=== PATIENT | female | born 1940 | race Caucasian/White ===

== ENCOUNTER 2019-10-27 08:26 | Outpatient (CLI) | payer MEDICARE, SELFPAY ==
--- NOTE | ~2019-10-27 | US_ITS ---
EXAMINATION: US pelvic complete DATE: 10/27/2019 15:30 INDICATION: Pelvic pain Comparison:No prior studies for comparison. TECHNIQUE: Multiple transabdominal and endovaginal sonographic images of the pelvis performed. FINDINGS: The uterus measures 5.4 x 2 x 3.1 cm. The endometrial complex measures 3.8 mm. The ovaries are not visualized. No adnexal masses or fluid collections. There is no free fluid in the pelvis. There are no abnormal masses seen on either side. IMPRESSION: 1. Mildly thickened endometrium for postmenopausal female measuring 3.8 mm. Reviewed, dictated and finalized at location A.
--- NOTE | ~2019-10-27 | US_ITS ---
EXAMINATION: US renal BI EXAM DATE: 10/27/2019 14:52 INDICATION: Right lower quadrant pain. TECHNIQUE: Multiple grayscale and Doppler images of the kidneys were obtained (by a technologist who performed the scan) and subsequently reviewed. Comparison is made to prior examination from 01/22/2017. FINDINGS: Right kidney: There is normal contour and echogenicity. It measures 9.9 x 3.5 x 4.2 centimeters. Th ere are no focal renal lesions identified. There is no hydronephrosis. Left kidney: There is normal contour and echogenicity. It measures 11.4 x 4.6 x 4.7 centimeters. Th ere are no focal renal lesions identified. There is no hydronephrosis. Bladder unremarkable. IMPRESSION: Sonographically unremarkable kidneys. Reviewed, dictated and finalized at location B.
== END 2019-10-27 08:27 | disposition home or self-care (01) ==
PROVIDERS: PCP Nurse Practitioner Family; Visit Provider Nurse Practitioner Family
DX: R10.9 Unspecified abdominal pain (principal); R10.31 Right lower quadrant pain
CPT/HCPCS: 76775; 76856

== ENCOUNTER 2019-10-31 14:37 | Outpatient (CLI) | payer MEDICARE, SELFPAY ==
[2019-10-31 15:41] LABS: Anion Gap 9.6 mmol/L (7-16); Blood Urea Nitrogen 19 mg/dL (7-18); Calcium 9.2 mg/dL (8.5-10.1); Carbon Dioxide 32 mmol/L (21-32); Chloride 102 mmol/L (98-108); Estimated Glomerular Filt Rate > 60; Glucose 96 mg/dL (70-99); Osmolality Calculated 290 mOsm/kg (285-295); Potassium 4.6 mmol/L (3.5-5.1); Sodium 139 mmol/L (136-145)
== END 2019-10-31 14:38 | disposition home or self-care (01) ==
LOC: CHSLAB 14:40
PROVIDERS: PCP Nurse Practitioner Family; Visit Provider Nurse Practitioner Family
DX: R10.31 Right lower quadrant pain (principal)
CPT/HCPCS: 36415; 80048

== ENCOUNTER 2019-11-02 07:47 | Outpatient (CLI) | payer MEDICARE, SELFPAY ==
--- NOTE | ~2019-11-02 | CT_ITS ---
EXAMINATION: CT abdomen pelvis w con DATE: 11/02/2019 08:45 INDICATION: Right lower quadrant abdominal pain TECHNIQUE: Computed tomography (CT) of the abdomen and pelvis was performed with 100 cc Omnipaque 350 intravenous contrast. Automated exposure control and iterative reconstruction technique were employe d. Exam dose: 286.15 mGy-cm total exam DLP. COMPARISON: None. FINDINGS: There is a very small probable hepatic cyst, too small to definitively characterize. Othe rwise the liver, spleen, pancreas, adrenal glands and kidneys are unremarkable. The gallbladder appe ars unremarkable. No bile or pancreatic duct dilatation. Normal caliber of the abdominal aorta, with atherosclerotic calcification. No intraperitoneal or retroperitoneal or pelvic mass lesion or lymphadenopathy is detected. There is no evidence of appendicitis. There is a prominent amount of feces in the colon. No bowel o bstruction or intraperitoneal free air. There is diffuse prominence of the urinary bladder wall; cystitis cannot be excluded. Clinical corre lation is recommended. The uterus and adnexal areas are unremarkable. There is multi-level degenerative disc disease of the lumbar spine, most prominent at L3-4. Degenera tive changes at the apophyseal joints. Osteoarthritic changes at the hip joints. IMPRESSION: Very small probable hepatic cyst No evidence of appendicitis Reviewed, dictated and finalized at Location A. Reviewed, dictated and finalized at location B.
== END 2019-11-02 07:48 | disposition home or self-care (01) ==
LOC: CHSIMG 07:50
PROVIDERS: PCP Nurse Practitioner Family; Visit Provider Nurse Practitioner Family
DX: R10.31 Right lower quadrant pain (principal)
CPT/HCPCS: 74177; Q9965

== ENCOUNTER 2020-02-12 19:49 | Emergency (ER) | payer MEDICARE, SELFPAY ==
[2020-02-12 20:15] VITALS: BP 163/100; PULSE 117; RESP 20; TEMP 36.9; O2SAT 95
[2020-02-12] MEDS: ONDANSETRON HCL ODT 4 MG TABLET PO (20:32)
[2020-02-12 20:47] LABS: Hematocrit 39.7 % (35.0-42.0); Hemoglobin 13.2 g/dL (11.7-13.8); Mean Corpuscular HGB Conc 33.2 g/dL (32.0-36.0); Mean Corpuscular Hemoglobin 29.7 pg (27.0-31.0); Mean Corpuscular Volume 89.2 fL (78.0-102.0); Mean Platelet Volume 9.9 fl (9.2-11.8); Platelet Count Result 189 K/mm3 (150-420); Red Blood Count 4.45 M/mm3 (4.20-5.40); Red Cell Distribution Width 12.4 % (11.6-14.4); White Blood Count 10.2 K/mm3 (4.8-10.8)
[2020-02-12 20:49] LABS: Add Urine Microscopic? NO; Appearance Urine Clear (Clear); Bilirubin Urine Negative (Negative); Blood Urine Negative (Negative); Color Urine Yellow (Yellow); Glucose Urine UA Negative (Negative); Ketones Urine Negative (Negative); Leukocyte Esterase Ur Negative (Negative); Nitrate Urine Negative (Negative); Protein Urine Negative (Negative); Specific Grav Ur 1.015 (1.010-1.020); Urobilinogen Urine 0.2 mg/dL (0.2-1.0); pH Urine 6.5 (5.0-8.0)
[2020-02-12 21:10] LABS: Alanine Aminotransferase 25 U/L (14-59); Albumin Level 3.6 g/dL (3.4-5.0); Alkaline Phosphatase 61 U/L (46-116); Anion Gap 10.9 mmol/L (7-16); Aspartate Amino Transferase 26 U/L (15-37); Bilirubin,Total 0.5 mg/dL (0.00-1.00); Blood Urea Nitrogen 16 mg/dL (7-18); Carbon Dioxide 30 mmol/L (21-32); Chloride 96 mmol/L (98-108); Estimated Glomerular Filt Rate > 60; Glucose 123 mg/dL (70-99); Osmolality Calculated 278 mOsm/kg (285-295); Potassium 3.9 mmol/L (3.5-5.1); Sodium 133 mmol/L (136-145)
--- NOTE | 2020-02-12 21:43 | ED.ABDPAIN ---
HPI - Abdominal Pain General Chief Complaint: Abdominal Pain Stated Complaint: stomach pain and nausea Source: patient Mode of arrival: ambulatory Limitations: no limitations History of Present Illness HPI narrative: this is an 79-year-old female presents with some abdominal pain mainly located in the [place] epigastric area with some nausea has been going off and on and had some Pepcid at home and took her medication. Patient has some chronic lower abdominal pain but this is different in nature as it is more epigastric and burning sensation, there is no dysuria no fever chills does have nausea with no vomiting no diarrhea constipation no chest pain or shortness of breath. MD elicited complaint: abdominal pain Onset (ago): hour(s) Pain Consistency: intermittent Location: epigastric Severity: moderate Pain scale (0-10): 4 Quality: burning Radiation: none Migration to: epigastric Exacerbating factors: eating Relieving factors: nothing Associated symptoms: nausea Related Data Home Medications Medication Instructions Recorded Confirmed anastrozole 1 mg tablet 1 mg PO DAILY 08/08/19 02/12/20 calcium carbonate-vitamin D3 600 1 cap PO DAILY cap 08/08/19 02/12/20 mg calcium-200 unit capsule lorazepam 0.5 mg tablet 0.5 mg PO .every 8 hours PRN 08/08/19 02/12/20 tablet magnesium oxide 400 mg PO DAILY 08/08/19 02/12/20 metoprolol tartrate 25 mg tablet 25 mg PO BID tablet 08/08/19 02/12/20 mhuhatoq-morurpq-bvok-lutein 1 mcg PO DAILY tablet 08/08/19 02/12/20 omega-3 fatty acids 1,000 mg 1,000 mg PO DAILY 08/08/19 02/12/20 capsule Allergies Allergy/AdvReac Type Severity Reaction Status Date / Time Sulfamethoxazole Allergy Unknown unkown Uncoded 02/07/20 11:00 Review of Systems Review of Systems: All systems reviewed & are unremarkable except as noted in HPI and below PMFSH Past Medical History Medical History Benign essential HTN Breast cancer Cardiac arrhythmia GARRETT (generalized anxiety disorder) Hyperlipidemia Nicotine dependence in remission Osteopenia Paroxysmal supraventricular tachycardia Skin cancer s/p surgical resection Surgical History Surgical History History of appendectomy History of lung biopsy (~08/2018) Left Family History Family History Mother Familial Alzheimer's disease of late onset Social History Social History Smoking status: Never smoker Alcohol intake: never Substance use: never Additional living arrangements comments: Gender identity (if verbalized by the patient): Female Spiritual care concerns: No Exam Const: General: no acute distress and alert Orientation/consciousness: patient oriented x3 HENMT: Head: normal to inspection Eyes: Conjunctivae: conjunctivae normal Pupils: Equal, round and reactive pupils present EOM: EOMs intact bilaterally Neck: Neck: normal visual inspection, no lymphadenopathy and no meningeal signs Chest: Chest palpation & inspection: normal inspection of the chest Resp: Effort & Inspection: normal respiratory effort Auscultation: clear to auscultation bilaterally Cardio: Rate: regular rate Rhythm: regular rhythm GI: GI Palp: Yes Soft to palpation and Yes Tenderness to palpation present (GI) ( Epigastric) Percussion: Yes normal to percussion : General: Yes no CVA tenderness Urinary Catheter: Urinary Catheter: patent and draining Back/Spine/Pelvis: Back: no CVA tenderness Neuro: General: patient oriented x3 Extrem: General: normal to inspection Psych: Mental Status: mental status grossly normal Course Course Emergency Course: patient received a GI cocktail and Zofran and the patient's symptoms have nearly resolved, patient has Pepcid at home and advised her at discharge when s
[2020-02-12 21:51] VITALS: BP 148/97; PULSE 89; RESP 18; TEMP 36.9; O2SAT 95
== END 2020-02-12 21:55 | disposition home or self-care (01) ==
PROVIDERS: Emergency Provider Emergency Medicine; PCP Nurse Practitioner Family
DX: K21.9 Gastro-esophageal reflux disease without esophagitis (principal); I10 Essential (primary) hypertension; Z85.3 Personal history of malignant neoplasm of breast; E78.5 Hyperlipidemia, unspecified
CPT/HCPCS: 36415; 80053; 81003; 85027; 99282; 99283; A9270

== ENCOUNTER 2020-07-05 09:22 | Outpatient (CLI) | payer MEDICARE, SELFPAY ==
[2020-07-06 06:44] LABS: SARS-CoV-2 RNA PCR Negative
== END 2020-07-05 09:23 | disposition home or self-care (01) ==
LOC: CHSLAB 09:24
PROVIDERS: PCP Nurse Practitioner Family; Visit Provider Nurse Practitioner Family
DX: Z20.828 Contact with and (suspected) exposure to other viral communicable diseases (principal)
CPT/HCPCS: 87635; C9803; U0003

== ENCOUNTER 2020-09-06 17:26 | Emergency (ER) | payer MEDICARE, SELFPAY ==
--- NOTE | ~2020-09-06 | XR_ITS ---
EXAMINATION: XR chest 2V DATE: 09/06/2020 18:25 INDICATION: Left sided chest pain TECHNIQUE: PA and lateral views of the chest are obtained. COMPARISON: 10/02/2018 FINDINGS: The lungs are hyperinflated but free of acute opacities. There is no pleural effusion or pn eumothorax. Cardiomegaly is noted. There is mild thoracic spondylosis. IMPRESSION: 1. No acute cardiopulmonary abnormality. Reviewed, dictated and finalized at location A. [employer]
--- NOTE | 2020-09-06 17:45 | ECG_ITS ---
Measurements Intervals [place] Rate: 104 P: 246 DE: 236 QRS: -29 QRSD: 91 T: 67 QT: 354 QTc: 466 Interpretive Statements ECTOPIC ATRIAL TACHYCARDIA LEFT VENTRICULAR HYPERTROPHY AND ST-T CHANGE CANNOT RULE OUT SEPTAL INFARCT, AGE INDETERMINATE ABNORMAL ECG Electronically Signed On 09-07-2020 8:35:01 [employer]IM INSTALLER by John Ray D.O.
[2020-09-06 18:05] VITALS: BP 168/104; PULSE 108; RESP 20; TEMP 36.7; O2SAT 100
[2020-09-06 18:19] LABS: Basophils Absolute Auto 0.04 K/mm3 (0.00-0.10); Basophils Percent Auto 0.6 % (0.0-1.0); Eosinophils Absolute Auto 0.18 K/mm3 (0.02-0.50); Eosinophils Percent Auto 2.8 % (1.0-6.0); Hematocrit 40.6 % (35.0-42.0); Hemoglobin 12.9 g/dL (11.7-13.8); Immature Granulocyte Absolute 0.01 K/mm3 (0.00-0.00); Immature Granulocyte Percent A 0.2 % (0.0-0.0); Lymphocytes Absolute Auto 2.07 K/mm3 (1.10-4.50); Lymphocytes Percent Auto 32.6 % (18.0-42.0); Mean Corpuscular HGB Conc 31.8 g/dL (32.0-36.0); Mean Corpuscular Hemoglobin 28.5 pg (27.0-31.0); Mean Corpuscular Volume 89.6 fL (78.0-102.0); Mean Platelet Volume 9.8 fl (9.2-11.8); Monocytes Absolute Auto 0.73 K/mm3 (0.10-0.90); Monocytes Percent Auto 11.5 % (2.0-11.0); Neutrophils Absolute Auto 3.3 K/mm3 (1.7-7.2); Neutrophils Percent Auto 52.3 % (50.0-70.0); Platelet Count Result 207 K/mm3 (150-420); Red Blood Count 4.53 M/mm3 (4.20-5.40); Red Cell Distribution Width 12.5 % (11.6-14.4); White Blood Count 6.3 K/mm3 (4.8-10.8)
[2020-09-06] MEDS: MAG HYDROX/ALUMINUM HYD/SIMETH 30 ML, PHENobarb/HYOSCY/ATROPINE/SCOP 32.4 MG, LIDOCAINE... PO (18:32)
[2020-09-06 18:35] LABS: Alanine Aminotransferase 31 U/L (14-59); Albumin Level 4.1 g/dL (3.4-5.0); Alkaline Phosphatase 75 U/L (46-116); Anion Gap 9 mmol/L (8-16); Aspartate Amino Transferase 25 U/L (15-37); Bilirubin,Total 0.3 mg/dL (0.00-1.00); Blood Urea Nitrogen 22 mg/dL (7-18); Calcium 8.9 mg/dL (8.5-10.1); Carbon Dioxide 29 mmol/L (21-32); Chloride 98 mmol/L (98-108); Estimated Glomerular Filt Rate 59; Glucose 119 mg/dL (70-99); Lipase 132 U/L (73-393); Osmolality Calculated 286 mOsm/kg (285-295); Potassium 3.7 mmol/L (3.5-5.1); Sodium 136 mmol/L (136-145); Total Protein 7.3 g/dL (6.4-8.2)
[2020-09-06 18:38] LABS: Add Urine Microscopic? NO; Appearance Urine Clear (Clear); Bilirubin Urine Negative (Negative); Blood Urine Negative (Negative); Color Urine Yellow (Yellow); Glucose Urine UA Negative (Negative); Ketones Urine Negative (Negative); Leukocyte Esterase Ur Negative LEU/UL (Negative); Nitrate Urine Negative (Negative); Protein Urine Negative (Negative); Specific Grav Ur 1.015 (1.010-1.020); Urobilinogen Urine 0.2 mg/dL (0.2-1.0)
[2020-09-06 18:48] LABS: BNP 115 pg/mL (0-100)
[2020-09-06 18:55] LABS: Partial Thromboplastin Time 28.2 SEC (23.90-30.70); Prothrombin Time 11.5 Seconds (9.50-12.10)
[2020-09-06] MEDS: SODIUM CHLORIDE 0.9% IV 1,000 ML 999 ML IV CONT (19:10)
--- NOTE | 2020-09-06 19:11 | ED.CHESTPAIN ---
HPI - Chest Pain General Chief Complaint: Chest Pain Stated Complaint: chest pain Source: patient Mode of arrival: ambulatory Limitations: no limitations History of Present Illness HPI narrative: this is an 79-year-old female that presents with chest tightness left chest area reproducible, has been off and on for the last 5 days and today has been more persistent, there is no associated shortness of breath no radiation of her pain no diaphoresis no nausea vomiting rates her pain about a 4/10 does have some epigastric discomfort. Currently there is no fever chills no abdominal pain no diarrhea constipation. Patient has a history of breast cancer, she sees oncologist and is on anastrozole, history of generalized anxiety disorder. Also patient has a history of GERD and is currently on omeprazole. MD complaint: chest pain Onset (ago): day(s) Timing of current episode: episodic Prior episodes: Yes Onset: during rest Pain location: left chest Pain radiation: none Severity: mild Pain scale (0-10): 4 Quality: tightness and aching Relieving factors: nothing Exacerbating factors: nothing Treatment prior to arrival: none Related Data Home Medications Medication Instructions Recorded Confirmed anastrozole 1 mg tablet 1 mg PO DAILY 08/08/19 09/06/20 calcium carbonate-vitamin D3 600 1 cap PO BID cap 08/08/19 09/06/20 mg calcium-200 unit capsule lorazepam 0.5 mg tablet 0.5 mg PO .every 8 hours PRN 08/08/19 09/06/20 tablet magnesium oxide 400 mg PO DAILY 08/08/19 09/06/20 surxhpfy-vcyfdoj-hhrp-lutein tablet 1 mcg PO DAILY tablet 08/08/19 09/06/20 omega-3 fatty acids 1,000 mg 1,000 mg PO DAILY 08/08/19 09/06/20 capsule metoprolol tartrate 25 mg PO BID 09/06/20 09/06/20 verapamil 120 mg PO BID 09/06/20 09/06/20 Allergies Allergy/AdvReac Type Severity Reaction Status Date / Time Sulfamethoxazole Allergy Unknown unkown Uncoded 09/06/20 18:51 Review of Systems Review of Systems: All systems reviewed & are unremarkable except as noted in HPI and below PMFSH Past Medical History Medical History Benign essential HTN Breast cancer Cardiac arrhythmia Colon polyp Constipation Epigastric pain GARRETT (generalized anxiety disorder) Hyperlipidemia Nausea and vomiting in adult Nicotine dependence in remission Osteopenia Paroxysmal supraventricular tachycardia Skin cancer s/p surgical resection Surgical History Surgical History History of appendectomy History of lung biopsy (~08/2018) Left Family History Family History Mother Familial Alzheimer's disease of late onset Social History Social History Smoking status: Former smoker Alcohol intake: never Substance use: never Additional living arrangements comments: Gender identity (if verbalized by the patient): Female Spiritual care concerns: No Exam Const: General: no acute distress Orientation/consciousness: patient oriented x3 HENMT: Head: normal to inspection Eyes: Conjunctivae: conjunctivae normal Pupils: Equal, round and reactive pupils present EOM: EOMs intact bilaterally Neck: Neck: normal visual inspection, no lymphadenopathy and no meningeal signs Chest: Chest palpation & inspection: normal inspection of the chest Resp: Effort & Inspection: normal respiratory effort Auscultation: clear to auscultation bilaterally Cardio: Rate: regular rate and tachycardic GI: Auscultation: normal bowel sounds : General: Yes no CVA tenderness Back/Spine/Pelvis: Back: no CVA tenderness Skin: General skin exam: normal color Rashes: no rashes Neuro: General: patient oriented x3, moves all extremities, no meningeal signs and no focal motor deficits Psych: Mental Status: mental status grossly normal Affect: An
[2020-09-06 19:40] VITALS: BP 132/76; PULSE 80; RESP 20; O2SAT 98
--- NOTE | 2020-09-06 19:42 | PC.NURSE ---
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
--- NOTE | 2020-10-03 13:37 | PC.NURSE ---
09/06/20 RIGHT AC IV D/C'D AT 1930
== END 2020-09-06 19:45 | disposition home or self-care (01) ==
PROVIDERS: Emergency Provider Emergency Medicine; PCP Nurse Practitioner Family
DX: F41.1 Generalized anxiety disorder (principal); R07.89 Other chest pain; K21.9 Gastro-esophageal reflux disease without esophagitis; I10 Essential (primary) hypertension; E78.5 Hyperlipidemia, unspecified; Z87.891 Personal history of nicotine dependence
CPT/HCPCS: 36415; 71046; 80053; 81003; 83690; 83880; 84484; 85025; 85380; 85610; 85730; 93005; 99283; 99284; A9270; J7030

== ENCOUNTER 2020-09-17 07:58 | Outpatient (CLI) | payer MEDICARE, SELFPAY ==
[2020-09-17 09:27] LABS: Cholesterol 212 mg/dL (0-200); HDL Direct 99 mg/dL (40-60); LDL Cholesterol Calculated 104 mg/dL (<130); Triglycerides 47 mg/dL (0-150)
== END 2020-09-17 07:59 | disposition home or self-care (01) ==
LOC: CHSLAB 08:00
PROVIDERS: PCP Nurse Practitioner Family; Visit Provider Internal Medicine Cardiovascular Disease
DX: E78.5 Hyperlipidemia, unspecified (principal)
CPT/HCPCS: 36415; 80061

== ENCOUNTER 2021-02-06 11:28 | Outpatient (CLI) | payer MEDICARE, SELFPAY ==
[2021-02-06 11:38] LABS: Basophils Absolute Auto 0.04 K/mm3 (0.00-0.10); Basophils Percent Auto 0.7 % (0.0-1.0); Eosinophils Absolute Auto 0.09 K/mm3 (0.02-0.50); Eosinophils Percent Auto 1.6 % (1.0-6.0); Hematocrit 38.3 % (35.0-42.0); Hemoglobin 12.6 g/dL (11.7-13.8); Immature Granulocyte Absolute 0.01 K/mm3 (0.00-0.00); Immature Granulocyte Percent A 0.2 % (0.0-0.0); Lymphocytes Absolute Auto 1.28 K/mm3 (1.10-4.50); Lymphocytes Percent Auto 22.4 % (18.0-42.0); Mean Corpuscular HGB Conc 32.9 g/dL (32.0-36.0); Mean Corpuscular Hemoglobin 29.9 pg (27.0-31.0); Mean Corpuscular Volume 90.8 fL (78.0-102.0); Mean Platelet Volume 9.2 fl (9.2-11.8); Monocytes Absolute Auto 0.68 K/mm3 (0.10-0.90); Monocytes Percent Auto 11.9 % (2.0-11.0); Neutrophils Absolute Auto 3.6 K/mm3 (1.7-7.2); Neutrophils Percent Auto 63.2 % (50.0-70.0); Platelet Count Result 202 K/mm3 (150-420); Red Blood Count 4.22 M/mm3 (4.20-5.40); Red Cell Distribution Width 12.9 % (11.6-14.4); White Blood Count 5.7 K/mm3 (4.8-10.8)
[2021-02-09 12:55] LABS: Vitamin D 25 Hydroxy 38 ng/mL (30-100)
== END 2021-02-06 11:29 | disposition home or self-care (01) ==
LOC: CHSLAB 11:30
PROVIDERS: PCP Nurse Practitioner Family; Visit Provider Nurse Practitioner Family
DX: R53.83 Other fatigue (principal); I10 Essential (primary) hypertension; E55.9 Vitamin D deficiency, unspecified
CPT/HCPCS: 36415; 82306; 84443; 85025

== ENCOUNTER 2021-06-03 10:35 | Outpatient (CLI) | payer MEDICARE, SELFPAY ==
[2021-06-03 11:30] LABS: SARS-CoV-2 RNA PCR Positive (Negative)
== END 2021-06-03 10:36 | disposition home or self-care (01) ==
LOC: CHSLAB 10:39
PROVIDERS: PCP Nurse Practitioner Family; Visit Provider Nurse Practitioner Family
DX: U07.1 COVID-19 (principal)
CPT/HCPCS: C9803; U0003; U0005

== ENCOUNTER 2021-06-14 20:08 | Emergency (ER) | payer MEDICARE, SELFPAY ==
--- NOTE | ~2021-06-14 | CT_ITS ---
EXAMINATION: CT BRAIN W/O DATE: 06/14/2021 21:13 INDICATION: Lightheadedness. TECHNIQUE: Computed tomography (CT) of the head was performed without intravenous contrast. The dose- length product was 605.33 mGy-cm. COMPARISON: No prior studies for comparison. FINDINGS: Normal brain parenchymal volume for age. Normal jalloh-white differentiation. No acute intrac ranial hemorrhage, infarction, mass or mass effect. There are scattered mild periventricular and subc ortical white matter changes, most likely related to small vessel ischemic disease (microangiopathy). There is mucosal thickening of the left ethmoid sinuses. No ventriculomegaly or midline shift. Midline sagittal images demonstrate a normal corpus callosum, c raniovertebral junction and sella turcica. Basilar cisterns are patent. No depressed skull fractures. IMPRESSION: 1. No acute intracranial abnormality. 2: Mild ethmoid sinus disease. Reviewed, dictated and finalized at location A.
--- NOTE | ~2021-06-14 | XR_ITS ---
EXAMINATION: XR chest 1V portable 06/14/2021 21:13 INDICATION: Weakness. Covid infection. PROCEDURE: AP portable chest COMPARISON: 09/06/2020 FINDINGS: The lungs are clear. Cardiomegaly. There are no pleural effusions. There is no pneumothora x suspected. IMPRESSION: 1: NO ACUTE CARDIOPULMONARY DISEASE. Reviewed, dictated and finalized at location A.
--- NOTE | 2021-06-14 20:37 | ECG_ITS ---
Measurements Intervals [place] Rate: 78 P: 83 CA: 285 QRS: -36 QRSD: 96 T: 64 QT: 392 QTc: 449 Interpretive Statements SINUS RHYTHM WITH FIRST DEGREE AV BLOCK CHANGE IN SINGLE QRS COMPLEX TO A WIDE COMPLEX LEFT AXIS DEVIATION LEFT VENTRICULAR HYPERTROPHY AND ST-T CHANGE DELAYED PRECORDIAL R/S TRANSITION ABNORMAL ECG Electronically Signed On 06-15-2021 7:50:15 CDT by John Ray D.O.
[2021-06-14] MEDS: SODIUM CHLORIDE 0.9% IV 500 ML 999 ML IV CONT (21:19)
[2021-06-14 21:20] VITALS: BP 147/97; PULSE 89; RESP 20; TEMP 37.2; O2SAT 95
[2021-06-14 21:50] VITALS: BP 146/90; PULSE 89; RESP 20; O2SAT 94
[2021-06-14 22:35] LABS: Base Excess ABG 3.4 mmol/L (0-2); HCO3 ABG 27.6 mmol/L (23-29); Oxygen Content ABG 17.3 %vol (16.0-22.0); Oxyhemoglobin 94.5 % (94-100); PCO2 ABG 40.2 mmHg (35-45); PO2 ABG 80.6 mmHg (75-85); pH ABG 7.45 (7.35-7.45)
[2021-06-14 22:38] LABS: Basophils Absolute Auto 0.02 K/mm3 (0.00-0.10); Basophils Percent Auto 0.3 % (0.0-1.0); Device ROOM AIR; Eosinophils Absolute Auto 0.12 K/mm3 (0.02-0.50); Eosinophils Percent Auto 1.9 % (1.0-6.0); Hematocrit 36.7 % (35.0-42.0); Hemoglobin 11.9 g/dL (11.7-13.8); Immature Granulocyte Absolute 0.03 K/mm3 (0.00-0.00); Immature Granulocyte Percent A 0.5 % (0.0-0.0); Lymphocytes Absolute Auto 1.33 K/mm3 (1.10-4.50); Lymphocytes Percent Auto 20.7 % (18.0-42.0); Mean Corpuscular HGB Conc 32.4 g/dL (32.0-36.0); Mean Corpuscular Hemoglobin 28.7 pg (27.0-31.0); Mean Corpuscular Volume 88.4 fL (78.0-102.0); Modified Allen's Test Pass; Monocytes Absolute Auto 0.93 K/mm3 (0.10-0.90); Monocytes Percent Auto 14.5 % (2.0-11.0); Neutrophils Percent Auto 62.1 % (50.0-70.0); Platelet Count Result 258 K/mm3 (150-420); Red Blood Count 4.15 M/mm3 (4.20-5.40); Red Cell Distribution Width 12.4 % (11.6-14.4); Site Drawn LEFT RADIAL; White Blood Count 6.4 K/mm3 (4.8-10.8)
[2021-06-14 22:56] LABS: Alanine Aminotransferase 68 U/L (14-59); Albumin Level 3.1 g/dL (3.4-5.0); Alkaline Phosphatase 43 U/L (46-116); Anion Gap 7 mmol/L (8-16); Aspartate Amino Transferase 37 U/L (15-37); Bilirubin,Total 0.5 mg/dL (0.00-1.00); Blood Urea Nitrogen 13 mg/dL (7-18); Calcium 8.7 mg/dL (8.5-10.1); Carbon Dioxide 31 mmol/L (21-32); Chloride 99 mmol/L (98-108); Estimated CRCL calculation 45 ml/min; Estimated Glomerular Filt Rate > 60; Glucose 110 mg/dL (70-99); Osmolality Calculated 285 mOsm/kg (285-295); Potassium 4.1 mmol/L (3.5-5.1); Sodium 137 mmol/L (136-145); Total Protein 6.6 g/dL (6.4-8.2)
[2021-06-14 22:58] LABS: Lactic Acid Reflex 0.6 mmol/L (0.4-2.0)
[2021-06-14 23:08] LABS: Add Urine Microscopic? NO; Appearance Urine Clear (Clear); Bilirubin Urine Negative (Negative); Blood Urine Negative (Negative); Color Urine Light Yellow (Yellow); Glucose Urine UA Negative (Negative); Ketones Urine Negative (Negative); Leukocyte Esterase Ur Negative (Negative); Nitrate Urine Negative (Negative); Protein Urine Negative (Negative); Urobilinogen Urine 0.2 mg/dL (0.2-1.0)
--- NOTE | 2021-06-14 23:30 | ED.WEAKNESS ---
HPI - Weakness General Chief complaint: Weakness Stated complaint: weakness Time Seen by Provider: 06/14/21 20:10 Source: patient and RN notes reviewed Mode of arrival: ambulatory Limitations: no limitations History of Present Illness Complaint: tingling (mild recurrent light-headedness. no syncope, SOB or chest pain ) Onset (ago): day(s) (3) Duration: constant and improved Location: generalized Migration: none Severity: mild Severity scale (1-10): 1 Relieving factors: rest Exacerbating factors: none Associated symptoms: other (nasal congestion, mild facial tenderness ) Related Data Home Medications Medication Instructions Recorded Confirmed calcium carbonate-vitamin D3 600 1 cap PO BID cap 08/08/19 06/14/21 mg calcium-200 unit capsule magnesium oxide 400 mg PO DAILY 08/08/19 06/14/21 inoidauw-nuoypro-zyvz-lutein tablet 1 mcg PO DAILY tablet 08/08/19 06/14/21 omega-3 fatty acids 1,000 mg 1,000 mg PO DAILY 08/08/19 06/14/21 capsule zoledronic acid 5 mg/100 mL in 1 ea IV .annually ml 01/28/21 06/14/21 mannitol 5 %-water intravenous piggybck metoprolol tartrate 25 mg PO BID 06/14/21 06/14/21 Allergies Allergy/AdvReac Type Severity Reaction Status Date / Time Sulfamethoxazole Allergy Unknown Unknown Uncoded 06/14/21 21:30 Review of Systems Review of Systems: All systems reviewed & are unremarkable except as noted in HPI and below PMFSH Past Medical History Medical History Benign essential HTN Breast cancer Cardiac arrhythmia Colon polyp Constipation Epigastric pain GARRETT (generalized anxiety disorder) Hyperlipidemia Nausea and vomiting in adult Nicotine dependence in remission Osteopenia Paroxysmal supraventricular tachycardia Skin cancer s/p surgical resection Surgical History Surgical History H/O cataract extraction History of appendectomy History of lung biopsy (~08/2018) Left Family History Family History Mother Familial Alzheimer's disease of late onset Social History Social History Smoking status: Never smoker Additional smoking assessment comments: socially only Alcohol intake: never Substance use: never Additional living arrangements comments: Gender identity (if verbalized by the patient): Female Spiritual care concerns: No Exam Const: General: healthy appearing, no acute distress and alert Orientation/consciousness: patient oriented x3 HENMT: Head: normal to inspection Ears: external ears normal and TM's normal bilaterally General nose exam: Normal external nose present and Normal nares present Face and sinus: normal facial exam Mouth: Yes lip normal and Yes moist mucous membranes Teeth and gingiva: dentition normal Eyes: Conjunctivae: conjunctivae normal Pupils: Equal, round and reactive pupils present EOM: EOMs intact bilaterally Neck: Neck: normal visual inspection and no lymphadenopathy Chest: Chest palpation & inspection: normal inspection of the chest Resp: Effort & Inspection: normal respiratory effort Auscultation: clear to auscultation bilaterally Cardio: Rate: regular rate Rhythm: regular rhythm GI: GI Palp: Yes Soft to palpation and No Tenderness to palpation present (GI) Percussion: Yes normal to percussion Auscultation: normal bowel sounds : Genera
[2021-06-14 23:35] VITALS: BP 140/79; PULSE 88; RESP 18; O2SAT 92
[2021-06-14] MEDS: guaiFENesin 12 HR 600 MG TABCR PO (23:44)
== END 2021-06-14 23:55 | disposition home or self-care (01) ==
PROVIDERS: Emergency Provider Emergency Medicine; PCP Nurse Practitioner Family
DX: R42 Dizziness and giddiness (principal); J01.40 Acute pansinusitis, unspecified; H69.83 Other specified disorders of Eustachian tube, bilateral; E78.5 Hyperlipidemia, unspecified; I10 Essential (primary) hypertension; Z85.3 Personal history of malignant neoplasm of breast
CPT/HCPCS: 36415; 36600; 70450; 71045; 80053; 81003; 82805; 83605; 84484; 85025; 93005; 96360; 99283; 99284; A9270; J7040

== ENCOUNTER 2021-07-26 13:43 | Outpatient (NON) | payer MEDICARE, SELFPAY | END 2021-07-26 13:44 | disposition home or self-care (01) | LOC: CHSLAB 13:46 | PROVIDERS: Visit Provider Nurse Practitioner Family | DX: R34 Anuria and oliguria (principal) | CPT/HCPCS: 87077; 87086; 87088; 87186 ==

== ENCOUNTER 2021-08-24 12:51 | Emergency (ER) | payer MEDICARE, SELFPAY ==
--- NOTE | ~2021-08-24 | XR_ITS ---
EXAMINATION: XR forearm RT 2V INDICATION: Right forearm pain TECHNIQUE: Two views of the right forearm are obtained. COMPARISON: None available FINDINGS: There is no fracture, dislocation, or subluxation. The bones, soft tissues, and joint space s are normal. IMPRESSION: 1. No acute osseous abnormality. Reviewed, dictated and finalized at location F. VER
--- NOTE | ~2021-08-24 | XR_ITS ---
EXAMINATION: XR wrist RT 2V INDICATION: Right wrist pain TECHNIQUE: Two views of the right wrist are obtained. COMPARISON: None available FINDINGS: There is no fracture, dislocation, or subluxation. There is mild osteoarthritis of the wris t. The soft tissues are unremarkable. IMPRESSION: 1. No acute osseous abnormality. Reviewed, dictated and finalized at location F. 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
--- NOTE | ~2021-08-24 | XR_ITS ---
EXAMINATION: XR hip RT 2V w AP pelvis INDICATION: Right hip pain after fall TECHNIQUE: AP view the pelvis and two views of the right hip are obtained. COMPARISON: None available FINDINGS: Bone alignment is normal. There is no fracture. There is moderate osteoarthritis of the hip s. Phleboliths are noted in the pelvis. Calcified atherosclerosis is seen. Advanced spondylosis is no roldan in the lower lumbar spine. IMPRESSION: 1. No acute osseous abnormality. Reviewed, dictated and finalized at location F. 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
[2021-08-24 15:02] VITALS: BP 163/99; PULSE 95; RESP 20; TEMP 36.1; O2SAT 94
--- NOTE | 2021-08-24 15:48 | ED.FALL ---
HPI - Fall General Chief Complaint: Fall Stated Complaint: R arm pain, R hip pain after fall Source: patient Mode of arrival: ambulatory History of Present Illness HPI Narrative: This is an 80-year-old female that fell while outdoors on a patch of ice causing pain and tenderness in her right wrist and forearm as well as right hip area, patient has a good range of motion in the wrist and forearm as well as her right hip with no bruising no swelling has good range of motion with brisk pulses in the right radial area. complaint: fall Onset (ago): hour(s) Fall from: standing Fall witnessed: yes, by family Place fall occurred: street Loss of consciousness: none Related Data Home Medications Medication Instructions Recorded Confirmed calcium carbonate 600 mg-vitamin 1 cap PO BID cap 08/08/19 08/24/21 D3 5 mcg (200 unit) capsule magnesium oxide 400 mg PO DAILY 08/08/19 08/24/21 svyeatia-ubotkot-xxnd-lutein tablet 1 mcg PO DAILY tablet 08/08/19 08/24/21 omega-3 fatty acids 1,000 mg 1,000 mg PO DAILY 08/08/19 08/24/21 capsule zoledronic acid 5 mg/100 mL in 1 ea IV .annually ml 01/28/21 08/24/21 mannitol 5 %-water intravenous piggybck metoprolol tartrate 25 mg PO BID 06/14/21 08/24/21 verapamil 120 mg PO BID 08/24/21 08/24/21 Allergies Allergy/AdvReac Type Severity Reaction Status Date / Time Sulfamethoxazole Allergy Intermediate Rash Uncoded 08/24/21 15:10 Review of Systems Review of Systems: All systems reviewed & are unremarkable except as noted in HPI and below PMFSH Past Medical History Medical History Benign essential HTN Breast cancer Cardiac arrhythmia Colon polyp Constipation Epigastric pain GARRETT (generalized anxiety disorder) Hyperlipidemia Nausea and vomiting in adult Nicotine dependence in remission Osteopenia Paroxysmal supraventricular tachycardia Skin cancer s/p surgical resection Surgical History Surgical History H/O cataract extraction History of appendectomy History of lung biopsy (~08/2018) Left Family History Family History Mother Familial Alzheimer's disease of late onset Social History Social History Smoking status: Never smoker Additional smoking assessment comments: socially only Alcohol intake: never Substance use: never Additional living arrangements comments: Gender identity (if verbalized by the patient): Female Spiritual care concerns: No Exam Const: General: no acute distress Orientation/consciousness: patient oriented x3 HENMT: Head: normal to inspection Eyes: Conjunctivae: conjunctivae normal Pupils: Equal, round and reactive pupils present Neck: Neck: normal visual inspection, no lymphadenopathy and no meningeal signs Chest: Chest palpation & inspection: normal inspection of the chest Resp: Effort & Inspection: normal respiratory effort Cardio: Rate: regular rate Rhythm: regular rhythm GI: Auscultation: normal bowel sounds : General: Yes no CVA tenderness Skin: General skin exam: normal color Rashes: no rashes Neuro: General: patient oriented x3, moves all extremities, no meningeal signs and no focal motor deficits Extrem: General: normal to inspection and no pedal edema Psych: Mental Status: mental status grossly normal Affect: normal affect Course Course Emergency Course: X-rays reviewed with patient patient's daughter patient received 30mg of IM Toradol advised to rest and take Tylenol extra-strength as needed and follow-up primary care physician. Vital Signs Vital signs: Vital Signs Temperature 36.1 C L 08/24/21 15:02 Pulse Rate 95 08/24/21 15:02 Respiratory Rate 20 08/24/21 15:02 Blood Pressure 163/99 H 08/24/21 15:02 Pulse Oximetry 94 08/24/21 15:02
[2021-08-24] MEDS: KETOROLAC 30 MG/ML VIAL (*BKC) IM (15:50)
[2021-08-24 16:12] VITALS: BP 138/77; PULSE 88; RESP 20; TEMP 36.8; O2SAT 96
== END 2021-08-24 16:25 | disposition home or self-care (01) ==
PROVIDERS: Emergency Provider Emergency Medicine; PCP Nurse Practitioner Family
DX: T14.8XXA Other injury of unspecified body region, initial encounter (principal); W00.0XXA Fall on same level due to ice and snow, initial encounter; I10 Essential (primary) hypertension; E78.5 Hyperlipidemia, unspecified
CPT/HCPCS: 73090; 73100; 73502; 96372; 99283; 99284; J1885

== ENCOUNTER 2021-08-30 10:06 | Emergency (ER) | payer MEDICARE, SELFPAY ==
[2021-08-30 10:10] VITALS: BP 117/67; PULSE 74; RESP 16; TEMP 36.5; O2SAT 95
[2021-08-30] MEDS: KETOROLAC (*BKC) 60 MG/2 ML VIAL IM (10:55)
[2021-08-30 11:15] VITALS: BP 119/67; PULSE 71; RESP 16; O2SAT 94
--- NOTE | 2021-08-30 11:42 | ED.GENADULT ---
HPI - General Adult General Chief complaint: Unspecified Stated complaint: pain in groin Time Seen by Provider: 08/30/21 10:12 Source: patient and RN notes reviewed Mode of arrival: ambulatory Limitations: no limitations History of Present Illness complaint: mild right groin pain Onset (ago): day(s) (2) Location: lower extremity Radiation: non-radiation Severity: mild Severity scale (1-10): 6 Quality: aching, dull and constant Pain Consistency: constant Relieving factors: none Exacerbating factors: movement Associated symptoms: denies other symptoms Treatments prior to arrival: none Related Data Home Medications Medication Instructions Recorded Confirmed calcium carbonate 600 mg-vitamin 1 cap PO BID cap 08/08/19 08/30/21 D3 5 mcg (200 unit) capsule magnesium oxide 400 mg PO DAILY 08/08/19 08/30/21 syxbwlrm-czaizjv-kxap-lutein tablet 1 mcg PO DAILY tablet 08/08/19 08/30/21 omega-3 fatty acids 1,000 mg 1,000 mg PO DAILY 08/08/19 08/30/21 capsule zoledronic acid 5 mg/100 mL in 1 ea IV .annually ml 01/28/21 08/30/21 mannitol 5 %-water intravenous piggybck metoprolol tartrate 25 mg PO BID 06/14/21 08/30/21 verapamil 120 mg PO BID 08/24/21 08/30/21 Allergies Allergy/AdvReac Type Severity Reaction Status Date / Time Sulfamethoxazole Allergy Intermediate Rash Uncoded 08/26/21 15:38 Review of Systems Review of Systems: All systems reviewed & are unremarkable except as noted in HPI and below Musculoskeletal: Musculoskeletal: Reports other (right groin pain) [facility] Past Medical History Medical History Benign essential HTN Breast cancer Cardiac arrhythmia Colon polyp Constipation Epigastric pain GARRETT (generalized anxiety disorder) Hyperlipidemia Nausea and vomiting in adult Nicotine dependence in remission Osteopenia Paroxysmal supraventricular tachycardia Sciatica of right side Skin cancer s/p surgical resection Surgical History Surgical History H/O cataract extraction History of appendectomy History of lung biopsy (~08/2018) Left Family History Family History Mother Familial Alzheimer's disease of late onset Social History Social History Smoking status: Never smoker Additional smoking assessment comments: socially only Alcohol intake: never Substance use: never Additional living arrangements comments: Gender identity (if verbalized by the patient): Female Spiritual care concerns: No Exam Const: General: cooperative, no acute distress and well developed Nutritional Appearance: average body habitus and well nourished Orientation/consciousness: oriented to person and patient oriented x3 Limitations: no limitations HENMT: Head: normal to inspection, normocephalic and atraumatic Ears: hearing grossly normal bilaterally, external ears normal and TM's normal bilaterally General nose exam: Normal external nose present and Normal nares present Face and sinus: normal facial exam Mouth: Yes moist mucous membranes Throat: posterior oropharynx normal Eyes: General: appearance abnormal, both eyes Visual Beck: normal visual beck by confrontation Eyelids: eyelids normal Conjunctivae: conjunctivae normal Sclera: sclerae normal Cornea: corneas normal Pupils: Equal, round and reactive pupils present and Pupils normal by confrontation EOM: EOMs intact bilaterally Neck: Neck: normal visual inspection, full ROM and no lymphadenopathy Lymphatic: no lymphadenopathy noted and no lymphedema noted Chest: Chest palpation & inspection: normal inspection of the chest Resp: Effort & Inspection: normal respiratory effort and not able to speak in complete sentences Auscultation: clear to auscultation bilaterally Cardio: Jugular venous distension:
[2021-08-30 11:50] VITALS: BP 120/67; PULSE 70; RESP 16; O2SAT 94
== END 2021-08-30 11:59 | disposition home or self-care (01) ==
PROVIDERS: Emergency Provider Emergency Medicine; PCP Nurse Practitioner Family
DX: M54.31 Sciatica, right side (principal); M25.551 Pain in right hip
CPT/HCPCS: 96372; 99283; J1885

== ENCOUNTER 2021-09-07 08:43 | Outpatient (CLI) | payer MEDICARE, SELFPAY ==
--- NOTE | ~2021-09-07 | MR_ITS ---
EXAMINATION: MR hip RT wo con DATE: 09/07/2021 10:03 INDICATION: Right hip pain. TECHNIQUE: Magnetic resonance imaging (MRI) of the right hip was performed without intravenous contra st. Sequences included axial and coronal PD-weighted FS FSE and axial T1-weighted FSE of the pelvis. Sequences of the hip included 2D FIESTA, T1-weighted fast GRE, and axial, coronal, and sagittal PD-we ighted FS FSE. COMPARISON: Right hip radiographs 08/24/2021 FINDINGS: Bones/cartilage: There is levoscoliosis and severe spondylosis of lumbar spine. There is an insufficiency fracture of right sacral ala. There are insufficiency fractures of right superior and inferior pubic rami. There is an insufficiency fracture of left parasymphyseal pubis. There is deep partial thickness cartilage loss in right hip joint posterosuperiorly. There is at least deep partial thickness cartilage loss in left hip joint anterosuperiorly. Labrum: There is a tear of the right acetabular labrum. Fluid: There is no hip joint effusion. There is severe right trochanteric bursitis with a fluid collection m easuring 4.9 x 1.6 x 3.3 cm. There is moderate left trochanteric bursitis. Soft tissues: There is edema in the right hip adductor muscles adjacent to the fractures of the pubic rami. There i s moderate bilateral gluteus minimus tendinopathy. The gluteus medius tendons are intact. There is mi ld tendinopathy of the hamstring origins bilaterally. The iliopsoas tendons are intact. IMPRESSION: 1. Acute/subacute insufficiency fractures of the right sacral ala, right superior and inferior pubic rami, and left parasymphyseal pubis. 2. Moderate chondrosis of the hips. 3. Severe right trochanteric bursitis. Reviewed, dictated and finalized at location A. ICATIONS MANAGER IMPRESSION: 1. Acute/subacute insufficiency fractures of the right sacral ala, right superi or and inferior pubic rami, and left parasymphyseal pubis. 2. Moderate chondrosis of the hips. 3. Severe right trochanteric bursitis.
== END 2021-09-07 08:44 | disposition home or self-care (01) ==
LOC: CHSIMG 08:45
PROVIDERS: PCP Nurse Practitioner Family; Visit Provider Nurse Practitioner Family
DX: M25.551 Pain in right hip (principal); S79.911A Unspecified injury of right hip, initial encounter
CPT/HCPCS: 73721

== ENCOUNTER 2021-09-11 10:44 | Outpatient (CLI) | payer MEDICARE, SELFPAY ==
--- NOTE | ~2021-09-11 | XR_ITS ---
EXAMINATION: XR wrist RT w scaphoid DATE: 09/11/2021 11:09 INDICATION: Right wrist pain. Fall. TECHNIQUE: 4 views of right wrist were obtained. COMPARISON: Right wrist radiographs 08/24/2021 FINDINGS: Bone alignment is normal. No fracture. 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 IMPRESSION: 1. Mild osteoarthritis of triscaphe joint. Reviewed, dictated and finalized at location A. COMPLIANCE MANAGER
--- NOTE | ~2021-09-11 | XR_ITS ---
XR forearm RT 2V DATE: 09/11/2021 11:09 INDICATION: Fall 2 weeks ago. Wrist pain up to mid forearm TECHNIQUE: AP and lateral views COMPARISON: None FINDINGS: There is a recent transverse minimally medially displaced fracture of the radial neck. Diffuse osteopenia. 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 Normal alignment at the elbow and wrist joints. 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 ETIC COUNSELOR
== END 2021-09-11 10:45 | disposition home or self-care (01) ==
PROVIDERS: PCP Nurse Practitioner Family; Visit Provider Nurse Practitioner Family
DX: M25.531 Pain in right wrist (principal)
CPT/HCPCS: 73090; 73110

== ENCOUNTER 2021-10-08 16:25 | Outpatient (RCR) | payer MEDICARE, SELFPAY ==
--- NOTE | 2021-10-08 17:33 | PTOPEVAL ---
Thank you for referring Елена Lynn to [facility].? The patient is scheduled to be seen for therapy? ____x/week for ___ weeks. Please review, sign, date and return this plan of care WILBER. I agree with and certify that the following plan of care is medically necessary. Referring Physician Date Admitting Provider: Attending Provider: Nico Jensen MD Referring Provider: *PT Outpatient Evaluation Start: 10/08/21 16:23 Freq: Status: Active Protocol: Document 10/08/21 16:30 [facility] (Rec: 10/08/21 17:32 [facility] [id number]) Therapy Assessment Status Assessment Status Assessment Status Evaluation Outpatient Past Medical History Cardiovascular History Hx Cardiac Arrhythmia Yes: TACHYCARDIA, PVT Gastrointestinal History Hx Appendectomy Yes Hx Hernia Yes Hx Ulcer Yes Reproductive History Hx Post Menopausal Yes Evaluation Information Problem Diagnosis R elbow fracture, R pelvis fracture Onset 08/24/21 Additional Evaluation Detail quick dash = 45% functionally declined Subjective Information patient reports she fell and Query Text:As Reported By Patient/ fractured the R elbow and R Family groin. she reports she has not been walking other than a few steps to and from a chair or bed. she reports she is rolling around in her house with a rollator walker sitting and rolling backwards. she reports she was told to stand but not walk. she reports she does have osteoporosis. she reports she is coming to therapy for her R elbow and R LE/pelvis for fracture rehab. she reports being unable to lift heavy objects with the R UE. she reports she fell on . Pain Assessment Timing of Pain Assessment Timing of Pain Assessment Assessment Pain Scale Pain Scale Used Numeric (1 - 10) Self Report Pain Assessment Right Elbow(s) Reported Pain Level 0 Right Groin Reported Pain Level 2 Pain Score Pain Score 2,0: Self Report Interventions Used Interventions Used By Clinicians Education,Exercise,Heat,Ice, Rest Upper Extremity Range of Motion General Upper Extremity Range of Motion Gross Upper Extremity Range of Motion
--- NOTE | 2021-10-30 11:51 | PTOPEVAL ---
Thank you for referring Елена Lynn to [facility].? The patient is scheduled to be seen for therapy? ____x/week for ___ weeks. Please review, sign, date and return this plan of care WILBER. I agree with and certify that the following plan of care is medically necessary. Referring Physician Date Admitting Provider: Attending Provider: Nico Jensen MD Referring Provider: *PT Outpatient Evaluation Start: 10/08/21 16:23 Freq: Status: Active Protocol: Document 10/30/21 10:55 [facility] (Rec: 10/30/21 11:51 [facility] [id number]) Therapy Assessment Status Assessment Status Assessment Status Discharge Outpatient Past Medical History Cardiovascular History Hx Cardiac Arrhythmia Yes: TACHYCARDIA, PVT Gastrointestinal History Hx Appendectomy Yes Hx Hernia Yes Hx Ulcer Yes Reproductive History Hx Post Menopausal Yes Evaluation Information Problem Diagnosis R elbow fracture, R pelvis fracture Onset 08/24/21 Additional Evaluation Detail oswestry = 35% functionally declined Subjective Information patient reports she feels Query Text:As Reported By Patient/ Good this date. she reports Family she has no pain in the groin or elbow. she reports she had a follow up with her ortho yesterday who has discharged her care. she reports she is back to driving. Pain Assessment Timing of Pain Assessment Timing of Pain Assessment Assessment Self Report Self Report Pain Level 0 Pain Score Pain Score 0: Self Report Upper Extremity Range of Motion General Upper Extremity Range of Motion Gross Upper Extremity Range of Motion 0 degrees R elbow extension Comments Lower Extremity Muscle Strength Testing General Lower Extremity Strength Gross Lower Extremity Strength 4/5 bilat hip flex 4/5 bilateral hip abd 5/5 bilateral knee flex and ext 5/5 bilateral ankle DF Upper Extremity Muscle Strength Testing General Upper Extremity Strength Gross Upper Extremity Strength Comments 4+/5 bilateral shoulder flex, abd 4+/5 bilateral shoulder ER 4+/5 bilateral shoulder IR 5/5 bilateral elbow strength Muscle Length Testing Muscle Length Testing Left Hamstring Length 10 Query Text:(90 - 90 Position) Right Hamstring Length 10 Query Text:(90 - 90 Position)
== END 2021-10-30 14:17 | disposition home or self-care (01) ==
LOC: CHSPT 16:25
PROVIDERS: Visit Provider Orthopaedic Surgery
DX: S52.131D Displaced fracture of neck of right radius, subsequent encounter for closed fracture with routine healing (principal); S32.9XXD Fracture of unspecified parts of lumbosacral spine and pelvis, subsequent encounter for fracture with routine healing
CPT/HCPCS: 97110; 97161; 97530

== ENCOUNTER 2021-10-29 08:20 | Outpatient (CLI) | payer MEDICARE, SELFPAY ==
--- NOTE | ~2021-10-29 | XR_ITS ---
EXAMINATION: XR elbow RT min 3V DATE: 10/29/2021 08:40 INDICATION: Right elbow fracture. Follow-up. TECHNIQUE: 3 views of right elbow were obtained. COMPARISON: Right forearm radiographs 09/11/2021, 08/24/2021 FINDINGS: There is a transverse fracture of radial neck. The distal fracture fragment demonstrates 3 mm ulnar sided displacement without change. There is callus formation. Joint spaces are normal. There is chondrocalcinosis of the articular cartilage. No elbow joint effusion. IMPRESSION: 1. Healing transverse fracture of radial neck. Reviewed, dictated and finalized at location A.
--- NOTE | ~2021-10-29 | XR_ITS ---
EXAMINATION: XR pelvis 1-2V DATE: 10/29/2021 08:40 INDICATION: Right pelvis fracture. Follow-up. TECHNIQUE: An anteroposterior view of the pelvis was obtained. COMPARISON: Pelvis and right hip radiographs 08/24/2021, right hip MRI 09/07/2021 FINDINGS: There is levoscoliosis and severe spondylosis of lumbar spine. There are healing insufficie ncy fractures of right superior and inferior pubic rami, left parasymphyseal pubis, and right sacral ala. There is moderate osteoarthritis of the hips. IMPRESSION: 1. Healing insufficiency fractures of right superior and inferior pubic rami, left parasymphyseal pub is, and right sacral ala. 2. Moderate osteoarthritis of the hips. Reviewed, dictated and finalized at location A. IMPRESSION: 1. Healing insufficiency fractures of right superior and inferior pubic rami, l eft parasymphyseal pubis, and right sacral ala. 2. Moderate osteoarthritis of the hips.
== END 2021-10-29 08:21 | disposition home or self-care (01) ==
LOC: CHSIMG 08:23
PROVIDERS: PCP Nurse Practitioner Family; Visit Provider Orthopaedic Surgery
DX: M25.521 Pain in right elbow (principal); M25.551 Pain in right hip
CPT/HCPCS: 72170; 73080

== ENCOUNTER 2021-11-12 12:53 | Outpatient (CLI) | payer MEDICARE, SELFPAY | END 2021-11-12 12:54 | disposition home or self-care (01) | LOC: CHSOUTPT 13:07 | PROVIDERS: PCP Nurse Practitioner Family; Visit Provider Specialist | DX: C44.729 Squamous cell carcinoma of skin of left lower limb, including hip (principal) | CPT/HCPCS: 88305 ==

== ENCOUNTER 2021-11-18 08:49 | Outpatient (CLI) | payer MEDICARE, SELFPAY ==
[2021-11-18 09:33] LABS: Cholesterol 218 mg/dL (0-200); HDL Direct 105 mg/dL (40-60); LDL Cholesterol Calculated 102 mg/dL (<130); Triglycerides 55 mg/dL (0-150)
== END 2021-11-18 08:50 | disposition home or self-care (01) ==
LOC: CHSLAB 08:51
PROVIDERS: PCP Nurse Practitioner Family; Visit Provider Internal Medicine Cardiovascular Disease
DX: E78.5 Hyperlipidemia, unspecified (principal)
CPT/HCPCS: 36415; 80061

== ENCOUNTER 2021-12-31 12:04 | Outpatient (CLI) | payer MEDICARE, SELFPAY | END 2021-12-31 12:05 | disposition home or self-care (01) | LOC: CHSOUTPT 12:13 | PROVIDERS: PCP Nurse Practitioner Family; Visit Provider Specialist | DX: L85.9 Epidermal thickening, unspecified (principal) | CPT/HCPCS: 88305 ==

== ENCOUNTER 2022-03-04 20:42 | Emergency (ER) | payer MEDICARE, SELFPAY ==
--- NOTE | 2022-03-04 20:57 | ECG_ITS ---
Measurements Intervals [place] Rate: 120 P: 246 NM: 209 QRS: -33 QRSD: 89 T: 37 QT: 301 QTc: 426 Interpretive Statements SINUS TACHYCARDIA WITH FIRST DEGREE AV BLOCK VENTRICULAR PREMATURE COMPLEX LEFT AXIS DEVIATION LEFT VENTRICULAR HYPERTROPHY AND ST-T CHANGE CANNOT RULE OUT SEPTAL INFARCT, AGE INDETERMINATE ST ELEVATION IN ANTEROLATERAL LEADS- CONSIDER ACUTE INJURY ABNORMAL ECG Electronically Signed On 03-05-2022 6:36:52 CDT by John Ray D.O.
--- NOTE | 2022-03-04 20:58 | ED.GENADULT ---
HPI - General Adult General Chief complaint: Unspecified Stated complaint: racing heart History of Present Illness HPI narrative: Pt states her heart started beating fast a couple of hours ago. Pt says this has happened in the past. She has a history of a fib. Pt took her PM meds including extra dose of metoprolol but her heart was stil racing. Pt denies CP. Pt did forget her morning dose of verapamil. Related Data Home Medications Medication Instructions Recorded Confirmed calcium carbonate 600 mg-vitamin 1 cap PO BID 08/08/19 03/04/22 D3 5 mcg (200 unit) capsule magnesium oxide 400 mg PO DAILY 08/08/19 03/04/22 iasiewcr-nfuumwv-voot-lutein tablet 1 mcg PO DAILY 08/08/19 03/04/22 omega-3 fatty acids 1,000 mg 1,000 mg PO DAILY 08/08/19 03/04/22 capsule (Fish Oil Concentrate) zoledronic acid 5 mg/100 mL in 1 ea IV .annually 01/20/22 03/04/22 mannitol 5 %-water intravenous piggybck (Reclast) Allergies Allergy/AdvReac Type Severity Reaction Status Date / Time Sulfamethoxazole Allergy Intermediate Rash Uncoded 03/04/22 20:58 Review of Systems Review of Systems: All systems reviewed & are unremarkable except as noted in HPI and below PMFSH Past Medical History Medical History Abnormality of heart beat Benign essential HTN Breast cancer Cardiac arrhythmia Colon polyp Constipation Epigastric pain GARRETT (generalized anxiety disorder) Hyperlipidemia Hypertension Nausea and vomiting in adult Nicotine dependence in remission Osteopenia Osteoporosis Paroxysmal supraventricular tachycardia Sciatica of right side Skin cancer s/p surgical resection Surgical History Surgical History H/O cataract extraction History of appendectomy 2007 Dr. Johnston History of hernia repair x2 2002 Dr. Johnston History of lumpectomy 2011 History of lung biopsy (~08/2018) Left History of parotidectomy Dr. Nicole 2009 History of thyroid surgery 2007 Dr. Johnston Family History Family History Mother Familial Alzheimer's disease of late onset Other Heart disease Hypertension Social History Social History Smoking status: Never smoker Additional smoking assessment comments: socially only Alcohol intake: never Substance use: never Additional living arrangements comments: Gender identity (if verbalized by the patient): Female Spiritual care concerns: No Exam Const: General: cooperative Nutritional Appearance: average body habitus Orientation/consciousness: patient oriented x3 Limitations: no limitations HENMT: Ears: hearing grossly normal bilaterally, external ears normal and TM's normal bilaterally Neck: Neck: normal visual inspection, full ROM, no lymphadenopathy, no meningeal signs and trachea midline Resp: Effort & Inspection: normal respiratory effort Auscultation: clear to auscultation bilaterally Cardio: Rate: tachycardic Rhythm: abnormal rhythm Peripheral pulses: Peripheral pulses 2+ throughout GI: Inspection: normal to inspection Percussion: Yes normal to percussion Auscultation: normal bowel sounds Skin: General skin exam: normal color, no rashes or lesions noted and turgor normal Neuro: General: patient oriented x3 and no focal motor deficits Cognition (Neuro): normal cognition Speech: normal speech Extrem: General: normal to inspection and no clubbing, cyanosis or edema Psych: Appearance: grossly normal Mental Status: mental status grossly normal Speech and movement: Normal speech and movement present Affect: normal affect Attitude: cooperative Thought process: Normal thought process present Thought content: Yes Normal thought content present Insight: Good insight present (Psych) Judgement: Good judgement present (Psych) Cours
[2022-03-04 21:00] VITALS: BP 155/115; PULSE 131; RESP 18; TEMP 36.6; O2SAT 99
[2022-03-04 21:11] LABS: Basophils Absolute Auto 0.03 K/mm3 (0.00-0.10); Basophils Percent Auto 0.5 % (0.0-1.0); Eosinophils Absolute Auto 0.16 K/mm3 (0.02-0.50); Eosinophils Percent Auto 2.7 % (1.0-6.0); Hematocrit 38.4 % (35.0-42.0); Hemoglobin 12.6 g/dL (11.7-13.8); Immature Granulocyte Absolute 0.02 K/mm3 (0.00-0.00); Immature Granulocyte Percent A 0.3 % (0.0-0.0); Lymphocytes Absolute Auto 1.92 K/mm3 (1.10-4.50); Lymphocytes Percent Auto 32.5 % (18.0-42.0); Mean Corpuscular HGB Conc 32.8 g/dL (32.0-36.0); Mean Corpuscular Hemoglobin 30.1 pg (27.0-31.0); Mean Corpuscular Volume 91.6 fL (78.0-102.0); Mean Platelet Volume 9.6 fl (9.2-11.8); Monocytes Absolute Auto 0.85 K/mm3 (0.10-0.90); Monocytes Percent Auto 14.4 % (2.0-11.0); Neutrophils Absolute Auto 2.9 K/mm3 (1.7-7.2); Neutrophils Percent Auto 49.6 % (50.0-70.0); Platelet Count Result 208 K/mm3 (150-420); Red Blood Count 4.19 M/mm3 (4.20-5.40); Red Cell Distribution Width 12.6 % (11.6-14.4); White Blood Count 5.9 K/mm3 (4.8-10.8)
[2022-03-04] MEDS: SODIUM CHLORIDE 0.9% IV 1,000 ML 999 ML IV CONT (21:16)
[2022-03-04] MEDS: dilTIAZem HCl INJ 25 MG/5 ML VIAL 10 MG IV PUSH (21:17)
[2022-03-04 21:27] LABS: INR 1.1; Partial Thromboplastin Time 29.3 SEC (23.90-30.70); Prothrombin Time 11.7 Seconds (9.50-12.10)
[2022-03-04 21:29] VITALS: BP 133/85; PULSE 81; O2SAT 98
[2022-03-04 21:30] LABS: Alanine Aminotransferase 32 U/L (14-59); Albumin Level 3.4 g/dL (3.4-5.0); Alkaline Phosphatase 68 U/L (46-116); Anion Gap 8 mmol/L (8-16); Aspartate Amino Transferase 26 U/L (15-37); Bilirubin,Total 0.2 mg/dL (0.00-1.00); Blood Urea Nitrogen 18 mg/dL (7-18); Calcium 9.4 mg/dL (8.5-10.1); Carbon Dioxide 29 mmol/L (21-32); Chloride 101 mmol/L (98-108); Estimated Glomerular Filt Rate > 60; Glucose 140 mg/dL (70-99); Osmolality Calculated 289 mOsm/kg (285-295); Sodium 138 mmol/L (136-145); Total Protein 6.6 g/dL (6.4-8.2)
[2022-03-04 21:32] LABS: Troponin I 15.4 ng/L (0.00-60.4)
== END 2022-03-04 21:41 | disposition home or self-care (01) ==
PROVIDERS: Emergency Provider Emergency Medicine; PCP Nurse Practitioner Family
DX: I47.1 Supraventricular tachycardia (principal); I10 Essential (primary) hypertension; Z85.3 Personal history of malignant neoplasm of breast; E78.5 Hyperlipidemia, unspecified; M81.0 Age-related osteoporosis without current pathological fracture
CPT/HCPCS: 36415; 80053; 84443; 84484; 85025; 85610; 85730; 93005; 96361; 96374; 99284; J7030

== ENCOUNTER 2022-03-06 13:28 | Outpatient (CLI) | payer MEDICARE, SELFPAY ==
[2022-03-06] MEDS: ZOLEDRONIC ACID 5 MG/100 ML 100 ML 400 MG IVPB (13:35)
[2022-03-06 13:48] VITALS: BMI 22.4
[2022-03-06 13:49] VITALS: BP 123/69; PULSE 78; RESP 14; TEMP 36.2; O2SAT 98
--- NOTE | 2022-03-06 13:52 | PC.NURSE ---
Patient here for yearly IV Reclast infusion. Education given. No concerns voiced. States Had no problems after last years dose. IV Reclast administered. See MAR. Tolerated well. Safe exit of hospital.
== END 2022-03-06 13:29 | disposition home or self-care (01) ==
LOC: CHSTREATRM 13:30
PROVIDERS: PCP Nurse Practitioner Family; Visit Provider Nurse Practitioner Family
DX: M85.80 Other specified disorders of bone density and structure, unspecified site (principal)
CPT/HCPCS: 96365; 96374; J3489

== ENCOUNTER 2022-04-18 09:18 | Outpatient (CLI) | payer MEDICARE, SELFPAY ==
[2022-04-18 10:42] LABS: SARS-CoV-2 RNA PCR Positive (Negative)
== END 2022-04-18 09:19 | disposition home or self-care (01) ==
LOC: CHSLAB 09:20
PROVIDERS: PCP Nurse Practitioner Family; Visit Provider Nurse Practitioner Family
DX: U07.1 COVID-19 (principal)
CPT/HCPCS: C9803; U0003; U0005

== ENCOUNTER 2022-07-01 11:32 | Outpatient (CLI) | payer MEDICARE, SELFPAY | END 2022-07-01 11:33 | disposition home or self-care (01) | LOC: CHSLAB 11:37 | PROVIDERS: PCP Nurse Practitioner Family; Visit Provider Specialist | DX: C44.319 Basal cell carcinoma of skin of other parts of face (principal) | CPT/HCPCS: 88305 ==

== ENCOUNTER 2022-08-25 10:05 | Outpatient (CLI) | payer MEDICARE, SELFPAY ==
--- NOTE | 2022-08-25 10:07 | ECG_ITS ---
Measurements Intervals [place] Rate: 68 P: 84 [place]: 285 QRS: -29 QRSD: 99 T: 64 QT: 413 QTc: 442 Interpretive Statements SINUS RHYTHM WITH FIRST DEGREE AV BLOCK LEFT ATRIAL ENLARGEMENT DELAYED PRECORDIAL R/S TRANSITION ABNORMAL ECG COMPARED TO ECG 03/04/2022 20:58:50 SINUS RHYTHM NOW PRESENT Electronically Signed On 08-25-2022 10:32:18 SIDING APPLICATOR by John Ray D.O.
[2022-08-25 10:47] LABS: Troponin I 10.2 ng/L (0.00-60.4)
== END 2022-08-25 10:06 | disposition home or self-care (01) ==
LOC: CHSLAB 10:07
PROVIDERS: PCP Family Medicine; Visit Provider Family Medicine
DX: I47.1 Supraventricular tachycardia (principal); R94.31 Abnormal electrocardiogram [ECG] [EKG]
CPT/HCPCS: 36415; 84484; 93005

== ENCOUNTER 2022-08-28 08:33 | Outpatient (CLI) | payer MEDICARE, SELFPAY ==
[2022-08-28 08:45] LABS: Basophils Absolute Auto 0.04 K/mm3 (0.00-0.10); Basophils Percent Auto 0.8 % (0.0-1.0); Eosinophils Absolute Auto 0.15 K/mm3 (0.02-0.50); Eosinophils Percent Auto 2.9 % (1.0-6.0); Hematocrit 39.9 % (35.0-42.0); Hemoglobin 12.9 g/dL (11.7-13.8); Immature Granulocyte Absolute 0.01 K/mm3 (0.00-0.00); Immature Granulocyte Percent A 0.2 % (0.0-0.0); Lymphocytes Absolute Auto 1.64 K/mm3 (1.10-4.50); Lymphocytes Percent Auto 31.8 % (18.0-42.0); Mean Corpuscular HGB Conc 32.3 g/dL (32.0-36.0); Mean Corpuscular Hemoglobin 29.6 pg (27.0-31.0); Mean Corpuscular Volume 91.5 fL (78.0-102.0); Mean Platelet Volume 9.7 fl (9.2-11.8); Monocytes Absolute Auto 0.65 K/mm3 (0.10-0.90); Monocytes Percent Auto 12.6 % (2.0-11.0); Neutrophils Absolute Auto 2.7 K/mm3 (1.7-7.2); Neutrophils Percent Auto 51.7 % (50.0-70.0); Platelet Count Result 224 K/mm3 (150-420); Red Blood Count 4.36 M/mm3 (4.20-5.40); Red Cell Distribution Width 12.5 % (11.6-14.4); White Blood Count 5.2 K/mm3 (4.8-10.8)
[2022-08-28 09:54] LABS: Alanine Aminotransferase 26 U/L (14-59); Albumin Level 3.5 g/dL (3.4-5.0); Alkaline Phosphatase 44 U/L (46-116); Anion Gap 5 mmol/L (8-16); Aspartate Amino Transferase 24 U/L (15-37); Bilirubin,Total 0.5 mg/dL (0.00-1.00); Blood Urea Nitrogen 14 mg/dL (7-18); Calcium 8.5 mg/dL (8.5-10.1); Carbon Dioxide 32 mmol/L (21-32); Chloride 100 mmol/L (98-108); Cholesterol 240 mg/dL (0-200); Estimated Glomerular Filt Rate 59; Glucose 106 mg/dL (70-99); HDL Direct 114 mg/dL (40-60); LDL Cholesterol Calculated 120 mg/dL (<130); Osmolality Calculated 284 mOsm/kg (285-295); Potassium 4.1 mmol/L (3.5-5.1); Sodium 137 mmol/L (136-145); Total Protein 6.5 g/dL (6.4-8.2); Triglycerides 32 mg/dL (0-150)
== END 2022-08-28 08:34 | disposition home or self-care (01) ==
LOC: CHSLAB 08:35
PROVIDERS: PCP Family Medicine; Visit Provider Nurse Practitioner Family
DX: R10.13 Epigastric pain (principal); E78.5 Hyperlipidemia, unspecified; I10 Essential (primary) hypertension
CPT/HCPCS: 36415; 80053; 80061; 85025

== ENCOUNTER 2022-09-02 12:30 | Emergency (ER) | payer MEDICARE, SELFPAY ==
--- NOTE | ~2022-09-02 | XR_ITS ---
Clinical Indication: Chest pain PA and lateral views of the chest: Comparison: 06/14/2021 Findings: The lungs are clear, without evidence of focal consolidation or pleural effusion. COPD. Car diomediastinal silhouette is within normal limits. Bones and soft tissues are unremarkable. Impression: Clear lungs. COPD. Reviewed, dictated and finalized at location . SERVICE TECHNICIAN Impression: Clear lungs. COPD.
--- NOTE | 2022-09-02 12:34 | ECG_ITS ---
Measurements Intervals [place] Rate: 67 P: 74 [place]: 304 QRS: -38 QRSD: 97 T: 40 QT: 416 QTc: 442 Interpretive Statements SINUS RHYTHM WITH FIRST DEGREE AV BLOCK LEFT AXIS DEVIATION POSSIBLE LEFT ATRIAL ENLARGEMENT DELAYED PRECORDIAL R/S TRANSITION LEFT VENTRICULAR HYPERTROPHY WITH ST-T CHANGE BORDERLINE T WAVE ABNORMALITY- INFERIOR LEADS BASELINE ARTIFACT- V5 ABNORMAL ECG COMPARED TO ECG 08/25/2022 10:27:52 NO SIGNIFICANT CHANGES Electronically Signed On 09-02-2022 13:06:22 GOPHERMAN by John Ray D.O.
--- NOTE | 2022-09-02 12:36 | ED.CHESTPAIN ---
HPI - Chest Pain General Chief Complaint: Chest Pain Stated Complaint: chest pain Time Seen by Provider: 09/02/22 12:35 Source: patient and RN notes reviewed Mode of arrival: ambulatory Limitations: no limitations History of Present Illness HPI narrative: patient states that she had an episode of chest tightness yesterday and then it went away on its own. Today she was taking her blood pressure medicines and noted that her blood pressure was 105/53. She had chest pain constantly starting 1-1/2 hours prior to her arrival. She says she feels just a little shortness of breath. That is a dull tightness on the left side of her chest. No other associated symptoms. She has a history of SVT and is going to have a monitor placed in September to evaluate that further. MD complaint: chest pain Onset (ago): day(s) (1) Timing of current episode: constant ( For the last 1-1/2 hours) Prior episodes: Yes Onset: during rest Pain location: left chest Pain radiation: none Pain scale (0-10): 5 Quality: tightness and dull Relieving factors: nothing Exacerbating factors: nothing Associated symptoms: dyspnea ( very little) Treatment prior to arrival: none Risk Factors Coronary artery disease risk factors: smoking history, hyperlipidemia and hypertension Related Data Home Medications Medication Instructions Recorded Confirmed calcium carbonate 600 mg-vitamin 1 cap PO BID 08/08/19 08/27/22 D3 5 mcg (200 unit) capsule magnesium oxide 400 mg PO DAILY 08/08/19 08/27/22 srkwmizr-dldqblk-dhit-lutein tablet 1 mcg PO DAILY 08/08/19 08/27/22 zoledronic acid 5 mg/100 mL in 1 ea IV .annually 01/20/22 08/27/22 mannitol 5 %-water intravenous piggybck (Reclast) metoprolol succinate 25 mg 25 mg PO BID 06/17/22 08/27/22 tablet,extended release 24 hr Allergies Allergy/AdvReac Type Severity Reaction Status Date / Time Sulfamethoxazole Allergy Intermediate Rash Uncoded 08/27/22 15:23 Review of Systems Review of Systems: All systems reviewed & are unremarkable except as noted in HPI and below PMFSH Past Medical History Medical History Abnormality of heart beat Benign essential HTN Breast cancer Cardiac arrhythmia Colon polyp Constipation Displaced fracture of neck of left radius Endometrial thickening on ultrasound Epigastric pain Exposure to COVID-19 virus Fatigue Fracture of radial neck, right, closed GARRETT (generalized anxiety disorder) Hyperlipidemia Hypertension Injury of right hip Left ankle pain Nausea and vomiting in adult Nicotine dependence in remission Osteopenia Osteoporosis Paroxysmal supraventricular tachycardia Personal history of other drug therapy Post-COVID chronic fatigue Pre-op exam Right hip pain Right wrist pain RLQ abdominal pain Sciatica of right side Skin cancer s/p surgical resection Skin rash Stress fracture of sacrum Surgical History Surgical History H/O cataract extraction History of appendectomy 2007 Dr. Johnston History of hernia repair x2 2002 Dr. Johnston History of lumpectomy 2011 History of lung biopsy (~08/2018) Left History of parotidectomy Dr. Nicole 2009 History of thyroid surgery 2007 Dr. Johnston Family History Family History Mother Familial Alzheimer's disease of late onset Other Heart disease Hypertension Social History Social History Smoking status: Never smoker Additional smoking assessment comments: socially only Alcohol intake: never Substance use: never Lack of Transportation: No Lack of Food: Never True Current Housing: I Have Housing Concerned About Future Housing: No Difficulty Paying Gas/Electric Bills: No Difficulty Paying for Meds: No Currently Unemployed: No Education: High School Diploma/GED Difficulty w/ Childcare
[2022-09-02 12:39] VITALS: BP 157/91; PULSE 81; RESP 16; TEMP 36.7; O2SAT 98
[2022-09-02 12:53] LABS: Basophils Absolute Auto 0.02 K/mm3 (0.00-0.10); Basophils Percent Auto 0.3 % (0.0-1.0); Eosinophils Absolute Auto 0.08 K/mm3 (0.02-0.50); Eosinophils Percent Auto 1.2 % (1.0-6.0); Hematocrit 37.4 % (35.0-42.0); Hemoglobin 12.2 g/dL (11.7-13.8); Immature Granulocyte Absolute 0.02 K/mm3 (0.00-0.00); Immature Granulocyte Percent A 0.3 % (0.0-0.0); Lymphocytes Absolute Auto 1.35 K/mm3 (1.10-4.50); Lymphocytes Percent Auto 20.4 % (18.0-42.0); Mean Corpuscular HGB Conc 32.6 g/dL (32.0-36.0); Mean Corpuscular Hemoglobin 29.6 pg (27.0-31.0); Mean Corpuscular Volume 90.8 fL (78.0-102.0); Mean Platelet Volume 9.8 fl (9.2-11.8); Monocytes Absolute Auto 0.66 K/mm3 (0.10-0.90); Neutrophils Absolute Auto 4.5 K/mm3 (1.7-7.2); Neutrophils Percent Auto 67.8 % (50.0-70.0); Platelet Count Result 206 K/mm3 (150-420); Red Blood Count 4.12 M/mm3 (4.20-5.40); Red Cell Distribution Width 12.3 % (11.6-14.4); White Blood Count 6.6 K/mm3 (4.8-10.8)
[2022-09-02] MEDS: ASPIRIN 81 MG CHEWABLE TABLET 324 MG PO (13:05)
[2022-09-02 13:09] LABS: INR 1.1; Partial Thromboplastin Time 27.1 SEC (23.90-30.70)
[2022-09-02 13:10] VITALS: BP 126/68; PULSE 61; RESP 17; O2SAT 98
[2022-09-02 13:10] LABS: Alanine Aminotransferase 22 U/L (14-59); Albumin Level 3.4 g/dL (3.4-5.0); Alkaline Phosphatase 48 U/L (46-116); Anion Gap 5 mmol/L (8-16); Aspartate Amino Transferase 22 U/L (15-37); Bilirubin,Total 0.3 mg/dL (0.00-1.00); Blood Urea Nitrogen 16 mg/dL (7-18); Calcium 8.4 mg/dL (8.5-10.1); Carbon Dioxide 31 mmol/L (21-32); Chloride 97 mmol/L (98-108); Estimated Glomerular Filt Rate > 60; Glucose 148 mg/dL (70-99); Magnesium 1.8 mg/dL (1.8-2.4); Osmolality Calculated 280 mOsm/kg (285-295); Sodium 133 mmol/L (136-145); Total Protein 6.7 g/dL (6.4-8.2); Troponin I 11.3 ng/L (0.00-60.4)
[2022-09-02 13:19] VITALS: BP 125/67; PULSE 58; RESP 13; O2SAT 96
[2022-09-02 13:34] VITALS: BP 133/71; PULSE 57; RESP 12; O2SAT 96
[2022-09-02 13:49] VITALS: BP 128/71; RESP 21
[2022-09-02 13:52] VITALS: BP 128/71; PULSE 75; RESP 15; TEMP 36.7; O2SAT 100; O2SAT 99
== END 2022-09-02 13:55 | disposition home or self-care (01) ==
PROVIDERS: Emergency Provider Emergency Medicine; PCP Family Medicine
DX: R07.89 Other chest pain (principal); I10 Essential (primary) hypertension; E78.5 Hyperlipidemia, unspecified; Z85.3 Personal history of malignant neoplasm of breast
CPT/HCPCS: 36415; 71046; 80053; 83735; 84484; 85025; 85610; 85730; 93005; 99284; A9270

== ENCOUNTER 2022-10-03 12:08 | Outpatient (CLI) | payer MEDICARE, SELFPAY ==
--- NOTE | ~2022-10-03 | US_ITS ---
EXAMINATION: US venous doppler LE RT DATE: 10/03/2022 12:31 INDICATION: Other chest pain. Right lower limb pain. TECHNIQUE: Grayscale ultrasound images without and with compression and Doppler ultrasound images of the right lower extremity veins were obtained. COMPARISON: None. FINDINGS: The visualized portions of right common femoral vein, profunda (deep) femoral vein, femoral vein, pop liteal vein, peroneal veins, posterior tibial veins, and greater saphenous vein outflow are patent. IMPRESSION: 1. No deep venous thrombosis. Reviewed, dictated and finalized at location A. BUILDER
== END 2022-10-03 12:09 | disposition home or self-care (01) ==
LOC: CHSIMG 12:11
PROVIDERS: PCP Nurse Practitioner Family; Visit Provider Nurse Practitioner Family
DX: R07.89 Other chest pain (principal)
CPT/HCPCS: 93971

== ENCOUNTER 2022-12-02 10:00 | Outpatient (CLI) | payer MEDICARE, SELFPAY ==
[2022-12-02 11:03] LABS: Anion Gap 6 mmol/L (8-16); Blood Urea Nitrogen 21 mg/dL (7-18); Calcium 8.9 mg/dL (8.5-10.1); Carbon Dioxide 34 mmol/L (21-32); Chloride 97 mmol/L (98-108); Estimated Glomerular Filt Rate 55; Glucose 98 mg/dL (70-99); Magnesium 1.9 mg/dL (1.8-2.4); Osmolality Calculated 287 mOsm/kg (285-295); Sodium 137 mmol/L (136-145)
== END 2022-12-02 10:01 | disposition home or self-care (01) ==
LOC: CHSLAB 10:02
PROVIDERS: PCP Family Medicine; Visit Provider Specialist
DX: R03.0 Elevated blood-pressure reading, without diagnosis of hypertension (principal); R00.1 Bradycardia, unspecified; I47.1 Supraventricular tachycardia
CPT/HCPCS: 36415; 80048; 83735; 90853; 99213; G0463

== ENCOUNTER 2022-12-24 10:00 | Outpatient (RCR) | payer MEDICARE, SELFPAY | END 2022-12-24 23:59 | disposition home or self-care (01) | LOC: CHSSENLIFE 10:00 | PROVIDERS: PCP Family Medicine; Visit Provider Psychiatry & Neurology Psychiatry | DX: F41.1 Generalized anxiety disorder (principal) | CPT/HCPCS: 90792; 90853; 93971; 99213; G0463 ==

== ENCOUNTER 2023-02-23 11:00 | Outpatient (RCR) | payer MEDICARE, SELFPAY | END 2023-02-23 15:20 | disposition home or self-care (01) | LOC: CHSSENLIFE 11:00 | PROVIDERS: PCP Family Medicine; Visit Provider Psychiatry & Neurology Psychiatry | DX: F41.1 Generalized anxiety disorder (principal) | CPT/HCPCS: 90853; 99213; G0463 ==

== ENCOUNTER 2023-03-03 08:39 | Outpatient (CLI) | payer MEDICARE, SELFPAY | END 2023-03-03 08:40 | disposition home or self-care (01) | LOC: CHSIMG 08:41 | PROVIDERS: PCP Family Medicine; Visit Provider Nurse Practitioner Family | DX: M81.0 Age-related osteoporosis without current pathological fracture (principal) | CPT/HCPCS: 99199 ==

== ENCOUNTER 2023-03-13 12:22 | Outpatient (CLI) | payer MEDICARE, SELFPAY ==
--- NOTE | ~2023-03-13 | DEXA_ITS ---
Bone Density Report Name: MARILEE ELLER Age: 82 Sex: Female Ethnicity: White Date of : 1940 Indication: hyperparathyroidism; height loss; inflammatory bowel disease; prior fracture; cancer; Referring Provider: QUYEN RHODES Study: Bone densitometry was performed. Exam Date: March 13, 2023 Accession number: [id number] Bone Density: Region BMD T-score Z-score Classification AP Spine(L2, L3, L4) 1.127 0.4 3.4 Normal Femoral Neck (Left) 0.626 -2.0 0.5 Osteopenia Total Hip (Left) 0.667 -2.3 0.1 Osteopenia Femoral Neck (Right) 0.629 -2.0 0.5 Osteopenia Total Hip (Right) 0.726 -1.8 0.5 Osteopenia Femoral Neck Mean 0.627 -2.0 0.5 Osteopenia Total Hip Mean 0.696 -2.0 0.3 Osteopenia World Health Organization criteria for BMD impression classify patients as: Normal (T-score at or above -1.0), Osteopenia (T-score between -1.0 and -2.5), or Osteoporosis (T-score at or below -2.5). 10-year Fracture Risk: FRAX not reported because: Prior hip or vertebral fracture Treated for osteoporosis Clinical Information Provided by Patient: Have had a previous hip or vertebral fracture Has had a low trauma fracture Is being treated for osteoporosis Has used the following medications: Reclast (i.e. zoledronate), Vitamin D, Calcium, multi Has the following medical conditions: Cancer, Inflammatory bowel diseases, Hyperparathyroidism Patient maximum height was 68 Menopause Age: 48 No regular weight bearing exercise Onset of menses at age 11 Number of children 3 Impression: The patient has low bone mass, based on the Left Total Hip T-score. The patient has risk factors, including: previous fracture. Discussion: It is important to ask patients whether they are taking their medications and to encourage continued and appropriate compliance with their osteoporosis therapies to reduce fracture risk. It is also important to review their risk factors and encourage appropriate calcium and vitamin D intakes, exercise, fall prevention and other lifestyle measures. Follow-Up: Consider a repeat BMD and Vertebral Fracture Assessment (VFA) exam in 2 years or sooner if medically necessary, to reassess this patient's status. Reported by: Dr. Devante Mariscal on 03/13/2023 12:48:00 PM. Reviewed, dictated and finalized at location A.
== END 2023-03-13 12:23 | disposition home or self-care (01) ==
LOC: CHSIMG 12:23
PROVIDERS: PCP Nurse Practitioner Family; Visit Provider Nurse Practitioner Family
DX: Z78.0 Asymptomatic menopausal state (principal); M85.89 Other specified disorders of bone density and structure, multiple sites
CPT/HCPCS: 77080

== ENCOUNTER 2023-04-13 09:41 | Outpatient (CLI) | payer MEDICARE, SELFPAY ==
[2023-04-13 10:36] LABS: Influenza A QL RT-PCR Negative (Negative); Influenza B QL RT-PCR Negative (Negative); SARS-CoV-2 RNA PCR Positive (Negative)
== END 2023-04-13 09:42 | disposition home or self-care (01) ==
LOC: CHSLAB 09:43
PROVIDERS: PCP Nurse Practitioner Family; Visit Provider Nurse Practitioner Family
DX: Z20.822 Contact with and (suspected) exposure to COVID-19 (principal)
CPT/HCPCS: 87636

== ENCOUNTER 2023-04-16 09:43 | Outpatient (CLI) | payer MEDICARE, SELFPAY ==
[2023-04-16 10:40] LABS: SARS-CoV-2 RNA PCR Positive (Negative)
== END 2023-04-16 09:44 | disposition home or self-care (01) ==
PROVIDERS: PCP Nurse Practitioner Family; Visit Provider Nurse Practitioner Family
DX: U07.1 COVID-19 (principal)
CPT/HCPCS: 87635

== ENCOUNTER 2023-04-30 12:53 | Outpatient (CLI) | payer MEDICARE, SELFPAY ==
[2023-04-30] MEDS: ZOLEDRONIC ACID 5 MG/100 ML 100 ML 400 MG IVPB (13:20)
--- NOTE | 2023-04-30 13:40 | PC.NURSE ---
Patient here for Reclast infusion. Tolerated infusion well. Instructed to drink plenty of fluids over the next few days. Discussed other possible side effects of medication. Patient states understanding. IV site removed, tip intact. Dressing applied to site. Patient denies any further questions or concerns. Left floor ambulatory.
== END 2023-04-30 12:54 | disposition home or self-care (01) ==
LOC: CHSTREATRM 12:56
PROVIDERS: PCP Nurse Practitioner Family; Visit Provider Nurse Practitioner Family
DX: M85.80 Other specified disorders of bone density and structure, unspecified site (principal)
CPT/HCPCS: 96374; J3489

== ENCOUNTER 2023-05-20 10:14 | Outpatient (CLI) | payer MEDICARE, SELFPAY ==
--- NOTE | ~2023-05-20 | XR_ITS ---
XR lumbar spine 2-3V DATE: 05/20/2023 10:41 INDICATION: Low back pain radiating to right hip and right sacroiliac joint TECHNIQUE: AP, lateral, coned lateral lumbosacral view COMPARISON: None FINDINGS: There is 24 degrees rotatory levoscoliosis measured from T11 to L4. There is multilevel degenerative disc disease of the lumbar spine, most prominent at the stress-beari ng areas on the right at L2-3, L3-4 and on the left at L4-5. There is degenerative change at the apophyseal joints, with associated grade 1 anterolisthesis at L5- S1. No fracture or bone destruction is evident. Included lower thoracic and lumbar pedicles are intact. T he sacral iliac joints appear normal. Osteopenia. 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 Reviewed, dictated and finalized at location B.
--- NOTE | ~2023-05-20 | XR_ITS ---
XR hip RT min 2V DATE: 05/20/2023 10:41 INDICATION: Low back pain radiating to right hip and right sacroiliac joint TECHNIQUE: AP and lateral views of right hip COMPARISON: None FINDINGS: There is mild right hip joint space narrowing and right femoral head spurring consistent wi th osteoarthritis. Probable old healed right inferior pubic ramus fracture. Normal alignment at the pubic symphysis and right sacroiliac joint. IMPRESSION: Right hip osteoarthritis Reviewed, dictated and finalized at location B. IMPRESSION: Right hip osteoarthritis
== END 2023-05-20 10:15 | disposition home or self-care (01) ==
LOC: CHSIMG 10:16
PROVIDERS: PCP Family Medicine; Visit Provider Nurse Practitioner Family
DX: R53.83 Other fatigue (principal); R29.898 Other symptoms and signs involving the musculoskeletal system; M54.50 Low back pain, unspecified; M41.86 Other forms of scoliosis, lumbar region; M51.36 Other intervertebral disc degeneration, lumbar region; M85.89 Other specified disorders of bone density and structure, multiple sites
CPT/HCPCS: 72100; 73502

== ENCOUNTER 2023-05-26 09:00 | Outpatient (RCR) | payer MEDICARE, SELFPAY ==
--- NOTE | 2023-05-26 10:13 | PTOPEVAL1 ---
Assessment and note entered by Zehra Vega, PT Evaluation Information Assessment Status Evaluation Diagnosis LBP Onset 05/20/23 Subjective Information Елена Lynn reports chronic low back pain. She notes the pain started getting worse about a month ago for unknown reasons. She went to her doctor and had x-rays taken that showed levoscoliosis, lumbar degenerative disc disease, right hip osteoarthritis, and osteopenia. She notes the right hip pain has mostly resolved but she continues to have right low back pain. She uses OTC tylenol for pain and feels she takes it about 3-4 times a week. She reports the tylenol dulls the pain. She has also used heat and ice with heat helping the pain. She notes she can only walk about 20 mins before her legs feel heavy. When she sits after walking, she notes increased low back pain. She also notes increased pain with lifing heavy items and repetitive up and down. She also is not able to lay on her right side due to pain. Reported Pain Level Pain Score 2: Self Report Assessment PT Clinical Summary Елена Lynn presents with chronic low back pain with a recent worsening for unknown reasons. She has difficulty with walking more than 20 minutes, sitting after walking, right sidelying, repetitive up and down, and lifting heavy items. She objectively demonstrates decreased lumbar AROM, decreased core and hip strength, decreased piriformis flexibility, and decreased functional abilities. She will benefit from skilled PT to address these limitations. Plan of Care Interventions Electrical Stimulation,Hot Pack/Cold Pack,Manual Therapy,Neuro Re-education,Patient/Caregiver Educati,Therapeutic Activities,Therapeutic Exercise PT Services Indicated Yes Treatment Frequency and 2 times a week for 8 visits Duration These treatments will address the objective and functional deficits as defined above. The patient will be advanced safely and appropriately in order for the patient to progress towards his/her prior level of function. Additional exercises will be introduced and as well as a comprehensive home exercise program upon discharge, if needed, ?to ensure carryover of functional gains achieved in the clinic. This treatment plan has been reviewed and agreement upon by the patient.
--- NOTE | 2023-05-26 10:13 | OPREHPOC ---
Outpatient Therapy Plan of Care This is a Multidisciplinary Plan of Care that may contain components documented by all disciplines (PT, OT, and ST.) PT Problem 1 PT Problem #1 Knowledge Deficit PT Goal 1 Goal The patient will demonstrate independence in a home exercise program to continue after discharge from formal PT. Target Visit 8 PT Problem 2 PT Problem #2 Pain PT Goal 1 Goal The patient will report less than 2/10 pain with daily activities and recreational walking. Target Visit 8 PT Problem 3 PT Problem #3 Impaired Gait PT Goal 1 Goal The patient will have less than 10% self perceived disability per the Oswestry Back Index. Target Visit 8 PT Problem 4 PT Problem #4 Impaired Range of Motion PT Goal 1 Goal Patient will improve bilateral lumbar lateral flexion AROM to 10 degrees to improve functional mobility. Target Visit 8 PT Problem 5 PT Problem #5 Impaired Strength PT Goal 1 Goal Patient will demonstrate improved hip abduction, lower abdominal, and lumbar extension strength to 4-/5 or greater to provide support to the lumbar spine and hip complex for daily activities. Target Visit 8
--- NOTE | 2023-06-19 11:00 | OPREHPOC ---
Outpatient Therapy Plan of Care This is a Multidisciplinary Plan of Care that may contain components documented by all disciplines (PT, OT, and ST.) PT Problem 1 PT Problem #1 Knowledge Deficit PT Goal 1 Goal The patient will demonstrate independence in a home exercise program to continue after discharge from formal PT. Target Visit 8 Progress Met PT Problem 2 PT Problem #2 Pain PT Goal 1 Goal The patient will report less than 2/10 pain with daily activities and recreational walking. Target Visit 8 Progress Met PT Problem 3 PT Problem #3 Impaired Gait PT Goal 1 Goal The patient will have less than 10% self perceived disability per the Oswestry Back Index. Target Visit 8 Progress Not Met PT Problem 4 PT Problem #4 Impaired Range of Motion PT Goal 1 Goal Patient will improve bilateral lumbar lateral flexion AROM to 10 degrees to improve functional mobility. Target Visit 8 Progress Not Met PT Problem 5 PT Problem #5 Impaired Strength PT Goal 1 Goal Patient will demonstrate improved hip abduction, lower abdominal, and lumbar extension strength to 4-/5 or greater to provide support to the lumbar spine and hip complex for daily activities. Target Visit 8 Progress Not Met
--- NOTE | 2023-06-19 11:00 | PTOPDC ---
Assessment and note entered by Faith Be DPT Evaluation Information Assessment Status Re-evaluation Diagnosis LBP Onset 05/20/23 Subjective Information Patient reports her back at rest is 0/10. She reports the more she does the more pain she has. She reports that her legs feels more mobile since starting PT. She reports independence with HEP. Reported Pain Level Pain Score 0: Self Report Assessment PT Clinical Summary Mrs. Lynn has been seen for 8 visits of skilled PT with good progression towards goals. She did not meet all goals but has progressed towards all. She reports increased LE mobility with house hold tasks but states her pain increases with prolonged activity. She is independent with HEP and is appropriate for DC at this time. Plan of Care PT Services Indicated No
== END 2023-06-19 11:25 | disposition home or self-care (01) ==
LOC: CHSPT 09:00
PROVIDERS: PCP Family Medicine; Visit Provider Nurse Practitioner Family
DX: M54.50 Low back pain, unspecified (principal); R53.83 Other fatigue; R29.898 Other symptoms and signs involving the musculoskeletal system
CPT/HCPCS: 97014; 97110; 97140; 97150; 97161; G0283

== ENCOUNTER 2023-06-17 08:54 | Outpatient (CLI) | payer MEDICARE, SELFPAY ==
[2023-06-17 09:53] LABS: Cholesterol 231 mg/dL (0-200); HDL Direct 92 mg/dL (40-60); LDL Cholesterol Calculated 130 mg/dL (<130); Triglycerides 43 mg/dL (0-150)
[2023-06-17 09:54] LABS: Thyroid Stimulating Hormone Reflex 3.34 u/IU/mL (0.36-3.74)
[2023-06-21 16:32] LABS: Vitamin D 25 Hydroxy 38 ng/mL (30-100)
== END 2023-06-17 08:55 | disposition home or self-care (01) ==
LOC: CHSLAB 08:56
PROVIDERS: PCP Nurse Practitioner Family; Visit Provider Nurse Practitioner Family
DX: I10 Essential (primary) hypertension (principal); R53.83 Other fatigue; R29.898 Other symptoms and signs involving the musculoskeletal system; E78.5 Hyperlipidemia, unspecified; E55.9 Vitamin D deficiency, unspecified
CPT/HCPCS: 36415; 80061; 82306; 84443

== ENCOUNTER 2023-11-19 12:12 | Outpatient (CLI) | payer MEDICARE, SELFPAY ==
[2023-11-19 12:39] LABS: Basophils Absolute Auto 0.03 K/mm3 (0.00-0.10); Basophils Percent Auto 0.4 % (0.0-1.0); Eosinophils Absolute Auto 0.09 K/mm3 (0.02-0.50); Eosinophils Percent Auto 1.3 % (1.0-6.0); Hematocrit 37.1 % (35.0-42.0); Immature Granulocyte Absolute 0.02 K/mm3 (0.00-0.00); Immature Granulocyte Percent A 0.3 % (0.0-0.0); Lymphocytes Absolute Auto 1.47 K/mm3 (1.10-4.50); Mean Corpuscular HGB Conc 32.3 g/dL (32-36); Mean Corpuscular Hemoglobin 28.5 pg (27.0-31.0); Mean Corpuscular Volume 88.1 fL (78.0-102.0); Mean Platelet Volume 9.5 fl (9.2-11.8); Monocytes Absolute Auto 0.76 K/mm3 (0.10-0.90); Monocytes Percent Auto 11.4 % (2.0-11.0); Neutrophils Percent Auto 64.6 % (50.0-70.0); Platelet Count Result 229 K/mm3 (150-420); Red Blood Count 4.21 M/mm3 (4.20-5.40); Red Cell Distribution Width 12.7 % (11.6-14.4); White Blood Count 6.7 K/mm3 (4.8-10.8)
[2023-11-19 13:32] LABS: Alanine Aminotransferase 23 U/L (14-59); Albumin Level 3.4 g/dL (3.4-5.0); Alkaline Phosphatase 46 U/L (46-116); Anion Gap 9 mmol/L (4-12); Aspartate Amino Transferase 28 U/L (15-37); Bilirubin,Total 0.3 mg/dL (0.00-1.00); Blood Urea Nitrogen 25 mg/dL (7-18); Calcium 9.1 mg/dL (8.5-10.1); Carbon Dioxide 31 mmol/L (21-32); Chloride 96 mmol/L (98-108); Estimated Glomerular Filt Rate > 60; Glucose 96 mg/dL (70-99); Magnesium 1.7 mg/dL (1.8-2.4); Osmolality Calculated 286 mOsm/kg (285-295); Potassium 4.6 mmol/L (3.5-5.1); Sodium 136 mmol/L (136-145); Total Protein 6.5 g/dL (6.4-8.2)
[2023-11-19 13:34] LABS: Thyroid Stimulating Hormone Reflex 1.88 u/IU/mL (0.36-3.74)
== END 2023-11-19 12:13 | disposition home or self-care (01) ==
LOC: CHSLAB 12:14
PROVIDERS: PCP Family Medicine; Visit Provider Family Medicine
DX: E03.9 Hypothyroidism, unspecified (principal); I10 Essential (primary) hypertension; I47.10 Supraventricular tachycardia, unspecified
CPT/HCPCS: 36415; 80053; 83735; 84443; 85025

== ENCOUNTER 2023-12-29 12:28 | Outpatient (NON) | payer MEDICARE, SELFPAY ==
[2023-12-29 12:44] LABS: Appearance Urine Clear (Clear); Bilirubin Urine Negative (Negative); Blood Urine Negative (Negative); Color Urine Light Yellow (Yellow); Glucose Urine UA Negative (Negative); Ketones Urine Trace (Negative); Leukocyte Esterase Ur 2+ (Negative); Nitrate Urine Negative (Negative); Protein Urine Trace (Negative); Specific Grav Ur 1.015 (1.010-1.020)
[2023-12-29 12:49] LABS: Add Urine Microscopic? YES; Bacteria Urine Trace /hpf; RBC Urine None seen /hpf (0-2); Squamous Epithelial Cell Urine Few /hpf (Few)
== END 2023-12-29 12:29 | disposition home or self-care (01) ==
PROVIDERS: Visit Provider Nurse Practitioner Family
DX: R10.13 Epigastric pain (principal); M54.50 Low back pain, unspecified
CPT/HCPCS: 81001; 87086

== ENCOUNTER 2024-01-07 08:12 | Outpatient (CLI) | payer MEDICARE, SELFPAY ==
--- NOTE | ~2024-01-07 | XR_ITS ---
Left Knee Technique: AP, lateral, and sunrise views were obtained. Clinical History: Pain Findings: No fracture or dislocation is seen. Osseous alignment is anatomic. Joint spaces are preserv ed without degenerative or erosive change. Chondrocalcinosis of the menisci noted. No joint effusion is seen. Impression: No acute abnormality. Chondrocalcinosis of the menisci. Reviewed, dictated and finalized at location . Impression: No acute abnormality. Chondrocalcinosis of the menisci.
--- NOTE | ~2024-01-07 | MR_ITS ---
MRI of the left hip Clinical history: Pain Technique: Coronal T1-weighted, T2-weighted, and proton-density fat-sat images, and axial T1-weighted and proton-density fat-sat images were acquired through the pelvis. Coronal T2-weighted images and c oronal, axial, and sagittal proton-density fat-sat images were acquired through the left hip. Findings: No acute fracture or avascular necrosis identified. There are old, healed fracture deformit ies of the right superior and inferior pubic rami. No bone marrow edema evident on the current exam. There is diffuse moderate chondromalacia of the left hip joint, and diffuse mild chondromalacia the r ight hip joint. Small to moderate left hip joint effusion is present, nonspecific. No right hip joint effusion. Probable mild degenerative attenuation of the anterior left acetabular labrum without discrete, detac hed labral tear. Visualized musculature about the pelvis and left hip is unremarkable. No muscle atrophy or edema seen . Visualized tendons are intact. No soft tissue mass or fluid collection evident. IMPRESSION: Moderate left hip joint osteoarthritis. Small to moderate left hip joint is nonspecific, possibly reactive. Consider joint aspiration as jessie cated. Mild degenerative change of the right hip joint. Old, healed fracture deformities of the right superior and inferior pubic rami. Reviewed, dictated and finalized at location . IMPRESSION: Moderate left hip joint osteoarthritis. Small to moderate left hip joint is nonspecific, possibly reactive. Consider golden int aspiration as indicated. Mild degenerative change of the right hip joint. Old, healed fracture deformities of the right superior and inferior pubic rami.
--- NOTE | ~2024-01-07 | MR_ITS ---
MRI of the lumbar spine Clinical History: Back pain Technique: Axial T2-weighted images, and sagittal T1-weighted, T2-weighted, and and T2 fat-sat images were acquired. Findings: There is no fracture or subluxation of the lumbar spine. Vertebral bodies maintain normal h eight and alignment. There are reactive marrow signal changes about the L2-L3 disc space due to under lying degenerative disc disease. At L1-L2, there is no significant disc bulge or herniation. There is moderate facet arthropathy. No c entral canal stenosis or neural foraminal narrowing. At L2-L3, there is advanced degenerative disc narrowing. There is diffuse disc bulge with moderate fa cet arthropathy. No central canal stenosis. There is probable minimal right neural foraminal narrowin g. Left neural foramen preserved. At L3-L4, there is advanced degenerative disc narrowing. There is minimal disc bulge with moderate fa cet arthropathy. No central canal stenosis. There is moderate right neural foraminal narrowing. Left neural foramen preserved. At L4-L5, there is mild disc bulge with advanced facet arthropathy. No central canal stenosis. There is mild left neural foraminal narrowing. Right neural foramen preserved. At L5-S1, there is mild disc bulge with advanced facet arthropathy. Possible prior posterior decompre ssion at this level. No spinal canal stenosis or neural foraminal narrowing. Paravertebral soft tissues are unremarkable. Impression: Overall mild degenerative spondylosis, as detailed above. Reviewed, dictated and finalized at [facility]. Impression: Overall mild degenerative spondylosis, as detailed above.
== END 2024-01-07 08:13 | disposition home or self-care (01) ==
PROVIDERS: PCP Nurse Practitioner Family; Visit Provider Nurse Practitioner Family
DX: M25.562 Pain in left knee (principal); M54.50 Low back pain, unspecified; R29.898 Other symptoms and signs involving the musculoskeletal system; M11.262 Other chondrocalcinosis, left knee; M16.12 Unilateral primary osteoarthritis, left hip; Z87.81 Personal history of (healed) traumatic fracture
CPT/HCPCS: 72148; 73560; 73721

== ENCOUNTER 2024-05-03 12:38 | Outpatient (NON) | payer MEDICARE, SELFPAY | END 2024-05-03 12:39 | disposition home or self-care (01) | LOC: CHSLAB 12:40 | PROVIDERS: Visit Provider Family Medicine | DX: L03.90 Cellulitis, unspecified (principal) | CPT/HCPCS: 87070; 87205 ==

== ENCOUNTER 2024-05-20 14:56 | Outpatient (NON) | payer MEDICARE, SELFPAY | END 2024-05-20 14:57 | disposition home or self-care (01) | LOC: CHSLAB 15:01 | PROVIDERS: PCP Family Medicine; Visit Provider Nurse Practitioner Family | DX: R21 Rash and other nonspecific skin eruption (principal) | CPT/HCPCS: 87070; 87075; 87101; 87205 ==

== ENCOUNTER 2024-05-26 10:43 | Outpatient (CLI) | payer MEDICARE, SELFPAY ==
[2024-05-26 11:00] VITALS: BP 122/74; PULSE 78; RESP 14; TEMP 36.6; O2SAT 97; BMI 22.6
[2024-05-26] MEDS: ZOLEDRONIC ACID 5 MG/100 ML 100 ML 400 MG IVPB (11:00)
--- NOTE | 2024-05-26 11:26 | PC.NURSE ---
Patient here for IV Reclast infusion. Education given. NO concerns voiced. Reports did well with this last year. Infusion administered. SEE MAR/patient care notes. Tolerated well.
== END 2024-05-26 11:35 | disposition home or self-care (01) ==
PROVIDERS: PCP Family Medicine; Visit Provider Nurse Practitioner Family
DX: M85.80 Other specified disorders of bone density and structure, unspecified site (principal)
CPT/HCPCS: 96374; J3489

== ENCOUNTER 2024-06-11 19:45 | Outpatient (CLI) | payer MEDICARE, SELFPAY ==
--- NOTE | 2024-06-30 22:10 | P.SLEEP_ITS ---
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 She never awakens from sleep short of breath. She occasionally wakes at night with heartburn, belching or coughing.??She occasionally snores, never snores loudly enough that others complain. She frequently has trouble sleeping when she has a cold. She never wakes up gasping for breath during the night. She never has breathing problems at night observed by others. She never sweats excessively at night. She occasionally notices her heart pounding or beating irregularly during the night. She occasionally falls asleep during the day. She never falls asleep involuntarily, never falls asleep while driving. She never experiences loss of muscle tone with strong emotion. She never feels paralyzed on waking or falling asleep. She occasionally experiences vivid dreams upon waking or falling asleep. She never feels afraid of going to sleep. She occasionally has nightmares. She frequently recalls her dreams. She frequently has thoughts racing through her mind. She occasionally feels sad or depressed. She frequently feels anxiety. She never notices parts of her body jerk. She rarely kicks during the night. She occasionally feels crawling or aching feelings in her legs. She occasionally feels leg pain at night. She never has morning jaw pain nor does she grind her teeth at night. She had her top dentures removed. She occasionally is bothered by pain during the day. She never is awakened by pain during the night. She occasionally wakes up feeling stiff in the morning, occasionally awakens with sore achy muscles and occasionally awakens with pain in the neck and spine. She clenches her teeth during the day. She has headaches, palpitations and concentration difficulties. Normal bedtime is 11:00 p.m., falling asleep immediately, waking twice during the night to go to the bathroom. She wakes at 6:30 a.m., reports getting between 6 and 7 hours of sleep per night. She takes naps in the afternoon or evening. A short nap lasting 10-15 minutes may be refreshing. She feels better in the morning compared to other times of day. She may feel refreshed on waking. Habits:??Tobacco: Former smoker, quit 60 years ago Caffeine: None Alcohol: None Recreational substances: None [facility] Past Medical History Medical History Abnormality of heart beat Benign essential HTN Breast cancer Cardiac arrhythmia Colon polyp Constipation Displaced fracture of neck of left radius Endometrial thickening on ultrasound Epigastric pain Exposure to COVID-19 virus Fatigue Fracture of radial neck, right, closed GARRETT (generalized anxiety disorder) Hyperlipidemia Hypertension Injury of right hip Left ankle pain Nausea and vomiting in adult Nicotine dependence in remission Osteopenia Osteoporosis Paroxysmal supraventricular tachycardia Personal history of other drug therapy Post-COVID chronic fatigue Pre-op exam Right hip pain Right wrist pain RLQ abdominal pain Sciatica of right side Skin cancer s/p surgical resection Skin rash Stress fracture of sacrum Surgical History Surgical History H/O cataract extraction History of appendectomy 2007 Dr. Johnston History of hernia repair x2 2002 Dr. Johnston History of lumpectomy 2012 History of lung biopsy (~08/2018) Left History of parotidectomy Dr. Nicole 2009 History of thyroid surgery 2007 Dr. Johnston Family History Family History Mother Familial Alzheimer's disease of late onset Other Abnormality of heart beat Heart disease Hypertension Social History Social History Smoking status: Never smoker Additional smoking assessment comments: socially only Alcohol intake: never Substance use: never Lack of Transportation: No Lack of Food: Never True Current Housing: I Have Housing Concerned About Future Housing: No Difficulty Paying Gas/Electric Bills: No Difficulty Paying for Meds: No Currently Unemployed: No Education: High School Diploma/GED Difficulty w/ Childcare or Family Care: No Living arrangements: alone Additional living arrangements comments: Occupation/Education: retired Gender identity (if verbalized by the patient): Female Spiritual care concerns: No Medications Home Medications Medication Instructions Recorded Confirmed Type magnesium oxide 400 mg PO DAILY 08/08/19 05/26/24 History kzqlwhoa-enjfyng-gmhb-lutein tablet 1 mcg PO DAILY 08/08/19 05/26/24 History metoprolol succinate 25 mg 25 mg PO BID 06/17/22 05/26/24 History tablet,extended release 24 hr calcium 600 mg (as 2 cap PO BIDWMEAL #180 caps 03/31/23 05/26/24 Rx carbonate)-vitamin D3 10 mcg (400 unit) capsule chlorthalidone 25 mg tablet 25 mg PO DAILY 12/29/23 05/26/24 History zoledronic acid 5 mg/100 mL in 1 ea IV .annually #100 mL 04/27/24 05/26/24 Rx mannitol 5 %-water intravenous piggybck (Reclast) triamcinolone acetonide 0.5 % 1 applic topical DAILY #15 grams 06/02/24 Rx topical cream verapamil 120 mg tablet,extended See Rx Instructions .Route 06/02/24 Rx release .COMPLEX #90 tabs omeprazole 40 mg capsule,delayed See Rx Instructions .Route 06/28/24 Rx release .COMPLEX #30 caps Sleep Procedure A split night polysomnogram using the Omniox multi-channel system recorded the standard physiologic parameters including EEG, EOG, submentalis EMG, anterior tibialis EMG, EKG, body position, nasal and oral airflow using nasal pressure sensor and thermistor. Respiratory parameters of chest and abdominal movements were recorded with Respiratory Inductance Plethysmography belts. Oxygen saturation was recorded by pulse oximetry. Video monitoring was also performed. Sleep stages, periodic limb movements, and EEG arousals were scored in 30 second epochs according to the criteria of the AASM Scoring Manual. The Apnea-Hypopnea Index was calculated using CMS guidelines for definition of hypopnea while scoring respiratory events. The patient self-administered 1 mg a s zopiclone at the beginning of the test. She had 3 visits to the bathroom during the night. After the baseline portion the patient met criteria for a titration with an AHI of 8.4 and desaturation to 86%. She used a small ResMed AirFit in 30 I nasal mask initial pressure 5 cm, increased per protocol to 6 cm, 7 cm with 2 cm EPR, 8 cm with 2 cm EPR, 9 cm with 3 EPR and 10 cm with 3 EPR. The optimal pressure was the final pressure, CPAP 10 cm with 3 cm EPR. At this pressure the patient spent 22.5 minutes in bed, 2 minutes awake, 12.5 minutes in non-REM and 8 minutes in REM. The sleep efficiency was 91.1%. The residual apnea-hypopnea index was 8.8 and the lowest saturation was 92%. The residual AHI included 2 central apneas which are expted to improve with regular PAP usage. The patient had supine REM at this setting and sleep was more consolidated compared to earlier during the night. She has a positional component, on both the baseline and the titration the supine index was much higher. The patient used a nasal mask and not a full face mask or a chin strap even when her mouth open and at times due to extreme claustrophobia. Sleep Architecture Baseline During the diagnostic portion of the study, the total recording time was 220.0 minutes. The total sleep time was 135.0 minutes. Sleep latency was 0.0 minutes. There was no REM on the baseline portion, therefore no REM latency. Sleep Efficiency was 61.4%. The patient had 26 awakenings for an awakening index of 11.6. Wake after sleep onset time was 85.0 minutes. The patient spent 28.5 minutes, 21.1% of total sleep time in Stage N1. The patient spent 66.5 minutes, 49.3% in Stage N2. The patient spent 40.0 minutes, 29.6% in Stage N3. The patient spent no time in Stage REM sleep. Titration At 02:04:13 AM the patient was placed on PAP treatment and was titrated at pressures ranging from 5 cm H20 up to 10 cm with 3 cm EPR. During the treatment portion of the study, the total recording time was 260.5 minutes. The total sleep time was 207.0 minutes. Sleep latency was 19.5 minutes. REM latency was 49.0 minutes. Sleep Efficiency was 79.5%. Wake after Sleep Onset time was 34.0 minutes. The patient spent 24.0 minutes, 11.6% of total sleep time in Stage N1. The patient spent 115.5 minutes, 55.8% in Stage N2. The patient spent 8.0 minutes, 3.9% in Stage N3. The patient spent 59.5 minutes, 28.7% in Stage REM. Respiratory Analysis Baseline During the diagnostic portion of the study, the patient had 9 hypopneas, 10 obstructive apneas, no mixed or central apneas for an overall Apnea Hypopnea Index of 8.4 events per hour. The REM Apnea Hypopnea Index was 0 as there was no REM. The NREM Apnea Hypopnea Index was 8.4. The patient had a Central Apnea Hypopnea Index of 0. There were 3 Respiratory Effort Related Arousals resulting in a RERA index of 1.3 events per hour. The Respiratory Disturbance Index is 9.8 events per hour. There was no evidence of Devin-Peraza Respirations. During the baseline, the supine apnea-hypopnea index was 47.4 compared to a nonsupine index of 1.1. Titration During the treatment portion of the study, the patient had 13 hypopneas, 4 obstructive apneas, no mixed apneas, and 6 central apneas for an overall Apnea Hypopnea Index of 6.7 events per hour. The REM Apnea Hypopnea Index was 7.1. The NREM Apnea Hypopnea Index was 6.5. The patient had a Central Apnea Hypopnea Index of 1.7. There were 5 Respiratory Effort Related Arousals resulting in a RERA index of 1.4 events per hour. The Respiratory Disturbance Index is 8.4 events per hour. There was no evidence of Devin-Peraza Respirations. During the treatment portion, the supine apnea-hypopnea index was 14.8 compared to his nonsupine index of 1.8. Arousals Baseline During the diagnostic portion of the study, there were a total of 68 arousals for an arousal index of 30.2. There were 10 respiratory arousals for an index of 4.4. There were no periodic limb movement arousals. There were 7 isolated limb movement arousals for an index of 3.1. There were 51 spontaneous arousals for an index of 22.7. Titration During the treatment portion of the study, there were a total of 68 arousals for an index of 19.7. There were 8 respiratory arousals for an index of 2.3. There were no periodic limb movement arousals. There were 7 isolated limb movement arousals for an index of 2.0. There were 53 spontaneous arousals for an index of 15.4. Periodic Limb Movements Baseline During the diagnostic portion of the study, the patient had 11 isolated limb movements with an index of 4.9. The patient had no periodic limb movements. The patient had a total of 11 limb movements with a total limb movement index of 4.9. Titration During the treatment portion of the study, the patient had 12 isolated limb movements with an index of 3.5. The patient had no periodic limb movements. The patient had a total of 12 limb movements with a total limb movement index of 3.5. Oximetry Data Baseline During the diagnostic portion of the study, the patient had an average oxygen saturation of 93.8% in wake with a minimum oxygen saturation of 83% and a maximum oxygen saturation of 99%. The patient had an average oxygen saturation of 93.4% in sleep with a minimum oxygen saturation of 86% and a maximum oxygen saturation of 98%. The patient had 14 oxygen desaturations resulting in an Oxygen Desaturation Index of 6.2. The patient spent 1.5 minutes, 0.7% of total sleep time with an oxygen saturation less than 88%. Titration During the treatment portion of the study, the patient had an average oxygen saturation of 94.9% in wake with a minimum oxygen saturation of 89% and a maximum oxygen saturation of 99%. The patient had an average oxygen saturation of 94.5% in sleep with a minimum oxygen saturation of 87% and a maximum oxygen saturation of 99%. The patient had 21 oxygen desaturations resulting in an Oxygen Desaturation Index of 6.1. The patient spent 0.8 minutes, 0.3% of total sleep time with an oxygen saturation less than 88%. Snoring Profile Snoring was rare and mild, mostly positional. Snoring was eliminated at the end of the titration. Cardiac Profile Baseline During the diagnostic portion of the study, the EKG showed normal sinus rhythm. The average pulse rate was 60.9 bpm. The minimum pulse rate was 42 bpm. The maximum pulse rate was 91 bpm. The patient had several sinus pauses during the baseline portion. Titration During the treatment portion of the study, the EKG showed normal sinus rhythm. The average pulse rate was 60.3 bpm. The minimum pulse rate was 52 bpm. The maximum pulse rate was 85 bpm. Rare PVC noted. Rare sinus pause. EEG Profile EEG was unremarkable, no evidence of seizures. Assessment and Plan Assessment and Plan (1) Obstructive sleep apnea: Code(s): G47.33 - Obstructive sleep apnea (adult) (pediatric) Status: Acute Assessment and Plan: This split night sleep study on 06/11/2024 shows mild obstructive sleep apnea, the overall apnea-hypopnea index was 8.4 with desaturation 86%, no REM on the baseline. This was successfully treated with CPAP 10 cm with 3 cm EPR using a small ResMed AirFit in 30 I nasal mask with heated humidity. Supine REM occurred at this setting. The patient should be prescribed this ResMed equipment as well as tubing, filters and reservoir. This should be used with all episodes of sleep. Compliance should be reviewed within 31-90 days of starting therapy for usage greater than 4 hours per night greater than 70% of the nights. The patient should be asked about symptoms such as excessive daytime sleepiness, quality of sleep, decreased nocturia, increased mental functioning such as memory, mood, and concentration. vents were more common during supine sleep and REM. This was a successful titration especially considering claustrophobia and improved sleep efficiency during the titration. She has scattered sinus pauses during the night, fewer during the treatment portion compared to the baseline. Data The data obtained during this sleep study is adequate for interpretation. Certification This sleep study has been reviewed by a board certified sleep medicine physician.
[2024-06-30 22:43] VITALS: BMI 22.6
== END 2024-06-12 07:37 | disposition home or self-care (01) ==
LOC: CHSCSM 19:51
PROVIDERS: PCP Family Medicine; Visit Provider Family Medicine
DX: G47.33 Obstructive sleep apnea (adult) (pediatric) (principal)
CPT/HCPCS: 95811

== ENCOUNTER 2024-07-05 08:29 | Outpatient (CLI) | payer MEDICARE, SELFPAY ==
--- NOTE | ~2024-07-05 | CT_ITS ---
Clinical Indication: History of malignancy CT Scan of the Chest with Contrast: Technique: Contiguous sections were acquired throughout the chest after intravenous administration of 75 cc of Omnipaque 350. Dose reduction technique was used on this scan by utilizing automated exposu re control and iterative reconstruction technique. The dose-length product (DLP) was 143.63 mGy-cm. Findings: There are enlarged bilateral hilar lymph nodes. There is probable enlarged subcarinal lymph node.. Th ere is no filling defect in the pulmonary arterial tree to suggest pulmonary embolus. There is no michelle dence of aortic dissection or aneurysm. No pericardial effusion There is minimal left pleural fluid. No right pleural effusion. Biapical pulmonary scarring noted. There are probable postoperative changes related to wedge resectio n or partial resection at the lingular region. There is a tubular opacity/nodule at the anteromedial right middle lobe, which probably represent an impacted airway (axial images 62-72). Images through the upper abdomen reveal no abnormalities. Impression: Bilateral hilar and subcarinal adenopathy. Correlate for metastatic disease versus reactive/inflammat ory adenopathy. Probable postoperative change at the lingula. Correlate with surgical history. Tubular density at the anteromedial right middle lobe is compatible with an impacted airway. Minimal left pleural fluid. Reviewed, dictated and finalized at location . P CARRIER Impression: Bilateral hilar and subcarinal adenopathy. Correlate for metastatic disease joanna magaly reactive/inflammatory adenopathy. Probable postoperative change at the lingula. Correlate with surgical history. Tubular density at the anteromedial right middle lobe is compatible with an imp acted airway. Minimal left pleural fluid.
[2024-07-05 08:54] LABS: Estimated Glomerular Filt Rate 53
== END 2024-07-05 08:30 | disposition home or self-care (01) ==
LOC: CHSIMG 08:31
PROVIDERS: PCP Family Medicine; Visit Provider Family Medicine
DX: Z85.818 Personal history of malignant neoplasm of other sites of lip, oral cavity, and pharynx (principal); R59.0 Localized enlarged lymph nodes; R91.8 Other nonspecific abnormal finding of lung field
CPT/HCPCS: 71260; Q9967

== ENCOUNTER 2024-07-19 08:55 | Outpatient (CLI) | payer MEDICARE, SELFPAY ==
--- NOTE | ~2024-07-19 | XR_ITS ---
EXAMINATION: XR abdomen/kub 1V DATE: 07/19/2024 09:18 INDICATION: Chronic constipation. TECHNIQUE: A supine view of the abdomen on 3 radiographs was obtained. COMPARISON: Abdomen radiographs 07/01/2008 FINDINGS: There are no dilated loops of bowel. There is a large volume of stool in the colon. There i s an old healed fracture of right inferior pubic ramus. IMPRESSION: 1. Nonobstructive bowel gas pattern. Reviewed, dictated and finalized at location A. ING AIDE
== END 2024-07-19 08:56 | disposition home or self-care (01) ==
LOC: CHSIMG 08:56
PROVIDERS: PCP Family Medicine; Visit Provider Nurse Practitioner Family
DX: R14.0 Abdominal distension (gaseous) (principal); K59.09 Other constipation
CPT/HCPCS: 74018

== ENCOUNTER 2024-10-30 20:53 | Emergency (ER) | payer MEDICARE, SELFPAY ==
[2024-10-30] VITALS (18 sets, daily range): BP systolic 108–147; BP diastolic 70–95; PULSE 72–152; RESP 9–26; TEMP 36.7; O2SAT 92–98
--- NOTE | ~2024-10-30 | CT_ITS ---
CT of the Abdomen and Pelvis: Indication: Abdominal pain Technique: 2.5 mm axial scans were obtained through the abdomen and pelvis following intravenous adm inistration of 100 cc of Omnipaque 350. Dose reduction technique was used on this scan by utilizing a utomated exposure control and iterative reconstruction technique. The dose-length product (DLP) was 3 40.20 mGy-cm. Findings: Scans through the lung bases are unremarkable. The liver, spleen, pancreas, gallbladder, adrenals and kidneys are within normal limits. No evidence of aortic aneurysm. No lymphadenopathy. No bowel obstruction or bowel wall thickening. There are multiple fluid-filled small bowel loops. Mod erate stool present.. Images through the pelvis were performed. Urinary bladder unremarkable. No pelvic mass seen. No ascit es. Impression: Findings suggestive of nonspecific small bowel enteritis. Reviewed, dictated and finalized at [facility]. Impression: Findings suggestive of nonspecific small bowel enteritis.
--- NOTE | ~2024-10-30 | XR_ITS ---
Portable chest x-ray Comparison: 10/30/2024 Clinical History: Line placement Findings: Right IJ line in satisfactory position. Lungs are clear, without focal consolidation or pl eural effusion. No pneumothorax. Cardiomediastinal silhouette is stable, with loop recorder. Bones a nd soft tissues are unremarkable. Impression: Right IJ line in place. No pneumothorax. Clear lungs. Reviewed, dictated and finalized at location . Impression: Right IJ line in place. No pneumothorax. Clear lungs.
--- NOTE | ~2024-10-30 | XR_ITS ---
EXAMINATION: XR chest 1V portable Exam Date/Time: 10/30/2024 21:10 CDT HISTORY: Chest pain. EPIGASTRIC PAIN. Comparison: 09/02/2022. RESULT: Lines, tubes, and devices: Loop recorder. Lungs and pleura: No focal consolidation, pleural effusion, or pneumothorax. Emphysematous/senescent change. Cardiomediastinal silhouette: Stable. Other: No acute osseous or upper abdominal finding. IMPRESSION: No acute cardiopulmonary process. Reviewed, dictated and finalized at location [facility].
--- OUTSIDE RECORDS SUMMARY | 2024-10-30 20:56 | XMS_ITS | Encounter Summary ---
Author Organization [facility] Address [address] [place] [address] Care Team Providers Care Bulk Gas Specialist Name Role Phone Randa Maldonado APRN, NP-C Unavailable José Miguel Gore MD Unavailable Unavailabl e Randi Lopez RANGE MECHANIC Primary Care Provider [phone] Yung Henderson MD Unavailable [phone] Elliot Tran DO Unavailable [phone] Elliot Tran DO Primary Care Provider [phone] Martita Pride MD Unavailable Encounter Details Date Type Department Care Team (Late st Contact Info) Description 09/25/2022 Hospital Orders Only [facility] Pre/Post [address] [place] [address] Yung Henderson MD [address] [place], [place] [address] Social History Tobacco Use Types Packs/Day Years Used Date Smoking Tobacco: Never Smokeless Tobacco: Never Alcohol Use Standard Drinks/Week Comments No 0 (1 standard drink = 0.6 oz pur e alcohol) Comments Unknown Sex and Gender Information Value Date Recorded Sex Assigned at Not on file Legal Sex Female 10:51 PM CDT Gender Identity Not on file Sexual Orientation Not on file Occupation Industry Job Start Date Job End Date Not on file Not on file Not on file Not on file documented as of this encounter Plan of Treatment Upcoming Encounters Date Type Department Care Team (Late st Contact Info) Description 12/09/2024 1:00 AM CDT Allied Health/Nurse Visit [facility] [address] [place] [phone] Yung Henderson MD [address] [place] [address] 12/12/2024 11:00 AM CDT Office Visit [facility] [place] [phone] Martita Pride MD [address] [place], [place] [id number] documented as of this encounter Visit Diagnoses Not on filedocumented in this encounter Care Teams Bulk Gas Specialist Relationship Specialty Start Date End Date Randi Lopez FNP [address] [place] [address] PCP - General NURSE PRACTITIONER 06/09/22 11/11/23 Elliot Tran DO [address] [place] [address] PCP - General FAMILY PRACTICE 11/12/23 Randa Maldonado APRN, CHEF MANAGER-C [address] [place] [address] [phone] NURSE PRACTITIONER 04/26/18 02/20/24 José Miguel Gore MD [address] [phone] [place] Frame Operator CARDIOVASCULAR DISEASE 10/26/18 02/20/24 Yung Henderson MD [address] [place] [address] EP Frame Operator CLINICAL CARDIAC ELECTROPHYSIOLOGY 06/11/22 Elliot Tran DO [address] [place] [address] FAMILY PRACTICE 09/02/22 Martita Pride MD [address] [place] [address] Consulting Physician CARDIOVASCULAR DISEASE 02/21/24 documented as of this encounter
--- OUTSIDE RECORDS SUMMARY | 2024-10-30 20:56 | XMS_ITS | Encounter Summary ---
Author Organization [facility] Address [address] [place] [address] Phone Care Team Providers Care Restaurant Kitchen And Service Manager Name Role Phone Ilir Wahl MD Unavailable [phone] Martín Block MD Primary Care Provider Cyril Zee MD Primary Care Provider [phone] Miscellaneous, Not In File Primary Care Provider Unavailable Randi Lopez NP Primary Care Provide r Elliot Tran DO Primary Care Provider Encounter Details Date Type Department Care Team (Latest Contact Info) Description 11/02/2020 Orders Only [facility] Scanning, Provider Social History Tobacco Use Types Packs/Day Years Used Date Smoking Tobacco: Never Smokeless Tobacco: Never Alcohol Use Standard Drinks/Week Comments No 0 (1 standard drink = 0.6 oz pur e alcohol) Comments No Sex and Gender Information Value Date Recorded Sex Assigned at Not on file 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 Gender Identity Not on file Sexual Orientation Not on file documented as of this encounter Plan of Treatment Not on file documented as of this encounter Procedures Procedure Name Priority Date/Time Associated Diagnosis Comments SCAN - RADIOLOGY/IMAGING 11/02/2020 documented in this encounter Results * SCAN - RADIOLOGY/IMAGING (11/02/2020) Anatomical Region Laterality Modality Other us Provider Scanning Final Result documented in this encounter Visit Diagnoses Not on filedocumented in this encounter Care Teams Restaurant Kitchen And Service Manager Relationship Specialty Start Date End Date Martín Block MD [address] [place] [address] PCP - General 06/07/20 11/29/20 Cyril Zee MD [address] [place], [place] [id number] PCP - General Obstetrics and Gynecology 11/30/20 10/15/21 Miscellaneous, Not In File PCP - General 10/16/21 10/20/21 Randi Lopez NP [address] [place] [address] PCP - General 10/21/21 10/14/22 Elliot Tran DO [address] [place] [address] PCP - General Family Medicine 10/15/22 Ilir Wahl MD [address] [place] [address] Referring Physician Radiation Oncology 09/07/18 documented as of this encounter
--- OUTSIDE RECORDS SUMMARY | 2024-10-30 20:56 | XMS_ITS | Clinical Summary ---
Author Organization [facility] Address [address] [place] [address] Care Team Providers Care Zone Maintenance Technician Name Role Phone Yung Henderson MD Unavailable [phone] Elliot Tran DO Unavailable [phone] Elliot Tran DO Primary Care Provider [phone] Martita Pride MD Unavailable Allergies Active Allergy Reactions Criticality Noted Date Comments Sulfamethoxazole Rash Low 09/27/2018 Medications Calcium Citrate-Vitamin D (CALCIUM CITRATE + D OR) Take 1 tablet by mouth 2 (two) times daily. 06/17/2013 Active lorazepam 0.5 MG tablet Take 1 tablet (0.5 mg total) by mouth every 6 (six) hours as needed for Anxiety. Active multi vitamin/mineral s (THERA-M ENHANCED) tablet Take 1 tablet by mouth daily. Active Magnesium 500 MG Tab Take 500 mg by mouth daily. Active Carboxymethylce llulose Sodium (THERATEARS OP) Apply 1 drop to eye daily. Active verapamil (CALAN SR) 120 MG ER tablet Take 1 tablet (120 mg total) by mouth 2 (two) times a day. 06/02/2022 Active omeprazole (PRILOSEC) 40 MG capsule Take 1 capsule (40 mg total) by mouth daily. 09/23/2022 Active Zoledronic Acid (RECLAST IV) yearly Active chlorthalidone (HYGROTEN) 25 MG tablet take one tablet by mouth daily 30 tablet 6 11/18/2023 Active metoprolol succinate ER (TOPROL-XL) 25 MG 24 hr tablet take one tablet by mouth twice a day 180 tablet 2 03/06/2024 Active Active Problems Problem Noted Date Diagnosed Date Implantable loop recorder present 09/14/2023 Syncope, unspecified syncope type 09/14/2023 PVC (premature ventricular contraction) 09/29/19 19 History of supraventricular tachycardia Hyperlipidemia Bradycardia Hypertension AV block Resolved Problems Problem Noted Date Diagnosed Date Resolved Date Pre-op evaluation 07/23/2018 04/27/2020 SVT (supraventricular tachycardia) ([facility]) 02/08/2023 Encounters Date Type Department Care Team Description 10/25/2024 1:00 AM CDT Allied Health/Nurse Visit [facility] [address] [place] [address] Yung Henderson MD 08/30/2024 3:50 AM HOOP DRIVING MACHINE OPERATOR HELPER Allied Health/Nurse Visit [facility] [address] [place] [address] Yung Henderson MD from Last 3 Months Family History Medical History Relation Comments Heart Attack Father CHF Mother Relation Status Comments Father Mother Sister Alive Social History Tobacco Use Types Packs/Day Years [...] file Not on file Not on file Last Filed Vital Signs Vital Sign Reading Time Taken Comments Blood Pressure 119/85 11/26/2023 9:45 AM CDT Pulse 72 11/26/2023 9:45 AM CDT Temperature 36.3 C (97.4 F) 09/30/2022 11:14 AM HOOP DRIVING MACHINE OPERATOR HELPER Respiratory Rate 16 11/26/2023 9:45 AM CDT Oxygen Saturation 100% 11/26/2023 9:45 AM CDT Inhaled Oxygen Concentration - - Weight 66.2 kg (146 lb) 11/26/2023 9:45 AM CDT Height 165.1 cm (5' 5 ) 11/26/2023 9:45 AM CDT Body Mass Index 24.3 11/26/2023 9:45 AM CDT Plan of Treatment Upcoming Encounters Date Type Department Care Team (Late st Contact Info) Description 12/09/2024 1:00 AM CDT Allied Health/Nurse Visit [facility] [address] [place] [phone] Yung Henderson MD [address] [place], [place] [address] 12/12/2024 11:00 AM CDT Office Visit [facility] [place] [address] Martita Pride MD [address] [place], [place] [id number] Health Maintenance Due Date Last Done Comments DTaP, Tdap and Td Vaccines ( 1 - Tdap) 1957 Zoster Vaccines (1 of 2) 1988 Annual Medicare Wellness Visit 2003 Pneumococcal Vaccine: 65+ Years (1 of 1 - PCV) 2003 RSV Immunization or 60+ Years (1 - 1-dose 75+ series) 2013 COVID-19 Vaccine (2023-2 5 season) 2024 07/19/2021, 10/12/2020, 09/14/2020 Influenza Adult (#1) 2024 Meningococcal B Vaccine Aged Out No l onger eligible based on patient's age to complete this topic Meningococcal Vaccine Aged Out No kecia ling eligible based on patient's age to complete this topic RSV Immunizations Under 20 Months Aged Out No longer eligible b ased on patient's age to complete this topic Medical Devices Implanted Type Area Threading Machine Operator Device Identifier Shelf Expiration Date Model / Serial / Lot Medtronic Linq Ii-09/30/2022 Implanted:Qt y: 1 on 09/30/2022 by Yung Henderson MD Implantable Loop Recorder Left: Pectoral [employer] 01/23/2024 [id number] / [id number] / Description:DX: [employer] Insurance MEDICARE MEDICARE Advance Directives * Full Code (Latest Code Status on File) Date Activated Date Inactivated Comments 08/12/2018 2:43 PM 08/12/2018 7:28 PM Care Teams Zone Maintenance Technician Relationship Specialty Start Date End Date Elliot Tran DO [address] [place] [address] PCP - General FAMILY PRACTICE 11/12/23 Yung Henderson MD [address] [place] [address] EP Assurance Services Manager Health Care CLINICAL CARDIAC ELECTROPHYSIOLOGY 06/11/22 Elliot Tran DO [address] [place] [address] FAMILY PRACTICE 09/02/22 Martita Pride MD [address] [place] [address] Consulting Physician CARDIOVASCULAR DISEASE 02/21/24
--- OUTSIDE RECORDS SUMMARY | 2024-10-30 20:56 | XMS_ITS | Encounter Summary ---
Author Organization [facility] Address [address] [place] [address] Care Team Providers Care Reed Worker Name Role Phone Ilir Wahl MD Unavailable Cyril Zee MD Primary Care Provider [phone] Miscellaneous, Not In File Primary Care Provider Unavailable Randi Lopez POSTAL INSPECTOR Primary Care Provide r Elliot Tran DO Primary Care Provider Encounter Details Date Type Department Care Team (Late st Contact Info) Description 09/20/2021 Telephone [facility] Radiation Oncology [address] [facility] [place] [address] Josie Torrez MA Social History Tobacco Use Types Packs/Day Years Used Date Smoking Tobacco: Never Smokeless Tobacco: Never Alcohol Use Standard Drinks/Week Comments No 0 (1 standard drink = 0.6 oz pur e alcohol) Comments No Sex and Gender Information Value Date Recorded Sex Assigned at Not on file 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:39 AM 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 Gender Identity Not on file Sexual Orientation Not on file documented as of this encounter Plan of Treatment Not on file documented as of this encounter Visit Diagnoses Not on filedocumented in this encounter Care Teams Reed Worker Relationship Specialty Start Date End Date Cyril Zee MD [address] [place], [place] [id number] PCP - General Obstetrics and Gynecology 11/30/20 10/15/21 Miscellaneous, Not In File PCP - General 10/16/21 10/20/21 Randi Lopez NP [address] [place] [address] PCP - General 10/21/21 10/14/22 Elliot Tran DO [address] [place] [address] PCP - General Family Medicine 10/15/22 Ilir Wahl MD [address] [facility] [address] [place] [address] Referring Physician Radiation Oncology 09/07/18 documented as of this encounter
--- OUTSIDE RECORDS SUMMARY | 2024-10-30 20:56 | XMS_ITS ---
Author Organization [facility] Address [address] [place] [address] Care Team Providers Care Cell Pourer Name Role Phone Ilir Wahl MD Unavailable Elliot Tran DO Primary Care Provider Active Problems Patient Care Coordination No te Formatting of this note migh t be different from the original. Referring provider: Dr. Sanchez Ms. Елена Lynn 83-year-old with hilar adenopathy. 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 She went on to receive adjuvant radiation therapy and was placed on anastrozole. 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 For this she is status post resection with a positive surgical margin. She subsequently underwent re-resection with no residual disease. She went on to receive adjuvant radiation therapy completed in July 2010. She also has a history of a VATS left upper lobe wedge resection for which turned out to be granulomatous inflammation with necrosis in 2019. On 07/05/2024 the patient underwent a chest CT with contrast which showed enlarged bilateral hilar lymph nodes. There is a probable enlarged subcarinal lymph node. There is no filling defect in the pulmonary arterial tree to suggest pulmonary embolism. There are postoperative changes related to wedge resection there is a tubular opacity/nodule at the anteromedial right middle lobe which probably represents an impacted airway. Patient is scheduled for a chest CT with IV contrast prior to her appointment today. She is a never smoker. Patient presents today for further surgical evaluation. Problem Noted Date Diagnosed Date Lung nodule 07/16/2018 Overview (07/16/2018): Added automatically from request for surgery [id number] History of breast cancer 06/21/2018 Encounter for screening mamm ogram for malignant neoplasm of breast 06/21/2018 Primary malignant neoplasm of parotid gland 11/2009 Preop pulmonary/respiratory exam Current Treatment and Therapy Plans No current plan information found. Past Treatment and Therapy Plans No past plan information found. Lifetime Dose Tracking * Chemical Lifetime Dose Automatic Entry Manual Entr y DLP 1,477 mGycm 1,477 mGycm 0 mGycm
--- OUTSIDE RECORDS SUMMARY | 2024-10-30 20:56 | XMS_ITS | Clinical Summary ---
Author Organization [facility] Address [address] [place] [address] Care Team Providers Care Hair Colorist Name Role Phone Ilir Wahl MD Unavailable Elliot Tran DO Primary Care Provider Allergies Active Allergy Reactions Criticality Noted Date Comments Sulfamethoxazole-Trimethoprim Rash Medium 2018 Medications calcium carbonate-vitam in D3 1,250mg (500mg elemental) - 5 mcg (200 units) per tablet Take 2 tablets by mouth mail processing clerk before breakfast Active kdfozcdc-xsg-JA -lycopen-lutein 0.4 mg-300 mcg- 250 mcg tablet Take 1 tablet by mouth mail processing clerk before breakfast Active metoprolol (LOPRESSOR) 50 mg tablet Take 1 tablet (50 mg total) by mouth 2 (two) times a day 0 8 Active omega-3 fatty acids-fish oil 684-1,200 mg capsule,delayed release(DR/EC) Take 1 tablet by mouth mail processing clerk before breakfast. Active magnesium gluconate 200 mg tablet Take 2 tablets (400 mg total) by mouth mail processing clerk before breakfast Active oxyCODONE (ROXICODONE) 5 mg immediate release tabletIndicatio ns:Pain Take 1 tablet (5 mg total) by mouth every 4 (four) hours as needed for pain. 40 tablet 9 Active acetaminophen 500 mg capsuleIndicati ons:Pain Take 2 capsules (1,000 mg total) by mouth every 6 (six) hours. 30 tablet 1 9 Active LORazepam (ATIVAN) 0.5 mg tablet Take 1 tablet (0.5 mg total) by mouth Active omega-3 fatty acids (LOVAZA) 1 gram capsule Take 1 tablet by mouth. 4 Active verapamiL (CALAN) 120 mg tablet Take 1 tablet (120 mg total) by mouth 4 Active anastrozole (ARIMIDEX) 1 mg tabletIndicatio ns:Hormone Receptor Positive Breast Cancer Take 1 tablet (1 mg total) by mouth daily 30 tablet 11 0 Active omeprazole (PriLOSEC) 40 mg capsule 3 Active sertraline (ZOLOFT) 50 mg tablet 3 Active Vevye 0.1 % drops 5 Active eszopiclone (LUNESTA) 1 mg tablet 0 4 Active Active Problems Patient Care Coordination No te [...] to be granulomatous inflammation with necrosis in 2018. On 07/05/2024 the patient underwent a chest [...] (07/16/2018): Added automatically from request for surgery [id number] History of breast cancer 06/21/2018 Encounter for screening mamm ogram for malignant neoplasm of breast 06/21/2018 Primary malignant neoplasm of parotid gland 11/2009 Preop pulmonary/respiratory exam Encounters Date Type Department Care Team Description 09/08/2024 2:30 PM GRAPPLE YARDER OPERATOR Office Visit [facility] [address] [facility] [address] [place] [address] Kumar Lopez MD Mediastinal adenopathy (Primary Dx) 09/08/2024 12:29 PM GRAPPLE YARDER OPERATOR - 09/08/2024 11:59 PM GRAPPLE YARDER OPERATOR Hospital Encounter [facility] [place] [address] [facility] [address] [place] [address] Mediastinal mass Discharge Disposition: Discharge to home or self care 08/30/2024 Telephone [facility] [address] [facility] [address] [place] [address] Santos Garcia RMA 08/30/2024 Orders Only [facility] [address] [facility] [address] [place] [address] Kumar Lopez MD Mediastinal mass (Primary Dx) 08/29/2024 Documentation [facility] Radiation Oncology [address] [facility] [place] [address] America Monge RN 08/29/2024 Orders Only [facility] Radiation Oncology [address] [facility] [place] [address] Osmel Sanchez MD Lung nodule (Primary Dx) 08/29/2024 Telephone [facility] Radiation Oncology [address] [facility] [place] [address] America Monge RN 08/26/2024 11:08 AM GRAPPLE YARDER OPERATOR - 08/26/2024 11:59 PM GRAPPLE YARDER OPERATOR Hospital Encounter [facility] [address] [place] [address] Diagnosis unknown Discharge Disposition: Discharge to home or self care 08/23/2024 Telephone [facility] Radiation Oncology [address] [place] [address] America Monge RN 08/23/2024 Telephone [facility] Radiation Oncology [address] [place] [address] America Monge RN from Last 3 Months Immunizations Immunization Administration Dates Next Due Moderna SARS-CoV-2 Monovalent Vaccination (12+ Y RS) 09/14/2020 Surgical History Surgery Date Site/Laterality Comments SALIVARY GLAND SURGERY BREAST SURGERY APPENDECTOMY THYROIDECTOMY, PARTIAL BREAST LUMPECTOMY 05/17/2012 - 06/16/2012 Left TONSILLECTOMY HERNIA REPAIR DILATION AND CURETTAGE OF UTERUS Medical History Medical History Date Comments Breast cancer (HCC) Cancer of parotid gland (HCC) SVT (supraventricular tachycardia) PVC (premature ventricular contraction) History of parotid cancer 2009 & had radiation 2009 History of breast cancer 2012- s /p radiation Family History Medical History Relation Name Comments Heart block Father Heart attack Mother Hypertension Mother Hypertension - (Added by TW Conv) Relation Name Status Comments Father Mother (Age 99) Social History Tobacco Use Types Packs/Day Years Used Date Smoking Tobacco: Never Smokeless Tobacco: Never Tobacco Cessation:Counseling Given: Not Answered Alcohol Use Standard Drinks/Week Comments No 0 (1 standard drink = 0.6 oz pur e alcohol) Comments No Sex and Gender Information Value Date Recorded Sex Assigned at Not on file 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:39 AM GRAPPLE YARDER OPERATOR Gender Identity Not on file Sexual Orientation Not on file Obstetrics History Last Filed Vital Signs Vital Sign Reading Time Taken Comments Blood Pressure 124/75 09/08/2024 2:05 PM GRAPPLE YARDER OPERATOR Pulse 60 09/08/2024 2:05 PM GRAPPLE YARDER OPERATOR Temperature 36.8 C (98.2 F) 09/08/2024 2:05 PM GRAPPLE YARDER OPERATOR Respiratory Rate 16 09/08/2024 2:05 PM GRAPPLE YARDER OPERATOR Oxygen Saturation 99% 09/08/2024 2:05 PM GRAPPLE YARDER OPERATOR Inhaled Oxygen Concentration - - Weight 64.9 kg (143 lb) 09/08/2024 2:05 PM GRAPPLE YARDER OPERATOR Height 167.6 cm (5' 6 ) 09/08/2024 2:05 PM GRAPPLE YARDER OPERATOR Body Mass Index 23.08 09/08/2024 2:05 PM GRAPPLE YARDER OPERATOR Plan of Treatment Health Maintenance Due Date Last Done Comments Depression Screening 1938 Fall Risk Assessment 1938 DTaP/Tdap/Td Vaccine (1 - Tdap) 1949 Hepatitis B Screening 1956 Pneumococcal vaccine 65+ (1 of 2 - PCV) 1957 Zoster Vaccine (1 of 2) 1957 Well Visit 65+ 2003 Covid-19 Vaccine (2 - Moderna risk series) 10/12/2020 09/14/2020 Influenza Vaccine (#1) 2024 Procedures Procedure Name Priority Date/Time Associated Diagnosis Comments CT CHEST W CONTRAST Schedule Routine, Read Routine (OP Routine) 09/08/2024 12:45 PM GRAPPLE YARDER OPERATOR Mediastinal mass CT BODY OUTSIDE CONSULT Routine 08/26/2024 11:09 AM GRAPPLE YARDER OPERATOR Diagnosis unknown from Last 3 Months Results * CT Chest W Contrast (09/08/2024 12:45 PM GRAPPLE YARDER OPERATOR) Anatomical Region Laterality Modality Body N/A Computed Tomogra phy 09/08/2024 12:5 9 PM GRAPPLE YARDER OPERATOR Impressions 09/08/2024 12:59 PM GRAPPLE YARDER OPERATOR 1. Decreasing bihilar and mediastinal lymphadenopathy, presumably a reactive process. 2. Stable tubular structure in right middle lobe, likely representing mucoid impaction. Surgical changes of the lingula are again noted. Electronically signed by: Tee Ly M.D. Narrative 09/08/2024 12:59 PM GRAPPLE YARDER OPERATOR EXAMINATION: Computed tomography of the chest with intravenous contrast HISTORY: Mediastinal mass. TECHNIQUE: Transaxial computed tomographic images of the chest were obtained with intravenous contrast according to the standard protocol after the uneventful administration of 70 mL Opti-Ray 350 intravenous contrast. COMPARISON: 07/05/2024 FINDINGS: Compared to the examination dated 07/05/2024, the right hilar lymph node has slightly decreased in size measuring 2.0 x 1.6 cm, previously 2.0 x 2.1 cm. The subcarinal lymph node now measures 9 mm in short axis dimension, previously 10 mm. There is no enlarged left hilar lymph nodes by size criteria, improved from the prior examination. No new or enlarging mediastinal lymph nodes are noted. No axillary or supraclavicular lymph nodes are noted. Left thyroid lobe is atrophic. Right thyroid lobe is unremarkable. Great vessels are normal in course and caliber. The heart size is mildly enlarged. Coronary artery calcifications are present. Tubular structure noted within the right middle lobe is again noted and likely represents mucoid impaction, not significantly changed from the prior examination. Surgical changes of the lingula are again noted. Mild atelectasis and scarring is noted within the lung bases in the lung periphery. No dense consolidation. No new or enlarging pulmonary nodules. No pleural effusions. No pneumothorax. There are no acute or aggressive osseous abnormalities. There are degenerative changes of the spine present. No acute process within the limitedly evaluated abdomen. Procedure Note Tee Ly MD - 09/08/2024 EXAMINATION: Computed tomography of the chest with intravenous contrast HISTORY: Mediastinal mass. TECHNIQUE: Transaxial computed tomographic images of the chest were obtained with intravenous contrast according to the standard protocol after the uneventful administration of 70 mL Opti-Ray 350 intravenous contrast. COMPARISON: 07/05/2024 FINDINGS: Compared to the examination dated 07/05/2024, the right hilar lymph node has slightly decreased in size measuring 2.0 x 1.6 cm, previously 2.0 x 2.1 cm. The subcarinal lymph node now measures 9 mm in short axis dimension, previously 10 mm. There is no enlarged left hilar lymph nodes by size criteria, improved from the prior examination. No new or enlarging mediastinal lymph nodes are noted. No axillary or supraclavicular lymph nodes are noted. Left thyroid lobe is atrophic. Right thyroid lobe is unremarkable. Great vessels are normal in course and caliber. The heart size is mildly enlarged. Coronary artery calcifications are present. Tubular structure noted within the right middle lobe is again noted and likely represents mucoid impaction, not significantly changed from the prior examination. Surgical changes of the lingula are again noted. Mild atelectasis and scarring is noted within the lung bases in the lung periphery. No dense consolidation. No new or enlarging pulmonary nodules. No pleural effusions. No pneumothorax. There are no acute or aggressive osseous abnormalities. There are degenerative changes of the spine present. No acute process within the limitedly evaluated abdomen. IMPRESSION: 1. Decreasing bihilar and mediastinal lymphadenopathy, presumably a reactive process. 2. Stable tubular structure in right middle lobe, likely representing mucoid impaction. Surgical changes of the lingula are again noted. Electronically signed by: Tee Ly M.D. Kumar Lopez MD IMG CT PROCEDURES Carlee l Result * CT Body Outside Consult (08/26/2024 11:09 AM GRAPPLE YARDER OPERATOR) Anatomical Region Laterality Modality Body N/A Computed Tomogra phy 08/26/2024 11:1 5 AM GRAPPLE YARDER OPERATOR Impressions 08/26/2024 11:28 AM GRAPPLE YARDER OPERATOR This study was initially nominated as a consult on outside images via Outside Image Sharing Service. However, a consult was not performed because this is a duplicated nomination as previous images were uploaded on 07/07/2024 as reference. Accordingly, there will be no separate report of this study generated by a [facility] Radiologist. This change in examination status was confirmed with Dr. Sanchez on 08/26/2024. Dictated by: Jesse Arias MD The radiology attending physician has personally reviewed this study, and had reviewed and/or edited this written report and agrees with it. Electronically signed by: Kika Loza M.D. Narrative 08/26/2024 11:28 AM GRAPPLE YARDER OPERATOR EXAMINATION: CHANGE CONSULT ON OUTSIDE IMAGES TO REFERENCE IMAGES Procedure Note Kika Loza MD - 08/26/2024 EXAMINATION: CHANGE CONSULT ON OUTSIDE IMAGES TO REFERENCE IMAGES IMPRESSION: This study was initially nominated as a consult on outside images via Outside Image Sharing Service. However, a consult was not performed because this is a duplicated nomination as previous images were uploaded on 07/07/2024 as reference. Accordingly, there will be no separate report of this study generated by a [facility] Radiologist. This change in examination status was confirmed with Dr. Sanchez on 08/26/2024. Dictated by: Jesse Arias MD The radiology attending physician has personally reviewed this study, and had reviewed and/or edited this written report and agrees with it. Electronically signed by: Kika Loza M.D. Osmel Sanchez MD IMG CT PROCEDURES Final Result from Last 3 Months Insurance MEDICARE BLUE CROSS MEDICARE SUPPLEMENT MEDICARE COMMERCIAL GENERIC [facility] MEDICARE BLUE CROSS MEDICARE SUPPLEMENT Member Subscriber Plan / Payer (Ef fective 2018-Present) Name:Елена Lynn Relation to Subscriber:Self Name:Елена Lynn Payer ID:[id number] Type:COMMERCIAL Address: [address] [place] [id number] Advance Directives For more information, please contact: [phone] * Full Code (Latest Code Status on File) Date Activated Date Inactivated Comments 09/03/2018 11:25 AM 09/04/2018 4:52 PM Care Teams Hair Colorist Relationship Specialty Start Date End Date Elliot Tran DO [address] [place] [address] PCP - General Family Medicine 10/15/22 Ilir Wahl MD [address] [facility] [address] [place] [address] Referring Physician Radiation Oncology 09/07/18
--- OUTSIDE RECORDS SUMMARY | 2024-10-30 20:56 | XMS_ITS | Referral Summary ---
Author Organization [facility] Address 1 [place] [address] Care Team Providers Care Sewing Line Baler Name Role Phone Ilir Wahl MD Unavailable Elliot Tran DO Primary Care Provider Encounters Date Type Department Care Team Description 09/08/2024 12:29 PM ENGINE BUILDER - 09/08/2024 11:59 PM ENGINE BUILDER Hospital Encounter [facility] [place] [address] [facility] Floor 8 [place] [address] Mediastinal mass Discharge Disposition: Discharge to home or self care 09/08/2024 2:30 PM ENGINE BUILDER Office Visit [facility] Surgery [address] [facility] Floor 5 [place] [address] Kumar Lopez MD Mediastinal adenopathy (Primary Dx) 08/30/2024 Telephone [facility] [address] [facility] [address] [place] [phone] Santos Garcia RMA 08/30/2024 Orders Only [facility] [address] [facility] [address] [place] [address] Kumar Lopez MD Mediastinal mass (Primary Dx) 08/29/2024 Documentation [facility] Radiation Oncology [address] [facility] Advanced [place] [address] America Monge RN 08/29/2024 Orders Only [facility] Advanced Medicine Radiation Oncology [address] [facility] [place] [address] Osmel Sanchez MD Lung nodule (Primary Dx) 08/29/2024 Telephone [facility] Advanced Medicine Radiation Oncology [address] [place] [address] [place] [address] America Monge RN 08/26/2024 11:08 AM ENGINE BUILDER - 08/26/2024 11:59 PM ENGINE BUILDER Hospital Encounter [facility] [address] [place] [address] Diagnosis unknown Discharge Disposition: Discharge to home or self care 08/23/2024 Telephone [facility] Advanced Medicine Radiation Oncology [address] [place] [address] America Monge RN 08/23/2024 Telephone [facility] [place] [address] America Monge RN from Last 3 Months Allergies Active Allergy Reactions Criticality Noted Date Comments Sulfamethoxazole-Trimethoprim Rash Medium 2018 Medications calcium carbonate-vitam in D3 1,250mg (500mg elemental) - 5 mcg (200 units) per tablet Take 2 tablets by mouth alliance manager before breakfast Active boiocdcj-dda-VS -lycopen-lutein 0.4 mg-300 mcg- 250 mcg tablet Take 1 tablet by mouth alliance manager before breakfast Active metoprolol (LOPRESSOR) 50 mg tablet Take 1 tablet (50 mg total) by mouth 2 (two) times a day 0 8 Active omega-3 fatty acids-fish oil 684-1,200 mg capsule,delayed release(DR/EC) Take 1 tablet by mouth alliance manager before breakfast. Active magnesium gluconate 200 mg tablet Take 2 tablets (400 mg total) by mouth alliance manager before breakfast Active oxyCODONE (ROXICODONE) 5 mg [...] from the original. Referring provider: Dr. Sanchez . Елена Lynn 83-year-old with hilar adenopathy. 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 Preop pulmonary/respiratory exam Immunizations Immunization Administration Dates Next Due Moderna SARS-CoV-2 Monovalent Vaccination (12+ Y RS) 09/14/2020 Social History Tobacco Use Types Packs/Day Years Used Date Smoking Tobacco: Never Smokeless Tobacco: Never Tobacco Cessation:Counseling Given: Not Answered Alcohol Use Standard Drinks/Week Comments No 0 (1 standard drink = 0.6 oz pur e alcohol) Comments No Sex and Gender Information Value Date Recorded Sex Assigned at Not on file 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:39 AM ENGINE BUILDER Gender Identity Not on file Sexual Orientation Not on file Last Filed Vital Signs Vital Sign Reading Time Taken Comments Blood Pressure 124/75 09/08/2024 2:05 PM ENGINE BUILDER Pulse 60 09/08/2024 2:05 PM ENGINE BUILDER Temperature 36.8 C (98.2 F) 09/08/2024 2:05 PM ENGINE BUILDER Respiratory Rate 16 09/08/2024 2:05 PM ENGINE BUILDER Oxygen Saturation 99% 09/08/2024 2:05 PM ENGINE BUILDER Inhaled Oxygen Concentration - - Weight 64.9 kg (143 lb) 09/08/2024 2:05 PM ENGINE BUILDER Height 167.6 cm (5' 6 ) 09/08/2024 2:05 PM ENGINE BUILDER Body Mass Index 23.08 09/08/2024 2:05 PM ENGINE BUILDER Plan of Treatment Not on file Procedures Procedure Name Priority Date/Time Associated Diagnosis Comments CT CHEST W CONTRAST Schedule Routine, Read Routine (OP Routine) 09/08/2024 12:45 PM ENGINE BUILDER Mediastinal mass CT BODY OUTSIDE CONSULT Routine 08/26/2024 11:09 AM ENGINE BUILDER Diagnosis unknown from Last 3 Months Results * CT Chest W Contrast (09/08/2024 12:45 PM ENGINE BUILDER) Anatomical Region Laterality Modality Body N/A Computed Tomogra phy 09/08/2024 12:5 9 PM ENGINE BUILDER Impressions 09/08/2024 12:59 PM ENGINE BUILDER 1. Decreasing bihilar and mediastinal lymphadenopathy, presumably a reactive process. 2. Stable tubular structure in right middle lobe, likely representing mucoid impaction. Surgical changes of the lingula are again noted. Electronically signed by: Tee Ly M.D. Narrative 09/08/2024 12:59 PM ENGINE BUILDER EXAMINATION: Computed tomography of the chest with [...] by: Tee Ly M.D. Kumar Lopez MD [facility] CT PROCEDURES Carlee l Result * CT Body Outside Consult (08/26/2024 11:09 AM ENGINE BUILDER) Anatomical Region Laterality Modality Body N/A Computed Tomogra phy 08/26/2024 11:1 5 AM ENGINE BUILDER Impressions 08/26/2024 11:28 AM ENGINE BUILDER This study was initially nominated as a consult on outside images via Outside Image Sharing Service. However, a consult was not performed because this is a duplicated nomination as previous images were uploaded on 07/07/2024 as reference. Accordingly, there will be no separate report of this study generated by a [facility] Radiologist. This change in examination status was confirmed with Dr. Sanchez on 08/26/2024. Dictated by: Jesse Arias MD The radiology attending physician has personally reviewed this study, and had reviewed and/or edited this written report and agrees with it. Electronically signed by: Kika Loza M.D. Narrative 08/26/2024 11:28 AM ENGINE BUILDER EXAMINATION: CHANGE CONSULT ON OUTSIDE IMAGES TO [...] report of this study generated by a [facility] Radiologist. This change in examination status was confirmed with Dr. Sanchez on 08/26/2024. Dictated by: Jesse Arias MD The radiology attending physician has personally reviewed this study, and had reviewed and/or edited this written report and agrees with it. Electronically signed by: Kika Loza M.D. Osmel Sanchez MD IMG CT PROCEDURES Final Result from Last 3 Months Insurance MEDICARE [facility] MEDICARE SUPPLEMENT MEDICARE COMMERCIAL GENERIC [facility] MEDICARE [facility] MEDICARE SUPPLEMENT Advance Directives For more information, please contact: [phone] * Full Code (Latest Code Status on File) Date Activated Date Inactivated Comments 09/03/2018 11:25 AM 09/04/2018 4:52 PM Care Teams Sewing Line Baler Relationship Specialty Start Date End Date Elliot Tran DO [address] [place] [address] PCP - General Family Medicine 10/15/22 Ilir Wahl MD [address] [facility] [address] LL LL [address] [place] [address] Referring Physician Radiation Oncology 09/07/18
--- OUTSIDE RECORDS SUMMARY | 2024-10-30 20:56 | XMS_ITS | Encounter Summary ---
Author Organization [facility] Address [address] [place] [address] Care Team Providers Care Gun Welder Name Role Phone Randa Maldonado APRN, NP-C Unavailable José Miguel Gore MD Unavailable Unavailabl Randi Travis COMPRESSION MOLDING MACHINE TENDER Primary Care Provider [phone] Yung Henderson MD Unavailable [phone] Elliot Tran DO Unavailable [phone] Elliot Tran DO Primary Care Provider [phone] Martita Pride MD Unavailable Encounter Details Date Type Department Care Team (Late st Contact Info) Description 12/03/2022 Abstract [facility] [address] [place] [address] José Miguel Gore MD Social History Tobacco Use Types Packs/Day Years [...] file Not on file Not on file COVID-19 Exposure Response Date Recorded In the last 10 days, have yo u been in contact with someone who was confirmed or suspected to have Coronavirus/COVID-19? No / Unsure 11/25/2022 9:08 AM CDT documented as of this encounter Plan of Treatment Upcoming Encounters Date Type Department Care Team (Late st Contact Info) Description 12/09/2024 1:00 AM CDT [facility] [address] [place] [address] Yung Henderson MD [address] [place], [place] [address] 12/12/2024 11:00 AM CDT [facility] [address] [place] [address] [place] [address] Martita Pride MD [address] [place] [address] documented as of this encounter Visit Diagnoses Not on filedocumented in this encounter Care Teams Gun Welder Relationship Specialty Start Date End Date Randi Lopez FNP [address] [place] [address] PCP - General NURSE PRACTITIONER 06/09/22 11/11/23 Elliot Tran DO [address] [place] [address] PCP - General FAMILY PRACTICE 11/12/23 Randa Maldonado APRN, COLLEGE ARCHIVIST-C [address] [facility] [address] [place] [address] NURSE PRACTITIONER 04/26/18 02/20/24 José Miguel Gore MD [address] [facility] [address] [place] [address] [place] CARDIOVASCULAR DISEASE 10/26/18 02/20/24 Yung Henderson MD [address] [place] [address] [place] [facility] [place] CLINICAL CARDIAC ELECTROPHYSIOLOGY 06/11/22 Elliot Tran DO [facility] [place] [address] FAMILY PRACTICE 09/02/22 Martita Pride MD [address] [place] [address] Consulting Physician CARDIOVASCULAR DISEASE 02/21/24 documented as of this encounter
--- OUTSIDE RECORDS SUMMARY | 2024-10-30 20:56 | XMS_ITS | Encounter Summary ---
Author Organization [facility] Healthcare Address [address] [place] [address] Care Team Providers Care Chief Analytics Officer Name Role Phone Ilir Wahl MD Unavailable [phone] Martín Block MD Primary Care Provider Cyril Zee MD Primary Care Provider [phone] Miscellaneous, Not In File Primary Care Provider Unavailable Randi Lopez NP Primary Care Provide r Elliot Tran DO Primary Care Provider Encounter Details Date Type Department Care Team (Late st Contact Info) Description 2020 Telephone [facility] Advanced Medicine Radiation Oncology [address] [place] [address] Advanced Medicine [facility] [address] Josie Torrez MA Social History Tobacco Use Types Packs/Day Years Used Date Smoking Tobacco: Never Smokeless Tobacco: Never Alcohol Use Standard Drinks/Week Comments No 0 (1 standard drink = 0.6 oz pur e alcohol) Comments No Sex and Gender Information Value Date Recorded Sex Assigned at Not on file 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:39 AM ANALYTICAL TECH Gender Identity Not on file Sexual Orientation Not on file documented as of this encounter Plan of Treatment Not on file documented as of this encounter Visit Diagnoses Not on filedocumented in this encounter Care Teams Chief Analytics Officer Relationship Specialty Start Date End Date Martín Block MD [facility] # [address] LL [address] [place] [address] PCP - General 06/07/20 11/29/20 Cyril Zee MD [address] [facility] [address] [place], [place] [address] PCP - General Obstetrics and Gynecology 11/30/20 10/15/21 Miscellaneous, Not In File PCP - General 10/16/21 10/20/21 Randi Lopez NP [address] [place] [address] PCP - General 10/21/21 10/14/22 Elliot Tran DO [address] [place] [address] PCP - General Family Medicine 10/15/22 Ilir Wahl MD [address] [place] [address] Referring Physician Radiation Oncology 09/07/18 documented as of this encounter
--- OUTSIDE RECORDS SUMMARY | 2024-10-30 20:56 | XMS_ITS | Encounter Summary ---
Author Organization [facility] Healthcare Address [address] [place] [address] Care Team Providers Care Stitch Separator Name Role Phone Ilir Wahl MD Unavailable [phone] Brad Joyner MD Primary Care Provider [phone] Martín Block MD Primary Care Provider Cyril Zee MD Primary Care Provider [phone] Miscellaneous, Not In File Primary Care Provider Unavailable Randi Lopez NP Primary Care Provide r Elliot Tran DO Primary Care Provider Encounter Details Date Type Department Care Team (Late st Contact Info) Description 03/02/2020 Telephone [facility] Radiation Oncology [address] [facility] [place] [address] Josie Torrez MA Social History Tobacco Use Types Packs/Day Years Used Date Smoking Tobacco: Never Smokeless Tobacco: Never Alcohol Use Standard Drinks/Week Comments No 0 (1 standard drink = 0.6 oz pur e alcohol) Comments No Sex and Gender Information Value Date Recorded Sex Assigned at Not on file 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:39 AM NUTRITIONAL HEALTH COACH Gender Identity Not on file Sexual Orientation Not on file documented as of this encounter Plan of Treatment Not on file documented as of this encounter Visit Diagnoses Not on filedocumented in this encounter Care Teams Stitch Separator Relationship Specialty Start Date End Date Brad Joyner MD [address] [place] [address] PCP - General Family Medicine 12/10/18 06/06/20 Martín Block MD [address] [place] [address] PCP - General 06/07/20 11/29/20 Cyril Zee MD [address] [address] PCP - General Obstetrics and Gynecology 11/30/20 10/15/21 Miscellaneous, Not In File PCP - General 10/16/21 10/20/21 Randi Lopez NP [address] [place] [address] PCP - General 10/21/21 10/14/22 Elliot Tran DO [address] [place] [address] PCP - General Family Medicine 10/15/22 Ilir Wahl MD [address] [facility] # LL LL [address] [place] [address] Referring Physician Radiation Oncology 09/07/18 documented as of this encounter
--- OUTSIDE RECORDS SUMMARY | 2024-10-30 20:56 | XMS_ITS | Encounter Summary ---
Author Organization [facility] Address [address] [place] [address] Care Team Providers Care Child Daycare Worker Name Role Phone Randa Maldonado APRN, NP-C Unavailable José Miguel Gore MD Unavailable Unavailabl e Elliot Tran DO Primary Care Provider [phone] Randi Lopez Primary Care Provider [phone] Yung Henderson MD Unavailable [phone] Elliot Tran DO Unavailable [phone] Elliot Tran DO Primary Care Provider [phone] Martita Pride MD Unavailable Encounter Details Date Type Department Care Team (Late st Contact Info) Description 08/06/2018 Abstract [facility] [address] [place] [address] José Miguel Gore MD Social History Tobacco [...] 12/09/2024 1:00 AM CDT Allied Health/Nurse Visit [facility] ld [address] [place] [address] Yung Henderson MD [address] [place] [address] 12/12/2024 11:00 AM CDT Office Visit [facility] [place] [place] [address] Martita Pride MD [address] [place], [place] [phone] documented as of this encounter Procedures Procedure Name Priority Date/Time Associated Diagnosis Comments MAGNESIUM (OUTSIDE LAB) Routine 08/05/2018 CBC (OUTSIDE LAB) Routine 08/05/2018 PROTHROMBIN TIME, VENOUS Routine 08/05/2018 BASIC METABOLIC PANEL Routine 08/05/2018 documented in this encounter Results * BASIC METABOLIC PANEL (08/05/2018) SODIUM S/P/B 140 POTASSIUM S/P/B 4.5 CO2 32 CHLORIDE S/P/B 102 GLUCOSE 85 mg/dL CALCIUM S/P/B 8.7 BUN 17 CREATININE S/P/B 0.77 0.5 - 1.0 08/05/2018 us [facility] Abstract LABORATORY Final Result * MAGNESIUM (OUTSIDE LAB) (08/05/2018) MAGNESIUM 1.8 08/05/2018 us Doc [facility] Abstract LAB-OUTSIDE/ABSTRACTED Final Result * PROTIME/INR, VENOUS (08/05/2018) PROTIME WHOLE BLOOD 12.0 INR WHOLE BLOOD 1.13 08/05/2018 us Doc [facility] Abstract LABORATORY Final Result * CBC (OUTSIDE LAB) (08/05/2018) WBC 5.8 HGB 12.3 HCT 36.9 PLT 186 RBC 4.0 08/05/2018 us Doc [facility] Abstract LAB-OUTSIDE/ABSTRACTED Final Result documented in this encounter Visit Diagnoses Not on filedocumented in this encounter Care Teams Child Daycare Worker Relationship Specialty Start Date End Date Elliot Tran DO [address] [place] [address] PCP - General FAMILY PRACTICE 09/13/20 06/08/22 Randi Lopez FNP [address] [place] [address] PCP - General NURSE PRACTITIONER 06/09/22 11/11/23 Elliot Tran DO [address] [place] [address] PCP - General FAMILY PRACTICE 11/12/23 Randa Maldonado APRN, GRINDING MACHINE OPERATOR PORTABLE-C [address] [place] [phone] NURSE PRACTITIONER 04/26/18 02/20/24 José Miguel Gore MD [address] [place] [address] [place] CARDIOVASCULAR DISEASE 10/26/18 02/20/24 Yung Henderson MD [address] [place] [address] [place] CLINICAL CARDIAC ELECTROPHYSIOLOGY 06/11/22 Elliot Tran DO [address] [place] [address] FAMILY PRACTICE 09/02/22 Martita Pride MD [address] [place] [address] Consulting Physician CARDIOVASCULAR DISEASE 02/21/24 documented as of this encounter
--- NOTE | 2024-10-30 21:09 | ECG_ITS ---
Test Date: 2024-10-30 21:11:11 Measurements Intervals [place] Rate: 78 P: 70 WA: 295 QRS: -34 QRSD: 101 T: 31 QT: 395 QTc: 450 Interpretive Statements SINUS RHYTHM WITH FIRST DEGREE AV BLOCK WITH OCCASIONAL SUPRAVENTRICULAR PREMATURE COMPLEXES LEFT ATRIAL ENLARGEMENT [-0.15mV P-WAVE IN V1/V2] LEFT AXIS DEVIATION [QRS AXIS < -30] POSSIBLE LEFT VENTRICULAR HYPERTROPHY [VOLTAGE CRITERIA PLUS LAE OR QRS WIDENING] POSSIBLE ANTEROSEPTAL MYOCARDIAL INFARCTION , OF INDETERMINATE AGE [30 ms Q WAVE IN V1-V4] No previous ECG available for comparison Electronically Signed On 10-31-2024 15:20:08 CDT by Alfonso Izquierdo M.D.
--- OUTSIDE RECORDS SUMMARY | 2024-10-30 21:18 | XMS_ITS | Encounter Summary ---
Author Organization [facility] Address [address] [place] [address] Care Team Providers Care Hop Trainer Name Role Phone Randa Maldonado APRN, NP-C Unavailable José Miguel Gore MD Unavailable Unavailabl e Randi Lopez CONCRETE FLOATER Primary Care Provider [phone] Yung Henderson MD Unavailable [phone] Elliot Tran DO Unavailable [phone] Elliot Tran DO Primary Care Provider [phone] Martita Pride MD Unavailable Encounter Details Date Type Department Care Team (Late st Contact Info) Description 09/25/2022 Hospital Orders Only [facility] Intern Pre/Post [address] [place] [address] Yung Henderson MD [address] [place], [place] [address] Social History Tobacco Use Types Packs/Day Years [...] 12/09/2024 1:00 AM CDT [facility] [address] [place] [phone] Yung Henderson MD [address] [place] [address] 12/12/2024 11:00 AM CDT Office Visit [facility] [place] [address] Martita Pride MD [address] [place], [place] [address] documented as of this encounter Visit Diagnoses Not on filedocumented in this encounter Care Teams Hop Trainer Relationship Specialty Start Date End Date Randi Lopez FNP [address] [place] [address] PCP - General NURSE PRACTITIONER 06/09/22 11/11/23 Elliot Tran DO [address] [place] [address] PCP - General FAMILY PRACTICE 11/12/23 Randa Maldonado APRN, PRODUCTION SORTER-C [address] [place] [address] [phone] NURSE PRACTITIONER 04/26/18 02/20/24 José Miguel Gore MD [address] [address] [place] Chemistry Lab Instructor CARDIOVASCULAR DISEASE 10/26/18 02/20/24 Yung Henderson MD [address] [place] [address] EP Chemistry Lab Instructor CLINICAL CARDIAC ELECTROPHYSIOLOGY 06/11/22 Elliot Tran DO [address] [place] [address] FAMILY PRACTICE 09/02/22 Martiat Pride MD [address] [place] [address] Consulting Physician CARDIOVASCULAR DISEASE 02/21/24 documented as of this encounter
--- OUTSIDE RECORDS SUMMARY | 2024-10-30 21:18 | XMS_ITS | Clinical Summary ---
Author Organization [facility] Address [address] [place] [address] Care Team Providers Care Dna Analyst Name Role Phone Yung Henderson MD Unavailable [phone] Elliot Tran DO Unavailable [phone] Elliot Tran DO Primary Care Provider [phone] Martita Pride MD Unavailable Allergies Active Allergy [...] Pre-op evaluation 07/23/2018 04/27/2020 SVT (supraventricular tachycardia) ([facility]) 02/08/2023 Encounters Date Type Department Care Team Description 10/25/2024 1:00 AM CDT Allied Health/Nurse Visit [facility] [address] [place] [address] Yung Henderson MD 08/30/2024 3:50 AM ANVILSMITH Allied Health/Nurse Visit [facility] [address] [place] [address] Yung Henderson MD from Last 3 Months [...] 36.3 C (97.4 F) 09/30/2022 11:14 AM ANVILSMITH Respiratory Rate 16 11/26/2023 9:45 AM CDT [...] 12/09/2024 1:00 AM CDT [facility] [address] [place] [address] Yung Henderson MD [address], [place] [address] 12/12/2024 11:00 AM CDT [facility] [place] [address] Martita Pride MD [address] [place], [place] [phone] Health Maintenance Due Date Last Done Comments [...] this topic Medical Devices Implanted Type Area Market Research Lead Device Identifier Shelf Expiration Date Model / Serial / Lot Medtronic Linq Ii-09/30/2022 Implanted:Qt y: 1 on 09/30/2022 by Yung Henderson MD Implantable Loop Recorder Left: Pectoral [employer] 01/23/2024 [id number] / [id number] / Description:DX: [employer] Insurance MEDICARE MEDICARE Advance Directives * Full Code (Latest Code Status on File) Date Activated Date Inactivated Comments 08/12/2018 2:43 PM 08/12/2018 7:28 PM Care Teams Dna Analyst Relationship Specialty Start Date End Date Elliot Tran DO [address] [place] [address] PCP - General FAMILY PRACTICE 11/12/23 Yung Henderson MD [address] [place] [address] EP Cytology Manager CLINICAL CARDIAC ELECTROPHYSIOLOGY 06/11/22 Elliot Tran DO [address] [place] [address] FAMILY PRACTICE 09/02/22 Martita Pride MD [address] [place] [address] Consulting Physician CARDIOVASCULAR DISEASE 02/21/24
--- OUTSIDE RECORDS SUMMARY | 2024-10-30 21:19 | XMS_ITS | Encounter Summary ---
Author Organization [facility] Address [address] [place] [address] Care Team Providers Care Retail Clerk Name Role Phone Randa Maldonado APRN, NP-C Unavailable José Miguel Gore MD Unavailable Unavailabl Randi Travis COMPUTER AIDED DESIGN DRAFTER Primary Care Provider [phone] Yung Henderson MD Unavailable [phone] Elliot Tran DO Unavailable [phone] Elliot Tran DO Primary Care Provider [phone] Martita Pride MD Unavailable Encounter Details Date Type Department Care Team (Late st Contact Info) Description 12/03/2022 Abstract [facility] [address] [place] [address] José Miguel Gore MD Social History Tobacco [...] 12/09/2024 1:00 AM CDT [facility] [address] [place] [phone] Yung Henderson MD [address] [place], [place] [id number] 12/12/2024 11:00 AM CDT [facility] [address] [place] [address] [place] [address] Martita Pride MD [address] [place] [address] documented as of this encounter Visit Diagnoses Not on filedocumented in this encounter Care Teams Retail Clerk Relationship Specialty Start Date End Date Randi Lopez FNP [address] [place] [address] PCP - General NURSE PRACTITIONER 06/09/22 11/11/23 Elliot Tran DO [address] [place] [address] PCP - General FAMILY PRACTICE 11/12/23 Randa Maldonado APRN, SHOWROOM SALESPERSON-C [address] [facility] [address] [place] [phone] NURSE PRACTITIONER 04/26/18 02/20/24 José Miguel Gore MD [address] [facility] [address] [place] [address] Chloe Insulation Power Unit Tender CARDIOVASCULAR DISEASE 10/26/18 02/20/24 Yung Henderson MD [address] [place] [address] EP Insulation Power Unit Tender CLINICAL CARDIAC ELECTROPHYSIOLOGY 06/11/22 Elliot Tran DO [facility] [place] [address] FAMILY PRACTICE 09/02/22 Martita Pride MD [address] [place] [address] Consulting Physician CARDIOVASCULAR DISEASE 02/21/24 documented as of this encounter
--- OUTSIDE RECORDS SUMMARY | 2024-10-30 21:19 | XMS_ITS | Encounter Summary ---
Author Organization [facility] Address [address] [place] [address] Care Team Providers Care Hearing Aide Technician Name Role Phone Randa Maldonado APRN, NP-C Unavailable [phone] José Miguel Gore MD Unavailable Unavailabl e Elliot Tran DO Primary Care Provider [phone] Randi Lopez Primary Care Provider [phone] Yung Henderson MD Unavailable [phone] Elliot Tran DO Unavailable [phone] Elliot Tran DO Primary Care Provider [phone] Martita Pride MD Unavailable Encounter Details Date Type Department Care Team (Late st Contact Info) Description 08/06/2018 Abstract [facility] [address] [place] [address] José Miguel Gore MD Social History Tobacco [...] 12/09/2024 1:00 AM CDT Allied Health/Nurse Visit [facility] [address] [place] [phone] Yung Henderson MD [address] [place] [address] 12/12/2024 11:00 AM CDT Office Visit [facility] [place] [address] Martita Pride MD [address] [place], [place] [phone] documented as of this encounter Procedures Procedure [...] on filedocumented in this encounter Care Teams Hearing Aide Technician Relationship Specialty Start Date End Date Elliot Tran DO [address] [place] [address] PCP - General FAMILY PRACTICE 09/13/20 06/08/22 Randi Lopez FNP [address] [place] [address] PCP - General NURSE PRACTITIONER 06/09/22 11/11/23 Elliot Tran DO [address] [place] [address] PCP - General FAMILY PRACTICE 11/12/23 Randa Maldonado APRN, CLINICAL DOCUMENTATION IMPROVEMENT SPECIALIST-C [address] [place] [phone] NURSE PRACTITIONER 04/26/18 02/20/24 José Miguel Gore MD [address] [place] [phone] [place] Supervisor Photocomposition CARDIOVASCULAR DISEASE 10/26/18 02/20/24 Yung Henderson MD [address] [place] [address] EP Supervisor Photocomposition CLINICAL CARDIAC ELECTROPHYSIOLOGY 06/11/22 Elliot Tran DO [address] [place] [address] FAMILY PRACTICE 09/02/22 Martita Pride MD [address] [place] [address] Consulting Physician CARDIOVASCULAR DISEASE 02/21/24 documented as of this encounter
[2024-10-30 21:24] LABS: Basophils Absolute Auto 0.03 K/mm3 (0.00-0.10); Basophils Percent Auto 0.3 % (0.0-1.0); Eosinophils Absolute Auto 0.09 K/mm3 (0.02-0.50); Eosinophils Percent Auto 0.9 % (1.0-6.0); Hemoglobin 12.7 g/dL (11.7-13.8); Immature Granulocyte Absolute 0.05 K/mm3 (0.00-0.00); Immature Granulocyte Percent A 0.5 % (0.0-0.0); Lymphocytes Absolute Auto 1.35 K/mm3 (1.10-4.50); Lymphocytes Percent Auto 13.6 % (18.0-42.0); Mean Corpuscular HGB Conc 33.4 g/dL (32-36); Mean Corpuscular Hemoglobin 28.4 pg (27.0-31.0); Mean Platelet Volume 8.8 fl (9.2-11.8); Monocytes Absolute Auto 1.21 K/mm3 (0.10-0.90); Monocytes Percent Auto 12.2 % (2.0-11.0); Neutrophils Absolute Auto 7.22 K/mm3 (1.70-7.20); Neutrophils Percent Auto 72.5 % (50.0-70.0); Platelet Count Result 253 K/mm3 (150-420); Red Blood Count 4.47 M/mm3 (4.20-5.40); Red Cell Distribution Width 13.3 % (11.6-14.4)
[2024-10-30] MEDS: MAG HYDROX/ALUMINUM HYD/SIMETH 30 ML, PHENobarb/HYOSCY/ATROPINE/SCOP 32.4 MG, LIDOCAINE... PO (21:30)
[2024-10-30] MEDS: ONDANSETRON INJ 4 MG/2 ML VIAL IV PUSH (21:32)
[2024-10-30 21:37] LABS: Prothrombin Time 11.4 Seconds (9.50-12.1)
[2024-10-30 21:41] LABS: Alanine Aminotransferase 29 U/L (14-59); Albumin Level 3.5 g/dL (3.4-5.0); Alkaline Phosphatase 56 U/L (46-116); Anion Gap 7 mmol/L (4-12); Aspartate Amino Transferase 28 U/L (15-37); Bilirubin,Total 0.7 mg/dL (0.00-1.00); Blood Urea Nitrogen 17 mg/dL (7-18); Calcium 9.1 mg/dL (8.5-10.1); Carbon Dioxide 30 mmol/L (21-32); Chloride 89 mmol/L (98-108); Estimated CRCL calculation 34 ml/min; Estimated Glomerular Filt Rate 54; Glucose 127 mg/dL (70-99); Lipase 21 U/L (16-77); Osmolality Calculated 265 mOsm/kg (285-295); Potassium 3.6 mmol/L (3.5-5.1); Sodium 126 mmol/L (136-145); Total Protein 7.3 g/dL (6.4-8.2); Troponin I 13.5 ng/L (0.00-60.4)
[2024-10-30] MEDS: MORPHINE SULFATE (*CRX) 2 MG/ML INJ IV PUSH (21:53)
--- NOTE | 2024-10-30 21:58 | PC.NURSE ---
Pt to CT at this time.
--- NOTE | 2024-10-30 22:10 | ED.ABDPAIN ---
HPI - Abdominal Pain General Chief Complaint: Abdominal Pain Stated Complaint: abdominal pain Time Seen by Provider: 10/30/24 20:53 Source: patient Mode of arrival: ambulatory Limitations: no limitations History of Present Illness HPI narrative: This is an 84-year-old female, with history of hypertension, hyperlipidemia and gastritis, who presents to the emergency department complaining of epigastric abdominal pain since yesterday evening. The patient states she ate baked beans with mustard yesterday evening than at approximately midnight she developed sharp epigastric abdominal pain without radiation rated 10/10. She had an episode of nonbloody vomiting. She denies any known aggravating or alleviating factors for her pain. She states she a bowel movement earlier today without blood or difficulty. She has attempted to drink water but has had recurrent vomiting. She states she has had some upper respiratory congestion and cough but has no other complaints at this time. Related Data Home Medications ?Medication ?Instructions ?Recorded ?Confirmed ?Last Taken ?Type magnesium oxide 400 mg PO DAILY 08/08/19 10/30/24 09/06/20 History mphhewua-rwseqfs-lcqe-lutein tablet 1 mcg PO DAILY 08/08/19 10/30/24 09/06/20 History metoprolol succinate 25 mg 25 mg PO BID 06/17/22 10/30/24 Unknown History tablet,extended release 24 hr cyclosporine 0.05 % eye drops in a 1 drp EACH EYE Q12H 10/25/24 10/30/24 Unknown History dropperette (Restasis) polyethylene glycol 3350 17 17 g PO BID 10/30/24 10/30/24 Unknown History gram/dose oral powder (Miralax) psyllium PO 10/30/24 Unknown History Allergies Allergy/AdvReac Type Severity Reaction Status Date / Time Sulfamethoxazole Allergy Intermediate Rash Uncoded 10/30/24 21:08 [facility] Past Medical History Medical History Osteoporosis Abnormality of heart beat Hypertension Stress fracture of sacrum Fracture of radial neck, right, closed Displaced fracture of neck of left radius Right wrist pain Injury of right hip Sciatica of right side Right hip pain Post-COVID chronic fatigue Skin rash Pre-op exam Left ankle pain Fatigue Personal history of other drug therapy Exposure to COVID-19 virus Colon polyp Epigastric pain Constipation Nausea and vomiting in adult Endometrial thickening on ultrasound RLQ abdominal pain Nicotine dependence in remission Skin cancer s/p surgical resection Breast cancer Paroxysmal supraventricular tachycardia Osteopenia Hyperlipidemia GARRETT (generalized anxiety disorder) Cardiac arrhythmia Benign essential HTN Surgical History Surgical History History of lumpectomy [address] Nicole 2009 History of thyroid surgery 2007 Dr. Johnston History of hernia repair x2 2002 Dr. Johnston H/O cataract extraction History of lung biopsy (~08/2018) Left History of appendectomy 2007 Dr. Johnston Family History Family History Mother Familial Alzheimer's disease of late onset Other Abnormality of heart beat Heart disease Hypertension Social History Social History Smoking status: Never smoker Additional smoking assessment comments: socially only Alcohol intake: never Substance use: never Lack of Transportation: No Lack of Food: Never True Current Housing: I Have Housing Concerned About Future Housing: No Difficulty Paying Gas/Electric Bills: No Difficulty Paying for Meds: No Currently Unemployed: No Education: High School Diploma/GED Difficulty w/ Childcare or Family Care: No Living arrangements: alone Additional living arrangements comments: Occupation/Education: retired Gender identity (if verbalized by the patient): Female Spiritual care concerns: No Procedures Central Line Placement Right IJ: Central Line Date: 10/31/24 Central Line Time: 03:52 Discussed w/ the patient/family/POA,the placement of a central venous catheter, including its clinical necessity/indication & associated potential risks, benifits and alternatives.: Yes Time Out Performed: Yes Patient Placed on Monitor/Pulse Ox: Yes Max. Sterile Barrier Technique: Caps, large sterile sheet and hand hygiene Central Line Prep: 2% chlorhexidine scrub Technique: US-Guided Local Anesthetic: lidocaine 1% Amount of anesthesia used (mL): 2 Ultrasound Used for Placement: Yes Central Line Lumen Inserted: triple Post Procedure: sutured in place, good blood return, all ports aspirated, flushed, capped and sterile dressing applied Post Procedure X-Ray: tip of catheter in good position and no pneumothorax seen Patient Tolerated Procedure: no complications Complications: none Course Course Emergency Course: 22:37 - CBC unremarkable. Chemistries demonstrate hyponatremia with sodium of 126. Glucose slightly elevated at 127 but is otherwise unremarkable. Lipase 21. Troponin negative at 13.5. Chest x-ray not concerning for acute cardiopulmonary process. EKG not concerning for ischemia. Heart score 3. On further discussion, the patient states she was encouraged by her primary care to drink 100 oz of water a day. She states she has been able to drink 64 oz a day, except for in the past 24 hours. 01:11 - Three blood pressures returned low, ranging from the 50s to 70s systolic with heart rate in the 70s. The patient complained of some lightheadedness. A 1L bolus of IV fluids was hung. I performed a bedside extended FAST exam that demonstrates IVC collapse. There is no noted free fluid in the hepatorenal, splenorenal, or suprapubic windows. There is no noted pericardial effusion or atrial/ventricular collapse. The patient's bladder does appear distended with urine. Review of the patient's monitor shows she had increased frequency of sinus pauses. Stat rad interpretation of the patient's CT abdomen pelvis was expedited. It demonstrates a distended though nondilated stomach with fluid. There are fluid filled distended though not dilated small bowel loops with mild edema suggesting mild enteritis. Scattered gas fluid levels noted in the cecum and right colon suggestive of mild ileus. There is no noted pneumoperitoneum, free fluid or abscess. There are no other acute intra-abdominal processes noted. The patient's blood pressure improved to the 110s systolic after fluid bolus. I suspect the patient's hypotensive episodes are related to volume depletion, complicated by arrhythmia. Review of the patient's chart shows in 2022 she was found to have second-degree AV blocks type [address] pacer pads. I recommended transfer with Cardiology evaluation to the patient, who voiced understanding and is comfortable with the plan. 01:20 - [facility] transfer center contacted (at the patient's request). The patient is placed on a wait-list for the ICU. 01:34 - Frequent pauses are again seen on the monitor. On review they appear consistent with 2nd degree type 1 AV block. 02:56 - I discussed the patient with [facility] hospitalist, Dr. Landaverde who accepts transfer to IMU. 03:30 - The patient's pressure again decreased to 86/52. After discussing the patient again with Dr. Landaverde will transfer to ICU and place a central line. [facility] house wrecker reportedly discussed the patient with Dr. Martinez (ingredient handler) who accepts the patient to ICU. I did not speak directly with Dr. Martinez. 03:52 - Right IJ central line placed by me. Please see procedure note. Vital Signs Vital signs: Vital Signs Temperature 98.1 F 10/30/24 20:55 Pulse Rate 89 10/30/24 20:55 Respiratory Rate 18 10/30/24 20:55 Blood Pressure 147/95 H 10/30/24 20:55 Pulse Oximetry 98 10/30/24 20:55 Oxygen Delivery Room Air 10/30/24 20:55 Temperature 97.6 F 10/31/24 00:52 Pulse Rate 69 10/31/24 03:15 Respiratory Rate 20 10/31/24 03:15 Blood Pressure 101/61 10/31/24 03:10 Pulse Oximetry 98 10/31/24 03:15 Oxygen Delivery Room Air 10/30/24 20:55 MDM - Abdominal Pain MDM Narrative Medical decision making narrative: plan: Labs, imaging, pain control, antiemetics, IV fluids, reassess Differential Diagnosis Differential diagnosis: Likely abdominal pain, acute appendicitis, calculus of kidney, constipation, diverticulitis, gastroenteritis, pancreatitis, small bowel obstruction and other ( peptic ulcer disease, perforation, ACS, pneumothorax, metabolic abnormality, other) Lab Data 10/30/24 21:08 10/30/24 21:08 Labs: Lab Results 10/30/24 10/30/24 10/30/24 Range/Units 21:08 22:46 23:41 WBC 10.0 (4.8-10.8) K/mm3 RBC 4.47 (4.20-5.40) M/mm3 Hgb 12.7 (11.7-13.8) g/dL Hct 38.0 (35.0-42.0) % MCV 85.0 (78.0-102.0) fL MCH 28.4 (27.0-31.0) pg MCHC 33.4 (32-36) g/dL RDW 13.3 (11.6-14.4) % Plt Count 253 (150-420) K/mm3 MPV 8.8 L (9.2-11.8) fl Immature Gran % (Auto) 0.5 H (0.0-0.0) % Neut % (Auto) 72.5 H (50.0-70.0) % Lymph % (Auto) 13.6 L (18.0-42.0) % Wells % (Auto) 12.2 H (2.0-11.0) % Eos % (Auto) 0.9 L (1.0-6.0) % Baso % (Auto) 0.3 (0.0-1.0) % Lymph # (Auto) 1.35 (1.10-4.50) K/mm3 Wells # (Auto) 1.21 H (0.10-0.90) K/mm3 Eos # (Auto) 0.09 (0.02-0.50) K/mm3 Baso # (Auto) 0.03 (0.00-0.10) K/mm3 Abs Immat Gran (auto) 0.05 H (0.00-0.00) K/mm3 Absolute Neuts (auto) 7.22 H (1.70-7.20) K/mm3 Absolute Nucleated RBC 0.00 (0.00-0.00) K/mm3 Nucleated RBC % 0.0 (0-0.0) % PT 11.4 (9.50-12.1) Seconds INR 1.0 Sodium 126 L (136-145) mmol/L Potassium 3.6 (3.5-5.1) mmol/L Chloride 89 L (98-108) mmol/L Carbon Dioxide 30 (21-32) mmol/L Anion Gap 7 (4-12) mmol/L BUN 17 (7-18) mg/dL Creatinine 0.97 (0.55-1.02) mg/dL Estim Creat Clear Calc 34 ml/min Estimated GFR 54 L (59 - ) Glucose 127 H (70-99) mg/dL Calculated Osmolality 265 L (285-295) mOsm/kg Calcium 9.1 (8.5-10.1) mg/dL Magnesium (1.8-2.4) mg/dL Total Bilirubin 0.7 (0.00-1.00) mg/dL AST 28 (15-37) U/L ALT 29 (14-59) U/L Alkaline Phosphatase 56 (46-116) U/L Troponin I 13.5 (0.00-60.4) ng/L Total Protein 7.3 (6.4-8.2) g/dL Albumin 3.5 (3.4-5.0) g/dL Lipase 21 (16-77) U/L Urine Color Light yellow (Yellow) Urine Appearance Clear (Clear) Urine pH 7.0 (5.0-8.0) Ur Specific [place] <= 1.005 L (1.010-1.020) Urine Protein Negative (Negative) Urine Glucose (UA) Negative (Negative) Urine Ketones Negative (Negative) Ur Blood (Man) Negative (Negative) Urine Nitrate Negative (Negative) Urine Bilirubin Negative (Negative) Urine Urobilinogen 0.2 (0.2-1.0) mg/dL Leukocyte Esterase Rfl Negative (Negative) JANA/UL Urine Opiates Screen (Negative) Urine Methadone Screen (Negative) Ur Barbiturates Screen (Negative) Ur Phencyclidine Scrn (Negative) Ur Amphetamine Screen (Negative) U Benzodiazepines Scrn (Negative) Urine Cocaine Screen (Negative) U Cannabinoids Screen (Negative) Ethyl Alcohol (0-6) mg/dL Influenza A (RT-PCR) Negative (Negative) Influenza B (RT-PCR) Negative (Negative) SARS-CoV-2 RNA (RT-PCR) Negative (Negative) 10/31/24 10/31/24 10/31/24 Range/Units 00:09 01:26 01:29 WBC (4.8-10.8) K/mm3 RBC (4.20-5.40) M/mm3 Hgb (11.7-13.8) g/dL Hct (35.0-42.0) % MCV (78.0-102.0) fL MCH (27.0-31.0) pg MCHC (32-36) g/dL RDW (11.6-14.4) % Plt Count (150-420) K/mm3 MPV (9.2-11.8) fl Immature Gran % (Auto) (0.0-0.0) % Neut % (Auto) (50.0-70.0) % Lymph % (Auto) (18.0-42.0) % Wells % (Auto) (2.0-11.0) % Eos % (Auto) (1.0-6.0) % Baso % (Auto) (0.0-1.0) % Lymph # (Auto) (1.10-4.50) K/mm3 Wells # (Auto) (0.10-0.90) K/mm3 Eos # (Auto) (0.02-0.50) K/mm3 Baso # (Auto) (0.00-0.10) K/mm3 Abs Immat Gran (auto) (0.00-0.00) K/mm3 Absolute Neuts (auto) (1.70-7.20) K/mm3 Absolute Nucleated RBC (0.00-0.00) K/mm3 Nucleated RBC % (0-0.0) % PT (9.50-12.1) Seconds INR Sodium (136-145) mmol/L Potassium (3.5-5.1) mmol/L Chloride (98-108) mmol/L Carbon Dioxide (21-32) mmol/L Anion Gap (4-12) mmol/L BUN (7-18) mg/dL Creatinine (0.55-1.02) mg/dL Estim Creat Clear Calc ml/min Estimated GFR (59 - ) Glucose (70-99) mg/dL Calculated Osmolality (285-295) mOsm/kg Calcium (8.5-10.1) mg/dL Magnesium 1.5 L (1.8-2.4) mg/dL Total Bilirubin (0.00-1.00) mg/dL AST (15-37) U/L ALT (14-59) U/L Alkaline Phosphatase (46-116) U/L Troponin I 16.3 (0.00-60.4) ng/L Total Protein (6.4-8.2) g/dL Albumin (3.4-5.0) g/dL Lipase (16-77) U/L Urine Color (Yellow) Urine Appearance (Clear) Urine pH (5.0-8.0) Ur Specific [place] (1.010-1.020) Urine Protein (Negative) Urine Glucose (UA) (Negative) Urine Ketones (Negative) Ur Blood (Man) (Negative) Urine Nitrate (Negative) Urine Bilirubin (Negative) Urine Urobilinogen (0.2-1.0) mg/dL Leukocyte Esterase Rfl (Negative) JANA/UL Urine Opiates Screen Positive A (Negative) Urine Methadone Screen Negative (Negative) Ur Barbiturates Screen Negative (Negative) Ur Phencyclidine Scrn Negative (Negative) Ur Amphetamine Screen Negative (Negative) U Benzodiazepines Scrn Negative (Negative) Urine Cocaine Screen Negative (Negative) U Cannabinoids Screen Negative (Negative) Ethyl Alcohol < 3 (0-6) mg/dL Influenza A (RT-PCR) (Negative) Influenza B (RT-PCR) (Negative) SARS-CoV-2 RNA (RT-PCR) (Negative) Imaging Data Radiologist's impression: ITS Impressions Chest X-Ray 10/30/24 21:29 IMPRESSION: No acute cardiopulmonary process. ECG Data EKG #1: Attestation: I personally reviewed and interpreted this ECG as follows: ECG completion date: 10/30/24 ECG completion time: 21:11 Prior ECG tracings: not available for review Interpretation: sinus rhythm, rate 78, left axis deviation, no ST segment elevations or T-wave inversions concerning for ischemia first-degree AV block otherwise normal intervals with QTC of 428. Poor R-wave progression. Compared to Cardiology interpretation of EKG done in 2022, there are no significant changes. I am unable to view the EKG for direct comparison due to technical difficulties. EKG #2: Attestation: I personally reviewed and interpreted this ECG as follows: ECG completion date: 10/31/24 ECG completion time: 00:00 Prior ECG tracings: available for review Interpretation: Sinus rhythm, rate 72, left axis deviation, no ST segment elevations or T-wave inversions concerning for ischemia first-degree AV block, otherwise normal intervals with QTC of 464. Significant change to EKG earlier today. Critical Care Time Critical Care Time Critical Care Time: Yes Total Critical Care Time: 35 Discharge Plan Discharge Clinical Impression: Acute hyponatremia, Sinus pause, Ileus, Mobitz type 1 second degree AV block Patient Disposition: Acute Care Hospital Condition: Serious Patient Language: Marshallese Prescriptions: No Action psyllium [Metamucil] PO polyethylene glycol 3350 [Miralax] 17 gram/dose powder 17 g PO BID magnesium oxide 400 mg magnesium tablet 400 mg PO DAILY hqvgtdpf-fopqmrm-tgyj-lutein Tablet 1 mcg PO DAILY metoprolol succinate 25 mg tablet extended release 24 hr 25 mg PO BID cyclosporine [Restasis] 0.05 % dropperette 1 drp EACH EYE Q12H calcium carbonate-vitamin D3 600 mg-10 mcg (400 unit) capsule 2 cap PO BIDWMEAL Qty: 180 2RF zoledronic csji-zqjvzdks-gauom [Reclast] 5 mg/100 mL piggyback 1 ea IV .annually Qty: 100 0RF Rx Instructions: Due after 01/10/2022. Repeat yearly. chlorthalidone 25 mg tablet See Rx Instructions .ROUTE .COMPLEX Qty: 90 3RF Dose Instruction: TAKE ONE TABLET BY MOUTH DAILY Rx Instructions: TAKE ONE TABLET BY MOUTH DAILY omeprazole 40 mg capsule,delayed release(DR/EC) See Rx Instructions .ROUTE .COMPLEX Qty: 30 0RF Dose Instruction: TAKE ONE CAPSULE BY MOUTH DAILY Rx Instructions: TAKE ONE CAPSULE BY MOUTH DAILY verapamil 120 mg tablet extended release See Rx Instructions .ROUTE .COMPLEX Qty: 90 0RF Dose Instruction: TAKE ONE TABLET BY MOUTH TWICE A DAY Rx Instructions: TAKE ONE TABLET BY MOUTH TWICE A DAY Follow-up/Referrals: Elliot Tran DO [Primary Care Provider] - Time of Disposition: 02:57
[2024-10-30] MEDS: SODIUM CHLORIDE 0.9% IV 1,000 ML 999 ML IV CONT (22:41)
--- NOTE | 2024-10-30 22:43 | PC.NURSE ---
Pt states had normal BM today. Pt states that she takes Miralax and Metamucil daily but was not on her medication list provided. PT states has problems with constipation and takes these regularly.
--- NOTE | 2024-10-30 23:29 | PC.NURSE ---
Pt voices no new needs at this time. Remain awaiting CT results. IV fluids complete. Pt states pain is okay at this time. Declines additional warm blankets. Pt remains NSR on mail handler. Call light in reach, side rails up x 2, bed low and locked.
[2024-10-31] VITALS (49 sets, daily range): BP systolic 59–117; BP diastolic 44–101; PULSE 59–103; RESP 12–28; TEMP 36.4–36.6; O2SAT 91–100
--- NOTE | 2024-10-31 | ECG_ITS ---
Test Date: 2024-10-31 00:00:42 Measurements Intervals [place] Rate: 72 P: 72 MT: 332 QRS: -33 QRSD: 101 T: 30 QT: 440 QTc: 483 Interpretive Statements SINUS RHYTHM WITH FIRST DEGREE AV BLOCK POSSIBLE LEFT ATRIAL ENLARGEMENT [-0.1mV P-WAVE IN V1/V2] LEFT AXIS DEVIATION [QRS AXIS < -30] ANTEROSEPTAL MYOCARDIAL INFARCTION , PROBABLY OLD [40+ ms Q WAVE IN V1-V4] Compared to ECG 10/30/2024 21:11:11 No significant changes Electronically Signed On 10-31-2024 15:25:07 CDT by Alfonso Izquierdo M.D.
--- NOTE | 2024-10-31 00:30 | PC.NURSE ---
Pt noted to be hypotensive. RN to bedside. Pt slightly clammy. Pt denies dizziness or pain. Manual pressure unobtainable. Pt alert and answering questions appropriately. Automated cuff repeat maintains hypotension. No reflexive tachycardia noted. Pt lied supine and ERP notified and returns to bedside. Fluids ordered. CT contacted for need of stat read on CT and will call radiologist to expedite reading.
[2024-10-31] MEDS: SODIUM CHLORIDE 0.9% IV 1,000 ML 999 ML IV CONT ×2 (00:43→03:14)
--- NOTE | 2024-10-31 00:55 | PC.NURSE ---
ERP performed US FAST exam. CT read complete. Approx 500 mL of NS infused. Pt tolerating well. BP improved to 107/78 by automated cuff. Skin dry and warm.
[2024-10-31 00:57] LABS: Troponin I 16.3 ng/L (0.00-60.4)
[2024-10-31 01:42] LABS: Magnesium 1.5 mg/dL (1.8-2.4)
[2024-10-31 01:43] LABS: Ethanol < 3 mg/dL (0-6)
--- NOTE | 2024-10-31 01:44 | PC.NURSE ---
Daughter at bedside. Pt and family updated that we are awaiting return call from hospitalist at [facility]. No new needs voiced. Lights dimmed. Call light in reach. Side rails up x2. Bed low and locked. dental technology advisor completing belongings list at this time.
[2024-10-31 01:52] LABS: Influenza A QL RT-PCR Negative (Negative); Influenza B QL RT-PCR Negative (Negative); SARS-CoV-2 RNA PCR Negative (Negative)
[2024-10-31 01:53] LABS: Add Urine Microscopic? NO; Appearance Urine Clear (Clear); Bilirubin Urine Negative (Negative); Blood Urine Negative (Negative); Color Urine Light Yellow (Yellow); Glucose Urine UA Negative (Negative); Ketones Urine Negative (Negative); Leukocyte Esterase Ur Negative LEU/UL (Negative); Nitrate Urine Negative (Negative); Protein Urine Negative (Negative); Specific Grav Ur <= 1.005 (1.010-1.020); Urobilinogen Urine 0.2 mg/dL (0.2-1.0)
[2024-10-31 01:57] LABS: Amphetamine Screen Urine Negative (Negative); Barbiturate Screen Urine Negative (Negative); Benzodiazepines Screen Urine Negative (Negative); Cannabinoid Screen Urine Negative (Negative); Cocaine Screen Urine Negative (Negative); Methadone Screen Urine Negative (Negative); Opiate Screen Urine Positive (Negative); Phencyclidine Screen Urine Negative (Negative)
--- NOTE | 2024-10-31 03:01 | PC.NURSE ---
[place], Community Relations Rep, [facility] states pt will board for their IMU unit. This RN verbalized concerns with borderline hypotension MAP 69 and possibility of deterioration/rapid response and possibility of overflow to ICU in place of boarding in this ED. [place] states that the floor social welfare administrator will not allow this. While on phone BP cycled and new reading 86/52 (MAP 64) ERP aware and [place] to reach out to hospitalist to update and inquire if needed ICU bed for this. Awaiting return call.
[2024-10-31] MEDS: MAGNESIUM SULF 4 GM/WATER100ML 4 GM/100 ML BAG IVPB (03:14)
--- NOTE | 2024-10-31 03:52 | PC.NURSE ---
This RN assists ERP in placement of right IJ. Pt tolerates well.
== END 2024-10-31 04:49 | disposition short-term general hospital (02) ==
PROVIDERS: Emergency Provider Preventive Medicine Aerospace Medicine; PCP Family Medicine
DX: I44.1 Atrioventricular block, second degree (principal); E87.1 Hypo-osmolality and hyponatremia; K56.7 Ileus, unspecified; I10 Essential (primary) hypertension; E78.5 Hyperlipidemia, unspecified; Z79.899 Other long term (current) drug therapy; Z85.3 Personal history of malignant neoplasm of breast; Z20.822 Contact with and (suspected) exposure to COVID-19
CPT/HCPCS: 36415; 71045; 74177; 80053; 80307; 81003; 82077; 83690; 83735; 84484; 85025; 85610; 87636; 93005; 96361; 96365; 96366; 96368; 96375; 99285; A9270; C1751; J2270; J2405; J3475; J7030; Q9967

== ENCOUNTER 2024-10-31 05:26 | Inpatient (IN) | payer MEDICARE, SELFPAY ==
[2024-10-31] VITALS (8 sets, daily range): BP systolic 100–114; BP diastolic 58–75; PULSE 48–88; RESP 13–21; TEMP 36.5–36.8; O2SAT 96–99; BMI 24.2
--- NOTE | 2024-10-31 | ECHO_ITS ---
Patient Info Name: Елена Lynn Age: 84 years : 1940 Gender: Female Ht: 66 in Wt: 149 lbs BSA: 1.78 m2 HR: 48 bpm BP: 103 / 59 mmHg Technical Quality: Fair Exam Date: 10/31/2024 8:04 AM Exam Location: Echo Lab Patient Status: Inpatient Admit Date: 10/31/2024 Staff Ordering Physician: Ese Martinez MD Coat Agent: Racheal Singh RDCS Attending Provider: Romana Landaverde DO Referring Physician: Michelle ACEVEDO; Exam Type: CA echo doppler color flow Study Info Indications - heart block, sepsis Complete two-dimensional, color flow and Doppler transthoracic echocardiogram is performed. Summary 1. Complete two-dimensional, color flow and Doppler transthoracic echocardiogram is performed. 2. Left ventricular chamber dimension is normal. 3. Left ventricular systolic function is normal, estimated at 55-60%. 4. The left ventricular diastolic function is grade III diastolic dysfunction. 5. E/e' 9 is minimally elevated. 6. There is mild aortic valve sclerosis. 7. There is mild mitral valve regurgitation. 8. There is mild tricuspid valve regurgitation. 9. No pulmonary hypertension, estimated pulmonary arterial systolic pressure is 33 mmHg. 10. There is mild pulmonic regurgitation. Left Ventricle E/e' 9 is minimally elevated. Left ventricular chamber dimension is normal. Left ventricular systolic function is normal, estimated at 55-60%. The left ventricular diastolic function is grade III diastolic dysfunction. Right Ventricle Right ventricular systolic function is normal and with normal TAPSE 2.7 cm. Right ventricular chamber dimension is normal. Left Atria Left atrial chamber dimension is normal. Right Atria Right atrial chamber dimension is normal. Aortic Valve The aortic valve is trileaflet. There is mild aortic valve sclerosis. There is no aortic valve stenosis. There is no aortic valve regurgitation. Pulmonic Valve There is mild pulmonic regurgitation. Mitral Valve There is no mitral valve stenosis. There is mild mitral valve regurgitation. Tricuspid Valve There is mild tricuspid valve regurgitation. No pulmonary hypertension, estimated pulmonary arterial systolic pressure is 33 mmHg. Pericardium/Pleural There is no pericardial effusion. Inferior Vena Cava Normal inferior vena cava with >50% collapse upon inspiration consistent with normal right atrial pressure, 5 mmHg. Aorta The aortic root size at the sinus of Valsalva is normal. Left Ventricular Outflow Tract Name Value Normal LVOT 2D LVOT Diameter 2.0 cm LVOT Doppler LVOT Peak Gradient 2 mmHg LVOT Mean Gradient 1 mmHg LVOT VTI 13 cm LVOT VTI/AV VTI Ratio 0.5 LVOT Stroke Volume 39 ml LVOT CO 2.9 l/min LVOT CI 1.6 l/min/m2 Pulmonic Valve Name Value Normal RVOT Doppler RVOT Peak Gradient 2 mmHg PV Doppler PV Peak Gradient 3 mmHg Mitral Valve Name Value Normal MV Doppler MV Decel [place] 906 cm/s2 MV PHT 34 ms MV Area (PHT) 6.5 cm2 4.0-5.0 MV Diastolic Function MV E Peak Velocity 105 cm/s MV A Peak Velocity 47 cm/s MV E/A 2.2 MV Decel Time 116 ms MV Annular TDI MV E/e' (Septal) 18.3 <=8.0 MV E/e' (Lateral) 6.5 <=8.0 MV E/e' (Average) 12.4 Tricuspid Valve Name Value Normal TV Regurgitation Doppler TR Peak Velocity 263 cm/s TR Peak Gradient 28 mmHg Estimated PAP/RSVP RA Pressure 5 mmHg <=5 PA Systolic Pressure 33 mmHg <36 RV Systolic Pressure 33 mmHg <36 Aorta Name Value Normal Ascending Aorta Ao Root Diameter (MM) 3.3 cm Ao Root Diam Index (MM) 1.9 cm/m2 Aortic Valve Name Value Normal AV Doppler AV Peak Velocity 117 cm/s AV Peak Gradient 6 mmHg AV Mean Gradient 3 mmHg AV VTI 23 cm AV Area (Cont Eq VTI) 1.6 cm2 >=3.0 AV Area (Cont Eq Nicolas) 1.9 cm2 AV Regurgitation 2D LVOT Area 3.0 cm2 Ventricles Name Value Normal LV Dimensions 2D/MM IVS Diastolic Thickness (2D) 0.9 cm 0.6-1.0 LVID Diastole (2D) 4.4 cm 3.8-5.2 LVIW Diastolic Thickness (2D) 0.8 cm 0.6-0.9 LVID Systole (2D) 3.3 cm 2.2-3.5 LVOT Diameter 2.0 cm LV Mass (2D Cubed) 116.87 g 67.00-162.00 LV Mass Index (2D Cubed) 66 g/m2 43-95 Relative Wall Thickness (2D) 0.35 LV Fractional Shortening/Ejection Fraction 2D/MM LV Fractional Shortening (2D) 27 % 27-45 LV EF (2D Teicholz) 52 % 54-74 LV Diastolic Volume (4C MOD) 71 ml LV EF (4C MOD) 52 % LV Diastolic Volume (2C MOD) 74 ml LV EF (2C MOD) 52 % LV Diastolic Volume (BP MOD) 74 ml 46-106 LV Diastolic Volume Index (BP MOD) 42 ml/m2 29-61 LV Systolic Volume (BP MOD) 35 ml 14-42 LV Systolic Volume Index (BP MOD) 20 ml/m2 8-24 LV EF (BP MOD) 53 % 54-74 LV Diastolic Length (4C) 7.1 cm LV Systolic Length (4C) 6.2 cm LV Stroke Volume (4C MOD) 37 ml Atria Name Value Normal LA Dimensions LA Dimension (MM) 3.6 cm 2.7-3.8 LA Volume (4C A-L) 50 ml LA Volume (BP A-L) 45 ml RA Dimensions RA Area (4C) 22.2 cm2 <=18.0 Report Signatures
--- NOTE | ~2024-10-31 | CT_ITS ---
CLINICAL INDICATION: Hypotension and abdominal pain COMPARISON: 10/30/2024 and 07/05/2024. TECHNIQUE: Multiple contiguous axial images of the chest, abdomen and pelvis were performed without t he administration of intravenous contrast The dose-length product (DLP) was 480.78 mGy-cm. Automated exposure control and iterative reconstruction technique were employed. FINDINGS/OBSERVATIONS: LUNG: Small left-sided pleural effusion. Dependent atelectasis, left greater than right. Tubular density within the anterior medial margin of the right middle lobe, for which airway impactio n is suspected. Postoperative change within the lingula, with a small residual parenchymal hernia. MEDIASTINUM: Mediastinal and hilar lymphadenopathy, left greater than right. Limited evaluation witho ut intravenous contrast. HEART:The heart is enlarged, unchanged. No significant pericardial effusion is noted. SOFT TISSUES OF THE CHEST: Unremarkable. Liver: The liver demonstrates homogeneous attenuation and is not enlarged measuring 16 cm in longitudinal di mension. Gallbladder and biliary system: The gallbladder is minimally distended, and otherwise unremarkable. Pancreas: Limited evaluation of the pancreas secondary to the lack of intravenous contrast. Spleen: The spleen demonstrates homogeneous attenuation and is not enlarged measuring 9 cm in longitudinal di mension. Kidneys: The bilateral kidneys are unremarkable, without hydronephrosis or renal calculi. Adrenal glands: Unremarkable. Gastrointestinal tract: Fecal stasis distends the colon with faint contrast opacification likely residual oral contrast. Redemonstration of multiple loops of minimally dilated, featureless small bowel measuring 3 cm in gre atest caliber. Appendix: The appendix is not definitively visualized. However, no pericecal inflammatory change is identified suggest the presence of acute appendicitis. Vasculature: The inferior vena cava is of normal caliber. Calcified atherosclerotic disease is noted within the abdominal aorta. Lymph nodes: Limited evaluation without intravenous contrast. Pelvic structures: The bladder is distended, and otherwise unremarkable. The uterus is anteverted and anteflexed, and somewhat enlarged for a patient of this age. Body wall and musculoskeletal: Only partially obstructing small bowel containing umbilical hernia, an interval change from prior. Degenerative disease within the thoracic and lumbosacral spines. IMPRESSION: Cardiomegaly with mediastinal and hilar lymphadenopathy and a small left-sided pleural effusion, incr eased from prior. Partially obstructing small bowel containing umbilical hernia, an interval change from prior. Reviewed, dictated and finalized at location A. IMPRESSION: Cardiomegaly with mediastinal and hilar lymphadenopathy and a small left-sided pleural effusion, increased from prior. Partially obstructing small bowel containing umbilical hernia, an interval landin ge from prior.
--- NOTE | ~2024-10-31 | XR_ITS ---
EXAMINATION: XR sm bowel follow through DATE: 11/04/2024 11:58 INDICATION: Small bowel obstruction TECHNIQUE: [employer] radiograph(s) of the abdomen was/were obtained. Water-soluble oral contrast was admi nistered, and sequential radiographs of the abdomen were obtained until oral contrast was noted to be in the proximal colon. COMPARISON: CT dated 11/03/2024 FINDINGS: [facility] radiograph demonstrates normal bowel gas pattern with moderate to large amount of colonic stool . Lumbar levoscoliosis with severe spondylosis. Old right superior and inferior pubic rami fractures. Transit time from the stomach to proximal colon was between 45-90 minutes. There is normal caliber a nd mucosal fold pattern throughout the small bowel. IMPRESSION: 1. Normal appearing small bowel with normal transit time to the colon. 2. Moderate to large amount of colonic stool. Correlate clinically for constipation. Reviewed, dictated and finalized at location A. IMPRESSION: 1. Normal appearing small bowel with normal transit time to the colon. 2. Moderate to large amount of colonic stool. Correlate clinically for constipa tion.
--- NOTE | 2024-10-31 05:20 | PC.NURSE ---
This patient, Елена Lynn, was admitted to Intensive Care Unit-2. Patient/family oriented to hospital policies and general routines including ID bracelet, bed and alarms, visiting hours, pain management, procedures, bathroom and other care routines, personal items, smoking policy, room service/diet, and visiting hours. Information on how to activate the Rapid Response Team has been discussed. Patient/Family are encouraged to report perceived risks to care and to ask questions if they do not understand what they are told or what they should do.
--- NOTE | 2024-10-31 05:23 | ECG_ITS ---
Test Date: 2024-10-31 05:46:58 Measurements Intervals [place] Rate: 61 P: 0 NH: 0 QRS: -39 QRSD: 102 T: 19 QT: 429 QTc: 435 Interpretive Statements SINUS RHYTHM WITH 2ND DEGREE AV BLOCK, MOBITZ TYPE I MARKED LEFT AXIS DEVIATION [QRS AXIS < -30] POSSIBLE ANTERIOR MYOCARDIAL INFARCTION [30 ms Q WAVE IN V3/V4, OR R < 0.2 mV IN V4], PROBABLY OLD Compared to ECG 10/31/2024 00:00:42 JOSE NOW PRESENT Electronically Signed On 11-01-2024 16:24:54 CDT by Fabiola Licea M.D.
--- OUTSIDE RECORDS SUMMARY | 2024-10-31 05:30 | XMS_ITS ---
Author Organization [facility] Address [address] [place] [address] Care Team Providers Care Certified Master Locksmith Name Role Phone Ilir Wahl MD Unavailable [...] (07/16/2018): Added automatically from request for surgery [id number] History of breast cancer 06/21/2018 Encounter for [...]
--- OUTSIDE RECORDS SUMMARY | 2024-10-31 05:30 | XMS_ITS | Encounter Summary ---
Author Organization [facility] Address [address] [place] [address] Care Team Providers Care Account Resolution Expert Name Role Phone Randa Maldonado APRN, NP-C Unavailable José Miguel Gore MD Unavailable Unavailabl e Elliot Tran DO Primary Care Provider [phone] Randi Lopez Primary Care Provider [phone] Yung Henderson MD Unavailable [phone] Elliot Tran DO Unavailable [phone] Elliot Tran DO Primary Care Provider [phone] Martita Pride MD Unavailable Encounter Details Date Type Department Care Team (Late st Contact Info) Description 08/06/2018 Abstract [facility] [address] [place] [address] José Miguel Gore MD Social History Tobacco [...] 12/09/2024 1:00 AM CDT Allied Health/Nurse Visit [facility] ld [address] [place] [phone] Yung Henderson MD [address] [place] [address] 12/12/2024 11:00 AM CDT Office Visit [facility] [place] [address] Martita Pride MD [address] [place], [place] [id number] documented as of this encounter Procedures Procedure [...] on filedocumented in this encounter Care Teams Account Resolution Expert Relationship Specialty Start Date End Date Elliot Tran DO [address] [place] [address] PCP - General FAMILY PRACTICE 09/13/20 06/08/22 Randi Lopez FNP [address] [place] [address] PCP - General NURSE PRACTITIONER 06/09/22 11/11/23 Elliot Tran DO [address] [place] [address] PCP - General FAMILY PRACTICE 11/12/23 Randa Maldonado APRN, OIL WELL DRILLING MANAGER-C [address] [place] [phone] NURSE PRACTITIONER 04/26/18 02/20/24 José Miguel Gore MD [address] [place] [phone] [place] Supervisor Press Room CARDIOVASCULAR DISEASE 10/26/18 02/20/24 Yung Henderson MD [address] [place] [address] EP Supervisor Press Room CLINICAL CARDIAC ELECTROPHYSIOLOGY 06/11/22 Elliot Tran DO [address] [place] [address] FAMILY PRACTICE 09/02/22 Martita Pride MD [address] [place] [address] Consulting Physician CARDIOVASCULAR DISEASE 02/21/24 documented as of this encounter
--- OUTSIDE RECORDS SUMMARY | 2024-10-31 05:30 | XMS_ITS | Referral Summary ---
Author Organization [facility] Address [address] [place] [address] Care Team Providers Care Worm Farmer Name Role Phone Ilir Wahl MD Unavailable Elliot Tran DO Primary Care Provider Encounters Date Type Department Care Team Description 09/08/2024 12:29 PM ENVELOPE SEALER - 09/08/2024 11:59 PM ENVELOPE SEALER Hospital Encounter [facility] [place] [address] [facility] Floor [address] [place] [address] Mediastinal mass Discharge Disposition: Discharge to home or self care 09/08/2024 2:30 PM ENVELOPE SEALER Office Visit [facility] Surgery [address] [facility] Floor [address] [place] [phone] Kumar Lopez MD Mediastinal adenopathy (Primary Dx) 08/30/[address] [facility] Surgery [address] [facility] [address] [place] [phone] Santos Garcia RMA 08/30/[address] [facility] Surgery [address] [facility] [address] [place] [address] Kumar Lopez MD Mediastinal mass (Primary Dx) 08/29/2024 Documentation [facility] Radiation Oncology [address] [facility] Advanced [place] [address] America Monge RN 08/29/2024 Orders Only [facility] Advanced Medicine Radiation Oncology [address] [facility] [place] [address] Osmel Sanchez MD Lung nodule (Primary Dx) 08/29/2024 Telephone [facility] Advanced Medicine Radiation Oncology [address] [place] [address] [place] [address] America Monge RN 08/26/2024 11:08 AM ENVELOPE SEALER - 08/26/2024 11:59 PM ENVELOPE SEALER Hospital Encounter [facility] [address] [place] [address] Diagnosis unknown Discharge Disposition: Discharge to home or self care 08/23/2024 Telephone [facility] Advanced Medicine Radiation Oncology [address] [place] [address] America Monge RN 08/23/2024 Telephone [facility] Advanced [facility] Radiation Oncology [facility] [place] [address] America Monge RN from Last 3 Months Allergies Active Allergy Reactions Criticality Noted Date Comments Sulfamethoxazole-Trimethoprim Rash Medium 2018 Medications calcium carbonate-vitam in D3 1,250mg (500mg elemental) - 5 mcg (200 units) per tablet Take 2 tablets by mouth national sales director before breakfast Active wgujnlgx-bey-FF -lycopen-lutein 0.4 mg-300 mcg- 250 mcg tablet Take 1 tablet by mouth national sales director before breakfast Active metoprolol (LOPRESSOR) 50 mg tablet Take 1 tablet (50 mg total) by mouth 2 (two) times a day 0 8 Active omega-3 fatty acids-fish oil 684-1,200 mg capsule,delayed release(DR/EC) Take 1 tablet by mouth national sales director before breakfast. Active magnesium gluconate 200 mg tablet Take 2 tablets (400 mg total) by mouth national sales director before breakfast Active oxyCODONE (ROXICODONE) 5 mg [...] (07/16/2018): Added automatically from request for surgery [id number] History of breast cancer 06/21/2018 Encounter for [...] on file 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:39 AM ENVELOPE SEALER Gender Identity Not on file Sexual Orientation Not on file Last Filed Vital Signs Vital Sign Reading Time Taken Comments Blood Pressure 124/75 09/08/2024 2:05 PM ENVELOPE SEALER Pulse 60 09/08/2024 2:05 PM ENVELOPE SEALER Temperature 36.8 C (98.2 F) 09/08/2024 2:05 PM ENVELOPE SEALER Respiratory Rate 16 09/08/2024 2:05 PM ENVELOPE SEALER Oxygen Saturation 99% 09/08/2024 2:05 PM ENVELOPE SEALER Inhaled Oxygen Concentration - - Weight 64.9 kg (143 lb) 09/08/2024 2:05 PM ENVELOPE SEALER Height 167.6 cm (5' 6 ) 09/08/2024 2:05 PM ENVELOPE SEALER Body Mass Index 23.08 09/08/2024 2:05 PM ENVELOPE SEALER Plan of Treatment Not on file Procedures Procedure Name Priority Date/Time Associated Diagnosis Comments CT CHEST W CONTRAST Schedule Routine, Read Routine (OP Routine) 09/08/2024 12:45 PM ENVELOPE SEALER Mediastinal mass CT BODY OUTSIDE CONSULT Routine 08/26/2024 11:09 AM ENVELOPE SEALER Diagnosis unknown from Last 3 Months Results * CT Chest W Contrast (09/08/2024 12:45 PM ENVELOPE SEALER) Anatomical Region Laterality Modality Body N/A Computed Tomogra phy 09/08/2024 12:5 9 PM ENVELOPE SEALER Impressions 09/08/2024 12:59 PM ENVELOPE SEALER 1. Decreasing bihilar and mediastinal lymphadenopathy, presumably a reactive process. 2. Stable tubular structure in right middle lobe, likely representing mucoid impaction. Surgical changes of the lingula are again noted. Electronically signed by: Tee Ly M.D. Narrative 09/08/2024 12:59 PM ENVELOPE SEALER EXAMINATION: Computed tomography of the chest with [...] by: Tee Ly M.D. Kumar Lopez MD [facility] CT PROCEDURES Carlee l Result * CT Body Outside Consult (08/26/2024 11:09 AM ENVELOPE SEALER) Anatomical Region Laterality Modality Body N/A Computed Tomogra phy 08/26/2024 11:1 5 AM ENVELOPE SEALER Impressions 08/26/2024 11:28 AM ENVELOPE SEALER This study was initially nominated as a consult on outside images via Outside Image Sharing Service. However, a consult was not performed because this is a duplicated nomination as previous images were uploaded on 07/07/2024 as reference. Accordingly, there will be no separate report of this study generated by a [facility] Radiologist. This change in examination status was confirmed with Dr. Sanchez on 08/26/2024. Dictated by: Jesse Arias MD The radiology attending physician has personally reviewed this study, and had reviewed and/or edited this written report and agrees with it. Electronically signed by: Kika Loza M.D. Narrative 08/26/2024 11:28 AM ENVELOPE SEALER EXAMINATION: CHANGE CONSULT ON OUTSIDE IMAGES TO [...] report of this study generated by a [facility] Radiologist. This change in examination status was confirmed with Dr. Sanchez on 08/26/2024. Dictated by: Jesse Arias MD The radiology attending physician has personally reviewed this study, and had reviewed and/or edited this written report and agrees with it. Electronically signed by: Kika Loza M.D. Osmel Sanchez MD IMG CT PROCEDURES Final Result from Last 3 Months [place] [address] [facility] MEDICARE SUPPLEMENT MEDICARE COMMERCIAL GENERIC [facility] MEDICARE [facility] MEDICARE SUPPLEMENT Advance Directives For more information, please contact: [phone] * Full Code (Latest Code Status on File) Date Activated Date Inactivated Comments 09/03/2018 11:25 AM 09/04/2018 4:52 PM Care Teams Worm Farmer Relationship Specialty Start Date End Date Elliot Tran DO [address] [place] [address] PCP - General Family Medicine 10/15/22 Ilir Wahl MD [address] [facility] [address] [place] [address] Referring Physician Radiation Oncology 09/07/18
--- OUTSIDE RECORDS SUMMARY | 2024-10-31 05:30 | XMS_ITS | Encounter Summary ---
Author Organization [facility] Address [address] [place] [address] Care Team Providers Care Game Attendant Name Role Phone Randa Maldonado APRN, NP-C Unavailable José Miguel Gore MD Unavailable Unavailabl Randi Travis PLASTIC SURGERY COORDINATOR Primary Care Provider [phone] Yung Henderson MD Unavailable [phone] Elliot Tran DO Unavailable [phone] Elliot Tran DO Primary Care Provider [phone] Martita Pride MD Unavailable Encounter Details Date Type Department Care Team (Late st Contact Info) Description 12/03/2022 Abstract [facility] [address] [place] [address] José Miguel Gore MD Social History Tobacco [...] 12/09/2024 1:00 AM CDT [facility] [address] [place] [phone] Yung Henderson MD [address] [place], [place] [address] 12/12/2024 11:00 AM CDT [facility] [address] [place] [address] [place] [address] Martita Pride MD [address] [place] [address] documented as of this encounter Visit Diagnoses Not on filedocumented in this encounter Care Teams Game Attendant Relationship Specialty Start Date End Date Randi Lopez FNP [address] [place] [address] PCP - General NURSE PRACTITIONER 06/09/22 11/11/23 Elliot Tran DO [address] [place] [address] PCP - General FAMILY PRACTICE 11/12/23 Randa Maldonado APRN, BUSINESS DEVELOPMENT ASSISTANT-C [address] [facility] [address] [place] [phone] NURSE PRACTITIONER 04/26/18 02/20/24 José Miguel Gore MD [address] [facility] [address] [place] [address] [place] Cooling Machine Operator CARDIOVASCULAR DISEASE 10/26/18 02/20/24 Yung Henderson MD [address] [place] [address] EP Cooling Machine Operator CLINICAL CARDIAC ELECTROPHYSIOLOGY 06/11/22 Elliot Tran DO [facility] [place] [address] FAMILY PRACTICE 09/02/22 Martita Pride MD [address] [place] [address] Consulting Physician CARDIOVASCULAR DISEASE 02/21/24 documented as of this encounter
--- OUTSIDE RECORDS SUMMARY | 2024-10-31 05:30 | XMS_ITS | Encounter Summary ---
Author Organization [facility] Address [address] [place] [address] Care Team Providers Care Deputy Coroner Name Role Phone Ilir Wahl MD Unavailable [phone] Brad Joyner MD Primary Care Provider [phone] Martín Block MD Primary Care Provider Cyril Zee MD Primary Care Provider [phone] Miscellaneous, Not In File Primary Care Provider Unavailable Randi Lopez NP Primary Care Provide r Elliot Tran DO Primary Care Provider Encounter Details Date Type Department Care Team (Late st Contact Info) Description 03/02/2020 Telephone [facility] Radiation Oncology [address] [facility] [place] [address] Josie Torrez MA Social History Tobacco Use Types Packs/Day Years Used Date Smoking Tobacco: Never Smokeless Tobacco: Never Alcohol Use Standard Drinks/Week Comments No 0 (1 standard drink = 0.6 oz pur e alcohol) Comments No Sex and Gender Information Value Date Recorded Sex Assigned at Not on file 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:39 AM MANAGER PERFORMANCE Gender Identity Not on file Sexual Orientation Not on file documented as of this encounter Plan of Treatment Not on file documented as of this encounter Visit Diagnoses Not on filedocumented in this encounter Care Teams Deputy Coroner Relationship Specialty Start Date End Date Brad Joyner MD [address] [place] [address] PCP - General Family Medicine 12/10/18 06/06/20 Martín Block MD [address] [place] [address] PCP - General 06/07/20 11/29/20 Cyril Zee MD [address] [address] PCP - General Obstetrics and Gynecology 11/30/20 10/15/21 Miscellaneous, Not In File PCP - General 10/16/21 10/20/21 Randi Lopez NP [address] [place] [address] PCP - General 10/21/21 10/14/22 Elliot Tran DO [address] [place] [address] PCP - General Family Medicine 10/15/22 Ilir Wahl MD [address] [facility] [address] [place] [address] Referring Physician Radiation Oncology 09/07/18 documented as of this encounter
--- OUTSIDE RECORDS SUMMARY | 2024-10-31 05:30 | XMS_ITS | Encounter Summary ---
Author Organization [facility] Address [address] [place] [address] Care Team Providers Care Electromagnet Crane Operator Name Role Phone Ilir Wahl MD Unavailable [phone] Martín Block MD Primary Care Provider Cyril Zee MD Primary Care Provider [phone] Miscellaneous, Not In File Primary Care Provider Unavailable Randi Lopez NP Primary Care Provide r Elliot Tran DO Primary Care Provider Encounter Details Date Type Department Care Team (Late st Contact Info) Description 2020 Telephone [facility] Advanced Medicine Radiation Oncology [address] [place] [address] Advanced Medicine [place] [address] Josie Torrez MA Social History Tobacco Use Types Packs/Day Years Used Date Smoking Tobacco: Never Smokeless Tobacco: Never Alcohol Use Standard Drinks/Week Comments No 0 (1 standard drink = 0.6 oz pur e alcohol) Comments No Sex and Gender Information Value Date Recorded Sex Assigned at Not on file 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:39 AM ADVERTISING AGENCY MANAGER Gender Identity Not on file Sexual Orientation Not on file documented as of this encounter Plan of Treatment Not on file documented as of this encounter Visit Diagnoses Not on filedocumented in this encounter Care Teams Electromagnet Crane Operator Relationship Specialty Start Date End Date Martín Block MD [facility] [address] [place] [address] PCP - General 06/07/20 11/29/20 Cyril Zee MD [address] [facility] [address] [place], [place] [id number] PCP - General Obstetrics and Gynecology 11/30/20 10/15/21 Miscellaneous, Not In File PCP - General 10/16/21 10/20/21 Randi Lopez NP [address] [place] [address] PCP - General 10/21/21 10/14/22 Elliot Tran DO [address] [place] [address] PCP - General Family Medicine 10/15/22 Ilir Wahl MD [address] [place] [address] Referring Physician Radiation Oncology 09/07/18 documented as of this encounter
--- OUTSIDE RECORDS SUMMARY | 2024-10-31 05:30 | XMS_ITS | Clinical Summary ---
Author Organization [facility] Address [address] [place] [address] Care Team Providers Care Central Sterile Technician Name Role Phone Yung Henderson MD Unavailable [phone] Elliot Tran DO Unavailable [phone] Elliot Tran DO Primary Care Provider [phone] Martita Pride MD Unavailable Allergies Active Allergy [...] Pre-op evaluation 07/23/2018 04/27/2020 SVT (supraventricular tachycardia) ([facility]) 02/08/2023 Encounters Date Type Department Care Team Description 10/25/2024 1:00 AM CDT Allied Health/Nurse Visit [facility] ield [address] [place] [address] Yung Henderson MD 08/30/2024 3:50 AM MANAGEMENT MANAGER Allied Health/Nurse Visit [facility] [address] [place] [address] Yung Henderson MD from Last 3 Months [...] 36.3 C (97.4 F) 09/30/2022 11:14 AM MANAGEMENT MANAGER Respiratory Rate 16 11/26/2023 9:45 AM CDT [...] 12/09/2024 1:00 AM CDT Allied Health/[facility]urse [facility] ld [address] [place] [phone] Yung Henderson MD [address] [place], [place] [address] 12/12/2024 11:00 AM CDT Office Visit [facility] [place] [address] Martita Pride MD [address] [place], [place] [id number] Health Maintenance Due Date Last Done Comments [...] this topic Medical Devices Implanted Type Area Rug Clipper Device Identifier Shelf Expiration Date Model / Serial / Lot Medtronic Linq Ii-09/30/2022 Implanted:Qt y: 1 on 09/30/2022 by Yung Henderson MD Implantable Loop Recorder Left: Pectoral [employer] 01/23/2024 [id number] / [id number] / Description:DX: [employer] Insurance MEDICARE MEDICARE Advance Directives * Full Code (Latest Code Status on File) Date Activated Date Inactivated Comments 08/12/2018 2:43 PM 08/12/2018 7:28 PM Care Teams Central Sterile Technician Relationship Specialty Start Date End Date Elliot Tran DO [address] [place] [address] PCP - General FAMILY PRACTICE 11/12/23 Yung Henderson MD [address] [place] [address] EP Transformer Molder CLINICAL CARDIAC ELECTROPHYSIOLOGY 06/11/22 Elliot Tran DO [address] [place] [address] FAMILY PRACTICE 09/02/22 Martita Pride MD [address] [place] [address] Consulting Physician CARDIOVASCULAR DISEASE 02/21/24
--- OUTSIDE RECORDS SUMMARY | 2024-10-31 05:30 | XMS_ITS | Encounter Summary ---
Author Organization [facility] Address [address] [place] [address] Care Team Providers Care Fill Manager Name Role Phone Randa Maldonado APRN, NP-C Unavailable [phone] José Miguel Gore MD Unavailable Unavailabl e Randi Lopez MANAGER GAME Primary Care Provider [phone] Yung Henderson MD Unavailable [phone] Elliot Tran DO Unavailable [phone] Elliot Tran DO Primary Care Provider [phone] Martita Pried MD Unavailable Encounter Details Date Type Department Care Team (Late st Contact Info) Description 09/25/2022 Hospital Orders Only [facility] Rn Manager Pre/Post [address] [place] [address] Yung Henderson MD [address] [place], [place] [address] Social History Tobacco Use Types Packs/Day Years [...] 12/09/2024 1:00 AM CDT Allied [facility] [address] [place] [phone] Yung Henderson MD [address] [place] [address] 12/12/2024 11:00 AM CDT Office Visit [facility] [place] [address] Martita Pride MD [address] [place], [place] [address] documented as of this encounter Visit Diagnoses Not on filedocumented in this encounter Care Teams Fill Manager Relationship Specialty Start Date End Date Randi Lopez FNP [address] [place] [address] PCP - General NURSE PRACTITIONER 06/09/22 11/11/23 Elliot Tran DO [address] [place] [address] PCP - General FAMILY PRACTICE 11/12/23 Randa Maldonado APRN, LOWER IN SUPERVISOR-C [address] [place] [address] [phone] NURSE PRACTITIONER 04/26/18 02/20/24 José Miguel Gore MD [address] [address] [place] Clinical Research Director CARDIOVASCULAR DISEASE 10/26/18 02/20/24 Yung Henderson MD [address] [place] [address] EP Clinical Research Director CLINICAL CARDIAC ELECTROPHYSIOLOGY 06/11/22 Elliot Tran DO [address] [place] [address] FAMILY PRACTICE 09/02/22 Martita Pride MD [address] [place] [address] Consulting Physician CARDIOVASCULAR DISEASE 02/21/24 documented as of this encounter
--- OUTSIDE RECORDS SUMMARY | 2024-10-31 05:30 | XMS_ITS | Encounter Summary ---
Author Organization [facility] Address [address] [place] [address] Care Team Providers Care Lcac Radar Operator/Navigator Name Role Phone Ilir Wahl MD Unavailable [phone] Cyril Zee MD Primary Care Provider [phone] Miscellaneous, Not In File Primary Care Provider Unavailable Randi Lopez REMEDY DEVELOPER Primary Care Provide r Elliot Tran DO Primary Care Provider Encounter Details Date Type Department Care Team (Late st Contact Info) Description 09/20/2021 Telephone [facility] Radiation Oncology [address] [facility] [place] [address] Josie Torrez MA Social History Tobacco Use Types Packs/Day Years Used Date Smoking Tobacco: Never Smokeless Tobacco: Never Alcohol Use Standard Drinks/Week Comments No 0 (1 standard drink = 0.6 oz pur e alcohol) Comments No Sex and Gender Information Value Date Recorded Sex Assigned at Not on file 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:39 AM 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 Gender Identity Not on file Sexual Orientation Not on file documented as of this encounter Plan of Treatment Not on file documented as of this encounter Visit Diagnoses Not on filedocumented in this encounter Care Teams Lcac Radar Operator/Navigator Relationship Specialty Start Date End Date Cyril Zee MD [address] [email or web address] [address] [place], [place] [id number] PCP - General Obstetrics and Gynecology 11/30/20 10/15/21 Miscellaneous, Not In File PCP - General 10/16/21 10/20/21 Randi Lopez NP [address] [place] [address] PCP - General 10/21/21 10/14/22 Elliot Tran DO [address] [place] [address] PCP - General Family Medicine 10/15/22 Ilir Wahl MD [address] [facility] # [address] LL [address] [place] [address] Referring Physician Radiation Oncology 09/07/18 documented as of this encounter
--- OUTSIDE RECORDS SUMMARY | 2024-10-31 05:30 | XMS_ITS | Encounter Summary ---
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 Gender Identity Not on file Sexual [...] on filedocumented in this encounter Care Teams Co Founder Relationship Specialty Start Date End Date Martín Block MD [address] [place] [address] PCP - General 06/07/20 11/29/20 Cyril Zee MD [address] [facility] [address] [place], [place] [address] PCP - General Obstetrics and Gynecology 11/30/20 10/15/21 Miscellaneous, Not In File PCP - General 10/16/21 10/20/21 Randi Lopez NP [address] [place] [address] PCP - General 10/21/21 10/14/22 Elliot Tran DO [address] [place] [address] PCP - General Family Medicine 10/15/22 Ilir Wahl MD [address] [place] [address] Referring Physician Radiation Oncology 09/07/18 documented as of this encounter
--- OUTSIDE RECORDS SUMMARY | 2024-10-31 05:30 | XMS_ITS | Clinical Summary ---
Author Organization [facility] Address [address] [place] [address] Care Team Providers Care Product Development Name Role Phone Ilir Wahl MD Unavailable Elliot Tran DO Primary Care Provider Allergies Active Allergy Reactions Criticality Noted Date Comments Sulfamethoxazole-Trimethoprim Rash Medium 2018 Medications calcium carbonate-vitam in D3 1,250mg (500mg elemental) - 5 mcg (200 units) per tablet Take 2 tablets by mouth color stripper before breakfast Active tldxswhf-kph-JG -lycopen-lutein 0.4 mg-300 mcg- 250 mcg tablet Take 1 tablet by mouth color stripper before breakfast Active metoprolol (LOPRESSOR) 50 mg tablet Take 1 tablet (50 mg total) by mouth 2 (two) times a day 0 8 Active omega-3 fatty acids-fish oil 684-1,200 mg capsule,delayed release(DR/EC) Take 1 tablet by mouth color stripper before breakfast. 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 Preop pulmonary/respiratory exam Encounters Date Type Department Care Team Description 09/08/2024 2:30 PM SUGAR MIXER Office Visit [facility] Surgery [address] [facility] Floor [address] [place] [address] Kumar Lopez MD Mediastinal adenopathy (Primary Dx) 09/08/2024 12:29 PM SUGAR MIXER - 09/08/2024 11:59 PM SUGAR MIXER Hospital Encounter [facility] [place] [address] [facility] Floor [address] [place] [address] Mediastinal mass Discharge Disposition: Discharge to home or self care 08/30/2024 Telephone [facility] Surgery [address] [facility] [address] [place] [address] Santos Garcia RMA 08/30/2024 Orders Only [facility] Surgery [address] [facility] [address] [place] [address] Kumar Lopez MD Mediastinal mass (Primary Dx) 08/29/2024 Documentation [facility] Radiation Oncology [address] [facility] [place] [address] America Monge RN 08/29/2024 Orders Only [facility] Radiation Oncology [address] [facility] [place] [address] Osmel Sanchez MD Lung nodule (Primary Dx) 08/29/2024 Telephone [facility] Radiation Oncology [address] [facility] [place] [address] America Monge RN 08/26/2024 11:08 AM SUGAR MIXER - 08/26/2024 11:59 PM SUGAR MIXER Hospital Encounter [facility] [address] [place] [address] Diagnosis unknown Discharge Disposition: Discharge to home or self care 08/23/2024 Telephone [facility] Radiation Oncology [address] [place] [address] America Monge RN 08/23/2024 Telephone [facility] Radiation Oncology [address] [place] [address] America Monge RN from Last 3 Months [...] on file 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:39 AM SUGAR MIXER Gender Identity Not on file Sexual Orientation Not on file Obstetrics History Last Filed Vital Signs Vital Sign Reading Time Taken Comments Blood Pressure 124/75 09/08/2024 2:05 PM SUGAR MIXER Pulse 60 09/08/2024 2:05 PM SUGAR MIXER Temperature 36.8 C (98.2 F) 09/08/2024 2:05 PM SUGAR MIXER Respiratory Rate 16 09/08/2024 2:05 PM SUGAR MIXER Oxygen Saturation 99% 09/08/2024 2:05 PM SUGAR MIXER Inhaled Oxygen Concentration - - Weight 64.9 kg (143 lb) 09/08/2024 2:05 PM SUGAR MIXER Height 167.6 cm (5' 6 ) 09/08/2024 2:05 PM SUGAR MIXER Body Mass Index 23.08 09/08/2024 2:05 PM SUGAR MIXER Plan of Treatment Health Maintenance Due Date [...] Read Routine (OP Routine) 09/08/2024 12:45 PM SUGAR MIXER Mediastinal mass CT BODY OUTSIDE CONSULT Routine 08/26/2024 11:09 AM SUGAR MIXER Diagnosis unknown from Last 3 Months Results * CT Chest W Contrast (09/08/2024 12:45 PM SUGAR MIXER) Anatomical Region Laterality Modality Body N/A Computed Tomogra phy 09/08/2024 12:5 9 PM SUGAR MIXER Impressions 09/08/2024 12:59 PM SUGAR MIXER 1. Decreasing bihilar and mediastinal lymphadenopathy, presumably a reactive process. 2. Stable tubular structure in right middle lobe, likely representing mucoid impaction. Surgical changes of the lingula are again noted. Electronically signed by: Tee Ly M.D. Narrative 09/08/2024 12:59 PM SUGAR MIXER EXAMINATION: Computed tomography of the chest with [...] CT Body Outside Consult (08/26/2024 11:09 AM SUGAR MIXER) Anatomical Region Laterality Modality Body N/A Computed Tomogra phy 08/26/2024 11:1 5 AM SUGAR MIXER Impressions 08/26/2024 11:28 AM SUGAR MIXER This study was initially nominated as a consult on outside images via Outside Image Sharing Service. However, a consult was not performed because this is a duplicated nomination as previous images were uploaded on 07/07/2024 as reference. Accordingly, there will be no separate report of this study generated by a [facility] Radiologist. This change in examination status was confirmed with Dr. Sanchez on 08/26/2024. Dictated by: Jesse Arias MD The radiology attending physician has personally reviewed this study, and had reviewed and/or edited this written report and agrees with it. Electronically signed by: Kika Loza M.D. Narrative 08/26/2024 11:28 AM SUGAR MIXER EXAMINATION: CHANGE CONSULT ON OUTSIDE IMAGES TO [...] report of this study generated by a [facility] Radiologist. This change in examination status was [...] MEDICARE SUPPLEMENT MEDICARE COMMERCIAL GENERIC [facility] MEDICARE BLUE CROSS MEDICARE SUPPLEMENT Member Subscriber Plan / Payer (Ef fective 2018-Present) Name:Елена Lynn Relation to Subscriber:Self Name:Елена Lynn Payer ID:[id number] Type:COMMERCIAL Address: [address] [place] [id number] Advance Directives For more information, please contact: [phone] * Full Code (Latest Code Status on File) Date Activated Date Inactivated Comments 09/03/2018 11:25 AM 09/04/2018 4:52 PM Care Teams Product Development Relationship Specialty Start Date End Date Elliot Tran DO [address] [place] [address] PCP - General Family Medicine 10/15/22 Ilir Wahl MD [address] [facility] # [address] LL [address] [place] [address] Referring Physician Radiation Oncology 09/07/18
[2024-10-31 06:05] LABS: Anion Gap 7 mmol/L (4-12); Blood Urea Nitrogen 12 mg/dL (7-17); Calcium 8.1 mg/dL (8.4-10.2); Carbon Dioxide 27 mmol/L (22-30); Chloride 95 mmol/L (98-107); Estimated CRCL calculation 42 ml/min; Estimated Glomerular Filt Rate > 60; Glucose 114 mg/dL (65-110); Magnesium 2.4 mg/dL (1.6-2.3); Phosphorus 2.8 mg/dL (2.5-4.5); Potassium 3.6 mmol/L (3.4-5.0); Sodium 129 mmol/L (137-145)
[2024-10-31] MEDS: SODIUM CHLORIDE 0.9% IV 1,000 ML 100 ML IV CONT ×2 (06:05→20:45)
--- NOTE | 2024-10-31 08:25 | PM.CNCAR ---
Assessment and Plan Assessment and plan (1) Mobitz type 1 second degree AV block: Code(s): I44.1 - Atrioventricular block, second degree Status: Acute Assessment and Plan: Intermittent exacerbated by abdominal pain and her home medication of Metoprolol and Verapamil. Will hold Metoprolol and Verapamil. Monitor HR and BP. No need for pacemaker at this time. Check echo. (2) Paroxysmal supraventricular tachycardia: Onset Date: 05/13/18 Code(s): I47.1 - Supraventricular tachycardia Status: Acute (3) Chest discomfort: Code(s): R07.89 - Other chest pain Status: Acute Assessment and Plan: Probably musculoskeletal. (4) Benign essential HTN: Code(s): I10 - Essential (primary) hypertension Status: Acute Assessment and Plan: Stable. Monitor. (5) Epigastric pain: Code(s): R10.13 - Epigastric pain Status: Acute History of Present Illness History of Present Illness Consult date/time: 10/31/24 08:25 Reason For Visit: Heart block; Persistent hypotension Narrative: 84 yr old woman presents to ER with abdominal pain. She has a history of PSVT, 2nd degree Mobitz type I AV heart block, loop recorder since January 2023, hypertension. She sees [facility] and will be seeing Dr. Gibbons next month as Dr. Gore retired. Reports she ate some spicy food last night, went to bed and woke up at midnight with severe abdominal pain and vomiting. She came to ER and her BP was low with SBP 60 mmHg. It was noted she was having intermittent 2nd degree AV block on monitor. She can normally walk 1 blocks and limited by neuropathy of legs with spinal stenosis. Had left sided chest pain 30 minutes ago worse with pushing on her chest with echo probe as that was being done. Denies orthopnea, PND, edema, dizziness. Review of Systems Review of Systems: All systems reviewed & are unremarkable except as noted in HPI and below Constitutional: Constitutional: Reports as per HPI, Denies chills and Denies fever(s) Cardiovascular: Cardiovascular: Reports as per HPI, Reports chest pain and Denies irregular heart rhythm Respiratory: Respiratory: Reports as per HPI and Denies dyspnea Gastrointestinal: Gastrointestinal: Reports as per HPI and Denies abdominal pain Genitourinary: Genitourinary: Reports as per HPI and Denies dysuria Musculoskeletal: Musculoskeletal: Reports as per HPI and Reports back pain Neurologic: Reports as per HPI, Denies dizziness and Denies syncope [facility] Past Medical History Medical History Osteoporosis Abnormality of heart beat Hypertension Stress fracture of sacrum Fracture of radial neck, right, closed Displaced fracture of neck of left radius Right wrist pain Injury of right hip Sciatica of right side Right hip pain Post-COVID chronic fatigue Skin rash Pre-op exam Left ankle pain Fatigue Personal history of other drug therapy Exposure to COVID-19 virus Colon polyp Epigastric pain Constipation Nausea and vomiting in adult Endometrial thickening on ultrasound RLQ abdominal pain Nicotine dependence in remission Skin cancer s/p surgical resection Breast cancer Paroxysmal supraventricular tachycardia Osteopenia Hyperlipidemia GARRETT (generalized anxiety disorder) Cardiac arrhythmia Benign essential HTN Surgical History Surgical History History of lumpectomy [address] Nicole 2009 History of thyroid surgery 2007 Dr. Johnston History of hernia repair x2 2002 Dr. Johnston H/O cataract extraction History of lung biopsy (~08/2018) Left History of appendectomy 2007 Dr. Johnston Family History Family History (Updated 10/31/24 @ 06:20 by Bessy Alvarez RN) Mother Familial Alzheimer's disease of late onset Congestive heart failure Hypertension Heart disease History of blood clots Father Abnormality of heart beat Heart disease Acute myocardial infarction Social History Social History Smoking status: Never smoker Additional smoking assessment comments: socially only Alcohol intake: never Substance use: never Substance use type: does not use Do You Feel Safe in your Home?: Yes Lack of Transportation: No Lack of Food: Never True Current Housing: I Have Housing Concerned About Future Housing: No Difficulty Paying Gas/Electric Bills: No Difficulty Paying for Meds: No Currently Unemployed: No Education: Decline to Answer Difficulty w/ Childcare or Family Care: No Living arrangements: alone Additional living arrangements comments: Occupation/Education: retired Gender identity (if verbalized by the patient): Female Spiritual care concerns: No Meds Home Medications and Allergies Home Medications ?Medication ?Instructions ?Recorded ?Confirmed ?Type magnesium oxide 400 mg PO DAILY 08/08/19 10/31/24 History fqagekfb-gjnbzpi-nmva-lutein tablet 1 mcg PO DAILY 08/08/19 10/31/24 History metoprolol succinate 25 mg 25 mg PO BID 06/17/22 10/31/24 History tablet,extended release 24 hr calcium 600 mg (as 2 cap PO BIDWMEAL #180 caps 03/31/23 10/31/24 Rx carbonate)-vitamin D3 10 mcg (400 unit) capsule zoledronic acid 5 mg/100 mL in 1 ea IV .annually #100 mL 04/27/24 10/31/24 Rx mannitol 5 %-water intravenous piggybck (Reclast) chlorthalidone 25 mg tablet See Rx Instructions .Route 09/12/24 10/31/24 Rx .COMPLEX #90 tabs omeprazole 40 mg capsule,delayed See Rx Instructions .Route 09/26/24 10/31/24 Rx release .COMPLEX #30 caps verapamil 120 mg tablet,extended See Rx Instructions .Route 09/30/24 10/31/24 Rx release .COMPLEX #90 tabs cyclosporine 0.05 % eye drops in a 1 drp EACH EYE Q12H 10/25/24 10/31/24 History dropperette (Restasis) polyethylene glycol 3350 17 17 g PO BID 10/30/24 10/31/24 History gram/dose oral powder (Miralax) psyllium 1 tbsp PO DAILY 10/30/24 10/31/24 History Allergies Allergy/AdvReac Type Severity Reaction Status Date / Time Sulfa (Sulfonamide Allergy Intermediate Rash Verified 10/31/24 05:48 Antibiotics) Vital Signs Vital Signs - 24 hr 10/31/24 05:25 10/31/24 05:25 10/31/24 05:28 Temperature 97.8 F Pulse Rate 78 78 Respiratory Rate 20 Blood Pressure 113/63 Pulse Oximetry 98 Oxygen Delivery Room Air 10/31/24 06:00 10/31/24 06:00 Temperature Pulse Rate 48 L 48 L Respiratory Rate 21 H Blood Pressure 103/59 L Pulse Oximetry 98 Oxygen Delivery Exam Const: General: cooperative, healthy appearing and comfortable Resp: Auscultation: clear to auscultation bilaterally, no crackles, no rales, no rhonchi and no wheezes Cardio: Rate: regular rate Rhythm: regular rhythm Heart sounds: no murmurs Peripheral pulses: dorsalis pedis present GI: GI Palp: No abdominal tenderness and Yes Soft to palpation Neuro: General: oriented to person, oriented to place and oriented to time Extrem: Right lower extremity: no edema Left lower extremity: no edema Results Labs and Meds 10/31/24 05:40 Lab results: Comprehensive Metabolic Panel 10/31/24 Range/Units 05:40 Sodium 129 L (137-145) mmol/L Potassium 3.6 (3.4-5.0) mmol/L Chloride 95 L (98-107) mmol/L Carbon Dioxide 27 (22-30) mmol/L BUN 12 (7-17) mg/dL Creatinine 0.78 (0.7-1.0) mg/dL Glucose 114 H (65-110) mg/dL Calcium 8.1 L (8.4-10.2) mg/dL Intake and Output 10/30/24 10/31/24 10/31/24 23:59 07:59 15:59 Output Total 1450 Balance -1450 Output: Straight Cath Amount 1450 Patient Weight 10/31/24 23:59 Weight 68 kg
[2024-10-31] MEDS: ALBUMIN HUMAN 25% 25 GM/100 ML 100 ML IVPB ×3 (08:30→17:14)
--- NOTE | 2024-10-31 08:38 | P.CONIN_ITS ---
Assessment and Plan Assessment and plan (1) Sepsis: Code(s): A41.9 - Sepsis, unspecified organism Status: Acute Assessment and Plan: Patient presented with hypotension, abdominal pain, enteritis -was given 3 L IV fluid bolus in the ER at the [facility] [place] in [facility], central line was also placed there by the ER physician -10/31: Blood cultures have been obtained -lactic acid is normal -started on Zosyn 10/31 with for her enteritis as seen on CT scan of the abdomen and pelvis -patient has had good urine output, negative fluid balance, will give LR 500 mL IV fluid bolus -albumin for intravascular volume expansion 10/30/2024: CT scan of the abdomen and pelvis: Findings suggestive of nonspecific small bowel enteritis. (2) Mobitz type 1 second degree AV block: Code(s): I44.1 - Atrioventricular block, second degree Status: Acute Assessment and Plan: Mobitz type 1 second-degree AV block which she has a history of. - Probably and exacerbated by abdominal pain and sepsis/hypotension -will hold chlorthalidone, verapamil and metoprolol for now -continue to monitor blood pressures and heart rate -appreciate cardiology evaluation and recommendations, no pacemaker intervention at this time per Cardiology (3) Hypotension: Code(s): I95.9 - Hypotension, unspecified Status: Acute Assessment and Plan: Could be related to dehydration secondary to nausea, vomiting, decreased p.o. intake -patient has been adequately fluid-resuscitated, will give additional LR 500 mL IV fluid bolus -blood pressures are stable -hold home antihypertensive medications and chlorthalidone -lactic acid is normal -continue to monitor (4) Enteritis: Code(s): K52.9 - Noninfective gastroenteritis and colitis, unspecified Status: Acute Assessment and Plan: Enteritis ulcer as seen on CT scan of the abdomen and pelvis as above -continue antibiotics as above (5) Abdominal pain: Code(s): R10.9 - Unspecified abdominal pain Status: Acute Assessment and Plan: Resolved could be related to gastroenteritis after she ate some spicy food on the night prior to admission Plan DVT prophylaxis: Lovenox Stress ulcer prophylaxis: Protonix Nutrition: Heart healthy diet Code Status: Full code Critical Care Time Spent: 51 minutes Discussed with patient, 2 daughters and updated them with patient's condition plan of care. I answered all questions Due to a high probability of clinically significant, life threatening deterioration, the patient required my highest level of preparedness to intervene emergently and I personally spent this critical care time directly and personally managing the patient. This critical care time included obtaining a history; examining the patient; pulse oximetry; ordering and review of studies; arranging urgent treatment with development of a management plan; evaluation of patient's response to treatment; frequent reassessment; and discussions with other providers. It was exclusive of separately billable procedures and treating other patients and teaching time. Please see Assessment and Plan section and the rest of the note for further information on patient assessment and treatment This dictation may have been done utilizing a voice recognition system. Attempts have been made to correct errors. However, there may be uncorrected grammatical, spelling, and recognitions errors present. Medical Front Desk Specialist Consult Note Consult date: 10/31/24 Reason for consult: Abdominal pain, Hypotension, enteritis, Mobitz type 1 second-degree AV block HPI: Елена Lynn is a 84 year old female with past medical history of essential hypertension, history of Mobitz type 1 second-degree AV block, constipation, paroxysmal supraventricular tachycardia, hyperlipidemia, general anxiety disorder presented to ED at the [facility] [place], [place] in [facility] on 10/30/2024 with complains of abdominal pain. She complained of sharp epigastric abdominal pain without radiation, episodes of nonbloody vomiting. Patient did have a bowel movement on 10/30 which was normal in color. She felt dehydrated was drinking water but had recurrent vomiting. In the ER patient was found to be hypotensive with systolic blood pressures 50s to 70s. Patient was given a total of 3 L IV fluids, central line was inserted. ANA count was 10.0, hemoglobin 12.7, platelets 253. Sodium 126, potassium 3.6, chloride 89, CO2 30, BUN 17, creatinine 0.97, magnesium 1.5. LFTs are within normal limits. Troponins x2 were negative, lipase was 21. UA was negative, chest was clear. Patient was transferred to the ICU at [facility] for hypotension with possibility off requiring vasopressors and also for sees Mobitz type 1 second- degree AV block and some sinus pauses. Patient seen and examined the ICU, remains awake, alert, oriented x3, pleasant female currently denies any abdominal pain, chest pain, shortness of breath, nausea, vomiting, diarrhea. Currently hemodynamically stable. Good urine output, on room air with adequate O2 sats, blood pressures are stable. She walks every day and also exercises. She takes, chlorthalidone, verapamil and metoprolol at home which she has been taking regularly. States she does feel disease sometimes. She has been os to drink a lot of water for her constipation and bloating. Sodium levels are 129 this morning Review of Systems 2 Review of Systems: All systems reviewed & are unremarkable except as noted in HPI and below PMFSH Past Medical History Medical History Osteoporosis Abnormality of heart beat Hypertension Stress fracture of sacrum Fracture of radial neck, right, closed Displaced fracture of neck of left radius Right wrist pain Injury of right hip Sciatica of right side Right hip pain Post-COVID chronic fatigue Skin rash Pre-op exam Left ankle pain Fatigue Personal history of other drug therapy Exposure to COVID-19 virus Colon polyp Epigastric pain Constipation Nausea and vomiting in adult Endometrial thickening on ultrasound RLQ abdominal pain Nicotine dependence in remission Skin cancer s/p surgical resection Breast cancer Paroxysmal supraventricular tachycardia Osteopenia Hyperlipidemia GARRETT (generalized anxiety disorder) Cardiac arrhythmia Benign essential HTN Surgical History Surgical History History of lumpectomy [address] Nicole 2009 History of thyroid surgery 2007 Dr. Johnston History of hernia repair x2 2002 Dr. Johnston H/O cataract extraction History of lung biopsy (~08/2018) Left History of appendectomy 2007 Dr. Johnston Family History Family History (Updated 10/31/24 @ 06:20 by Bessy Alvarez RN) Mother Familial Alzheimer's disease of late onset Congestive heart failure Hypertension Heart disease History of blood clots Father Abnormality of heart beat Heart disease Acute myocardial infarction Social History Social History Smoking status: Never smoker Additional smoking assessment comments: socially only Alcohol intake: never Substance use: never Substance use type: does not use Do You Feel Safe in your Home?: Yes Lack of Transportation: No Lack of Food: Never True Current Housing: I Have Housing Concerned About Future Housing: No Difficulty Paying Gas/Electric Bills: No Difficulty Paying for Meds: No Currently Unemployed: No Education: Decline to Answer Difficulty w/ Childcare or Family Care: No Living arrangements: alone Additional living arrangements comments: Occupation/Education: retired Gender identity (if verbalized by the patient): Female Spiritual care concerns: No Meds Home Medications and Allergies Home Medications ?Medication ?Instructions ?Recorded ?Confirmed ?Type magnesium oxide 400 mg PO DAILY 08/08/19 10/31/24 History xrgkvsok-iohhosx-jgyj-lutein tablet 1 mcg PO DAILY 08/08/19 10/31/24 History metoprolol succinate 25 mg 25 mg PO BID 06/17/22 10/31/24 History tablet,extended release 24 hr calcium 600 mg (as 2 cap PO BIDWMEAL #180 caps 03/31/23 10/31/24 Rx carbonate)-vitamin D3 10 mcg (400 unit) capsule zoledronic acid 5 mg/100 mL in 1 ea IV .annually #100 mL 04/27/24 10/31/24 Rx mannitol 5 %-water intravenous piggybck (Reclast) chlorthalidone 25 mg tablet See Rx Instructions .Route 09/12/24 10/31/24 Rx .COMPLEX #90 tabs omeprazole 40 mg capsule,delayed See Rx Instructions .Route 09/26/24 10/31/24 Rx release .COMPLEX #30 caps verapamil 120 mg tablet,extended See Rx Instructions .Route 09/30/24 10/31/24 Rx release .COMPLEX #90 tabs cyclosporine 0.05 % eye drops in a 1 drp EACH EYE Q12H 10/25/24 10/31/24 History dropperette (Restasis) polyethylene glycol 3350 17 17 g PO BID 10/30/24 10/31/24 History gram/dose oral powder (Miralax) psyllium 1 tbsp PO DAILY 10/30/24 10/31/24 History Allergies Allergy/AdvReac Type Severity Reaction Status Date / Time Sulfa (Sulfonamide Allergy Intermediate Rash Verified 10/31/24 05:48 Antibiotics) Vital Signs Vital Signs - 24 hr 10/31/24 05:25 10/31/24 05:25 10/31/24 05:28 Temperature 97.8 F Pulse Rate 78 78 Respiratory Rate 20 Blood Pressure 113/63 Pulse Oximetry 98 Oxygen Delivery Room Air 10/31/24 06:00 10/31/24 06:00 Temperature Pulse Rate 48 L 48 L Respiratory Rate 21 H Blood Pressure 103/59 L Pulse Oximetry 98 Oxygen Delivery Exam 2 Narrative: General: Pleasant female in no acute distress HEENT:? Pupils equal and reactive, sclera is clear, moist oral mucosa Neck:? Supple Respiratory:? Clear to auscultation bilaterally, no wheezing, adequate air and Cardiac:? S1-S2 is normal, regular rate and rhythm intermittent irregular rhythm Abdomen:? Soft, nontender, nondistended normoactive bowel sounds Extremities:? No edema, palpable pedal pulses Neuro:? Patient is awake, alert, oriented x3, follows simple commands in all extremities and answers questions appropriately Skin:? No skin lesions noted Psych:? Normal mentation and affect Results Labs 10/31/24 08:30 10/31/24 05:40 Labs: BMP 10/31/24 05:40 Sodium 129 L Potassium 3.6 Chloride 95 L Carbon Dioxide 27 BUN 12 Creatinine 0.78 Glucose 114 H Calcium 8.1 L Quality VTE Prophylaxis VTE prophylaxis: pharmacologic ordered Hospitalist [facility] Advance Care Plan I have confirmed that the patient's Advanced Care Plan is present, code status is documented, or surrogate decision maker is listed in patient medical record.: Yes Medication Reconciliation I have utilized all available resources to obtain, update and review the patients current medications (includes all prescriptions, OTC, herbals, cannabis, and nutritional supplements).: Yes
[2024-10-31 08:39] LABS: Basophils Percent Auto 0.5 % (0.2-1.2); Eosinophils Absolute Auto 0.1 K/mm3 (0-0.3); Eosinophils Percent Auto 1.5 % (0-4.4); Hematocrit 33.3 % (37.0-47.0); Hemoglobin 11.2 g/dL (12.0-15.0); Immature Granulocyte Absolute 0.03 K/mm3 (0.00-0.031); Immature Granulocyte Percent A 0.5 % (0-0.5); Lymphocytes Absolute Auto 1.12 K/mm3 (0.9-3.2); Lymphocytes Percent Auto 18.5 % (18.3-44.2); Mean Corpuscular HGB Conc 33.6 g/dl (32-36); Mean Corpuscular Hemoglobin 29.1 pg (26-34); Mean Corpuscular Volume 86.5 fl (80-100); Mean Platelet Volume 9.2 fl (7.4-10.4); Monocytes Absolute Auto 0.9 K/mm3 (0.1-0.6); Monocytes Percent Auto 15.2 % (2.6-8.5); Neutrophils Absolute Auto 3.9 K/mm3 (1.3-6.7); Neutrophils Percent Auto 63.8 % (45.5-73.1); Platelet Count Result 212 k/mm3 (150-375); Red Blood Count 3.85 M/mm3 (4.2-5.4); Red Cell Distribution Width 13.7 % (11.5-14.5); White Blood Count 6.1 K/mm3 (4.5-10.0)
[2024-10-31 08:52] LABS: Lactic Acid Reflex 0.5 mmol/L (0.7-2.0)
[2024-10-31 09:49] LABS: MRSA (PCR) NOT DETECTED (NOT DETECTE)
[2024-10-31] MEDS: LACTATED RINGERS 500 ML IV CONT (10:14)
[2024-10-31] MEDS: PANTOPRAZOLE SODIUM IV 40 MG VIAL IV PUSH (10:39)
[2024-10-31] MEDS: PIPERACILLN/TAZ 3.375GM/NS50ML 3.375 GM/50 ML BAG IVPB ×3 (10:40→18:53)
[2024-10-31] MEDS: ENOXAPARIN 40 MG/0.4 ML SYRINGE SUB-Q (10:40)
[2024-10-31] MEDS: CENTRAL LINE FLUSH 10 ML IV PUSH ×2 (13:12→21:52)
--- NOTE | 2024-10-31 16:07 | P.HP_ITS ---
H&P: HPI History of Present Illness Date/Time: 10/31/24 16:07 Chief Complaint: abdominal pains Narrative: Pt transferred from [place] for higher level of care. PMH of htn, history of Mobitz type 1 second-degree AV block, constipation, paroxysmal supraventricular tachycardia, hyperlipidemia, general anxiety disorder ct abdo shows - Findings suggestive of nonspecific small bowel enteritis. pt found to be bradycardiac on admission with low bp admitted to icu started on albumin and iv fluids and iv abx for enteritis Review of Systems Review of Systems: Pt mentions left lower abdominal pain Pt denies diarrhea or rectal bleding some nausea Pt denies chest pain or sob All other 12 symptoms are reviewed and negative PMFSH Past Medical History Medical History Osteoporosis Abnormality of heart beat Hypertension Stress fracture of sacrum Fracture of radial neck, right, closed Displaced fracture of neck of left radius Right wrist pain Injury of right hip Sciatica of right side Right hip pain Post-COVID chronic fatigue Skin rash Pre-op exam Left ankle pain Fatigue Personal history of other drug therapy Exposure to COVID-19 virus Colon polyp Epigastric pain Constipation Nausea and vomiting in adult Endometrial thickening on ultrasound RLQ abdominal pain Nicotine dependence in remission Skin cancer s/p surgical resection Breast cancer Paroxysmal supraventricular tachycardia Osteopenia Hyperlipidemia GARRETT (generalized anxiety disorder) Cardiac arrhythmia Benign essential HTN Surgical History Surgical History History of lumpectomy [address] Nicole 2009 History of thyroid surgery 2007 Dr. Johnston History of hernia repair x2 2002 Dr. Johnston H/O cataract extraction History of lung biopsy (~08/2018) Left History of appendectomy 2007 Dr. Johnston Family History Family History Mother Familial Alzheimer's disease of late onset Congestive heart failure Hypertension Heart disease History of blood clots Father Abnormality of heart beat Heart disease Acute myocardial infarction Social History Social History Smoking status: Never smoker Additional smoking assessment comments: socially only Alcohol intake: never Substance use: never Substance use type: does not use Do You Feel Safe in your Home?: Yes Lack of Transportation: No Lack of Food: Never True Current Housing: I Have Housing Concerned About Future Housing: No Difficulty Paying Gas/Electric Bills: No Difficulty Paying for Meds: No Currently Unemployed: No Education: Decline to Answer Difficulty w/ Childcare or Family Care: No Living arrangements: alone Additional living arrangements comments: Occupation/Education: retired Gender identity (if verbalized by the patient): Female Spiritual care concerns: No Meds Home Medications and Allergies Home Medications ?Medication ?Instructions ?Recorded ?Confirmed ?Type magnesium oxide 400 mg PO DAILY 08/08/19 10/31/24 History habbyvgc-sbeupoh-fenf-lutein tablet 1 mcg PO DAILY 08/08/19 10/31/24 History metoprolol succinate 25 mg 25 mg PO BID 06/17/22 10/31/24 History tablet,extended release 24 hr calcium 600 mg (as 2 cap PO BIDWMEAL #180 caps 03/31/23 10/31/24 Rx carbonate)-vitamin D3 10 mcg (400 unit) capsule zoledronic acid 5 mg/100 mL in 1 ea IV .annually #100 mL 04/27/24 10/31/24 Rx mannitol 5 %-water intravenous piggybck (Reclast) chlorthalidone 25 mg tablet See Rx Instructions .Route 09/12/24 10/31/24 Rx .COMPLEX #90 tabs omeprazole 40 mg capsule,delayed See Rx Instructions .Route 09/26/24 10/31/24 Rx release .COMPLEX #30 caps verapamil 120 mg tablet,extended See Rx Instructions .Route 09/30/24 10/31/24 Rx release .COMPLEX #90 tabs cyclosporine 0.05 % eye drops in a 1 drp EACH EYE Q12H 10/25/24 10/31/24 History dropperette (Restasis) polyethylene glycol 3350 17 17 g PO BID 10/30/24 10/31/24 History gram/dose oral powder (Miralax) psyllium 1 tbsp PO DAILY 10/30/24 10/31/24 History Allergies Allergy/AdvReac Type Severity Reaction Status Date / Time Sulfa (Sulfonamide Allergy Intermediate Rash Verified 10/31/24 05:48 Antibiotics) Vital Signs Vital Signs - 24 hr 10/31/24 05:25 10/31/24 05:25 10/31/24 05:28 Temperature 36.6 C Pulse Rate 78 78 Respiratory Rate 20 Blood Pressure 113/63 Pulse Oximetry 98 Oxygen Delivery Room Air 10/31/24 06:00 10/31/24 06:00 10/31/24 08:00 Temperature Pulse Rate 48 L 48 L 77 Respiratory Rate 21 H 18 Blood Pressure 103/59 L Pulse Oximetry 98 99 Oxygen Delivery Room Air 10/31/24 08:00 10/31/24 08:00 10/31/24 10:00 Temperature 36.8 C Pulse Rate 72 72 81 Respiratory Rate 18 Blood Pressure 100/62 Pulse Oximetry 99 Oxygen Delivery 10/31/24 10:00 10/31/24 12:00 10/31/24 12:00 Temperature 36.5 C Pulse Rate 68 68 Respiratory Rate 19 13 Blood Pressure 114/68 113/75 Pulse Oximetry 98 96 Oxygen Delivery 10/31/24 12:00 10/31/24 14:00 10/31/24 14:00 Temperature Pulse Rate 68 83 84 Respiratory Rate 13 20 Blood Pressure 106/58 L Pulse Oximetry 96 98 Oxygen Delivery Room Air Exam Const: General: other (anxious ); No in distress Nutritional Appearance: overweight Orientation/consciousness: oriented to person HENMT: Head: normal to inspection Resp: Effort & Inspection: no respiratory distress Auscultation: no rhonchi and no wheezes Cardio: Rate: regular rate Rhythm: regular rhythm GI: Inspection: normal to inspection GI Palp: No abdominal tenderness, No Guarding due to palpation present (GI) and No Hepatomegaly present Auscultation: normal bowel sounds Neuro: General: oriented to person H&P: Results Labs Labs: Short CBC 10/31/24 Range/Units 08:30 WBC 6.1 (4.5-10.0) K/mm3 Hgb 11.2 L (12.0-15.0) g/dL Hct 33.3 L (37.0-47.0) % Plt Count 212 (150-375) k/mm3 BMP 10/31/24 05:40 Sodium 129 L Potassium 3.6 Chloride 95 L Carbon Dioxide 27 BUN 12 Creatinine 0.78 Glucose 114 H Calcium 8.1 L Assessment and Plan Assessment and plan (1) Mobitz type 1 second degree AV block: Code(s): I44.1 - Atrioventricular block, second degree Status: Acute Assessment and Plan: Telemetry monitoring Hold chlorthalidone, verapamil and metoprolol Continue to monitor in hospital but likely no need for pacemaker (2) Hypotension: Code(s): I95.9 - Hypotension, unspecified Status: Acute Assessment and Plan: Pt given iv fluids and albumin in ICU Bp is more stable may be down graded later today (3) Benign essential HTN: Code(s): I10 - Essential (primary) hypertension Status: Acute Assessment and Plan: Hold bp meds today (4) Enteritis: Code(s): K52.9 - Noninfective gastroenteritis and colitis, unspecified Status: Acute Assessment and Plan: await BC continue iv zosyn [facility] (5) Acute hyponatremia: Code(s): E87.1 - Hypo-osmolality and hyponatremia Status: Acute Assessment and Plan: Continue iv fluids Watch sodium levels Likely low sodium secondary to dehydration or medication related Sodium is 129 Plan DVT prop: SCD
[2024-10-31] MEDS: cycloSPORINE 0.4 ML OPHTH SOLUTION 1 DROP EACH EYE (23:59)
[2024-11-01] VITALS (8 sets, daily range): BP systolic 128–142; BP diastolic 68–94; PULSE 73–102; RESP 12–17; TEMP 36.6–36.9; O2SAT 96–100
[2024-11-01] MEDS: PIPERACILLN/TAZ 3.375GM/NS50ML 3.375 GM/50 ML BAG IVPB ×4 (00:05→18:04)
[2024-11-01] MEDS: ALBUMIN HUMAN 25% 25 GM/100 ML 100 ML IVPB (00:30)
[2024-11-01] MEDS: CENTRAL LINE FLUSH 10 ML IV PUSH ×3 (06:52→20:36)
[2024-11-01 07:02] LABS: Basophils Percent Auto 0.4 % (0.2-1.2); Eosinophils Absolute Auto 0.2 K/mm3 (0-0.3); Eosinophils Percent Auto 3.7 % (0-4.4); Hematocrit 32.4 % (37.0-47.0); Hemoglobin 10.7 g/dL (12.0-15.0); Immature Granulocyte Absolute 0.02 K/mm3 (0.00-0.031); Immature Granulocyte Percent A 0.4 % (0-0.5); Lymphocytes Absolute Auto 0.98 K/mm3 (0.9-3.2); Lymphocytes Percent Auto 19.2 % (18.3-44.2); Mean Corpuscular Hemoglobin 29.1 pg (26-34); Mean Platelet Volume 9.4 fl (7.4-10.4); Monocytes Absolute Auto 0.8 K/mm3 (0.1-0.6); Monocytes Percent Auto 16.5 % (2.6-8.5); Neutrophils Absolute Auto 3.1 K/mm3 (1.3-6.7); Neutrophils Percent Auto 59.8 % (45.5-73.1); Platelet Count Result 206 k/mm3 (150-375); Red Blood Count 3.68 M/mm3 (4.2-5.4); Red Cell Distribution Width 13.7 % (11.5-14.5); White Blood Count 5.1 K/mm3 (4.5-10.0)
[2024-11-01 07:13] LABS: Alanine Aminotransferase 18 U/L (6-35); Alkaline Phosphatase 38 U/L (38-126); Anion Gap 9 mmol/L (4-12); Aspartate Amino Transferase 29 U/L (14-36); Bilirubin,Total 0.9 mg/dL (0.2-1.3); Blood Urea Nitrogen 10 mg/dL (7-17); Calcium 8.2 mg/dL (8.4-10.2); Carbon Dioxide 29 mmol/L (22-30); Chloride 95 mmol/L (98-107); Estimated CRCL calculation 38 ml/min; Estimated Glomerular Filt Rate > 60; Glucose 95 mg/dL (65-110); Phosphorus 2.6 mg/dL (2.5-4.5); Potassium 3.4 mmol/L (3.4-5.0); Sodium 133 mmol/L (137-145)
--- NOTE | 2024-11-01 07:59 | P.PNCA_ITS ---
Progress Note: A&P Assessment and Plan (1) Mobitz type 1 second degree AV block: Code(s): I44.1 - Atrioventricular block, second degree Status: Inactive Assessment and Plan: Intermittent exacerbated by abdominal pain and her home medication of Metoprolol and Verapamil. Will hold Metoprolol and Verapamil. Monitor HR and BP. No need for pacemaker at this time. 10/31/24 Echo: EF 55-60%, grade III diastolic dysfunction (E/e' 9), mild MR/TR/PI. Resume low dose Metoprolol Tartate 12.5 mg BID to prevent tachycardia/PSVT. (2) Paroxysmal supraventricular tachycardia: Onset Date: 05/13/18 Code(s): I47.1 - Supraventricular tachycardia Status: Acute (3) Chest discomfort: Code(s): R07.89 - Other chest pain Status: Acute Assessment and Plan: Probably musculoskeletal. (4) Benign essential HTN: Code(s): I10 - Essential (primary) hypertension Status: Acute Assessment and Plan: Stable. Monitor. (5) Epigastric pain: Code(s): R10.13 - Epigastric pain Status: Acute Assessment and Plan: Due to enteritis. Subjective Date/time seen: 11/01/24 08:00 Interval history: Denies chest pain or sob. Has abdominal pain and tenderness. Exam Const: General: cooperative, healthy appearing and comfortable Orientation/consciousness: oriented to person, oriented to place and oriented to time Resp: Auscultation: clear to auscultation bilaterally, no crackles, no rales, no rhonchi and no wheezes Cardio: Rate: regular rate Rhythm: regular rhythm Heart sounds: no murmurs Peripheral pulses: dorsalis pedis present Neuro: General: oriented to person, oriented to place and oriented to time Extrem: Right lower extremity: no edema Left lower extremity: no edema Objective Data Vital Signs Vital Signs: Vital Signs - 24 hr 10/31/24 10:00 10/31/24 10:00 10/31/24 12:00 Temperature Pulse Rate 81 68 Respiratory Rate 19 Blood Pressure 114/68 Pulse Oximetry 98 Oxygen Delivery 10/31/24 12:00 10/31/24 12:00 10/31/24 14:00 Temperature 97.7 F Pulse Rate 68 68 83 Respiratory Rate 13 13 Blood Pressure 113/75 Pulse Oximetry 96 96 Oxygen Delivery Room Air 10/31/24 14:00 10/31/24 16:00 10/31/24 20:00 Temperature Pulse Rate 84 73 73 Respiratory Rate 20 20 20 Blood Pressure 106/58 L 113/72 Pulse Oximetry 98 96 96 Oxygen Delivery Room Air 10/31/24 20:00 11/01/24 00:00 11/01/24 00:00 Temperature 97.9 F Pulse Rate 88 98 102 H Respiratory Rate 14 Blood Pressure 128/68 Pulse Oximetry 100 Oxygen Delivery 11/01/24 04:00 Temperature Pulse Rate 75 Respiratory Rate Blood Pressure Pulse Oximetry Oxygen Delivery Intake/Output Intake/Output: Intake & Output 10/29/24 10/30/24 10/31/24 11/01/24 23:59 23:59 23:59 23:59 Intake Total 2170 50 Output Total 4200 Balance -2030 50 Meds/Results Medications: Active Medications Generic Name Dose Route Start Last Admin Trade Name Freq PRN Reason Stop Dose Admin Acetaminophen 650 mg 10/31/24 05:19 Acetaminophen 325 Mg Tablet PO Q4H PRN Mild Pain (1-3) or Fever Cyclosporine 1 drop 10/31/24 21:00 10/31/24 23:59 Cyclosporine 0.4 Ml Ophth Solution EACH EYE 1 drop Q12HR JATINDER Administration Enoxaparin Sodium 40 mg 10/31/24 09:00 10/31/24 10:40 Enoxaparin 40 Mg/0.4 Ml Syringe SUB-Q 40 mg DAILY JATINDER Administration Sodium Chloride 1,000 mls @ 100 mls/hr 10/31/24 05:20 10/31/24 20:45 Normal Saline Iv IV CONT 100 mls/hr .Q10H JATINDER Administration Piperacillin/Tazobactam/Dextrose 3.375 gm in 50 mls @ 100 mls/hr 10/31/24 08:00 11/01/24 06:51 Zosyn 3.375 Gm/Ns 50 Ml IVPB 100 mls/hr Q6HR JATINDER Administration Magnesium Oxide 400 mg 11/01/24 09:00 Magnesium Oxide 400 Mg Tablet PO DAILY JATINDER Metoprolol Succinate 25 mg 11/01/24 09:00 Metoprolol Succinate Ext Rel 25 Mg Tabcr PO BID JATINDER Ondansetron HCl 4 mg 10/31/24 07:27 Ondansetron Inj 4 Mg/2 Ml Vial IV PUSH Q6H PRN Nausea And Vomiting Pantoprazole Sodium 40 mg 11/01/24 09:00 Pantoprazole Sodium Iv 40 Mg Vial IV PUSH QAM [facility] Pantoprazole Sodium 40 mg 11/01/24 09:00 Pantoprazole 40 Mg Tablet PO QAM [facility] Perflutren Lipid Microsphere 0 ml 10/31/24 07:48 Perflutren Lipid Microspheres 1.5 Ml Vial Diluted To 10 Ml Total Volume IV PU SH 11/03/24 07:48 ONCE PRN adequate visualization Protocol Sodium Chloride 10 ml 10/31/24 14:00 11/01/24 06:52 Central Line Flush IV PUSH 10 ml Q8HR JATINDER Administration Sodium Chloride 20 ml 10/31/24 06:51 Central Line Flush IV PUSH PRN PRN after blood draws Labs Labs: Laboratory Results - last 24 hr 10/31/24 11/01/24 08:30 06:49 WBC 6.1 5.1 RBC 3.85 L 3.68 L Hgb 11.2 L 10.7 L Hct 33.3 L 32.4 L MCV 86.5 88.0 MCH 29.1 29.1 MCHC 33.6 33.0 RDW 13.7 13.7 Plt Count 212 206 MPV 9.2 9.4 Immature Gran % (Auto) 0.5 0.4 Neut % (Auto) 63.8 59.8 Lymph % (Auto) 18.5 19.2 [place] % (Auto) 15.2 H 16.5 H Eos % (Auto) 1.5 3.7 Baso % (Auto) 0.5 0.4 Lymph # (Auto) 1.12 0.98 [place] # (Auto) 0.9 H 0.8 H Eos # (Auto) 0.1 0.2 Baso # (Auto) 0.0 0.0 Abs Immat Gran (auto) 0.03 0.02 Absolute Neuts (auto) 3.9 3.1 Absolute Nucleated RBC 0.000 0.000 Nucleated RBC % 0.0 0.0 Sodium 133 L Potassium 3.4 Chloride 95 L Carbon Dioxide 29 Anion Gap 9 BUN 10 Creatinine 0.88 Estim Creat Clear Calc 38 Estimated GFR > 60 Glucose 95 Lactic Acid 0.5 L Calcium 8.2 L Phosphorus 2.6 Magnesium 2.0 Total Bilirubin 0.9 AST 29 ALT 18 Alkaline Phosphatase 38 Total Protein 6.0 L Albumin 4.0 Nasal MRSA (PCR) Not detected
--- NOTE | 2024-11-01 08:18 | PM.IMPN ---
Progress Note: A&P Assessment and Plan (1) Sepsis: Code(s): A41.9 - Sepsis, unspecified organism Status: Acute Assessment and Plan: RESOLVED Patient presented with hypotension, abdominal pain, enteritis -was given 3 L IV fluid bolus in the ER at the in [facility], central line was also placed there by the ER physician -10/31: Blood cultures pending -lactic acid is normal -started on Zosyn 10/31 with for her enteritis as seen on CT scan of the abdomen and pelvis -patient has had good urine output, negative fluid balance, will give LR 500 mL IV fluid bolus -status post albumin for intravascular volume expansion -blood patient is stable 10/30/2024: CT scan of the abdomen and pelvis: Findings suggestive of nonspecific small bowel enteritis. (2) Mobitz type 1 second degree AV block: Code(s): I44.1 - Atrioventricular block, second degree Status: Inactive Assessment and Plan: Mobitz type 1 second-degree AV block which she has a history of. - Probably and exacerbated by abdominal pain and sepsis/hypotension -will hold chlorthalidone, verapamil -continue to monitor blood pressures and heart rate -appreciate cardiology evaluation and recommendations, no pacemaker intervention at this time per Cardiology -starting low-dose metoprolol per Cardiology (3) Hypotension: Code(s): I95.9 - Hypotension, unspecified Status: Acute Assessment and Plan: RESOLVED Could be related to dehydration secondary to nausea, vomiting, decreased p.o. intake -patient has been adequately fluid-resuscitated, will give additional LR 500 mL IV fluid bolus -blood pressures are stable -hold home antihypertensive medications and chlorthalidone -lactic acid is normal -continue to monitor (4) Enteritis: Code(s): K52.9 - Noninfective gastroenteritis and colitis, unspecified Status: Acute Assessment and Plan: Enteritis ulcer as seen on CT scan of the abdomen and pelvis as above -continue antibiotics as above (5) Abdominal pain: Code(s): R10.9 - Unspecified abdominal pain Status: Acute Assessment and Plan: could be related to gastroenteritis after she ate some spicy food on the night prior to admission -continues to complain of mild epigastric discomfort -continue Zosyn and Protonix Plan DVT prophylaxis: Lovenox Stress ulcer prophylaxis: Protonix Nutrition: Heart healthy diet Code Status: Full code Discussed with patient, 2 daughters and updated them with patient's condition plan of care. I answered all questions Due to a high probability of clinically significant, life threatening deterioration, the patient required my highest level of preparedness to intervene emergently and I personally spent this critical care time directly and personally managing the patient. This critical care time included obtaining a history; examining the patient; pulse oximetry; ordering and review of studies; arranging urgent treatment with development of a management plan; evaluation of patient's response to treatment; frequent reassessment; and discussions with other providers. It was exclusive of separately billable procedures and treating other patients and teaching time. Please see Assessment and Plan section and the rest of the note for further information on patient assessment and treatment This dictation may have been done utilizing a voice recognition system. Attempts have been made to correct errors. However, there may be uncorrected grammatical, spelling, and recognitions errors present. Subjective Date/time seen: 11/01/24 08:18 Interval history: Reason for consult: Abdominal pain, Hypotension, enteritis, Mobitz type 1 second-degree AV block 11/01/2024: Patient being seen for hospitalist group Sandra female, on room air, hemodynamically stable, adequate urine output. Complains of mild epigastric discomfort. No other complaints of or issues overnight Review of Systems Review of Systems: All systems reviewed & are unremarkable except as noted in HPI and below Exam Narrative: General: Pleasant female in no acute distress HEENT:? Pupils equal and reactive, sclera is clear, moist oral mucosa Neck:? Supple Respiratory:? Clear to auscultation bilaterally, no wheezing, adequate air and Cardiac:? S1-S2 is normal, regular rate and rhythm intermittent irregular rhythm Abdomen:? Soft, nontender, nondistended normoactive bowel sounds Extremities:? No edema, palpable pedal pulses Neuro:? Patient is awake, alert, oriented x3, follows simple commands in all extremities and answers questions appropriately Skin:? No skin lesions noted Psych:? Normal mentation and affect Objective Data Vital Signs Vital Signs: Vital Signs - 24 hr 10/31/24 10:00 10/31/24 10:10/31/24 12:00 Temperature Pulse Rate 81 68 Respiratory Rate 19 Blood Pressure 114/68 Pulse Oximetry 98 Oxygen Delivery 10/31/24 12:00 10/31/24 12:00 10/31/24 14:00 Temperature 97.7 F Pulse Rate 68 68 83 Respiratory Rate 13 13 Blood Pressure 113/75 Pulse Oximetry 96 96 Oxygen Delivery Room Air 10/31/24 14:00 10/31/24 16:00 10/31/24 20:00 Temperature Pulse Rate 84 73 73 Respiratory Rate 20 20 20 Blood Pressure 106/58 L 113/72 Pulse Oximetry 98 96 96 Oxygen Delivery Room Air 10/31/24 20:00 11/01/24 00:00 11/01/24 00:00 Temperature 97.9 F Pulse Rate 88 98 102 H Respiratory Rate 14 Blood Pressure 128/68 Pulse Oximetry 100 Oxygen Delivery 11/01/24 04:00 Temperature Pulse Rate 75 Respiratory Rate Blood Pressure Pulse Oximetry Oxygen Delivery Intake/Output Intake/Output: Intake & Output 10/29/24 10/30/24 10/31/24 11/01/24 23:59 23:59 23:59 23:59 Intake Total 2170 50 Output Total 4200 Balance -2030 50 Meds/Results Medications: Active Medications Generic Name Dose Route Start Last Admin Trade Name Freq PRN Reason Stop Dose Admin Acetaminophen 650 mg 10/31/24 05:19 Acetaminophen 325 Mg Tablet PO Q4H PRN Mild Pain (1-3) or Fever Cyclosporine 1 drop 10/31/24 21:00 10/31/24 23:59 Cyclosporine 0.4 Ml Ophth Solution EACH EYE 1 drop Q12HR JATINDER Administration Enoxaparin Sodium 40 mg 10/31/24 09:00 10/31/24 10:40 Enoxaparin 40 Mg/0.4 Ml Syringe SUB-Q 40 mg DAILY JATINDER Administration Sodium Chloride 1,000 mls @ 100 mls/hr 10/31/24 05:20 10/31/24 20:45 Normal Saline Iv IV CONT 100 mls/hr .Q10H JATINDER Administration Piperacillin/Tazobactam/Dextrose 3.375 gm in 50 mls @ 100 mls/hr 10/31/24 08:00 11/01/24 06:51 Zosyn 3.375 Gm/Ns 50 Ml IVPB 100 mls/hr Q6HR JATINDER Administration Magnesium Oxide 400 mg 11/01/24 09:00 Magnesium Oxide 400 Mg Tablet PO DAILY JATINDER Metoprolol Tartrate 12.5 mg 11/01/24 09:00 Metoprolol Tartrate 12.5 Mg Tablet PO Q12HR JATINDER Ondansetron HCl 4 mg 10/31/24 07:27 Ondansetron Inj 4 Mg/2 Ml Vial IV PUSH Q6H PRN Nausea And Vomiting Pantoprazole Sodium 40 mg 11/01/24 09:00 Pantoprazole Sodium Iv 40 Mg Vial IV PUSH QAM [facility] Pantoprazole Sodium 40 mg 11/01/24 09:00 Pantoprazole 40 Mg Tablet PO QAM [facility] Perflutren Lipid Microsphere 0 ml 10/31/24 07:48 Perflutren Lipid Microspheres 1.5 Ml Vial Diluted To 10 Ml Total Volume IV PUSH 11/03/24 07:48 ONCE PRN adequate visualization Protocol Sodium Chloride 10 ml 10/31/24 14:00 11/01/24 06:52 Central Line Flush IV PUSH 10 ml Q8HR JATINDER Administration Sodium Chloride 20 ml 10/31/24 06:51 Central Line Flush IV PUSH PRN PRN after blood draws Labs Labs: Laboratory Results - last 24 hr 10/31/24 11/01/24 08:30 06:49 WBC 6.1 5.1 RBC 3.85 L 3.68 L Hgb 11.2 L 10.7 L Hct 33.3 L 32.4 L MCV 86.5 88.0 MCH 29.1 29.1 MCHC 33.6 33.0 RDW 13.7 13.7 Plt Count 212 206 MPV 9.2 9.4 Immature Gran % (Auto) 0.5 0.4 Neut % (Auto) 63.8 59.8 Lymph % (Auto) 18.5 19.2 [place] % (Auto) 15.2 H 16.5 H Eos % (Auto) 1.5 3.7 Baso % (Auto) 0.5 0.4 Lymph # (Auto) 1.12 0.98 [place] # (Auto) 0.9 H 0.8 H Eos # (Auto) 0.1 0.2 Baso # (Auto) 0.0 0.0 Abs Immat Gran (auto) 0.03 0.02 Absolute Neuts (auto) 3.9 3.1 Absolute Nucleated RBC 0.000 0.000 Nucleated RBC % 0.0 0.0 Sodium 133 L Potassium 3.4 Chloride 95 L Carbon Dioxide 29 Anion Gap 9 BUN 10 Creatinine 0.88 Estim Creat Clear Calc 38 Estimated GFR > 60 Glucose 95 Lactic Acid 0.5 L Calcium 8.2 L Phosphorus 2.6 Magnesium 2.0 Total Bilirubin 0.9 AST 29 ALT 18 Alkaline Phosphatase 38 Total Protein 6.0 L Albumin 4.0 Nasal MRSA (PCR) Not detected Quality VTE Prophylaxis VTE prophylaxis: pharmacologic ordered
[2024-11-01] MEDS: POTASSIUM CHLORIDE 20 MEQ ER TABLET 40 MEQ PO (08:29)
[2024-11-01] MEDS: cycloSPORINE 0.4 ML OPHTH SOLUTION 1 DROP EACH EYE ×2 (08:30→20:36)
[2024-11-01] MEDS: MAGNESIUM OXIDE 400 MG TABLET PO (08:30)
[2024-11-01] MEDS: METOPROLOL TARTRATE 12.5 MG TABLET PO ×2 (08:30→20:36)
[2024-11-01] MEDS: PANTOPRAZOLE 40 MG TABLET PO (08:30)
[2024-11-01] MEDS: ENOXAPARIN 40 MG/0.4 ML SYRINGE SUB-Q (08:30)
[2024-11-01 11:39] LABS: Glucose Point of Care 104 mg/dl (65-105)
[2024-11-02] VITALS (11 sets, daily range): BP systolic 107–121; BP diastolic 61–78; PULSE 64–132; RESP 15–19; TEMP 36.6–36.9; O2SAT 98–100
[2024-11-02] MEDS: PIPERACILLN/TAZ 3.375GM/NS50ML 3.375 GM/50 ML BAG IVPB ×4 (00:17→19:26)
[2024-11-02] MEDS: CENTRAL LINE FLUSH 10 ML IV PUSH ×2 (05:37→13:03)
[2024-11-02 05:49] LABS: Basophils Percent Auto 0.3 % (0.2-1.2); Eosinophils Absolute Auto 0.2 K/mm3 (0-0.3); Eosinophils Percent Auto 2.1 % (0-4.4); Hematocrit 32.3 % (37.0-47.0); Hemoglobin 10.5 g/dL (12.0-15.0); Immature Granulocyte Absolute 0.02 K/mm3 (0.00-0.031); Immature Granulocyte Percent A 0.3 % (0-0.5); Lymphocytes Absolute Auto 1.14 K/mm3 (0.9-3.2); Lymphocytes Percent Auto 16.2 % (18.3-44.2); Mean Corpuscular HGB Conc 32.5 g/dl (32-36); Mean Corpuscular Hemoglobin 28.8 pg (26-34); Mean Corpuscular Volume 88.5 fl (80-100); Mean Platelet Volume 9.3 fl (7.4-10.4); Monocytes Absolute Auto 1.3 K/mm3 (0.1-0.6); Monocytes Percent Auto 17.8 % (2.6-8.5); Neutrophils Absolute Auto 4.5 K/mm3 (1.3-6.7); Neutrophils Percent Auto 63.3 % (45.5-73.1); Platelet Count Result 195 k/mm3 (150-375); Red Blood Count 3.65 M/mm3 (4.2-5.4); Red Cell Distribution Width 13.7 % (11.5-14.5)
[2024-11-02 05:55] LABS: Alanine Aminotransferase 17 U/L (6-35); Albumin Level 3.8 g/dL (3.5-5.1); Alkaline Phosphatase 34 U/L (38-126); Anion Gap 6 mmol/L (4-12); Aspartate Amino Transferase 26 U/L (14-36); Bilirubin,Total 0.7 mg/dL (0.2-1.3); Blood Urea Nitrogen 10 mg/dL (7-17); Calcium 8.3 mg/dL (8.4-10.2); Carbon Dioxide 31 mmol/L (22-30); Chloride 95 mmol/L (98-107); Estimated CRCL calculation 42 ml/min; Estimated Glomerular Filt Rate > 60; Glucose 97 mg/dL (65-110); Magnesium 1.9 mg/dL (1.6-2.3); Phosphorus 2.5 mg/dL (2.5-4.5); Potassium 3.8 mmol/L (3.4-5.0); Sodium 132 mmol/L (137-145)
--- NOTE | 2024-11-02 08:25 | PM.PNCARD ---
Progress Note: A&P Assessment and Plan (1) Mobitz type 1 second degree AV block: Code(s): I44.1 - Atrioventricular block, second degree Status: Inactive Assessment and Plan: Intermittent exacerbated by abdominal pain and her home medication of Metoprolol and Verapamil. Will hold Metoprolol and Verapamil. Monitor HR and BP. No need for pacemaker at this time. 10/31/24 Echo: EF 55-60%, grade III diastolic dysfunction (E/e' 9), mild MR/TR/PI. Increase Metoprolol Tartate 25 mg TID to treat and prevent tachycardia/PSVT. (2) Paroxysmal supraventricular tachycardia: Onset Date: 05/13/18 Code(s): I47.1 - Supraventricular tachycardia Status: Acute (3) Chest discomfort: Code(s): R07.89 - Other chest pain Status: Acute Assessment and Plan: Probably musculoskeletal. (4) Benign essential HTN: Code(s): I10 - Essential (primary) hypertension Status: Acute Assessment and Plan: Stable. Monitor. (5) Epigastric pain: Code(s): R10.13 - Epigastric pain Status: Acute Assessment and Plan: Due to enteritis. Subjective Date/time seen: 11/02/24 08:25 Interval history: Denies chest pain or sob. Has abdominal pain and tenderness. Exam Const: General: cooperative, healthy appearing and comfortable Orientation/consciousness: oriented to person, oriented to place and oriented to time Resp: Auscultation: clear to auscultation bilaterally, no crackles, no rales, no rhonchi and no wheezes Cardio: Rate: tachycardic Rhythm: regular rhythm Heart sounds: no murmurs Peripheral pulses: dorsalis pedis present Neuro: General: oriented to person, oriented to place and oriented to time Extrem: Right lower extremity: no edema Left lower extremity: no edema Objective Data Vital Signs Vital Signs: Vital Signs - 24 hr 11/01/24 08:30 11/01/24 12:00 11/01/24 16:00 Temperature Pulse Rate 98 73 84 Respiratory Rate Blood Pressure Pulse Oximetry Oxygen Delivery 11/01/24 16:00 11/01/24 20:00 11/01/24 20:00 Temperature 98.4 F Pulse Rate 92 89 Respiratory Rate 12 Blood Pressure 131/94 H Pulse Oximetry 100 100 Oxygen Delivery Room Air 11/01/24 20:36 11/02/24 00:00 11/02/24 00:00 Temperature 98.1 F Pulse Rate 102 H 104 H 102 H Respiratory Rate 15 Blood Pressure 121/78 Pulse Oximetry 100 Oxygen Delivery 11/02/24 04:00 11/02/24 07:35 Temperature 98.5 F Pulse Rate 121 H 121 H Respiratory Rate 19 Blood Pressure 107/74 Pulse Oximetry 98 Oxygen Delivery Intake/Output Intake/Output: Intake & Output 10/30/24 10/31/24 11/01/24 11/02/24 23:59 23:59 23:59 23:59 Intake Total 2170 1220 350 Output Total 4200 1500 1300 Balance -7782 -699 -852 Meds/Results Medications: Active Medications Generic Name Dose Route Start Last Admin Trade Name Freq PRN Reason Stop Dose Admin Acetaminophen 650 mg 10/31/24 05:19 Acetaminophen 325 Mg Tablet PO Q4H PRN Mild Pain (1-3) or Fever Cyclosporine 1 drop 10/31/24 21:00 11/01/24 20:36 Cyclosporine 0.4 Ml Ophth Solution EACH EYE 1 drop Q12HR JATINDER Administration Enoxaparin Sodium 40 mg 10/31/24 09:00 11/01/24 08:30 Enoxaparin 40 Mg/0.4 Ml Syringe SUB-Q 40 mg DAILY JATINDER Administration Piperacillin/Tazobactam/Dextrose 3.375 gm in 50 mls @ 100 mls/hr 10/31/24 08:00 11/02/24 06:05 Zosyn 3.375 Gm/Ns 50 Ml IVPB Infused Q6HR JATINDER Infusion Magnesium Oxide 400 mg 11/01/24 09:00 11/01/24 08:30 Magnesium Oxide 400 Mg Tablet PO 400 mg DAILY JATINDER Administration Ondansetron HCl 4 mg 10/31/24 07:27 Ondansetron Inj 4 Mg/2 Ml Vial IV PUSH Q6H PRN Nausea And Vomiting Pantoprazole Sodium 40 mg 11/01/24 09:00 11/01/24 08:30 Pantoprazole 40 Mg Tablet PO 40 mg QAM JATINDER Administration Perflutren Lipid Microsphere 0 ml 10/31/24 07:48 Perflutren Lipid Microspheres 1.5 Ml Vial Diluted To 10 Ml Total Volume IV PUSH 11/03/24 07:48 ONCE PRN adequate visualization Protocol Sodium Chloride 10 ml 10/31/24 14:00 11/02/24 05:37 Central Line Flush IV PUSH 10 ml Q8HR JATINDER Administration Sodium Chloride 20 ml 10/31/24 06:51 Central Line Flush IV PUSH PRN PRN after blood draws Labs Labs: Laboratory Results - last 24 hr 11/01/24 11/02/24 11:33 05:33 WBC 7.0 RBC 3.65 L Hgb 10.5 L Hct 32.3 L MCV 88.5 MCH 28.8 MCHC 32.5 RDW 13.7 Plt Count 195 MPV 9.3 Immature Gran % (Auto) 0.3 Neut % (Auto) 63.3 Lymph % (Auto) 16.2 L [place] % (Auto) 17.8 H Eos % (Auto) 2.1 Baso % (Auto) 0.3 Lymph # (Auto) 1.14 [place] # (Auto) 1.3 H Eos # (Auto) 0.2 Baso # (Auto) 0.0 Abs Immat Gran (auto) 0.02 Absolute Neuts (auto) 4.5 Absolute Nucleated RBC 0.000 Nucleated RBC % 0.0 Sodium 132 L Potassium 3.8 Chloride 95 L Carbon Dioxide 31 H Anion Gap 6 BUN 10 Creatinine 0.78 Estim Creat Clear Calc 42 Estimated GFR > 60 Glucose 97 POC Capillary Glucose 104 Calcium 8.3 L Phosphorus 2.5 Magnesium 1.9 Total Bilirubin 0.7 AST 26 ALT 17 Alkaline Phosphatase 34 L Total Protein 6.0 L Albumin 3.8
[2024-11-02] MEDS: PANTOPRAZOLE 40 MG TABLET PO (08:51)
[2024-11-02] MEDS: cycloSPORINE 0.4 ML OPHTH SOLUTION 1 DROP EACH EYE ×2 (08:51→20:55)
[2024-11-02] MEDS: MAGNESIUM OXIDE 400 MG TABLET PO (08:51)
[2024-11-02] MEDS: ENOXAPARIN 40 MG/0.4 ML SYRINGE SUB-Q (08:51)
[2024-11-02] MEDS: METOPROLOL TARTRATE 25 MG TABLET PO ×3 (08:51→21:02)
--- NOTE | 2024-11-02 13:03 | P.PNIM_ITS ---
Progress Note: A&P Assessment and Plan (1) Sepsis: Code(s): A41.9 - Sepsis, unspecified organism Status: Acute Assessment and Plan: RESOLVED Patient presented with hypotension, abdominal pain, enteritis -was given 3 L IV fluid bolus in the ER at the [facility] in [facility], central line was also placed there by the ER physician -10/31: Blood cultures pending -lactic acid is normal -started on Zosyn 10/31 with for her enteritis as seen on CT scan of the abdomen and pelvis -patient has had good urine output, negative fluid balance, will give LR 500 mL IV fluid bolus -status post albumin for intravascular volume expansion -blood patient is stable 10/30/2024: CT scan of the abdomen and pelvis: Findings suggestive of nonspecific small bowel enteritis. (2) Mobitz type 1 second degree AV block: Code(s): I44.1 - Atrioventricular block, second degree Status: Inactive Assessment and Plan: Mobitz type 1 second-degree AV block which she has a history of. - Probably and exacerbated by abdominal pain and sepsis/hypotension Now tachycardic (3) Hypotension: Code(s): I95.9 - Hypotension, unspecified Status: Acute Assessment and Plan: RESOLVED (4) Enteritis: Code(s): K52.9 - Noninfective gastroenteritis and colitis, unspecified Status: Acute Assessment and Plan: Enteritis ulcer as seen on CT scan of the abdomen and pelvis as above -continue antibiotics as above (5) Abdominal pain: Code(s): R10.9 - Unspecified abdominal pain Status: Acute Assessment and Plan: could be related to gastroenteritis after she ate some spicy food on the night prior to admission -continues to complain of mild epigastric discomfort -continue Zosyn and Protonix Plan Paroxysmal Supraventricular Tachycardia Continue Metoprolol 25mg tid defer to cardiology about restarting Verapamil monitor DVT prophylaxis: Lovenox Stress ulcer prophylaxis: Protonix Nutrition: Heart healthy diet Code Status: Full code Subjective Date/time seen: 11/02/24 13:03 Interval history: Comfortable at bedside. Review of Systems Review of Systems: Pt mentions left lower abdominal pain Pt denies diarrhea or rectal bleding some nausea Pt denies chest pain or sob All other 12 symptoms are reviewed and negative All systems reviewed & are unremarkable except as noted in HPI and below Exam Narrative: General: Pleasant female in no acute distress HEENT:? Pupils equal and reactive, sclera is clear, moist oral mucosa Neck:? Supple Respiratory:? Clear to auscultation bilaterally, no wheezing, adequate air and Cardiac:? S1-S2 is normal, regular rate and rhythm intermittent irregular rhythm Abdomen:? Soft, nontender, nondistended normoactive bowel sounds Extremities:? No edema, palpable pedal pulses Neuro:? Patient is awake, alert, oriented x3, follows simple commands in all extremities and answers questions appropriately Skin:? No skin lesions noted Psych:? Normal mentation and affect Const: General: overweight and other (anxious ); No in distress Nutritional Appearance: overweight Orientation/consciousness: oriented to person HENMT: Head: normal to inspection Resp: Effort & Inspection: no respiratory distress Auscultation: no rhonchi and no wheezes Cardio: Rate: regular rate Rhythm: regular rhythm GI: Inspection: normal to inspection Auscultation: normal bowel sounds Neuro: General: oriented to person Objective Data Vital Signs Vital Signs: Vital Signs - 24 hr 11/01/24 16:00 11/01/24 16:00 11/01/24 20:00 Temperature 98.4 F Pulse Rate 84 92 89 Respiratory Rate 12 Blood Pressure 131/94 H Pulse Oximetry 100 Oxygen Delivery 11/01/24 20:00 11/01/24 20:36 11/02/24 00:00 Temperature 98.1 F Pulse Rate 102 H 104 H Respiratory Rate 15 Blood Pressure 121/78 Pulse Oximetry 100 100 Oxygen Delivery Room Air 11/02/24 00:00 11/02/24 04:00 11/02/24 07:35 Temperature 98.5 F Pulse Rate 102 H 121 H 121 H Respiratory Rate 19 Blood Pressure 107/74 Pulse Oximetry 98 Oxygen Delivery 11/02/24 08:00 11/02/24 08:00 11/02/24 08:51 Temperature Pulse Rate 132 H 132 H 132 H Respiratory Rate 19 Blood Pressure Pulse Oximetry 98 Oxygen Delivery Room Air Intake/Output Intake/Output: Intake & Output 10/30/24 10/31/24 11/01/24 11/02/24 23:59 23:59 23:59 23:59 Intake Total 2170 1220 350 Output Total 4200 1500 1300 Balance -2030 -762 -809 Meds/Results Medications: Active Medications Generic Name Dose Route Start Last Admin Trade Name Freq PRN Reason Stop Dose Admin Acetaminophen 650 mg 10/31/24 05:19 Acetaminophen 325 Mg Tablet PO Q4H PRN Mild Pain (1-3) or Fever Cyclosporine 1 drop 10/31/24 21:00 11/02/24 08:51 Cyclosporine 0.4 Ml Ophth Solution EACH EYE 1 drop Q12HR JATINDER Administration Enoxaparin Sodium 40 mg 10/31/24 09:00 11/02/24 08:51 Enoxaparin 40 Mg/0.4 Ml Syringe SUB-Q 40 mg DAILY JATINDER Administration Piperacillin/Tazobactam/Dextrose 3.375 gm in 50 mls @ 100 mls/hr 10/31/24 08:00 11/02/24 12:06 Zosyn 3.375 Gm/Ns 50 Ml IVPB 100 mls/hr Q6HR JATINDER Administration Magnesium Oxide 400 mg 11/01/24 09:00 11/02/24 08:51 Magnesium Oxide 400 Mg Tablet PO 400 mg DAILY JATINDER Administration Metoprolol Tartrate 25 mg 11/02/24 08:30 11/02/24 08:51 Metoprolol Tartrate 25 Mg Tablet PO 25 mg Q8HR JATINDER Administration Ondansetron HCl 4 mg 10/31/24 07:27 Ondansetron Inj 4 Mg/2 Ml Vial IV PUSH Q6H PRN Nausea And Vomiting Pantoprazole Sodium 40 mg 11/01/24 09:00 11/02/24 08:51 Pantoprazole 40 Mg Tablet PO 40 mg QAM JATINDER Administration Perflutren Lipid Microsphere 0 ml 10/31/24 07:48 Perflutren Lipid Microspheres 1.5 Ml Vial Diluted To 10 Ml Total Volume IV PUSH 11/03/24 07:48 ONCE PRN adequate visualization Protocol Sodium Chloride 10 ml 10/31/24 14:00 11/02/24 05:37 Central Line Flush IV PUSH 10 ml Q8HR JATINDER Administration Sodium Chloride 20 ml 10/31/24 06:51 Central Line Flush IV PUSH PRN PRN after blood draws Labs Labs: Laboratory Results - last 24 hr 11/02/24 05:33 WBC 7.0 RBC 3.65 L Hgb 10.5 L Hct 32.3 L MCV 88.5 MCH 28.8 MCHC 32.5 RDW 13.7 Plt Count 195 MPV 9.3 Immature Gran % (Auto) 0.3 Neut % (Auto) 63.3 Lymph % (Auto) 16.2 L [place] % (Auto) 17.8 H Eos % (Auto) 2.1 Baso % (Auto) 0.3 Lymph # (Auto) 1.14 [place] # (Auto) 1.3 H Eos # (Auto) 0.2 Baso # (Auto) 0.0 Abs Immat Gran (auto) 0.02 Absolute Neuts (auto) 4.5 Absolute Nucleated RBC 0.000 Nucleated RBC % 0.0 Sodium 132 L Potassium 3.8 Chloride 95 L Carbon Dioxide 31 H Anion Gap 6 BUN 10 Creatinine 0.78 Estim Creat Clear Calc 42 Estimated GFR > 60 Glucose 97 Calcium 8.3 L Phosphorus 2.5 Magnesium 1.9 Total Bilirubin 0.7 AST 26 ALT 17 Alkaline Phosphatase 34 L Total Protein 6.0 L Albumin 3.8 Quality VTE Prophylaxis VTE prophylaxis: pharmacologic ordered
--- NOTE | 2024-11-02 17:02 | PC.NURSE ---
Transferred to room 231 per wheelchair. Report called to Emeli Man RN. Oriented to policies in IMU. Call light within reach.
--- NOTE | 2024-11-02 20:10 | PC.NURSE ---
1630 - received pt form ICU 2 to room 231- Med Tele status- a/o x3 denies pain -pt oriented to room and rountines of floor - monitor SR 70's
[2024-11-02] MEDS: SENNA/DOCUSATE SODIUM TABLET 1 TAB PO (20:45)
[2024-11-03] VITALS (12 sets, daily range): BP systolic 86–159; BP diastolic 49–80; PULSE 68–120; RESP 12–18; TEMP 36.8–37.5; O2SAT 96–100
[2024-11-03] MEDS: PIPERACILLN/TAZ 3.375GM/NS50ML 3.375 GM/50 ML BAG IVPB ×2 (00:34→05:29)
--- NOTE | 2024-11-03 01:44 | ADMGEN ---
This patient, Елена Lynn, was admitted to Medical Room 258-01. Patient/family oriented to hospital policies and general routines including ID bracelet, bed and alarms, visiting hours, pain management, procedures, bathroom and other care routines, personal items, smoking policy, room service/diet, and visiting hours. Information on how to activate the Rapid Response Team has been discussed. Patient/Family are encouraged to report perceived risks to care and to ask questions if they do not understand what they are told or what they should do.
[2024-11-03] MEDS: METOPROLOL TARTRATE 25 MG TABLET PO ×3 (05:29→21:37)
[2024-11-03 05:43] LABS: Basophils Percent Auto 0.4 % (0.2-1.2); Eosinophils Absolute Auto 0.2 K/mm3 (0-0.3); Eosinophils Percent Auto 2.5 % (0-4.4); Hematocrit 37.1 % (37.0-47.0); Hemoglobin 12.1 g/dL (12.0-15.0); Immature Granulocyte Absolute 0.02 K/mm3 (0.00-0.031); Immature Granulocyte Percent A 0.2 % (0-0.5); Lymphocytes Percent Auto 19.8 % (18.3-44.2); Mean Corpuscular HGB Conc 32.6 g/dl (32-36); Mean Corpuscular Hemoglobin 28.6 pg (26-34); Mean Corpuscular Volume 87.7 fl (80-100); Mean Platelet Volume 9.5 fl (7.4-10.4); Monocytes Absolute Auto 1.3 K/mm3 (0.1-0.6); Monocytes Percent Auto 16.1 % (2.6-8.5); Neutrophils Absolute Auto 4.9 K/mm3 (1.3-6.7); Platelet Count Result 220 k/mm3 (150-375); Red Blood Count 4.23 M/mm3 (4.2-5.4); Red Cell Distribution Width 13.7 % (11.5-14.5); White Blood Count 8.1 K/mm3 (4.5-10.0)
[2024-11-03 05:59] LABS: Alanine Aminotransferase 20 U/L (6-35); Albumin Level 4.5 g/dL (3.5-5.1); Alkaline Phosphatase 40 U/L (38-126); Anion Gap 9 mmol/L (4-12); Aspartate Amino Transferase 31 U/L (14-36); Bilirubin,Total 1.1 mg/dL (0.2-1.3); Blood Urea Nitrogen 12 mg/dL (7-17); Carbon Dioxide 32 mmol/L (22-30); Chloride 91 mmol/L (98-107); Estimated CRCL calculation 37 ml/min; Estimated Glomerular Filt Rate 60; Glucose 98 mg/dL (65-110); Magnesium 1.8 mg/dL (1.6-2.3); Potassium 3.3 mmol/L (3.4-5.0); Sodium 132 mmol/L (137-145)
[2024-11-03 06:02] LABS: Lactic Acid Reflex 0.9 mmol/L (0.7-2.0)
[2024-11-03 06:05] LABS: Iron 36 ug/dL (37-170)
[2024-11-03 06:16] LABS: Percent Iron Saturation 12 % (20-50)
--- NOTE | 2024-11-03 07:50 | PM.PNCARD ---
Progress Note: A&P Assessment and Plan (1) Mobitz type 1 second degree AV block: Code(s): I44.1 - Atrioventricular block, second degree Status: Inactive Assessment and Plan: Intermittent exacerbated by abdominal pain and her home medication of Metoprolol and Verapamil. Will hold Metoprolol and Verapamil. Monitor HR and BP. No need for pacemaker at this time. 10/31/24 Echo: EF 55-60%, grade III diastolic dysfunction (E/e' 9), mild MR/TR/PI. On Metoprolol Tartate 25 mg TID to treat and prevent tachycardia/PSVT. 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 (2) Paroxysmal supraventricular tachycardia: Onset Date: 05/13/18 Code(s): I47.1 - Supraventricular tachycardia Status: Acute (3) Chest discomfort: Code(s): R07.89 - Other chest pain Status: Acute Assessment and Plan: Probably musculoskeletal. (4) Benign essential HTN: Code(s): I10 - Essential (primary) hypertension Status: Acute Assessment and Plan: Stable. Monitor. (5) Epigastric pain: Code(s): R10.13 - Epigastric pain Status: Acute Assessment and Plan: Due to enteritis. Subjective Date/time seen: 11/03/24 07:50 Interval history: Denies chest pain or sob. Has abdominal queasiness, but no pain. Exam Const: General: cooperative, healthy appearing and comfortable Orientation/consciousness: oriented to person, oriented to place and oriented to time Resp: Auscultation: clear to auscultation bilaterally, no crackles, no rales, no rhonchi and no wheezes Cardio: Rate: regular rate Rhythm: regular rhythm Heart sounds: no murmurs Peripheral pulses: dorsalis pedis present Neuro: General: oriented to person, oriented to place and oriented to time Extrem: Right lower extremity: no edema Left lower extremity: no edema Objective Data Vital Signs Vital Signs: Vital Signs - 24 hr 11/02/24 08:00 11/02/24 08:00 11/02/24 08:51 Temperature Pulse Rate 132 H 132 H 132 H Respiratory Rate 19 Blood Pressure Pulse Oximetry 98 Oxygen Delivery Room Air 11/02/24 12:00 11/02/24 13:03 11/02/24 16:00 Temperature Pulse Rate 88 86 86 Respiratory Rate Blood Pressure Pulse Oximetry Oxygen Delivery 11/02/24 16:00 11/02/24 20:00 11/02/24 21:02 Temperature Pulse Rate 83 73 99 Respiratory Rate 18 Blood Pressure Pulse Oximetry Oxygen Delivery 11/02/24 23:53 11/03/24 00:00 11/03/24 01:58 Temperature 98 F Pulse Rate 64 68 70 Respiratory Rate 16 Blood Pressure 114/61 Pulse Oximetry 99 Oxygen Delivery 11/03/24 04:00 11/03/24 04:47 11/03/24 05:29 Temperature 98.3 F Pulse Rate 78 94 94 Respiratory Rate 16 Blood Pressure 159/80 H Pulse Oximetry 100 Oxygen Delivery Intake/Output Intake/Output: Intake & Output 10/31/24 11/01/24 11/02/24 11/03/24 23:59 23:59 23:59 23:59 Intake Total 2170 1220 1550 250 Output Total 4200 1500 2500 Balance -2030 -280 -950 250 Meds/Results Medications: Active Medications Generic Name Dose Route Start Last Admin Trade Name Freq PRN Reason Stop Dose Admin Acetaminophen 650 mg 10/31/24 05:19 Acetaminophen 325 Mg Tablet PO Q4H PRN Mild Pain (1-3) or Fever Cyclosporine 1 drop 10/31/24 21:00 11/02/24 20:55 Cyclosporine 0.4 Ml Ophth Solution EACH EYE 1 drop Q12HR JATINDER Administration Enoxaparin Sodium 40 mg 10/31/24 09:00 11/02/24 08:51 Enoxaparin 40 Mg/0.4 Ml Syringe SUB-Q 40 mg DAILY JATINDER Administration Piperacillin/Tazobactam/Dextrose 3.375 gm in 50 mls @ 100 mls/hr 10/31/24 08:00 11/03/24 06:16 Zosyn 3.375 Gm/Ns 50 Ml IVPB Infused Q6HR JATINDER Infusion Magnesium Oxide 400 mg 11/01/24 09:00 11/02/24 08:51 Magnesium Oxide 400 Mg Tablet PO 400 mg DAILY JATINDER Administration Metoprolol Tartrate 25 mg 11/02/24 08:30 11/03/24 05:29 Metoprolol Tartrate 25 Mg Tablet PO 25 mg Q8HR JATINDER Administration Ondansetron HCl 4 mg 10/31/24 07:27 Ondansetron Inj 4 Mg/2 Ml Vial IV PUSH Q6H PRN Nausea And Vomiting Pantoprazole Sodium 40 mg 11/01/24 09:00 11/02/24 08:51 Pantoprazole 40 Mg Tablet PO 40 mg QAM JATINDER Administration Polyethylene Glycol 17 gm 11/03/24 09:00 Polyethylene Glycol 3350 17 Gm Powd.Pack PO QAM JATINDER Psyllium Hydrophilic Mucilloid 1 packet 11/03/24 09:00 Psyllium Powder Packet PO QAM JATINDER Senna/Docusate Sodium 1 tab 11/02/24 21:00 11/02/24 20:45 Senna/Docusate Sodium Tablet PO 1 tab HS JATINDER Administration Sodium Chloride 20 ml 10/31/24 06:51 Central Line Flush IV PUSH PRN PRN after blood draws Labs Labs: Laboratory Results - last 24 hr 11/03/24 05:06 WBC 8.1 RBC 4.23 Hgb 12.1 Hct 37.1 MCV 87.7 MCH 28.6 MCHC 32.6 RDW 13.7 Plt Count 220 MPV 9.5 Immature Gran % (Auto) 0.2 Neut % (Auto) 61.0 Lymph % (Auto) 19.8 [place] % (Auto) 16.1 H Eos % (Auto) 2.5 Baso % (Auto) 0.4 Lymph # (Auto) 1.60 [place] # (Auto) 1.3 H Eos # (Auto) 0.2 Baso # (Auto) 0.0 Abs Immat Gran (auto) 0.02 Absolute Neuts (auto) 4.9 Absolute Nucleated RBC 0.000 Nucleated RBC % 0.0 Sodium 132 L Potassium 3.3 L Chloride 91 L Carbon Dioxide 32 H Anion Gap 9 BUN 12 Creatinine 0.89 Estim Creat Clear Calc 37 Estimated GFR 60 Glucose 98 Lactic Acid 0.9 Calcium 9.0 Magnesium 1.8 Iron 36 L TIBC 297 Ferritin 53.40 Total Bilirubin 1.1 AST 31 ALT 20 Alkaline Phosphatase 40 Total Protein 7.0 Albumin 4.5
[2024-11-03] MEDS: ACETAMINOPHEN 325 MG TABLET 650 MG PO (08:32)
[2024-11-03] MEDS: PANTOPRAZOLE 40 MG TABLET PO (08:32)
[2024-11-03] MEDS: MAGNESIUM OXIDE 400 MG TABLET PO (08:32)
[2024-11-03] MEDS: polyethylene glycoL 3350 17 GM POWD.PACK PO (08:33)
[2024-11-03] MEDS: ENOXAPARIN 40 MG/0.4 ML SYRINGE SUB-Q (08:33)
[2024-11-03] MEDS: cycloSPORINE 0.4 ML OPHTH SOLUTION 1 DROP EACH EYE ×2 (08:33→21:38)
[2024-11-03] MEDS: PSYLLIUM POWDER PACKET 1 PACKET PO (08:33)
[2024-11-03] MEDS: AMOXICILLIN/CLAVULANATE K 875-125 MG TAB 1 TABLET PO ×2 (12:51→21:37)
[2024-11-03] MEDS: ONDANSETRON INJ 4 MG/2 ML VIAL IV PUSH (12:54)
--- NOTE | 2024-11-03 14:32 | P.DS_ITS ---
DS: Admitting Diagnosis Discharge Date 11/03/24 Admitting Diagnosis Abdominal pains DS: Discharge Diagnosis Discharge Diagnosis (1) Enteritis: Code(s): K52.9 - Noninfective gastroenteritis and colitis, unspecified Status: Acute (2) Sepsis: Code(s): A41.9 - Sepsis, unspecified organism Status: Acute DS: Summary Hospital Course Hospital Course: Patient transferred from [place] for higher level of care for bradycardia and hypotension. CT abd showed enteritis and patient was admitted to the ICU and started on albumin and IVF with abx. Time Spent with Patient Time attestation: Total time spent providing and/or coordinating discharge services: DS: Data Data Completed and Pending Labs on day of discharge: Labs from last 24 hours 11/03/24 05:06 WBC 8.1 RBC 4.23 Hgb 12.1 Hct 37.1 MCV 87.7 MCH 28.6 MCHC 32.6 RDW 13.7 Plt Count 220 MPV 9.5 Immature Gran % (Auto) 0.2 Neut % (Auto) 61.0 Lymph % (Auto) 19.8 [place] % (Auto) 16.1 H Eos % (Auto) 2.5 Baso % (Auto) 0.4 Lymph # (Auto) 1.60 [place] # (Auto) 1.3 H Eos # (Auto) 0.2 Baso # (Auto) 0.0 Abs Immat Gran (auto) 0.02 Absolute Neuts (auto) 4.9 Absolute Nucleated RBC 0.000 Nucleated RBC % 0.0 Sodium 132 L Potassium 3.3 L Chloride 91 L Carbon Dioxide 32 H Anion Gap 9 BUN 12 Creatinine 0.89 Estim Creat Clear Calc 37 Estimated GFR 60 Glucose 98 Lactic Acid 0.9 Calcium 9.0 Magnesium 1.8 Iron 36 L TIBC 297 % Saturation 12 L Ferritin 53.40 Total Bilirubin 1.1 AST 31 ALT 20 Alkaline Phosphatase 40 Total Protein 7.0 Albumin 4.5 Preliminary micro results at discharge 10/31/24 08:09 Blood Culture - Preliminary Blood 10/31/24 08:03 Blood Culture - Preliminary Blood Discharge Plan Discharge Attending physician on discharge: Philly Leon Consulting providers: Ese Martinez; John Ray Discharging Clinician: Philly Leon Anticipated Discharge Date/Time: 11/03/24 14:25 Patient Disposition: Home, Self-Care Activity: as tolerated Diet: heart healthy Patient Instructions: Antibiotic Form Patient Language: Dominican Stand Alone Forms: General Discharge Information Follow-up/Referrals: Elliot Tran DO [Primary Care Provider] - (F/u with PCP in 3-5 days ) John Ray DO [Physician] - (F/u with cardiology as instructed ) Discharge Medications: New amoxicillin-pot clavulanate 875-125 mg tablet 1 tablet PO Q12H 2 Days Qty: 4 0RF metoprolol tartrate 25 mg tablet 25 mg PO TID 30 Days Qty: 90 1RF Continued psyllium [Metamucil] 1 tbsp PO DAILY polyethylene glycol 3350 [Miralax] 17 gram/dose powder 17 g PO BID magnesium oxide 400 mg magnesium tablet 400 mg PO DAILY quaznwcw-sdszzam-fhvv-lutein Tablet 1 mcg PO DAILY cyclosporine [Restasis] 0.05 % dropperette 1 drp EACH EYE Q12H calcium carbonate-vitamin D3 600 mg-10 mcg (400 unit) capsule 2 cap PO BIDWMEAL Qty: 180 2RF zoledronic gsvi-vgeyrapw-yevcm [Reclast] 5 mg/100 mL piggyback 1 ea IV .annually Qty: 100 0RF Rx Instructions: Due after 01/10/2022. Repeat yearly. chlorthalidone 25 mg tablet See Rx Instructions .ROUTE .COMPLEX Qty: 90 3RF Dose Instruction: TAKE ONE TABLET BY MOUTH DAILY Rx Instructions: TAKE ONE TABLET BY MOUTH DAILY omeprazole 40 mg capsule,delayed release(DR/EC) See Rx Instructions .ROUTE .COMPLEX Qty: 30 0RF Dose Instruction: TAKE ONE CAPSULE BY MOUTH DAILY Rx Instructions: TAKE ONE CAPSULE BY MOUTH DAILY Discontinued metoprolol succinate 25 mg tablet extended release 24 hr 25 mg PO BID verapamil 120 mg tablet extended release See Rx Instructions .ROUTE .COMPLEX Qty: 90 0RF Dose Instruction: TAKE ONE TABLET BY MOUTH TWICE A DAY Rx Instructions: TAKE ONE TABLET BY MOUTH TWICE A DAY Date of admission: 10/31/24 05:26 Primary Care Provider: Elliot Tran Admitting Provider: Romana Landaverde Attending physician on admission: Romana Landaverde
--- NOTE | 2024-11-03 14:45 | P.PNIM_ITS ---
Progress Note: A&P Assessment and Plan (1) Enteritis: Code(s): K52.9 - Noninfective gastroenteritis and colitis, unspecified Status: Acute Assessment and Plan: Enteritis ulcer as seen on CT scan of the abdomen and pelvis as above -continue antibiotics as above (2) Sepsis: Code(s): A41.9 - Sepsis, unspecified organism Status: Acute Assessment and Plan: RESOLVED Patient presented with hypotension, abdominal pain, enteritis -was given 3 L IV fluid bolus in the ER at the [facility], central line was also placed there by the ER physician -10/31: Blood cultures pending -lactic acid is normal -started on Zosyn 10/31 with for her enteritis as seen on CT scan of the abdomen and pelvis -patient has had good urine output, negative fluid balance, will give LR 500 mL IV fluid bolus -status post albumin for intravascular volume expansion -blood patient is stable 10/30/2024: CT scan of the abdomen and pelvis: Findings suggestive of nonspecific small bowel enteritis. Plan Paroxysmal Supraventricular Tachycardia, controlled Continue Metoprolol 25mg tid defer to cardiology about restarting Verapamil monitor Hypotension and tachycardia Patient noted abd pain and nausea noted to be tachycardic and hypotensive CT AP and chest, EKG ordered IVF Follow closely DVT prophylaxis: Lovenox Stress ulcer prophylaxis: Protonix Nutrition: Heart healthy diet Code Status: Full code Subjective Date/time seen: 11/03/24 14:45 Interval history: patient was fine this morning and was discharged however when she got up to leave she had dizziness and was hypotensive, thus D/c canceled Review of Systems Review of Systems: Pt mentions left lower abdominal pain Pt denies diarrhea or rectal bleding some nausea Pt denies chest pain or sob All other 12 symptoms are reviewed and negative All systems reviewed & are unremarkable except as noted in HPI and below Exam Narrative: General: Pleasant female in no acute distress HEENT:? Pupils equal and reactive, sclera is clear, moist oral mucosa Neck:? Supple Respiratory:? Clear to auscultation bilaterally, no wheezing, adequate air and Cardiac:? S1-S2 is normal, regular rate and rhythm intermittent irregular rhythm Abdomen:? Soft, nontender, nondistended normoactive bowel sounds Extremities:? No edema, palpable pedal pulses Neuro:? Patient is awake, alert, oriented x3, follows simple commands in all extremities and answers questions appropriately Skin:? No skin lesions noted Psych:? Normal mentation and affect Const: General: overweight and other (anxious ); No in distress Nutritional Appearance: overweight Orientation/consciousness: oriented to person HENMT: Head: normal to inspection Resp: Effort & Inspection: no respiratory distress Auscultation: no rhonchi and no wheezes Cardio: Rate: regular rate Rhythm: regular rhythm GI: Inspection: normal to inspection Auscultation: normal bowel sounds Neuro: General: oriented to person Objective Data Vital Signs Vital Signs: Vital Signs - 24 hr 11/02/24 16:00 11/02/24 16:00 11/02/24 20:00 Temperature Pulse Rate 86 83 73 Respiratory Rate 18 Blood Pressure Pulse Oximetry Oxygen Delivery 11/02/24 21:02 11/02/24 23:53 11/03/24 00:00 Temperature 98 F Pulse Rate 99 64 68 Respiratory Rate 16 Blood Pressure 114/61 Pulse Oximetry 99 Oxygen Delivery 11/03/24 01:58 11/03/24 04:00 11/03/24 04:47 Temperature 98.3 F Pulse Rate 70 78 94 Respiratory Rate 16 Blood Pressure 159/80 H Pulse Oximetry 100 Oxygen Delivery 11/03/24 05:29 11/03/24 08:00 11/03/24 08:38 Temperature Pulse Rate 94 96 Respiratory Rate Blood Pressure Pulse Oximetry Oxygen Delivery Room Air 11/03/24 12:00 Temperature Pulse Rate 120 H Respiratory Rate Blood Pressure Pulse Oximetry Oxygen Delivery Intake/Output Intake/Output: Intake & Output 10/31/24 11/01/24 11/02/24 11/03/24 23:59 23:59 23:59 23:59 Intake Total 2170 1220 1550 790 Output Total 4200 1500 2500 Balance -2030 280 -677 790 Meds/Results Medications: Active Medications Generic Name Dose Route Start Last Admin Trade Name Freq PRN Reason Stop Dose Admin Acetaminophen 650 mg 10/31/24 05:19 11/03/24 08:32 Acetaminophen 325 Mg Tablet PO 650 mg Q4H PRN Administration Mild Pain (1-3) or Fever Amoxicillin/Clavulanate Potassium 1 tablet 11/03/24 12:00 11/03/24 12:51 Amoxicillin/Clavulanate K 875-125 Mg Tab PO 11/04/24 21:01 1 tablet Q12HR JATINDER Administration Cyclosporine 1 drop 10/31/24 21:00 11/03/24 08:33 Cyclosporine 0.4 Ml Ophth Solution EACH EYE 1 drop Q12HR JATINDER Administration Enoxaparin Sodium 40 mg 10/31/24 09:00 11/03/24 08:33 Enoxaparin 40 Mg/0.4 Ml Syringe SUB-Q 40 mg DAILY JATINDER Administration Magnesium Oxide 400 mg 11/01/24 09:00 11/03/24 08:32 Magnesium Oxide 400 Mg Tablet PO 400 mg DAILY JATINDER Administration Metoprolol Tartrate 25 mg 11/02/24 08:30 11/03/24 13:00 Metoprolol Tartrate 25 Mg Tablet PO 25 mg Q8HR JATINDER Administration Ondansetron HCl 4 mg 10/31/24 07:27 11/03/24 12:54 Ondansetron Inj 4 Mg/2 Ml Vial IV PUSH 4 mg Q6H PRN Administration Nausea And Vomiting Pantoprazole Sodium 40 mg 11/01/24 09:00 11/03/24 08:32 Pantoprazole 40 Mg Tablet PO 40 mg QAM JATINDER Administration Polyethylene Glycol 17 gm 11/03/24 09:00 11/03/24 08:33 Polyethylene Glycol 3350 17 Gm Powd.Pack PO 17 gm QAM JATINDER Administration Psyllium Hydrophilic Mucilloid 1 packet 11/03/24 09:00 11/03/24 08:33 Psyllium Powder Packet PO 1 packet QAM JATINDER Administration Senna/Docusate Sodium 1 tab 11/02/24 21:00 11/02/24 20:45 Senna/Docusate Sodium Tablet PO 1 tab HS JATINDER Administration Sodium Chloride 20 ml 10/31/24 06:51 Central Line Flush IV PUSH PRN PRN after blood draws Labs Labs: Laboratory Results - last 24 hr 11/03/24 05:06 WBC 8.1 RBC 4.23 Hgb 12.1 Hct 37.1 MCV 87.7 MCH 28.6 MCHC 32.6 RDW 13.7 Plt Count 220 MPV 9.5 Immature Gran % (Auto) 0.2 Neut % (Auto) 61.0 Lymph % (Auto) 19.8 [place] % (Auto) 16.1 H Eos % (Auto) 2.5 Baso % (Auto) 0.4 Lymph # (Auto) 1.60 [place] # (Auto) 1.3 H Eos # (Auto) 0.2 Baso # (Auto) 0.0 Abs Immat Gran (auto) 0.02 Absolute Neuts (auto) 4.9 Absolute Nucleated RBC 0.000 Nucleated RBC % 0.0 Sodium 132 L Potassium 3.3 L Chloride 91 L Carbon Dioxide 32 H Anion Gap 9 BUN 12 Creatinine 0.89 Estim Creat Clear Calc 37 Estimated GFR 60 Glucose 98 Lactic Acid 0.9 Calcium 9.0 Magnesium 1.8 Iron 36 L TIBC 297 % Saturation 12 L Ferritin 53.40 Total Bilirubin 1.1 AST 31 ALT 20 Alkaline Phosphatase 40 Total Protein 7.0 Albumin 4.5 Quality VTE Prophylaxis VTE prophylaxis: pharmacologic ordered
--- NOTE | 2024-11-03 14:46 | ECG_ITS ---
Test Date: 2024-11-03 15:44:14 Measurements Intervals [place] Rate: 96 P: 75 VT: 294 QRS: -43 QRSD: 106 T: 64 QT: 373 QTc: 472 Interpretive Statements SINUS RHYTHM WITH SINUS ARRHYTHMIA WITH FIRST DEGREE AV BLOCK LEFT AXIS DEVIATION [QRS AXIS < -30] POSSIBLE ANTERIOR MYOCARDIAL INFARCTION , PROBABLY OLD [30 ms Q WAVE IN V3/V4, OR R < 0.2 mV IN V4] Compared to ECG 10/31/2024 05:46:58 First degree AV block now present Electronically Signed On 11-04-2024 18:21:41 CDT by Fabiola Licea M.D.
[2024-11-03] MEDS: SODIUM CHLORIDE 0.9% IV 500 ML IV CONT (15:25)
[2024-11-03] MEDS: SODIUM CHLORIDE 0.9% IV 1,000 ML 75 ML IV CONT (18:09)
[2024-11-03] MEDS: SENNA/DOCUSATE SODIUM TABLET 1 TAB PO (21:37)
[2024-11-04] VITALS (12 sets, daily range): BP systolic 128–139; BP diastolic 56–89; PULSE 83–117; RESP 16–20; TEMP 36.4–37.4; O2SAT 96–100
[2024-11-04] MEDS: ONDANSETRON INJ 4 MG/2 ML VIAL IV PUSH (02:31)
[2024-11-04] MEDS: METOPROLOL TARTRATE 25 MG TABLET PO ×3 (05:52→21:23)
[2024-11-04] MEDS: SODIUM CHLORIDE 0.9% IV 1,000 ML 75 ML IV CONT ×2 (05:55→21:24)
--- NOTE | 2024-11-04 08:29 | P.PNCA_ITS ---
Progress Note: A&P Assessment and Plan (1) Mobitz type 1 second degree AV block: Code(s): I44.1 - Atrioventricular block, second degree Status: Inactive Assessment and Plan: Intermittent exacerbated by abdominal pain and her home medication of Metoprolol and Verapamil. Will hold Metoprolol and Verapamil. Monitor HR and BP. No need for pacemaker at this time. 10/31/24 Echo: EF 55-60%, grade III diastolic dysfunction (E/e' 9), mild MR/TR/PI. On Metoprolol Tartate 25 mg TID to treat and prevent tachycardia/PSVT. 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. (2) Paroxysmal supraventricular tachycardia: Onset Date: 05/13/18 Code(s): I47.1 - Supraventricular tachycardia Status: Acute (3) Chest discomfort: Code(s): R07.89 - Other chest pain Status: Acute Assessment and Plan: Probably musculoskeletal. (4) Benign essential HTN: Code(s): I10 - Essential (primary) hypertension Status: Acute Assessment and Plan: Stable. Monitor. (5) Epigastric pain: Code(s): R10.13 - Epigastric pain Status: Acute Assessment and Plan: Due to enteritis. Subjective Date/time seen: 11/04/24 08:29 Interval history: Denies chest pain or sob. Has abdominal pain and nausea. Exam Const: General: cooperative, healthy appearing and comfortable Orientation/consciousness: oriented to person, oriented to place and oriented to time Resp: Auscultation: clear to auscultation bilaterally, no crackles, no rales, no rhonchi and no wheezes Cardio: Rate: regular rate Rhythm: regular rhythm Heart sounds: no murmurs Peripheral pulses: dorsalis pedis present GI: GI Palp: Yes abdominal tenderness and Yes Soft to palpation Neuro: General: oriented to person, oriented to place and oriented to time Extrem: Right lower extremity: no edema Left lower extremity: no edema Objective Data Vital Signs Vital Signs: Vital Signs - 24 hr 11/03/24 08:38 11/03/24 12:00 11/03/24 14:46 Temperature Pulse Rate 120 H 72 Respiratory Rate 14 Blood Pressure 86/49 L Pulse Oximetry 99 Oxygen Delivery Room Air 11/03/24 16:00 11/03/24 16:00 11/03/24 20:00 Temperature 99.3 F Pulse Rate 90 98 102 H Respiratory Rate 18 12 Blood Pressure 129/69 Pulse Oximetry 100 96 Oxygen Delivery Room Air 11/03/24 20:00 11/03/24 20:38 11/03/24 21:37 Temperature 99.5 F Pulse Rate 104 H 98 102 H Respiratory Rate 12 Blood Pressure 114/62 Pulse Oximetry 96 Oxygen Delivery 11/04/24 00:00 11/04/24 00:00 11/04/24 04:00 Temperature 97.9 F Pulse Rate 83 85 110 H Respiratory Rate 16 Blood Pressure 128/56 L Pulse Oximetry 98 Oxygen Delivery 11/04/24 05:52 11/04/24 06:30 Temperature 97.6 F Pulse Rate 102 H 85 Respiratory Rate 16 Blood Pressure 138/73 Pulse Oximetry 97 Oxygen Delivery Intake/Output Intake/Output: Intake & Output 11/01/24 11/02/24 11/03/24 11/04/24 23:59 23:59 23:59 23:59 Intake Total 1220 1550 1470 882.5 Output Total 1500 2500 Balance -280 -950 1470 882.5 Meds/Results Medications: Active Medications Generic Name Dose Route Start Last Admin Trade Name Freq PRN Reason Stop Dose Admin Acetaminophen 650 mg 10/31/24 05:19 11/03/24 08:32 Acetaminophen 325 Mg Tablet PO 650 mg Q4H PRN Administration Mild Pain (1-3) or Fever Amoxicillin/Clavulanate Potassium 1 tablet 11/03/24 12:00 11/03/24 21:37 Amoxicillin/Clavulanate K 875-125 Mg Tab PO 11/04/24 21:01 1 tablet Q12HR JATINDER Administration Cyclosporine 1 drop 10/31/24 21:00 11/03/24 21:38 Cyclosporine 0.4 Ml Ophth Solution EACH EYE 1 drop Q12HR JATINDER Administration Enoxaparin Sodium 40 mg 10/31/24 09:00 11/03/24 08:33 Enoxaparin 40 Mg/0.4 Ml Syringe SUB-Q 40 mg DAILY JATINDER Administration Sodium Chloride 1,000 mls @ 75 mls/hr 11/03/24 17:35 11/04/24 05:55 Normal Saline Iv IV CONT 75 mls/hr .[id number] JATINDER Administration Magnesium Oxide 400 mg 11/01/24 09:00 11/03/24 08:32 Magnesium Oxide 400 Mg Tablet PO 400 mg DAILY JATINDER Administration Metoprolol Tartrate 25 mg 11/02/24 08:30 11/04/24 05:52 Metoprolol Tartrate 25 Mg Tablet PO 25 mg Q8HR JATINDER Administration Ondansetron HCl 4 mg 10/31/24 07:27 11/04/24 02:31 Ondansetron Inj 4 Mg/2 Ml Vial IV PUSH 4 mg Q6H PRN Administration Nausea And Vomiting Pantoprazole Sodium 40 mg 11/01/24 09:00 11/03/24 08:32 Pantoprazole 40 Mg Tablet PO 40 mg QAM REPLACED BY [facility] Administration Polyethylene Glycol 17 gm 11/03/24 09:00 11/03/24 08:33 Polyethylene Glycol 3350 17 Gm Powd.Pack PO 17 gm QAM REPLACED BY [facility] Administration Psyllium Hydrophilic Mucilloid 1 packet 11/03/24 09:00 11/03/24 08:33 Psyllium Powder Packet PO 1 packet QAM REPLACED BY [facility] Administration Senna/Docusate Sodium 1 tab 11/02/24 21:00 11/03/24 21:37 Senna/Docusate Sodium Tablet PO 1 tab HS REPLACED BY [facility] Administration Sodium Chloride 20 ml 10/31/24 06:51 Central Line Flush IV PUSH PRN PRN after blood draws Radiology Results: ITS Impressions Chest/Abdomen/Pelvis CT 11/03/24 15:33 IMPRESSION: Cardiomegaly with mediastinal and hilar lymphadenopathy and a small left-sided pleural effusion, increased from prior. Partially obstructing small bowel containing umbilical hernia, an interval change from prior. Labs Labs: Laboratory Results - last 24 hr 11/03/24 11/03/24 05:06 16:08 Lactic Acid 1.0 % Saturation 12 L
[2024-11-04] MEDS: ENOXAPARIN 40 MG/0.4 ML SYRINGE SUB-Q (08:39)
[2024-11-04] MEDS: cycloSPORINE 0.4 ML OPHTH SOLUTION 1 DROP EACH EYE ×2 (08:39→20:18)
[2024-11-04] MEDS: PANTOPRAZOLE 40 MG TABLET PO (08:39)
[2024-11-04] MEDS: AMOXICILLIN/CLAVULANATE K 875-125 MG TAB 1 TABLET PO ×2 (08:39→20:18)
[2024-11-04] MEDS: MAGNESIUM OXIDE 400 MG TABLET PO (08:39)
--- NOTE | 2024-11-04 11:00 | P.CONGS_ITS ---
Assessment and Plan Assessment and plan (1) Enteritis: Code(s): K52.9 - Noninfective gastroenteritis and colitis, unspecified Status: Acute Assessment and Plan: Exam largely benign, await small-bowel series, continue antibiotics History of Present Illness Consult details Consult date: 11/04/24 Reason for consult: abdominal pain Requesting physician: Philly Leon MD Narrative: The patient is an 84-year-old female with multiple medical issues that presented with enteritis, heart block. Patient was placed on antibiotics and symptoms largely resolved. Patient was actually supposed to be discharged yesterday but complained of dizziness. This morning she is complaining of increased abdominal pain, nausea. Patient currently getting a small bowel series so all history is obtained via chart. Review of Systems 2 Review of Systems: All systems reviewed & are unremarkable except as noted in HPI and below PMFSH Past Medical History Medical History Osteoporosis Abnormality of heart beat Hypertension Stress fracture of sacrum Fracture of radial neck, right, closed Displaced fracture of neck of left radius Right wrist pain Injury of right hip Sciatica of right side Right hip pain Post-COVID chronic fatigue Skin rash Pre-op exam Left ankle pain Fatigue Personal history of other drug therapy Exposure to COVID-19 virus Colon polyp Epigastric pain Constipation Nausea and vomiting in adult Endometrial thickening on ultrasound RLQ abdominal pain Nicotine dependence in remission Skin cancer s/p surgical resection Breast cancer Paroxysmal supraventricular tachycardia Osteopenia Hyperlipidemia GARRETT (generalized anxiety disorder) Cardiac arrhythmia Benign essential HTN Surgical History Surgical History History of lumpectomy [address] Nicole 2009 History of thyroid surgery 2007 Dr. Johnston History of hernia repair x2 2003 Dr. Johnston H/O cataract extraction History of lung biopsy (~08/2018) Left History of appendectomy 2007 Dr. Johnston Family History Family History Mother Familial Alzheimer's disease of late onset Congestive heart failure Hypertension Heart disease History of blood clots Father Abnormality of heart beat Heart disease Acute myocardial infarction Social History Social History Smoking status: Never smoker Additional smoking assessment comments: socially only Alcohol intake: never Substance use: never Substance use type: does not use Do You Feel Safe in your Home?: Yes Lack of Transportation: No Lack of Food: Never True Current Housing: I Have Housing Concerned About Future Housing: No Difficulty Paying Gas/Electric Bills: No Difficulty Paying for Meds: No Currently Unemployed: No Education: Decline to Answer Difficulty w/ Childcare or Family Care: No Living arrangements: alone Additional living arrangements comments: Occupation/Education: retired Gender identity (if verbalized by the patient): Female Spiritual care concerns: No Meds Home Medications and Allergies Home Medications ?Medication ?Instructions ?Recorded ?Confirmed ?Type magnesium oxide 400 mg PO DAILY 08/08/19 10/31/24 History apodeaki-yyckbsw-yxgb-lutein tablet 1 mcg PO DAILY 08/08/19 10/31/24 History metoprolol succinate 25 mg 25 mg PO BID 06/17/22 10/31/24 History tablet,extended release 24 hr calcium 600 mg (as 2 cap PO BIDWMEAL #180 caps 03/31/23 10/31/24 Rx carbonate)-vitamin D3 10 mcg (400 unit) capsule zoledronic acid 5 mg/100 mL in 1 ea IV .annually #100 mL 04/27/24 10/31/24 Rx mannitol 5 %-water intravenous piggybck (Reclast) chlorthalidone 25 mg tablet See Rx Instructions .Route 09/12/24 10/31/24 Rx .COMPLEX #90 tabs omeprazole 40 mg capsule,delayed See Rx Instructions .Route 09/26/24 10/31/24 Rx release .COMPLEX #30 caps verapamil 120 mg tablet,extended See Rx Instructions .Route 09/30/24 10/31/24 Rx release .COMPLEX #90 tabs cyclosporine 0.05 % eye drops in a 1 drp EACH EYE Q12H 10/25/24 10/31/24 History dropperette (Restasis) polyethylene glycol 3350 17 17 g PO BID 10/30/24 10/31/24 History gram/dose oral powder (Miralax) psyllium 1 tbsp PO DAILY 10/30/24 10/31/24 History Allergies Allergy/AdvReac Type Severity Reaction Status Date / Time Sulfa (Sulfonamide Allergy Intermediate Rash Verified 10/31/24 05:48 Antibiotics) Vital Signs Vital Signs - 24 hr 11/03/24 12:00 11/03/24 14:46 11/03/24 16:00 Temperature 37.4 C Pulse Rate 120 H 72 90 Respiratory Rate 14 18 Blood Pressure 86/49 L 129/69 Pulse Oximetry 99 100 Oxygen Delivery 11/03/24 16:00 11/03/24 20:00 11/03/24 20:00 Temperature Pulse Rate 98 102 H 104 H Respiratory Rate 12 Blood Pressure Pulse Oximetry 96 Oxygen Delivery Room Air 11/03/24 20:38 11/03/24 21:37 11/04/24 00:00 Temperature 37.5 C 36.6 C Pulse Rate 98 102 H 83 Respiratory Rate 12 16 Blood Pressure 114/62 128/56 L Pulse Oximetry 96 98 Oxygen Delivery 11/04/24 00:00 11/04/24 04:00 11/04/24 05:52 Temperature Pulse Rate 85 110 H 102 H Respiratory Rate Blood Pressure Pulse Oximetry Oxygen Delivery 11/04/24 06:30 11/04/24 08:00 11/04/24 08:40 Temperature 36.4 C Pulse Rate 85 108 H Respiratory Rate 16 Blood Pressure 138/73 Pulse Oximetry 97 Oxygen Delivery Room Air Exam 2 Const: General: cooperative, no acute distress and uncomfortable HENMT: Head: normal to inspection, normocephalic and atraumatic Eyes: General: appearance normal, both eyes and all related structures Neck: Neck: normal visual inspection, full ROM and no lymphadenopathy Resp: Auscultation: clear to auscultation bilaterally Cardio: Rate: regular rate Rhythm: regular rhythm GI: Inspection: distended GI Palp: Yes abdominal tenderness, Yes Soft to palpation, Yes Tenderness to palpation present (GI), No Guarding due to palpation present (GI) and No Rigid due to palpation Skin: General skin exam: normal color and no rashes or lesions noted Neuro: General: patient oriented x3 and CN's II-XI intact bilaterally Extrem: General: normal to inspection and full ROM Results Labs 11/03/24 05:06 11/03/24 05:06 Labs: Abnormal lab results 11/03/24 Range/Units 05:06 % Saturation 12 L (20-50) % All other labs normal. Imaging Abdomen CT scan report/results: report reviewed and image reviewed
--- NOTE | 2024-11-04 13:02 | P.CONPL_ITS ---
Assessment and Plan Assessment and plan (1) Mediastinal lymphadenopathy: Code(s): R59.0 - Localized enlarged lymph nodes Status: Acute Assessment and Plan: This 84-year-old female, with no history of active lung disease and a history of breast and parotid cancer, underwent a chest CT during her hospitalization due to abdominal pain and hypertension. The chest CT revealed mild mediastinal and hilar lymphadenopathy, consistent with findings from a chest CT conducted last June. Although variations in radiographic technique limited a comprehensive comparison, my review indicates no significant increase in the size of the mediastinal and hilar lymphadenopathy over the past four months. Plan: The patient will require further evaluation in the outpatient pulmonary clinic. Since she has had previous chest CTs at [facility], it is important to obtain those images for comparison with the most recent radiographic studies. The patient will see Raul Aranda in the outpatient clinic in [place]. I have provided her with the pulmonary clinic's phone number to schedule an appointment and will notify our scheduling hospital secretary accordingly. I will sign off now; please call if there are any questions. (2) Paroxysmal supraventricular tachycardia: Onset Date: 05/13/18 Code(s): I47.1 - Supraventricular tachycardia Status: Acute (3) History of breast cancer: Code(s): Z85.3 - Personal history of malignant neoplasm of breast Status: Acute (4) History of parotid cancer: Code(s): Z85.818 - Personal history of malignant neoplasm of other sites of lip, oral cavity, and pharynx Status: Acute (5) Sepsis: Code(s): A41.9 - Sepsis, unspecified organism Status: Acute History of Present Illness History of Present Illness Consult date: 11/04/24 Chief complaint: Heart block; Persistent hypotension Narrative: This consultation addresses mediastinal lymphadenopathy identified through a chest CT scan. The patient has no history of active lung disease. She presented with abdominal pain, bradycardia, and hemodynamic instability, for which she was treated in the intensive care unit with antibiotics and IV fluids for possible sepsis. She is currently in a regular jorgensen room and does not report any respiratory symptoms. She is breathing comfortably on room air. Regarding her previous lung history, approximately five years ago, she underwent what appears to have been a left lung biopsy via a VATS procedure at [facility], which reportedly returned negative results. The patient mentioned having had chest CTs and was advised to undergo repeat monitoring for an unspecified abnormality, possibly mediastinal lymphadenopathy. However, her doctor at [facility] subsequently informed her that everything appeared normal and no further monitoring was necessary. She is currently not on any medication for lung disease and has a brief history of smoking many years ago. Her past medical history is notable for breast cancer, for which she underwent a lumpectomy, and a history of parotid tumor resection. A review of her recent chest CT revealed mild enlargement of mediastinal and hilar lymphadenopathy and a small left-sided pleural effusion. When compared to a chest CT from late June of last year, there is no significant increase in the size of the mediastinal and hilar lymph nodes over the past four months, although the absence of IV contrast in both CTs is a limiting factor in this assessment. Review of Systems 2 Review of Systems: All systems reviewed & are unremarkable except as noted in HPI and below (HPI and below) [facility] Past Medical History Medical History Osteoporosis Abnormality of heart beat Hypertension Stress fracture of sacrum Fracture of radial neck, right, closed Displaced fracture of neck of left radius Right wrist pain Injury of right hip Sciatica of right side Right hip pain Post-COVID chronic fatigue Skin rash Pre-op exam Left ankle pain Fatigue Personal history of other drug therapy Exposure to COVID-19 virus Colon polyp Epigastric pain Constipation Nausea and vomiting in adult Endometrial thickening on ultrasound RLQ abdominal pain Nicotine dependence in remission Skin cancer s/p surgical resection Breast cancer Paroxysmal supraventricular tachycardia Osteopenia Hyperlipidemia GARRETT (generalized anxiety disorder) Cardiac arrhythmia Benign essential HTN Surgical History Surgical History History of lumpectomy [address] Nicole 2009 History of thyroid surgery 2007 Dr. Johnston History of hernia repair x2 2002 Dr. Johnston H/O cataract extraction History of lung biopsy (~08/2018) Left History of appendectomy 2007 Dr. Johnston Family History Family History Mother Familial Alzheimer's disease of late onset Congestive heart failure Hypertension Heart disease History of blood clots Father Abnormality of heart beat Heart disease Acute myocardial infarction Social History Social History Smoking status: Never smoker Additional smoking assessment comments: socially only Alcohol intake: never Substance use: never Substance use type: does not use Do You Feel Safe in your Home?: Yes Lack of Transportation: No Lack of Food: Never True Current Housing: I Have Housing Concerned About Future Housing: No Difficulty Paying Gas/Electric Bills: No Difficulty Paying for Meds: No Currently Unemployed: No Education: Decline to Answer Difficulty w/ Childcare or Family Care: No Living arrangements: alone Additional living arrangements comments: Occupation/Education: retired Gender identity (if verbalized by the patient): Female Spiritual care concerns: No Meds Home Medications and Allergies Home Medications ?Medication ?Instructions ?Recorded ?Confirmed ?Type magnesium oxide 400 mg PO DAILY 08/08/19 10/31/24 History xyturech-wlcokin-ozpe-lutein tablet 1 mcg PO DAILY 08/08/19 10/31/24 History metoprolol succinate 25 mg 25 mg PO BID 06/17/22 10/31/24 History tablet,extended release 24 hr calcium 600 mg (as 2 cap PO BIDWMEAL #180 caps 03/31/23 10/31/24 Rx carbonate)-vitamin D3 10 mcg (400 unit) capsule zoledronic acid 5 mg/100 mL in 1 ea IV .annually #100 mL 04/27/24 10/31/24 Rx mannitol 5 %-water intravenous piggybck (Reclast) chlorthalidone 25 mg tablet See Rx Instructions .Route 09/12/24 10/31/24 Rx .COMPLEX #90 tabs omeprazole 40 mg capsule,delayed See Rx Instructions .Route 09/26/24 10/31/24 Rx release .COMPLEX #30 caps verapamil 120 mg tablet,extended See Rx Instructions .Route 09/30/24 10/31/24 Rx release .COMPLEX #90 tabs cyclosporine 0.05 % eye drops in a 1 drp EACH EYE Q12H 10/25/24 10/31/24 History dropperette (Restasis) polyethylene glycol 3350 17 17 g PO BID 10/30/24 10/31/24 History gram/dose oral powder (Miralax) psyllium 1 tbsp PO DAILY 10/30/24 10/31/24 History Allergies Allergy/AdvReac Type Severity Reaction Status Date / Time Sulfa (Sulfonamide Allergy Intermediate Rash Verified 10/31/24 05:48 Antibiotics) Vital Signs Vital Signs - 24 hr 11/03/24 14:46 11/03/24 16:00 11/03/24 16:00 Temperature 37.4 C Pulse Rate 72 90 98 Respiratory Rate 14 18 Blood Pressure 86/49 L 129/69 Pulse Oximetry 99 100 Oxygen Delivery 11/03/24 20:00 11/03/24 20:00 11/03/24 20:38 Temperature 37.5 C Pulse Rate 102 H 104 H 98 Respiratory Rate 12 12 Blood Pressure 114/62 Pulse Oximetry 96 96 Oxygen Delivery Room Air 11/03/24 21:37 11/04/24 00:00 11/04/24 00:00 Temperature 36.6 C Pulse Rate 102 H 83 85 Respiratory Rate 16 Blood Pressure 128/56 L Pulse Oximetry 98 Oxygen Delivery 11/04/24 04:00 11/04/24 05:52 11/04/24 06:30 Temperature 36.4 C Pulse Rate 110 H 102 H 85 Respiratory Rate 16 Blood Pressure 138/73 Pulse Oximetry 97 Oxygen Delivery 11/04/24 08:00 11/04/24 08:40 11/04/24 12:00 Temperature Pulse Rate 108 H 113 H Respiratory Rate Blood Pressure Pulse Oximetry Oxygen Delivery Room Air Exam 2 Narrative: GENERAL APPEARANCE: Well developed, well nourished, alert and cooperative, and appears to be in no acute distress SKIN: Inspection of the skin reveals no rashes, ulcerations or petechiae. HEENT: Sclerae anicteric and conjunctivae pink and moist. Extraocular movements were intact and pupils were equal, round, and reactive to light. The oral mucosa, hard and soft palate, tongue and posterior pharynx were normal. NECK: Supple. There was no thyroid enlargement, and no tenderness, or masses were felt. CHEST: Normal AP diameter and normal contour without any kyphoscoliosis. LUNGS: Auscultation of the lungs revealed normal breath sounds without any other adventitious sounds or rubs. CARDIAC: There was a regular rate and rhythm without any murmurs ABDOMEN: Soft and nontender with normal bowel sounds. There was no organomegaly. LYMPH NODES: No lymphadenopathy was appreciated in the neck.. EXTREMITIES: No cyanosis, clubbing or edema. NEUROLOGIC: Alert and oriented x 3. Normal affect. Results Laboratory Findings 11/03/24 05:06 11/03/24 05:06 Abnormal lab findings: Abnormal Labs 10/31/24 10/31/24 11/01/24 05:40 08:30 06:49 RBC 3.85 L 3.68 L Hgb 11.2 L 10.7 L Hct 33.3 L 32.4 L Lymph % (Auto) [place] % (Auto) 15.2 H 16.5 H [place] # (Auto) 0.9 H 0.8 H Sodium 129 L 133 L Potassium Chloride 95 L 95 L Carbon Dioxide Glucose 114 H Lactic Acid 0.5 L Calcium 8.1 L 8.2 L Magnesium 2.4 H Iron % Saturation Alkaline Phosphatase Total Protein 6.0 L 11/02/24 11/03/24 05:33 05:06 RBC 3.65 L Hgb 10.5 L Hct 32.3 L Lymph % (Auto) 16.2 L [place] % (Auto) 17.8 H 16.1 H [place] # (Auto) 1.3 H 1.3 H Sodium 132 L 132 L Potassium 3.3 L Chloride 95 L 91 L Carbon Dioxide 31 H 32 H Glucose Lactic Acid Calcium 8.3 L Magnesium Iron 36 L % Saturation 12 L Alkaline Phosphatase 34 L Total Protein 6.0 L
--- NOTE | 2024-11-04 17:43 | PM.IMPN ---
Progress Note: A&P Assessment and Plan (1) Enteritis: Code(s): K52.9 - Noninfective gastroenteritis and colitis, unspecified Status: Acute Assessment and Plan: Enteritis as seen on CT scan of the abdomen and pelvis as above -continue antibiotics as above (2) Sepsis: Code(s): A41.9 - Sepsis, unspecified organism Status: Acute Assessment and Plan: RESOLVED Patient presented with hypotension, abdominal pain, enteritis -was given 3 L IV fluid bolus in the ER at the [facility] in [facility], central line was also placed there by the ER physician -10/31: Blood cultures pending -lactic acid is normal -started on Zosyn 10/31 with for her enteritis as seen on CT scan of the abdomen and pelvis -patient has had good urine output, negative fluid balance, will give LR 500 mL IV fluid bolus -status post albumin for intravascular volume expansion -blood patient is stable 10/30/2024: CT scan of the abdomen and pelvis: Findings suggestive of nonspecific small bowel enteritis. Plan Paroxysmal Supraventricular Tachycardia, controlled Continue Metoprolol 25mg tid defer to cardiology about restarting Verapamil monitor SBO patient had hypotension and abd pain yesterday CT AP done showed SBO However surgery noted it is most likely enterities Small bowel series pending Hilar and mediastinal lymphadenopathy CT chest reviewed Pulmonology consulted Hypotension and tachycardia, resolved Patient noted abd pain and nausea noted to be tachycardic and hypotensive CT AP and chest, EKG ordered IVF Follow closely DVT prophylaxis: Lovenox Stress ulcer prophylaxis: Protonix Nutrition: Heart healthy diet Code Status: Full code Subjective Date/time seen: 11/04/24 17:43 Interval history: Comfortable at bedside Small bowel series ordered Review of Systems Review of Systems: Pt mentions left lower abdominal pain Pt denies diarrhea or rectal bleding some nausea Pt denies chest pain or sob All other 12 symptoms are reviewed and negative All systems reviewed & are unremarkable except as noted in HPI and below Exam Narrative: General: Pleasant female in no acute distress HEENT:? Pupils equal and reactive, sclera is clear, moist oral mucosa Neck:? Supple Respiratory:? Clear to auscultation bilaterally, no wheezing, adequate air and Cardiac:? S1-S2 is normal, regular rate and rhythm intermittent irregular rhythm Abdomen:? Soft, nontender, nondistended normoactive bowel sounds Extremities:? No edema, palpable pedal pulses Neuro:? Patient is awake, alert, oriented x3, follows simple commands in all extremities and answers questions appropriately Skin:? No skin lesions noted Psych:? Normal mentation and affect Const: General: overweight and other (anxious ); No in distress Nutritional Appearance: overweight Orientation/consciousness: oriented to person HENMT: Head: normal to inspection Resp: Effort & Inspection: no respiratory distress Auscultation: no rhonchi and no wheezes Cardio: Rate: regular rate Rhythm: regular rhythm GI: Inspection: normal to inspection Auscultation: normal bowel sounds Neuro: General: oriented to person Objective Data Vital Signs Vital Signs: Vital Signs - 24 hr 11/03/24 20:00 11/03/24 20:00 11/03/24 20:38 Temperature 99.5 F Pulse Rate 102 H 104 H 98 Respiratory Rate 12 12 Blood Pressure 114/62 Pulse Oximetry 96 96 Oxygen Delivery Room Air 11/03/24 21:37 11/04/24 00:00 11/04/24 00:00 Temperature 97.9 F Pulse Rate 102 H 83 85 Respiratory Rate 16 Blood Pressure 128/56 L Pulse Oximetry 98 Oxygen Delivery 11/04/24 04:00 11/04/24 05:52 11/04/24 06:30 Temperature 97.6 F Pulse Rate 110 H 102 H 85 Respiratory Rate 16 Blood Pressure 138/73 Pulse Oximetry 97 Oxygen Delivery 11/04/24 08:00 11/04/24 08:40 11/04/24 12:00 Temperature Pulse Rate 108 H 113 H Respiratory Rate Blood Pressure Pulse Oximetry Oxygen Delivery Room Air 11/04/24 14:28 11/04/24 16:00 11/04/24 17:04 Temperature 98.5 F Pulse Rate 117 H 96 103 H Respiratory Rate 16 Blood Pressure 139/89 Pulse Oximetry 100 Oxygen Delivery Intake/Output Intake/Output: Intake & Output 11/01/24 11/02/24 11/03/24 11/04/24 23:59 23:59 23:59 23:59 Intake Total 1220 1550 1470 882.5 Output Total 1500 2500 Balance -280 -950 1470 882.5 Meds/Results Medications: Active Medications Generic Name Dose Route Start Last Admin Trade Name Freq PRN Reason Stop Dose Admin Acetaminophen 650 mg 10/31/24 05:19 11/03/24 08:32 Acetaminophen 325 Mg Tablet PO 650 mg Q4H PRN Administration Mild Pain (1-3) or Fever Amoxicillin/Clavulanate Potassium 1 tablet 11/03/24 12:00 11/04/24 08:39 Amoxicillin/Clavulanate K 875-125 Mg Tab PO 11/04/24 21:01 1 tablet Q12HR JATINDER Administration Cyclosporine 1 drop 10/31/24 21:00 11/04/24 08:39 Cyclosporine 0.4 Ml Ophth Solution EACH EYE 1 drop Q12HR JATINDER Administration Enoxaparin Sodium 40 mg 10/31/24 09:00 11/04/24 08:39 Enoxaparin 40 Mg/0.4 Ml Syringe SUB-Q 40 mg DAILY JATINDER Administration Sodium Chloride 1,000 mls @ 75 mls/hr 11/03/24 17:35 11/04/24 05:55 Normal Saline Iv IV CONT 75 mls/hr .[id number] JATINDER Administration Magnesium Oxide 400 mg 11/01/24 09:00 11/04/24 08:39 Magnesium Oxide 400 Mg Tablet PO 400 mg DAILY JATINDER Administration Metoprolol Tartrate 25 mg 11/02/24 08:30 11/04/24 14:28 Metoprolol Tartrate 25 Mg Tablet PO 25 mg Q8HR JATINDER Administration Ondansetron HCl 4 mg 10/31/24 07:27 11/04/24 02:31 Ondansetron Inj 4 Mg/2 Ml Vial IV PUSH 4 mg Q6H PRN Administration Nausea And Vomiting Pantoprazole Sodium 40 mg 11/01/24 09:00 11/04/24 08:39 Pantoprazole 40 Mg Tablet PO 40 mg QAM JATINDER Administration Polyethylene Glycol 17 gm 11/03/24 09:00 11/04/24 08:39 Polyethylene Glycol 3350 17 Gm Powd.Pack PO Not Given QAM JATINDER Psyllium Hydrophilic Mucilloid 1 packet 11/03/24 09:00 11/04/24 08:39 Psyllium Powder Packet PO Not Given QAM JATINDER Senna/Docusate Sodium 1 tab 11/02/24 21:00 11/03/24 21:37 Senna/Docusate Sodium Tablet PO 1 tab HS JATINDER Administration Sodium Chloride 20 ml 10/31/24 06:51 Central Line Flush IV PUSH PRN PRN after blood draws Radiology Results: ITS Impressions Chest/Abdomen/Pelvis CT 11/03/24 15:33 IMPRESSION: Cardiomegaly with mediastinal and hilar lymphadenopathy and a small left-sided pleural effusion, increased from prior. Partially obstructing small bowel containing umbilical hernia, an interval change from prior. Small Bowel X-Ray 11/04/24 12:08 IMPRESSION: 1. Normal appearing small bowel with normal transit time to the colon. 2. Moderate to large amount of colonic stool. Correlate clinically for constipation. Quality VTE Prophylaxis VTE prophylaxis: pharmacologic ordered
[2024-11-04] MEDS: SENNA/DOCUSATE SODIUM TABLET 1 TAB PO (20:18)
[2024-11-05] VITALS (16 sets, daily range): BP systolic 119–148; BP diastolic 60–77; PULSE 70–102; RESP 16–20; TEMP 36.6–37.6; O2SAT 95–100
[2024-11-05 05:37] LABS: Basophils Percent Auto 0.4 % (0.2-1.2); Eosinophils Absolute Auto 0.1 K/mm3 (0-0.3); Hematocrit 31.5 % (37.0-47.0); Hemoglobin 10.5 g/dL (12.0-15.0); Immature Granulocyte Absolute 0.03 K/mm3 (0.00-0.031); Immature Granulocyte Percent A 0.4 % (0-0.5); Lymphocytes Percent Auto 14.7 % (18.3-44.2); Mean Corpuscular HGB Conc 33.3 g/dl (32-36); Mean Corpuscular Hemoglobin 29.2 pg (26-34); Mean Corpuscular Volume 87.7 fl (80-100); Mean Platelet Volume 9.5 fl (7.4-10.4); Monocytes Absolute Auto 1.4 K/mm3 (0.1-0.6); Monocytes Percent Auto 17.2 % (2.6-8.5); Neutrophils Absolute Auto 5.4 K/mm3 (1.3-6.7); Neutrophils Percent Auto 66.3 % (45.5-73.1); Platelet Count Result 214 k/mm3 (150-375); Red Blood Count 3.59 M/mm3 (4.2-5.4); Red Cell Distribution Width 13.6 % (11.5-14.5); White Blood Count 8.2 K/mm3 (4.5-10.0)
[2024-11-05 05:50] LABS: Alanine Aminotransferase 19 U/L (6-35); Albumin Level 3.6 g/dL (3.5-5.1); Alkaline Phosphatase 34 U/L (38-126); Anion Gap 7 mmol/L (4-12); Aspartate Amino Transferase 24 U/L (14-36); Bilirubin,Total 0.6 mg/dL (0.2-1.3); Blood Urea Nitrogen 14 mg/dL (7-17); Calcium 8.7 mg/dL (8.4-10.2); Carbon Dioxide 31 mmol/L (22-30); Chloride 98 mmol/L (98-107); Estimated CRCL calculation 44 ml/min; Estimated Glomerular Filt Rate > 60; Glucose 92 mg/dL (65-110); Magnesium 1.8 mg/dL (1.6-2.3); Sodium 136 mmol/L (137-145)
[2024-11-05 05:53] LABS: Lactic Acid Reflex 0.6 mmol/L (0.7-2.0)
[2024-11-05] MEDS: ACETAMINOPHEN 325 MG TABLET 650 MG PO (06:00)
[2024-11-05] MEDS: METOPROLOL TARTRATE 25 MG TABLET PO ×3 (06:00→22:07)
--- NOTE | 2024-11-05 08:08 | PM.PNCARD ---
Progress Note: A&P Assessment and Plan (1) Mobitz type 1 second degree AV block: Code(s): I44.1 - Atrioventricular block, second degree Status: Inactive Assessment and Plan: Intermittent exacerbated by abdominal pain and her home medication of Metoprolol and Verapamil. Will hold Metoprolol and Verapamil. Monitor HR and BP. No need for pacemaker at this time. 10/31/24 Echo: EF 55-60%, grade III diastolic dysfunction (E/e' 9), mild MR/TR/PI. On Metoprolol Tartate 25 mg TID to treat and prevent tachycardia/PSVT. 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 (2) Paroxysmal supraventricular tachycardia: Onset Date: 05/13/18 Code(s): I47.1 - Supraventricular tachycardia Status: Acute (3) Chest discomfort: Code(s): R07.89 - Other chest pain Status: Acute Assessment and Plan: Probably musculoskeletal. (4) Benign essential HTN: Code(s): I10 - Essential (primary) hypertension Status: Acute Assessment and Plan: Stable. No need for Verapamil. (5) Epigastric pain: Code(s): R10.13 - Epigastric pain Status: Acute Assessment and Plan: Due to enteritis. Subjective Date/time seen: 11/05/24 08:08 Interval history: Denies chest pain or sob. No abdominal pain today. Exam Const: General: cooperative, healthy appearing and comfortable Orientation/consciousness: oriented to person, oriented to place and oriented to time Resp: Auscultation: clear to auscultation bilaterally, no crackles, no rales, no rhonchi and no wheezes Cardio: Rate: regular rate Rhythm: regular rhythm Heart sounds: no murmurs Peripheral pulses: dorsalis pedis present Neuro: General: oriented to person, oriented to place and oriented to time Extrem: Right lower extremity: no edema Left lower extremity: no edema Objective Data Vital Signs Vital Signs: Vital Signs - 24 hr 11/04/24 08:40 11/04/24 12:00 11/04/24 14:28 Temperature Pulse Rate 113 H 117 H Respiratory Rate Blood Pressure Pulse Oximetry Oxygen Delivery Room Air 11/04/24 16:00 11/04/24 17:04 11/04/24 20:01 Temperature 98.5 F Pulse Rate 96 103 H 104 H Respiratory Rate 16 Blood Pressure 139/89 Pulse Oximetry 100 Oxygen Delivery 11/04/24 20:20 11/04/24 20:51 11/04/24 21:23 Temperature 99.4 F Pulse Rate 97 95 Respiratory Rate 20 Blood Pressure 133/79 Pulse Oximetry 96 Oxygen Delivery Room Air 11/05/24 00:00 11/05/24 00:04 11/05/24 04:00 Temperature 98.5 F Pulse Rate 94 102 H 100 Respiratory Rate 16 Blood Pressure 126/61 Pulse Oximetry 96 Oxygen Delivery 11/05/24 06:00 11/05/24 06:15 Temperature 98.3 F Pulse Rate 91 89 Respiratory Rate 20 Blood Pressure 122/64 Pulse Oximetry 96 Oxygen Delivery Intake/Output Intake/Output: Intake & Output 11/02/24 11/03/24 11/04/24 11/05/24 23:59 23:59 23:59 23:59 Intake Total 1550 1470 2272.5 500 Output Total 2500 Balance -950 1470 2272.5 500 Meds/Results Medications: Active Medications Generic Name Dose Route Start Last Admin Trade Name Freq PRN Reason Stop Dose Admin Acetaminophen 650 mg 10/31/24 05:19 11/05/24 06:00 Acetaminophen 325 Mg Tablet PO 650 mg Q4H PRN Administration Mild Pain (1-3) or Fever Cyclosporine 1 drop 10/31/24 21:00 11/04/24 20:18 Cyclosporine 0.4 Ml Ophth Solution EACH EYE 1 drop Q12HR JATINDER Administration Enoxaparin Sodium 40 mg 10/31/24 09:00 11/04/24 08:39 Enoxaparin 40 Mg/0.4 Ml Syringe SUB-Q 40 mg DAILY JATINDER Administration Sodium Chloride 1,000 mls @ 75 mls/hr 11/03/24 17:35 11/04/24 21:24 Normal Saline Iv IV CONT 75 mls/hr .[id number] JATINDER Administration Magnesium Oxide 400 mg 11/01/24 09:00 11/04/24 08:39 Magnesium Oxide 400 Mg Tablet PO 400 mg DAILY JATINDER Administration Metoprolol Tartrate 25 mg 11/02/24 08:30 11/05/24 06:00 Metoprolol Tartrate 25 Mg Tablet PO 25 mg Q8HR JATINDER Administration Ondansetron HCl 4 mg 10/31/24 07:27 11/04/24 02:31 Ondansetron Inj 4 Mg/2 Ml Vial IV PUSH 4 mg Q6H PRN Administration Nausea And Vomiting Pantoprazole Sodium 40 mg 11/01/24 09:00 11/04/24 08:39 Pantoprazole 40 Mg Tablet PO 40 mg QAM JATINDER Administration Polyethylene Glycol 17 gm 11/03/24 09:00 11/04/24 08:39 Polyethylene Glycol 3350 17 Gm Powd.Pack PO Not Given QAM JATINDER Psyllium Hydrophilic Mucilloid 1 packet 11/03/24 09:00 11/04/24 08:39 Psyllium Powder Packet PO Not Given QAM JATINDER Senna/Docusate Sodium 1 tab 11/02/24 21:00 11/04/24 20:18 Senna/Docusate Sodium Tablet PO 1 tab HS JATINDER Administration Sodium Chloride 20 ml 10/31/24 06:51 Central Line Flush IV PUSH PRN PRN after blood draws Radiology Results: ITS Impressions Chest/Abdomen/Pelvis CT 11/03/24 15:33 IMPRESSION: Cardiomegaly with mediastinal and hilar lymphadenopathy and a small left-sided pleural effusion, increased from prior. Partially obstructing small bowel containing umbilical hernia, an interval change from prior. Small Bowel X-Ray 11/04/24 12:08 IMPRESSION: 1. Normal appearing small bowel with normal transit time to the colon. 2. Moderate to large amount of colonic stool. Correlate clinically for constipation. Labs Labs: Laboratory Results - last 24 hr 11/05/24 05:19 WBC 8.2 RBC 3.59 L Hgb 10.5 L Hct 31.5 L MCV 87.7 MCH 29.2 MCHC 33.3 RDW 13.6 Plt Count 214 MPV 9.5 Immature Gran % (Auto) 0.4 Neut % (Auto) 66.3 Lymph % (Auto) 14.7 L [place] % (Auto) 17.2 H Eos % (Auto) 1.0 Baso % (Auto) 0.4 Lymph # (Auto) 1.20 [place] # (Auto) 1.4 H Eos # (Auto) 0.1 Baso # (Auto) 0.0 Abs Immat Gran (auto) 0.03 Absolute Neuts (auto) 5.4 Absolute Nucleated RBC 0.000 Nucleated RBC % 0.0 Sodium 136 L Potassium 3.0 L Chloride 98 Carbon Dioxide 31 H Anion Gap 7 BUN 14 Creatinine 0.74 Estim Creat Clear Calc 44 Estimated GFR > 60 Glucose 92 Lactic Acid 0.6 L Calcium 8.7 Magnesium 1.8 Total Bilirubin 0.6 AST 24 ALT 19 Alkaline Phosphatase 34 L Total Protein 6.0 L Albumin 3.6
[2024-11-05] MEDS: ENOXAPARIN 40 MG/0.4 ML SYRINGE SUB-Q (09:21)
[2024-11-05] MEDS: polyethylene glycoL 3350 17 GM POWD.PACK PO (09:23)
[2024-11-05] MEDS: cycloSPORINE 0.4 ML OPHTH SOLUTION 1 DROP EACH EYE ×2 (09:24→20:23)
[2024-11-05] MEDS: MAGNESIUM OXIDE 400 MG TABLET PO (09:25)
[2024-11-05] MEDS: PANTOPRAZOLE 40 MG TABLET PO (09:26)
--- NOTE | 2024-11-05 10:32 | WPDPN ---
Progress Note: A&P Assessment and Plan (1) Umbilical hernia: Code(s): K42.9 - Umbilical hernia without obstruction or gangrene Status: Acute Assessment and Plan: easily reducible, will follow-up as outpatient to discuss repair in the future (2) Enteritis: Code(s): K52.9 - Noninfective gastroenteritis and colitis, unspecified Status: Acute Assessment and Plan: resolved, no signs or symptoms of obstruction on small bowel series, no acute surgical issues, will sign off, call with questions or issues Subjective Date/time seen: 11/05/24 10:32 Interval history: feels good, multiple BMs overnight, john diet Review of Systems Review of Systems: All systems reviewed & are unremarkable except as noted in HPI and below Exam Const: General: cooperative, comfortable and no acute distress Resp: Auscultation: clear to auscultation bilaterally Cardio: Rate: regular rate Rhythm: regular rhythm GI: Inspection: normal to inspection and non-distended GI Palp: No abdominal tenderness, Yes Soft to palpation, No Tenderness to palpation present (GI), No Guarding due to palpation present (GI), No Rigid due to palpation and Yes Hernia present Other: Small umbilical hernia - easily reducible Objective Data Vital Signs Vital Signs: Vital Signs - 24 hr 11/04/24 12:00 11/04/24 14:28 11/04/24 16:00 Temperature Pulse Rate 113 H 117 H 96 Respiratory Rate Blood Pressure Pulse Oximetry Oxygen Delivery 11/04/24 17:04 11/04/24 20:01 11/04/24 20:20 Temperature 36.9 C Pulse Rate 103 H 104 H Respiratory Rate 16 Blood Pressure 139/89 Pulse Oximetry 100 Oxygen Delivery Room Air 11/04/24 20:51 11/04/24 21:23 11/05/24 00:00 Temperature 37.4 C 36.9 C Pulse Rate 97 95 94 Respiratory Rate 20 16 Blood Pressure 133/79 126/61 Pulse Oximetry 96 96 Oxygen Delivery 11/05/24 00:04 11/05/24 04:00 11/05/24 06:00 Temperature Pulse Rate 102 H 100 91 Respiratory Rate Blood Pressure Pulse Oximetry Oxygen Delivery 11/05/24 06:15 11/05/24 08:00 Temperature 36.8 C 36.6 C Pulse Rate 89 70 Respiratory Rate 20 18 Blood Pressure 122/64 119/60 Pulse Oximetry 96 96 Oxygen Delivery Intake/Output Intake/Output: Intake & Output 11/02/24 11/03/24 11/04/24 11/05/24 23:59 23:59 23:59 23:59 Intake Total 1550 1470 2272.5 980 Output Total 2500 Balance -950 1470 2272.5 980 Meds/Results Medications: Active Medications Generic Name Dose Route Start Last Admin Trade Name Freq PRN Reason Stop Dose Admin Acetaminophen 650 mg 10/31/24 05:19 11/05/24 06:00 Acetaminophen 325 Mg Tablet PO 650 mg Q4H PRN Administration Mild Pain (1-3) or Fever Cyclosporine 1 drop 10/31/24 21:00 11/05/24 09:24 Cyclosporine 0.4 Ml Ophth Solution EACH EYE 1 drop Q12HR JATINDER Administration Enoxaparin Sodium 40 mg 10/31/24 09:00 11/05/24 09:21 Enoxaparin 40 Mg/0.4 Ml Syringe SUB-Q 40 mg DAILY JATINDER Administration Sodium Chloride 1,000 mls @ 75 mls/hr 11/03/24 17:35 11/04/24 21:24 Normal Saline Iv IV CONT 75 mls/hr .[id number] JATINDER Administration Magnesium Oxide 400 mg 11/01/24 09:00 11/05/24 09:25 Magnesium Oxide 400 Mg Tablet PO 400 mg DAILY JATINDER Administration Metoprolol Tartrate 25 mg 11/02/24 08:30 11/05/24 06:00 Metoprolol Tartrate 25 Mg Tablet PO 25 mg Q8HR JATINDER Administration Ondansetron HCl 4 mg 10/31/24 07:27 11/04/24 02:31 Ondansetron Inj 4 Mg/2 Ml Vial IV PUSH 4 mg Q6H PRN Administration Nausea And Vomiting Pantoprazole Sodium 40 mg 11/01/24 09:00 11/05/24 09:26 Pantoprazole 40 Mg Tablet PO 40 mg QAM JATINDER Administration Polyethylene Glycol 17 gm 11/03/24 09:00 11/05/24 09:23 Polyethylene Glycol 3350 17 Gm Powd.Pack PO 17 gm QAM JATINDER Administration Psyllium Hydrophilic Mucilloid 1 packet 11/03/24 09:00 11/05/24 09:26 Psyllium Powder Packet PO Not Given QAM JATINDER Senna/Docusate Sodium 1 tab 11/02/24 21:00 11/04/24 20:18 Senna/Docusate Sodium Tablet PO 1 tab HS JATINDER Administration Sodium Chloride 20 ml 10/31/24 06:51 Central Line Flush IV PUSH PRN PRN after blood draws Radiology Results: ITS Impressions Chest/Abdomen/Pelvis CT 11/03/24 15:33 IMPRESSION: Cardiomegaly with mediastinal and hilar lymphadenopathy and a small left-sided pleural effusion, increased from prior. Partially obstructing small bowel containing umbilical hernia, an interval change from prior. Small Bowel X-Ray 11/04/24 12:08 IMPRESSION: 1. Normal appearing small bowel with normal transit time to the colon. 2. Moderate to large amount of colonic stool. Correlate clinically for constipation. Labs Labs: Laboratory Results - last 24 hr 11/05/24 05:19 WBC 8.2 RBC 3.59 L Hgb 10.5 L Hct 31.5 L MCV 87.7 MCH 29.2 MCHC 33.3 RDW 13.6 Plt Count 214 MPV 9.5 Immature Gran % (Auto) 0.4 Neut % (Auto) 66.3 Lymph % (Auto) 14.7 L [place] % (Auto) 17.2 H Eos % (Auto) 1.0 Baso % (Auto) 0.4 Lymph # (Auto) 1.20 [place] # (Auto) 1.4 H Eos # (Auto) 0.1 Baso # (Auto) 0.0 Abs Immat Gran (auto) 0.03 Absolute Neuts (auto) 5.4 Absolute Nucleated RBC 0.000 Nucleated RBC % 0.0 Sodium 136 L Potassium 3.0 L Chloride 98 Carbon Dioxide 31 H Anion Gap 7 BUN 14 Creatinine 0.74 Estim Creat Clear Calc 44 Estimated GFR > 60 Glucose 92 Lactic Acid 0.6 L Calcium 8.7 Magnesium 1.8 Total Bilirubin 0.6 AST 24 ALT 19 Alkaline Phosphatase 34 L Total Protein 6.0 L Albumin 3.6
--- NOTE | 2024-11-05 13:58 | PM.DS ---
DS: Admitting Diagnosis Discharge Date 11/05/24 Admitting Diagnosis abdominal pains DS: Discharge Diagnosis Discharge Diagnosis (1) Mediastinal lymphadenopathy: Code(s): R59.0 - Localized enlarged lymph nodes Status: Acute (2) Enteritis: Code(s): K52.9 - Noninfective gastroenteritis and colitis, unspecified Status: Acute DS: Summary Hospital Course Hospital Course: Pt transferred from [place] for higher level of care. PMH of htn, history of Mobitz type 1 second-degree AV block, constipation, paroxysmal supraventricular tachycardia, hyperlipidemia, general anxiety disorder ct abdo shows - Findings suggestive of nonspecific small bowel enteritis. pt found to be bradycardiac on admission with low bp admitted to icu started on albumin and iv fluids and iv abx for enteritis Patient was managed with abx and IVF and hypotension resolved. Eventually she was went into Supraventicular tachycardia. Cardiology was consulted and patient was placed on metoprolol 25mg tid which controlled heart rate. While awaiting for discharge 2 days ago she had abd pain and CT Chest and AP showed hilar lymphadenopathy and SBO with hernia. Pulm and Gen surgery were consulted. Surgery noted that hernia was easily reducible, f/u Small bowel series showed no obstruction and patient is tolerating po intake. GEn surgery noted outpatient follow up. Pulmonology evaluated and noted outpatient follow up. F/u with PCp in 3-5 days F/u with Pulmonology and Gen surgery as instructed. Time Spent with Patient Time attestation: Total time spent providing and/or coordinating discharge services: DS: Data Data Completed and Pending Labs on day of discharge: Labs from last 24 hours 11/05/24 05:19 WBC 8.2 RBC 3.59 L Hgb 10.5 L Hct 31.5 L MCV 87.7 MCH 29.2 MCHC 33.3 RDW 13.6 Plt Count 214 MPV 9.5 Immature Gran % (Auto) 0.4 Neut % (Auto) 66.3 Lymph % (Auto) 14.7 L [place] % (Auto) 17.2 H Eos % (Auto) 1.0 Baso % (Auto) 0.4 Lymph # (Auto) 1.20 [place] # (Auto) 1.4 H Eos # (Auto) 0.1 Baso # (Auto) 0.0 Abs Immat Gran (auto) 0.03 Absolute Neuts (auto) 5.4 Absolute Nucleated RBC 0.000 Nucleated RBC % 0.0 Sodium 136 L Potassium 3.0 L Chloride 98 Carbon Dioxide 31 H Anion Gap 7 BUN 14 Creatinine 0.74 Estim Creat Clear Calc 44 Estimated GFR > 60 Glucose 92 Lactic Acid 0.6 L Calcium 8.7 Magnesium 1.8 Total Bilirubin 0.6 AST 24 ALT 19 Alkaline Phosphatase 34 L Total Protein 6.0 L Albumin 3.6 Preliminary micro results at discharge 10/31/24 08:09 Blood Culture - Preliminary Blood 10/31/24 08:03 Blood Culture - Preliminary Blood Discharge Plan Discharge Attending physician on discharge: Philly Leon Consulting providers: Ese Martinez; John Ray; Maya Queen; Dustin Moreno Discharging Clinician: Philly Leon Anticipated Discharge Date/Time: 11/03/24 14:25 Patient Disposition: Home, Self-Care Activity: as tolerated Diet: heart healthy Patient Instructions: Antibiotic Form Patient Language: Czech Stand Alone Forms: General Discharge Information Follow-up/Referrals: Elliot Tran DO [Primary Care Provider] - (F/u with PCP in 3-5 days ) Maya Queen MD [Physician] - 2 Weeks John Ray DO [Physician] - (F/u with cardiology as instructed ) Discharge Medications: New amoxicillin-pot clavulanate 875-125 mg tablet 1 tablet PO Q12H 2 Days Qty: 4 0RF metoprolol tartrate 25 mg tablet 25 mg PO TID 30 Days Qty: 90 1RF Continued psyllium [Metamucil] 1 tbsp PO DAILY polyethylene glycol 3350 [Miralax] 17 gram/dose powder 17 g PO BID magnesium oxide 400 mg magnesium tablet 400 mg PO DAILY [id number]-iwil-lutein Tablet 1 mcg PO DAILY cyclosporine [Restasis] 0.05 % dropperette 1 drp EACH EYE Q12H calcium carbonate-vitamin D3 600 mg-10 mcg (400 unit) capsule 2 cap PO BIDWMEAL Qty: 180 2RF zoledronic adac-ceedonmd-pumld [Reclast] 5 mg/100 mL piggyback 1 ea IV .annually Qty: 100 0RF Rx Instructions: Due after 01/10/2022. Repeat yearly. chlorthalidone 25 mg tablet See Rx Instructions .ROUTE .COMPLEX Qty: 90 3RF Dose Instruction: TAKE ONE TABLET BY MOUTH DAILY Rx Instructions: TAKE ONE TABLET BY MOUTH DAILY omeprazole 40 mg capsule,delayed release(DR/EC) See Rx Instructions .ROUTE .COMPLEX Qty: 30 0RF Dose Instruction: TAKE ONE CAPSULE BY MOUTH DAILY Rx Instructions: TAKE ONE CAPSULE BY MOUTH DAILY Discontinued metoprolol succinate 25 mg tablet extended release 24 hr 25 mg PO BID verapamil 120 mg tablet extended release See Rx Instructions .ROUTE .COMPLEX Qty: 90 0RF Dose Instruction: TAKE ONE TABLET BY MOUTH TWICE A DAY Rx Instructions: TAKE ONE TABLET BY MOUTH TWICE A DAY Date of admission: 10/31/24 05:26 Primary Care Provider: Elliot Tran Admitting Provider: Romana Landaverde Attending physician on admission: Romana Landaverde Condition: Improved
[2024-11-05] MEDS: SENNA/DOCUSATE SODIUM TABLET 1 TAB PO (20:23)
[2024-11-06] VITALS (7 sets, daily range): BP systolic 127–142; BP diastolic 72–74; PULSE 74–108; RESP 16–18; TEMP 37.3; O2SAT 95–98
[2024-11-06] MEDS: ACETAMINOPHEN 325 MG TABLET 650 MG PO (04:30)
[2024-11-06] MEDS: METOPROLOL TARTRATE 25 MG TABLET PO (06:08)
[2024-11-06 07:54] LABS: Hematocrit 31.7 % (37.0-47.0); Hemoglobin 10.2 g/dL (12.0-15.0); Mean Corpuscular HGB Conc 32.2 g/dl (32-36); Mean Corpuscular Hemoglobin 28.3 pg (26-34); Mean Corpuscular Volume 87.8 fl (80-100); Mean Platelet Volume 9.4 fl (7.4-10.4); Platelet Count Result 236 k/mm3 (150-375); Red Blood Count 3.61 M/mm3 (4.2-5.4); Red Cell Distribution Width 13.3 % (11.5-14.5); White Blood Count 6.5 K/mm3 (4.5-10.0)
--- NOTE | 2024-11-06 08:02 | PM.DS ---
DS: Admitting Diagnosis Discharge Date 11/06/2024 Admitting Diagnosis abdominal pain DS: Discharge Diagnosis Discharge Diagnosis (1) Enteritis: Code(s): K52.9 - Noninfective gastroenteritis and colitis, unspecified Status: Acute Assessment and Plan: Clinically resolved (2) Paroxysmal supraventricular tachycardia: Onset Date: 05/13/18 Code(s): I47.1 - Supraventricular tachycardia Status: Acute Assessment and Plan: Controlled with low-dose beta-esau Mobitz I block was due to higher dose AV node blockers and resolved (3) Umbilical hernia: Code(s): K42.9 - Umbilical hernia without obstruction or gangrene Status: Acute Assessment and Plan: Was easily reduced with resolution of SBO (4) Mediastinal lymphadenopathy: Code(s): R59.0 - Localized enlarged lymph nodes Status: Acute Assessment and Plan: Outpatient f/u pending (5) Benign essential HTN: Code(s): I10 - Essential (primary) hypertension Status: Acute Assessment and Plan: Controlled DS: Summary Hospital Course Hospital Course: Transferred from [facility] for higher level of care. Mobitz type 1 second-degree AV block at admission resolved with holding AV marge blockers. ct abdo shows - Findings suggestive of nonspecific small bowel enteritis. Bradycardiac on admission with low bp. Antihypertensives held. Admitted to icu started on albumin and iv fluids and iv antibiotics for enteritis. Hypotension resolved. Supraventricular tachycardia recurred. Cardiology was consulted and patient was placed on metoprolol 25mg tid which controlled heart rate. While awaiting for discharge 3 days ago she had abdominal pain and CT Chest and AP showed hilar lymphadenopathy and possible SBO with umbilical hernia. Pulmonology and General surgery were consulted. Surgery noted that hernia was easily reducible. Small bowel series showed no obstruction and patient is tolerating po intake. Bowels finally moved 3 AM. Surgeon recommended outpatient follow up for hernia. Pulmonology recommended outpatient follow up for mediastinal adenopathy. Time Spent with Patient Time attestation: Total time spent providing and/or coordinating discharge services: Exam Narrative: General: Pleasant female in no acute distress HEENT:? Pupils equal and reactive, sclera is clear, moist oral mucosa Neck:? No JVD Respiratory:? Clear to auscultation bilaterally, no wheezing, adequate air and Cardiac:? S1-S2 normal, regular rate, no audible murmur Abdomen:? Soft, nontender, nondistended normoactive bowel sounds, small umbilical hernia that is reduced Extremities:? No edema, palpable pedal pulses Neuro:? Patient is awake, alert, oriented x4, CN symmetric to inspection Skin:? No skin lesions noted Psych:? Normal mentation and affect DS: Data Data Completed and Pending Labs on day of discharge: Labs from last 24 hours 11/06/24 07:44 WBC 6.5 RBC 3.61 L Hgb 10.2 L Hct 31.7 L MCV 87.8 MCH 28.3 MCHC 32.2 RDW 13.3 Plt Count 236 MPV 9.4 Sodium Pending Potassium Pending Chloride Pending Carbon Dioxide Pending Anion Gap Pending BUN Pending Creatinine Pending Estim Creat Clear Calc Pending Estimated GFR Pending Glucose Pending Calcium Pending Magnesium Pending Discharge Plan Discharge Attending physician on discharge: Philly Leon Consulting providers: Ese Martinez; John Ray; Maya Queen; Dustin Moreno Discharging Clinician: Philly Leon Anticipated Discharge Date/Time: 11/03/24 14:25 Patient Disposition: Home, Self-Care Activity: as tolerated Diet: heart healthy Patient Instructions: Antibiotic Form Patient Language: Swedish Stand Alone Forms: General Discharge Information Follow-up/Referrals: Elliot Tran DO [Primary Care Provider] - (F/u with PCP in 3-5 days ) Maya Queen MD [Physician] - 2 Weeks John Ray DO [Physician] - (F/u with cardiology as instructed ) Discharge Medications: New amoxicillin-pot clavulanate 875-125 mg tablet 1 tablet PO Q12H 2 Days Qty: 4 0RF metoprolol tartrate 25 mg tablet 25 mg PO TID 30 Days Qty: 90 1RF Continued psyllium [Metamucil] 1 tbsp PO DAILY polyethylene glycol 3350 [Miralax] 17 gram/dose powder 17 g PO BID magnesium oxide 400 mg magnesium tablet 400 mg PO DAILY ghptvovx-rocjeyi-rdqb-lutein Tablet 1 mcg PO DAILY cyclosporine [Restasis] 0.05 % dropperette 1 drp EACH EYE Q12H calcium carbonate-vitamin D3 600 mg-10 mcg (400 unit) capsule 2 cap PO BIDWMEAL Qty: 180 2RF zoledronic ekml-tspghsgl-ssuck [Reclast] 5 mg/100 mL piggyback 1 ea IV .annually Qty: 100 0RF Rx Instructions: Due after 01/10/2022. Repeat yearly. chlorthalidone 25 mg tablet See Rx Instructions .ROUTE .COMPLEX Qty: 90 3RF Dose Instruction: TAKE ONE TABLET BY MOUTH DAILY Rx Instructions: TAKE ONE TABLET BY MOUTH DAILY omeprazole 40 mg capsule,delayed release(DR/EC) See Rx Instructions .ROUTE .COMPLEX Qty: 30 0RF Dose Instruction: TAKE ONE CAPSULE BY MOUTH DAILY Rx Instructions: TAKE ONE CAPSULE BY MOUTH DAILY Discontinued metoprolol succinate 25 mg tablet extended release 24 hr 25 mg PO BID verapamil 120 mg tablet extended release See Rx Instructions .ROUTE .COMPLEX Qty: 90 0RF Dose Instruction: TAKE ONE TABLET BY MOUTH TWICE A DAY Rx Instructions: TAKE ONE TABLET BY MOUTH TWICE A DAY Date of admission: 10/31/24 05:26 Primary Care Provider: Elliot Tran Admitting Provider: Romana Landaverde Attending physician on admission: Romana Landaverde Condition: Improved
[2024-11-06 08:03] LABS: Anion Gap 6 mmol/L (4-12); Blood Urea Nitrogen 12 mg/dL (7-17); Calcium 8.6 mg/dL (8.4-10.2); Carbon Dioxide 33 mmol/L (22-30); Chloride 93 mmol/L (98-107); Estimated CRCL calculation 47 ml/min; Estimated Glomerular Filt Rate > 60; Glucose 112 mg/dL (65-110); Magnesium 1.5 mg/dL (1.6-2.3); Potassium 3.3 mmol/L (3.4-5.0); Sodium 132 mmol/L (137-145)
[2024-11-06] MEDS: MAGNESIUM OXIDE 400 MG TABLET PO (08:08)
[2024-11-06] MEDS: ENOXAPARIN 40 MG/0.4 ML SYRINGE SUB-Q (08:08)
[2024-11-06] MEDS: polyethylene glycoL 3350 17 GM POWD.PACK PO (08:08)
[2024-11-06] MEDS: PANTOPRAZOLE 40 MG TABLET PO (08:08)
[2024-11-06] MEDS: cycloSPORINE 0.4 ML OPHTH SOLUTION 1 DROP EACH EYE (08:09)
== END 2024-11-06 15:43 | disposition home or self-care (01) | DRG 872 ==
LOC: ANHICU 11-01 16:16 → ANH2MED 11-03 11:30 → ANHICU 11-08 13:10 → ANHIMU 11-08 13:10
PROVIDERS: Internal Medicine; Admitting Provider Internal Medicine; PCP Family Medicine; Visit Provider Internal Medicine
DX: A41.9 Sepsis, unspecified organism (principal); E87.1 Hypo-osmolality and hyponatremia; I47.10 Supraventricular tachycardia, unspecified; K52.9 Noninfective gastroenteritis and colitis, unspecified; I44.1 Atrioventricular block, second degree; I95.9 Hypotension, unspecified; I10 Essential (primary) hypertension; K42.9 Umbilical hernia without obstruction or gangrene; R07.89 Other chest pain; R59.0 Localized enlarged lymph nodes; E78.5 Hyperlipidemia, unspecified; M81.0 Age-related osteoporosis without current pathological fracture; K59.00 Constipation, unspecified; F41.1 Generalized anxiety disorder; Z20.822 Contact with and (suspected) exposure to COVID-19; Z86.0101 Personal history of adenomatous and serrated colon polyps; Z85.3 Personal history of malignant neoplasm of breast; Z85.818 Personal history of malignant neoplasm of other sites of lip, oral cavity, and pharynx
CPT/HCPCS: 36415; 71250; 74176; 74250; 80048; 80053; 82728; 82948; 83540; 83550; 83605; 83735; 84100; 85025; 85027; 87040; 87641; 93005; 93306; A9270; J1650; J2405; J2470; J2543; J7030; J7040; J7120; P9047

== ENCOUNTER 2024-11-17 15:07 | Outpatient (NON) | payer MEDICARE, SELFPAY ==
--- OUTSIDE RECORDS SUMMARY | 2024-11-17 15:26 | XMS_ITS | Clinical Summary ---
Author Organization [facility] Address [address] [place] [address] Care Team Providers Care Healthcare Administrator Name Role Phone Yung Henderson MD Unavailable [phone] Elliot Tran DO Unavailable [phone] Elliot Tran DO Primary Care Provider [phone] Dottie Parisi MD Unavailable Allergies Active Allergy Reactions Criticality Noted Date Comments Sulfamethoxazole Rash Low 09/27/2018 Medications Calcium Citrate-Vitami n D (CALCIUM CITRATE + D OR) Take 1 tablet by mouth 2 (two) times daily. 3 Active lorazepam 0.5 MG tablet Take 1 tablet (0.5 mg total) by mouth every 6 (six) hours as needed for Anxiety. Active multi vitamin/minera ls (THERA-M ENHANCED) tablet Take 1 tablet by mouth daily. Active Magnesium 500 MG Tab Take 500 mg by mouth daily. Active Carboxymethylc ellulose Sodium (THERATEARS OP) Apply 1 drop to eye daily. Active omeprazole (PRILOSEC) 40 MG capsule Take 1 capsule (40 mg total) by mouth daily. 3 Active Zoledronic Acid (RECLAST IV) yearly Active chlorthalidone (HYGROTEN) 25 MG tablet take one tablet by mouth daily 30 tablet 6 4 Active metoprolol tartrate (LOPRESSOR) 25 MG tablet Take 1.5 tablets (37.5 mg total) by mouth 3 (three) times daily. Increase metoprolol to tartrate to 37.5, 3 times daily as patient has noticed elevated heart rates towards the end of her dosing and the start of her new dose. 60 tablet 11 5 Active verapamil (CALAN SR) 120 MG ER tablet Take 1 tablet (120 mg total) by mouth 2 (two) times a day. 2 11/17/19 25 Discontinu ed(Raadin g Physician) metoprolol succinate ER (TOPROL-XL) 25 MG 24 hr tablet take one tablet by mouth twice a day 180 tablet 2 4 11/17/19 25 Discontinu ed(Reorder ) metoprolol succinate ER (TOPROL-XL) 25 MG 24 hr tablet Increase metoprolol to tartrate to 37.5, 3 times daily as patient has noticed elevated heart rates towards the end of her dosing and the start of her new dose. 180 tablet 6 5 11/17/19 Discontinu ed(Candace g Physician) Active Problems Problem Noted Date Diagnosed Date Implantable loop recorder present 09/14/2023 Syncope, unspecified syncope type 09/14/2023 PVC (premature ventricular contraction) 09/29/19 19 History of supraventricular tachycardia Hyperlipidemia Bradycardia Hypertension AV block Resolved Problems Problem Noted Date Diagnosed Date Resolved Date Pre-op evaluation 07/23/2018 04/27/2020 SVT (supraventricular tachycardia) ([facility]) 02/08/2023 Encounters Date Type Department Care Team Description 11/16/2024 12:00 PM CDT Office Visit [facility] [address] [place] [address] Dottie Parisi MD Arrived 11/16/2024 Orders Only [facility] [address] [place] [address] Dottie Parisi MD 11/16/2024 Telephone [facility] [address] [place] [address] Dottie Parisi MD Appointment Request 11/16/2024 Orders Only [facility] [address] [place] [address] Dottie Parisi MD 11/16/2024 Travel 11/16/2024 Orders Only [facility] [address] [place] [address] Dottie Parisi MD 11/15/2024 Telephone [facility] [address] [place] [address] Dottie Parisi MD Appointment Reminder 11/15/2024 Abstract [facility] [address] [place] [address] Abstract, Doc Pccl 11/10/2024 Telephone [facility] [address] [place] [address] Dottie Parisi MD Advice (Increased heart rate ) 11/06/2024 Scan [facility] [address] [place] [address] Scanned, Doc Pccl 11/05/2024 Scan [facility] [address] [place] [address] Scanned, Doc Pccl 11/04/2024 Scan [facility] [address] [place] [address] Scanned, Doc Pccl Image (SCAN) 11/03/2024 Scan [facility] [address] [place] [address] Scanned, Doc Pccl ECG (SCAN); CT (SCAN) 10/31/2024 Scan [facility] [address] [place] [address] Scanned, Doc Pccl ECG (SCAN); Echo (SCAN); Image (SCAN) 10/30/2024 Scan [facility] [address] [place] [address] Scanned, Doc Pccl ECG (SCAN); Image (SCAN); CT (SCAN) 10/25/2024 1:00 AM CDT Allied Health/Nurse Visit [facility] [address] [place] [address] Yung Henderson MD 08/30/2024 3:50 AM CUSTOMS COMPLIANCE ANALYST Allied Health/Nurse Visit [facility] [address] [place] [address] Yung Henderson MD from Last 3 Months [...] Sign Reading Time Taken Comments Blood Pressure 116/80 11/16/2024 12:02 PM CDT Pulse 68 11/16/2024 12:02 PM CDT ekg Temperature 36.3 C (97.4 F) 09/30/2022 11:14 AM CUSTOMS COMPLIANCE ANALYST Respiratory Rate 16 11/16/2024 12:02 PM CDT Oxygen Saturation 98% 11/16/2024 12:02 PM CDT Inhaled Oxygen Concentration - - Weight 63.2 kg (139 lb 6.4 oz) 11/16/2024 12:02 PM CDT Height 165.1 cm (5' 5 ) 11/16/2024 12:02 PM CDT Body Mass Index 23.2 11/16/2024 12:02 PM CDT Plan of Treatment Upcoming Encounters Date Type Department Care Team (Late st Contact Info) Description 11/22/2024 7:45 AM CDT Telephone [facility] [address] [place] [address] Dottie Parisi MD [address] [place] [address] 12/09/2024 1:00 AM CDT Allied Health/Nurse Visit [facility] [address] [place] [address] Yung Henderson MD [address] [place], [place] [address] 12/22/2024 1:45 AM CDT Allied Health/Nurse Visit [facility] [address] [place] [address] Yung Henderson MD [address] [place] [address] 01/16/2025 1:00 PM CDT Office Visit [facility] [address] [place], [place] [address] Dottie Parisi MD [address] [place], [place] [address] Health Maintenance Due Date Last Done Comments DTaP, Tdap and Td Vaccines ( 1 - Tdap) 1957 Zoster Vaccines (1 of 2) 1988 Annual Medicare Wellness Visit 2003 Pneumococcal Vaccine: 65+ Years (1 of 1 - PCV) 2003 RSV Immunization or 60+ Years (1 - 1-dose 75+ series) 2013 COVID-19 Vaccine (2023-2 5 season) 2024 07/19/2021, 10/12/2020, 09/14/2020 Meningococcal B Vaccine Aged Out No l onger eligible based on patient's age to complete this topic Meningococcal Vaccine Aged Out No kecia ling eligible based on patient's age to complete this topic RSV Immunizations Under 20 Months Aged Out No longer eligible b ased on patient's age to complete this topic Medical Devices Implanted Type Area Hand Molder And Caster Device Identifier Shelf Expiration Date Model / Serial / Lot Medtronic Linq Ii-09/30/2022 Implanted:Qt y: 1 on 09/30/2022 by Yung Henderson MD Implantable Loop Recorder Left: Pectoral [employer] 01/23/2024 [id number] / [id number] / Description:DX: SYNCOPE Procedures Procedure Name Priority Date/Time Associated Diagnosis Comments ELECTROCARDIOGRAM (NON MIDMARK ACQUIRED) Routine 11/16/2024 12:07 PM CDT History of supraventricular tachycardia CBC, MANUAL DIFF Routine 11/06/2024 IMAGE GENERIC Routine 11/04/2024 12:[address] GENERIC Routine 11/03/2024 12:00 AM CDT ECG GENERIC (SCAN ORDER) Routine 11/03/2024 12:00 AM CDT ECHO GENERIC (SCAN ORDER) Routine 10/31/2024 12:00 AM CDT ECG GENERIC (SCAN ORDER) Routine 10/31/2024 12:00 AM CDT ECG GENERIC (SCAN ORDER) Routine 10/31/2024 12:00 AM CDT IMAGE GENERIC Routine 10/31/2024 12:[address] GENERIC Routine 10/30/2024 12:00 AM CDT ECG GENERIC (SCAN ORDER) Routine 10/30/2024 12:00 AM CDT COMPREHENSIVE METABOLIC PANEL Routine 10/30/2024 CBC, MANUAL DIFF Routine 10/30/2024 MAGNESIUM Routine 10/30/2024 IMAGE GENERIC Routine 10/30/2024 12:00 AM CDT from Last 3 Months Results * ELECTROCARDIOGRAM (11/16/2024 12:07 PM CDT) 11/16/2024 12:0 7 PM CDT Narrative [facility] - 11/16/2024 1:25 PM CDT [facility] [address] [place] [address] Test Date: 2024-11-16 Pat Name: ЕЛЕНА LYNN Department: 105 Room: Gender: Female 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 : 1940 Requested By: DOTTIE PARISI Order Number: [id number] Reading MD: Dottie Parisi Measurements Intervals [place] Rate: 68 P: 69 ND: 287 QRS: -56 QRSD: 103 T: 31 QT: 415 QTc: 443 Interpretive Statements SINUS RHYTHM WITH FIRST DEGREE AV BLOCK POSSIBLE LEFT ATRIAL ENLARGEMENT LEFT AXIS DEVIATION POSSIBLE LEFT VENTRICULAR HYPERTROPHY POSSIBLE ANTEROSEPTAL MYOCARDIAL INFARCTION, OF INDETERMINATE AGE Procedure Note Dottie Parisi MD - 11/16/2024 [facility], [facility] [address] [place] [address] Test Date: 2024-11-16 Pat Name: ЕЛЕНА LYNN Department: 105 Room: Gender: Female 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 : 1940 Requested By: DOTTIE PARISI Order Number: [id number] Reading MD: Dottie Parisi Measurements Intervals [place] Rate: 68 P: 69 ND: 287 QRS: -56 QRSD: 103 T: 31 QT: 415 QTc: 443 Interpretive Statements SINUS RHYTHM WITH FIRST DEGREE AV BLOCK POSSIBLE LEFT ATRIAL ENLARGEMENT LEFT AXIS DEVIATION POSSIBLE LEFT VENTRICULAR HYPERTROPHY POSSIBLE ANTEROSEPTAL MYOCARDIAL INFARCTION, OF INDETERMINATE AGE us Dottie Parisi MD PROCEDURES-ORDERABLE NO CHARGE F inal Result [facility] * CBC, MANUAL DIFF (11/06/2024) Only the most recent of2 resultswithin the time period is included. WBC 6.5 HGB 10.2 HCT 31.7 PLT 236 Narrative Resulting Agency [place], [place] us Default History Genericprovider LABORATORY Final Result * IMAGE STUDY (11/04/2024 12:00 AM CDT) Only the most recent of3 resultswithin the time period is included. Anatomical Region Laterality Modality Other 11/04/2024 us Doc Pccl Scanned SCANNING Final Result * CT (11/03/2024 12:00 AM CDT) Only the most recent of2 resultswithin the time period is included. Anatomical Region Laterality Modality Other 11/03/2024 us Doc Pccl Scanned SCANNING Final Result * ECG (11/03/2024 12:00 AM CDT) Only the most recent of4 resultswithin the time period is included. 11/03/2024 us Doc Pccl Scanned SCANNING Final Result [facility] * ECHO (10/31/2024 12:00 AM CDT) Anatomical Region Laterality Modality Other 10/31/2024 us Doc Pccl Scanned SCANNING Final Result * COMPREHENSIVE METABOLIC PANEL (10/30/2024) SODIUM S/P/B 126 GLUCOSE 127 mg/dL AST 28 BUN 17 CREATININE S/P/B 0.97 0.5 - 1.0 CALCIUM S/P/B 9.1 POTASSIUM S/P/B 3.6 CHLORIDE S/P/B 89 ALT 29 GFR ESTIMATE 54 Narrative Result[address] Agency Comment [facility] Default History Genericprovider LABORATORY Final Result * MAGNESIUM (10/30/2024) MAGNESIUM 1.5 Narrative Result[address] Agency Comment [facility] us Default History Genericprovider LABORATORY Final Result from Last 3 Months Insurance MEDICARE MEDICARE Advance Directives * Full Code (Latest Code Status on File) Date Activated Date Inactivated Comments 08/12/2018 2:43 PM 08/12/2018 7:28 PM Care Teams Healthcare Administrator Relationship Specialty Start Date End Date Elliot Tran DO [address] [place] [address] PCP - General FAMILY PRACTICE 11/12/23 [place]ung [place] [address] EP Executive Officer Special Warfare Team CLINICAL CARDIAC ELECTROPHYSIOLOGY 06/11/22 Elliot Tran DO [address] [place] [address] [facility] 09/02/22 Dottie Parisi MD [address] [place] [address] Consulting Physician CARDIOVASCULAR DISEASE 02/21/24
--- OUTSIDE RECORDS SUMMARY | 2024-11-17 15:26 | XMS_ITS | Encounter Summary ---
Author Organization [facility] Healthcare Address [address] [place] [address] Care Team Providers Care Scrap Preparation Supervisor Name Role Phone Ilir Wahl MD Unavailable [phone] Cyril Zee MD Primary Care Provider [phone] Miscellaneous, Not In File Primary Care Provider Unavailable Randi Lopez SKI BINDING FITTER AND REPAIRER Primary Care Provide r Elliot Tran DO Primary Care Provider Encounter Details Date Type Department Care Team (Late st Contact Info) Description 09/20/2021 Telephone [facility] Radiation Oncology [address] [facility] [place] [address] Josie Torrez MA Social History Tobacco Use Types Packs/Day Years Used Date Smoking Tobacco: Never Smokeless Tobacco: Never Alcohol Use Standard Drinks/Week Comments No 0 (1 standard drink = 0.6 oz pur e alcohol) Comments No Sex and Gender Information Value Date Recorded Sex Assigned at Not on file 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 Gender Identity Not on file Sexual Orientation Not on file documented as of this encounter Plan of Treatment Not on file documented as of this encounter Visit Diagnoses Not on filedocumented in this encounter Care Teams Scrap Preparation Supervisor Relationship Specialty Start Date End Date Cyril Zee MD [address] [id number] PCP - General Obstetrics and Gynecology 11/30/20 10/15/21 Miscellaneous, Not In File PCP - General 10/16/21 10/20/21 Randi Lopez NP [address] [place] [address] PCP - General 10/21/21 10/14/22 Elliot Tran DO [address] [place] [address] PCP - General Family Medicine 10/15/22 Ilir Wahl MD [address] [facility] [address] [place] [address] Referring Physician Radiation Oncology 09/07/18 documented as of this encounter
--- OUTSIDE RECORDS SUMMARY | 2024-11-17 15:26 | XMS_ITS | Encounter Summary ---
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 Gender Identity Not on file Sexual Orientation [...] on filedocumented in this encounter Care Teams Life Specialist Relationship Specialty Start Date End Date Martín Block MD [address] [place] [address] PCP - General 06/07/20 11/29/20 Cyril Zee MD [address] [place], [place] [address] PCP - General Obstetrics and Gynecology 11/30/20 10/15/21 Miscellaneous, Not In File PCP - General 10/16/21 10/20/21 Randi Lopez NP [address] [place] [address] PCP - General 10/21/21 10/14/22 Elliot Tran DO [address] [place] [address] PCP - General Family Medicine 10/15/22 Ilir Wahl MD [address] [place] [address] Referring Physician Radiation Oncology 09/07/18 documented as of this encounter
--- OUTSIDE RECORDS SUMMARY | 2024-11-17 15:26 | XMS_ITS | Encounter Summary ---
Author Organization [facility] Healthcare Address [address] [place] [address] Care Team Providers Care Radio Board Operator Announcer Name Role Phone Ilir Wahl MD Unavailable [phone] Martín Block MD Primary Care Provider Cyril Zee MD Primary Care Provider [phone] Miscellaneous, Not In File Primary Care Provider Unavailable Randi Lopez COMMERCIAL HVAC TECHNICIAN Primary Care Provide r Elliot Tran DO Primary Care Provider Encounter Details Date Type Department Care Team (Late st Contact Info) Description 2020 Telephone [facility] Advanced Medicine Radiation Oncology [address] [place] [address] Advanced Medicine [facility] [place] [address] Josie Torrez MA Social History Tobacco Use Types Packs/Day Years Used Date Smoking Tobacco: Never Smokeless Tobacco: Never Alcohol Use Standard Drinks/Week Comments No 0 (1 standard drink = 0.6 oz pur e alcohol) Comments No Sex and Gender Information Value Date Recorded Sex Assigned at Not on file 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:39 AM ACID 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 Gender Identity Not on file Sexual Orientation Not on file documented as of this encounter Plan of Treatment Not on file documented as of this encounter Visit Diagnoses Not on filedocumented in this encounter Care Teams Radio Board Operator Announcer Relationship Specialty Start Date End Date Martín Block MD [facility] [address] [place] [address] PCP - General 06/07/20 11/29/20 Cyril Zee MD [address] [facility] [address] [place], [place] [id number] PCP - General Obstetrics and Gynecology 11/30/20 10/15/21 Miscellaneous, Not In File PCP - General 10/16/21 10/20/21 Randi Lopez NP [address] [place] [address] PCP - General 10/21/21 10/14/22 Elliot Tran DO [address] [place] [address] PCP - General Family Medicine 10/15/22 Ilir Wahl MD [address] [place] [address] Referring Physician Radiation Oncology 09/07/18 documented as of this encounter
--- OUTSIDE RECORDS SUMMARY | 2024-11-17 15:26 | XMS_ITS | Encounter Summary ---
Author Organization [facility] Address [address] [place] [address] Care Team Providers Care Communicable Disease Specialist Name Role Phone Randa Maldonado APRN, NP-C Unavailable José Miguel Gore MD Unavailable Unavailabl e Randi Lopez [employer] HELICOPTER Primary Care Provider [phone] Yung Henderson MD Unavailable [phone] Elliot Tran DO Unavailable [phone] Elliot Tran DO Primary Care Provider [phone] Martita Pride MD Unavailable Encounter Details Date Type Department Care Team (Late st Contact Info) Description 09/25/2022 Hospital Orders Only [facility] Service Representative Pre/Post [address] [place] [address] Yung Henderson MD [address] [place], [place] [address] Social History Tobacco Use Types Packs/Day Years [...] Info) Description 11/22/2024 7:45 AM CDT Telephone [facility] [address] [place] [phone] Martita Pride MD [address] [place] [address] 12/09/2024 1:00 AM CDT Allied Health/Nurse Visit [facility] [address] [place] [phone] Yung Henderson MD [address] [place] [address] 12/22/2024 1:45 AM CDT Allied Health/Nurse Visit [address] [phone] Yung Henderson MD [address] [place] [address] 01/16/2025 1:00 PM CDT Office Visit [address] [address] Martita Pride MD [address] [place] [address] documented as of this encounter Visit Diagnoses Not on filedocumented in this encounter Care Teams Communicable Disease Specialist Relationship Specialty Start Date End Date Randi Lopez FNP [address] [place] [address] PCP - General NURSE PRACTITIONER 06/09/22 11/11/23 Elliot Tran DO [address] [place] [address] PCP - General FAMILY PRACTICE 11/12/23 Randa Maldonado APRN, SURVEILLANCE OBSERVER-C [address] [place] [address] [phone] NURSE PRACTITIONER 04/26/18 02/20/24 José Miguel Gore MD [address] [place] [address] [phone] [place] Lean Leader CARDIOVASCULAR DISEASE 10/26/18 02/20/24 Yung Henderson MD [address] [place] [address] EP Lean Leader CLINICAL CARDIAC ELECTROPHYSIOLOGY 06/11/22 Elliot Tran DO [address] [place] [address] FAMILY PRACTICE 09/02/22 Martita Pride MD [address] [place] [address] Consulting Physician CARDIOVASCULAR DISEASE 02/21/24 documented as of this encounter
--- OUTSIDE RECORDS SUMMARY | 2024-11-17 15:27 | XMS_ITS | Encounter Summary ---
Author Organization [facility] Address [address] [place] [address] Care Team Providers Care As400 Analyst Name Role Phone Yung Henderson MD Unavailable [phone] Elliot Tran DO Unavailable [phone] Elliot Tran DO Primary Care Provider [phone] Martita Pride MD Unavailable Reason for Referral * Imaging (Routine) - Authorized Specialty Diagnoses / Procedures Referred By Contac t Referred To Contact Cardiology Diagnoses Bradycardia Procedures CLINIC - [id number] [facility] - Today Martita Pride MD [address] [place] [address] Phone: tel: fax: Referral ID Status Reason Start Date Expiration Date V isits Requested Visits Authorized [id number] Authorized 11/16/2024 11/16/2025 1 1 Encounter Details Date Type Department Care Team (Late st Contact Info) Description 11/16/2024 Orders Only [facility] [address] [place], [place] [address] Martita Pride MD [address] [place] [address] Social History Tobacco Use Types Packs/Day Years [...] Upcoming Encounters Date Type Department Care Team ([facility] st Contact Info) Description 11/22/2024 7:45 AM CDT Telephone [address] [address] Martita Pride MD [address] [place] [address] 12/09/2024 1:00 AM CDT Allied Health/Nurse Visit [address] [address] Yung Henderson MD [address] [place] [address] 12/22/2024 1:45 AM CDT Allied Health/Nurse Visit [address] [address] Yung Henderson MD [address] [place] [address] 01/16/2025 1:00 PM CDT Office Visit [address] [address] Martita Pride MD [address] [place] [address] Scheduled Orders Name Type Priority Associated Diagnoses Orde r Schedule [facility] - [id number] [facility] - Today EKG-NonRad Routine Bradycardia Expected: 11/16/2024, Expires: 11/16/2025 documented as of this encounter Visit Diagnoses Diagnosis Bradycardia- Primary Other specified cardiac dysrhythmias documented in this encounter Care Teams As400 Analyst Relationship Specialty Start Date End Date Elliot Tran DO [address] [place] [address] PCP - General FAMILY PRACTICE 11/12/23 Yung Henderson MD [address] [place] [address] EP Dovetailer CLINICAL CARDIAC ELECTROPHYSIOLOGY 06/11/22 Elliot Tran DO [address] [place] [address] FAMILY PRACTICE 09/02/22 Martita Pride MD [address] [place] [address] Consulting Physician CARDIOVASCULAR DISEASE 02/21/24 documented as of this encounter
--- OUTSIDE RECORDS SUMMARY | 2024-11-17 15:27 | XMS_ITS | Encounter Summary ---
Author Organization [facility] Address [address] [place] [address] Care Team Providers Care Rehabilitation Case Coordinator Name Role Phone Yung Henderson MD Unavailable [phone] Elliot Tran DO Unavailable [phone] Elliot Tran DO Primary Care Provider [phone] Martita Pride MD Unavailable Encounter Details Date Type Department Care Team (Late st Contact Info) Description 11/05/2024 [facility] [address] [place] [phone] Scanned, Doc Pccl Social History Tobacco Use Types Packs/Day Years [...] Encounters Date Type Department Care Team (Late Contact Info) Description 11/22/2024 7:45 AM CDT [facility]phone [facility] [address] [place] [phone] Martita Pride MD [address] [place], [place] [phone] 12/09/2024 1:00 AM CDT Allied Health/Nurse Visit [facility] [address] [place] [address] Yung Henderson MD [address] [place] [address] 12/22/2024 1:45 AM CDT Allied Health/Nurse Visit [facility] [address] [place] [address] Yung Henderson MD [address] [place] [address] 01/16/2025 1:00 PM CDT Office Visit [facility] [address] [place] [address] Martita Pride MD [address] [place] [address] documented as of this encounter Visit Diagnoses Not on filedocumented in this encounter Care Teams Rehabilitation Case Coordinator Relationship Specialty Start Date End Date Elliot Tran DO [address] [place] [address] PCP - General FAMILY PRACTICE 11/12/23 Yung Henderson MD [address] [place] [address] EP Public Relations Player CLINICAL CARDIAC ELECTROPHYSIOLOGY 06/11/22 Elliot Tran DO [address] [place] [address] FAMILY PRACTICE 09/02/22 Martita Pride MD [address] [place] [address] Consulting Physician CARDIOVASCULAR DISEASE 02/21/24 documented as of this encounter
--- OUTSIDE RECORDS SUMMARY | 2024-11-17 15:27 | XMS_ITS | Encounter Summary ---
Author Organization [facility] Address [address] [place] [address] Care Team Providers Care Space Systems Operations Superintendent Name Role Phone Yung Henderson MD Unavailable [phone] Elloit Tran DO Unavailable [phone] Elliot Tran DO Primary Care Provider [phone] Martita Parisi MD Unavailable Encounter Details Date Type Department Care Team (Late st Contact Info) Description 11/16/2024 12:00 PM CDT Office Visit [facility] [address] [place], [place] [address] Martita Parisi MD [address] [place], [place] [address] Arrived Social History Tobacco Use Types Packs/Day Years [...] on file documented as of this encounter Last Filed Vital Signs Vital Sign Reading Time Taken Comments Blood Pressure 116/80 11/16/2024 12:02 PM CDT Pulse 68 11/16/2024 12:02 PM CDT ekg Temperature - - Respiratory Rate 16 11/16/2024 12:02 PM CDT Oxygen Saturation 98% 11/16/2024 12:02 PM CDT Inhaled Oxygen Concentration - - Weight 63.2 kg (139 lb 6.4 oz) 11/16/2024 12:02 PM CDT Height 165.1 cm (5' 5 ) 11/16/2024 12:02 PM CDT Body Mass Index 23.2 11/16/2024 12:02 PM CDT documented in this encounter Plan of Treatment Upcoming Encounters Date Type Department Care Team (Late st Contact Info) Description 11/22/2024 7:45 AM CDT Telephone [address] [phone] Martita Parisi MD [address] [place] [address] 12/09/2024 1:00 AM CDT Allied Health/Nurse Visit [address] [phone] Yung Henderson MD [address] [place] [address] 12/22/2024 1:45 AM CDT Allied Health/Nurse Visit [address] [address] Yung Henderson MD [address] [place] [address] 01/16/2025 1:00 PM CDT Office Visit [address] [address] Martita Parisi MD [address] [place] [address] documented as of this encounter Procedures Procedure Name Priority Date/Time Associated Diagnosis Comments ELECTROCARDIOGRAM (NON MIDMARK ACQUIRED) Routine 11/16/2024 12:07 PM CDT History of supraventricular tachycardia documented in this encounter Results * ELECTROCARDIOGRAM (11/16/2024 12:07 PM CDT) 11/16/2024 12:0 7 PM CDT Narrative [facility] - 11/16/2024 1:25 PM CDT [facility] [address] [id number] Test Date: 2024-11-16 Pat Name: ЕЛЕНА LYNN Department: 105 Room: Gender: Female Senior Ssis Developer: sharee DC: 1940 Requested By: MARTITA PARISI Order Number: [id number] Reading MD: Martita Parisi Measurements Intervals [employer] Rate: 68 P: 69 MA: 287 QRS: -56 QRSD: 103 T: 31 QT: 415 QTc: 443 Interpretive Statements SINUS RHYTHM WITH FIRST DEGREE AV BLOCK POSSIBLE LEFT ATRIAL ENLARGEMENT LEFT AXIS DEVIATION POSSIBLE LEFT VENTRICULAR HYPERTROPHY POSSIBLE ANTEROSEPTAL MYOCARDIAL INFARCTION, OF INDETERMINATE AGE Procedure Note Martita Parisi MD - 11/16/2024 [facility] [address] [place] [address] Test Date: 2024-11-16 Pat Name: ЕЛЕНА LYNN Department: 105 Room: Gender: Female Senior Ssis Developer: sharee TORRESB: 1940 Requested By: MARTITA PARISI Order Number: [id number] Reading MD: Martita Parisi Measurements Intervals [employer] Rate: 68 P: 69 MA: 287 QRS: -56 QRSD: 103 T: 31 QT: 415 QTc: 443 Interpretive Statements SINUS RHYTHM WITH FIRST DEGREE AV BLOCK POSSIBLE LEFT ATRIAL ENLARGEMENT LEFT AXIS DEVIATION POSSIBLE LEFT VENTRICULAR HYPERTROPHY POSSIBLE ANTEROSEPTAL MYOCARDIAL INFARCTION, OF INDETERMINATE AGE us Martita Parisi MD PROCEDURES-ORDERABLE NO CHARGE F inal Result CARMEN RAMAN documented in this encounter Visit Diagnoses Diagnosis History of supraventricular tachycardia Personal history of other diseases of circulatory system documented in this encounter Care Teams Space Systems Operations Superintendent Relationship Specialty Start Date End Date Elliot Tran DO [address] [place] [address] PCP - General FAMILY PRACTICE 11/12/23 Yung Henderson MD [address] [place] [address] EP Maintainer [employer] CLINICAL CARDIAC ELECTROPHYSIOLOGY 06/11/22 Elliot Tran DO [address] [place] [address] FAMILY PRACTICE 09/02/22 Martita Parisi MD [address] [place] [address] Consulting Physician CARDIOVASCULAR DISEASE 02/21/24 documented as of this encounter
--- OUTSIDE RECORDS SUMMARY | 2024-11-17 15:27 | XMS_ITS | Encounter Summary ---
Author Organization [facility] Address [address] [place] [address] Care Team Providers Care Bulker Name Role Phone Randa Maldonado APRN, NP-C Unavailable José Miguel Gore MD Unavailable Unavailabl e Elliot Tran DO Primary Care Provider [phone] Randi Lopez Primary Care Provider [phone] Yung Henderson MD Unavailable [phone] Elliot Tran DO Unavailable Elliot Tran DO Primary Care Provider [phone] Martita Pride MD Unavailable Encounter Details Date Type Department Care Team (Late st Contact Info) Description 08/06/2018 Abstract [facility] [address] [place] [address] José Miguel Gore MD Social History Tobacco [...] Info) Description 11/22/2024 7:45 AM CDT Telephone [facility] [address] [place] [address] Martita Pride MD [address] [place] [address] 12/09/2024 1:00 AM CDT Allied Health/Nurse Visit [address] [address] Yung Henderson MD [address] [place] [address] 12/22/2024 1:45 AM CDT Allied Health/Nurse Visit [address] [address] Yung Henderson MD [address] [place] [address] 01/16/2025 1:00 PM CDT Office Visit [address] [address] Martita Pride MD [address] [place] [address] documented as of this encounter Procedures Procedure [...] on filedocumented in this encounter Care Teams Bulker Relationship Specialty Start Date End Date Elliot Tran DO [address] [place] [address] PCP - General FAMILY PRACTICE 09/13/20 06/08/22 Randi Lopez FNP [address] [place] [address] PCP - General NURSE PRACTITIONER 06/09/22 11/11/23 Elliot Tran DO [address] [place] [address] PCP - General FAMILY PRACTICE 11/12/23 Randa Maldonado APRN, BAND SEWER-C [address] [place] [phone] NURSE PRACTITIONER 04/26/18 02/20/24 José Miguel Gore MD [address] [place] [address] [place] [employer] CARDIOVASCULAR DISEASE 10/26/18 02/20/24 Yung Henderson MD [address] [place] [address] EP Cook Night CLINICAL CARDIAC ELECTROPHYSIOLOGY 06/11/22 Elliot Tran DO [address] [place] [address] FAMILY PRACTICE 09/02/22 Martita Pride MD [address] [place] [address] Consulting Physician CARDIOVASCULAR DISEASE 02/21/24 documented as of this encounter
--- OUTSIDE RECORDS SUMMARY | 2024-11-17 15:27 | XMS_ITS | Encounter Summary ---
Author Organization [facility] Address [address] [place] [address] Care Team Providers Care Assistant District Attorney Name Role Phone Yung Henderson MD Unavailable [phone] Elliot Tran DO Unavailable [phone] Elliot Tran DO Primary Care Provider [phone] Martita Pride MD Unavailable Encounter Details Date Type Department Care Team (Late Contact Info) Description 11/16/2024 Orders Only [facility] [address] [place] [address] Martita Pride MD [address] [place] [address] Social History Tobacco Use Types [...] Info) Description 11/22/2024 7:45 AM CDT Telephone [facility] [address] [place] [phone] Martita Pride MD [address] [place] [address] 12/09/2024 1:00 AM CDT Allied Health/Nurse Visit [facility] [address] [place] [address] Yung Henderson MD [address] [place] [address] 12/22/2024 1:45 AM CDT Allied Health/Nurse Visit [facility] [address] [place] [address] Yung Henderson MD [address] [place] [address] 01/16/2025 1:00 PM CDT Office Visit [facility] [address] [place] [address] Martita Pride MD [address] [place] [address] documented as of this encounter Visit Diagnoses Not on filedocumented in this encounter Care Teams Assistant District Attorney Relationship Specialty Start Date End Date Elliot Tran DO [address] [place] [address] PCP - General FAMILY PRACTICE 11/12/23 Yung Henderson MD [address] [place] [address] EP Glove Wrapper CLINICAL CARDIAC ELECTROPHYSIOLOGY 06/11/22 Elliot Tran DO [address] [place] [address] FAMILY PRACTICE 09/02/22 Martita Pride MD [address] [place] [address] Consulting Physician CARDIOVASCULAR DISEASE 02/21/24 documented as of this encounter
--- OUTSIDE RECORDS SUMMARY | 2024-11-17 15:27 | XMS_ITS | Encounter Summary ---
Author Organization [facility] Address [address] [place] [address] Care Team Providers Care Financial Underwriter Name Role Phone Ilir Wahl MD Unavailable [phone] Brad Joyner MD Primary Care Provider [phone] Martín Block MD Primary Care Provider Cyril Zee MD Primary Care Provider [phone] Miscellaneous, Not In File Primary Care Provider Unavailable Randi Lopez NP Primary Care Provide r Elliot Tran DO Primary Care Provider Encounter Details Date Type Department Care Team (Late st Contact Info) Description 03/02/2020 Telephone [facility] Radiation Oncology [address] [facility] [place] [address] Josie Torrez MA Social History Tobacco Use Types Packs/Day Years Used Date Smoking Tobacco: Never Smokeless Tobacco: Never Alcohol Use Standard Drinks/Week Comments No 0 (1 standard drink = 0.6 oz pur e alcohol) Comments No Sex and Gender Information Value Date Recorded Sex Assigned at Not on file 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:39 AM PARKING TECHNICIAN Gender Identity Not on file Sexual Orientation Not on file documented as of this encounter Plan of Treatment Not on file documented as of this encounter Visit Diagnoses Not on filedocumented in this encounter Care Teams Financial Underwriter Relationship Specialty Start Date End Date Brad Joyner MD [address] [place] [address] PCP - General Family Medicine 12/10/18 06/06/20 Martín Block MD [address] [place] [address] PCP - General 06/07/20 11/29/20 Cyril Zee MD [address] [address] PCP - General Obstetrics and Gynecology 11/30/20 10/15/21 Miscellaneous, Not In File PCP - General 10/16/21 10/20/21 Randi Lopez NP [address] [place] [address] PCP - General 10/21/21 10/14/22 Elliot Tran DO [address] [place] [address] PCP - General Family Medicine 10/15/22 Ilir Wahl MD [address] [facility] [address] [place] [address] Referring Physician Radiation Oncology 09/07/18 documented as of this encounter
--- OUTSIDE RECORDS SUMMARY | 2024-11-17 15:27 | XMS_ITS | Referral Summary ---
Author Organization [facility] Address [address] [place] [address] Care Team Providers Care Lumpia Wrapper Maker Name Role Phone Ilir Wahl MD Unavailable Elliot Tran DO Primary Care Provider Encounters Date Type Department Care Team Description 09/08/2024 12:29 PM MEDICAL BILLING MANAGER - 09/08/2024 11:59 PM MEDICAL BILLING MANAGER Hospital Encounter [facility] [place] [address] [facility] Floor 8 [place] [address] Mediastinal mass Discharge Disposition: Discharge to home or self care 09/08/2024 2:30 PM MEDICAL BILLING MANAGER Office Visit [facility] Surgery [address] [facility] Floor 5 [place] [address] Kumar Lopez MD Mediastinal adenopathy (Primary Dx) 08/30/2024 Telephone [facility] Surgery [address] [facility] [address] [place] [phone] Santos Garcia RMA 08/30/2024 Orders Only [facility] Surgery [address] [facility] [address] [place] [address] Kumar Lopez MD Mediastinal mass (Primary Dx) 08/29/2024 Documentation [facility] Radiation Oncology [address] [facility] Medicine Lower [place] [address] America Monge RN 08/29/2024 Orders Only [facility] Radiation Oncology [address] [facility] [place] [address] Osmel Sanchez MD Lung nodule (Primary Dx) 08/29/2024 Telephone [facility] Radiation Oncology [address] [place] [address] Advanced [place] [address] America Monge RN 08/26/2024 11:08 AM MEDICAL BILLING MANAGER - 08/26/2024 11:59 PM MEDICAL BILLING MANAGER Hospital Encounter [facility] [address] [place] [address] Diagnosis unknown Discharge Disposition: Discharge to home or self care 08/23/2024 Telephone [facility] Radiation Oncology [address] [place] [address] America Monge RN 08/23/2024 Telephone [facility] Radiation Oncology [facility] [place] [address] America Monge RN from Last 3 Months Allergies Active Allergy Reactions Criticality Noted Date Comments Sulfamethoxazole-Trimethoprim Rash Medium 2018 Medications calcium carbonate-vitam in D3 1,250mg (500mg elemental) - 5 mcg (200 units) per tablet Take 2 tablets by mouth early childhood before breakfast Active elnkrkhx-yfe-JV -lycopen-lutein 0.4 mg-300 mcg- 250 mcg tablet Take 1 tablet by mouth early childhood before breakfast Active metoprolol (LOPRESSOR) 50 mg tablet Take 1 tablet (50 mg total) by mouth 2 (two) times a day 0 8 Active omega-3 fatty acids-fish oil 684-1,200 mg capsule,delayed release(DR/EC) Take 1 tablet by mouth early childhood before breakfast. Active magnesium gluconate 200 mg tablet Take 2 tablets (400 mg total) by mouth early childhood before breakfast Active oxyCODONE (ROXICODONE) 5 mg [...] (07/16/2018): Added automatically from request for surgery [id number] History of breast cancer 06/21/2018 Encounter for [...] on file 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:39 AM MEDICAL BILLING MANAGER Gender Identity Not on file Sexual Orientation Not on file Last Filed Vital Signs Vital Sign Reading Time Taken Comments Blood Pressure 124/75 09/08/2024 2:05 PM MEDICAL BILLING MANAGER Pulse 60 09/08/2024 2:05 PM MEDICAL BILLING MANAGER Temperature 36.8 C (98.2 F) 09/08/2024 2:05 PM MEDICAL BILLING MANAGER Respiratory Rate 16 09/08/2024 2:05 PM MEDICAL BILLING MANAGER Oxygen Saturation 99% 09/08/2024 2:05 PM MEDICAL BILLING MANAGER Inhaled Oxygen Concentration - - Weight 64.9 kg (143 lb) 09/08/2024 2:05 PM MEDICAL BILLING MANAGER Height 167.6 cm (5' 6 ) 09/08/2024 2:05 PM MEDICAL BILLING MANAGER Body Mass Index 23.08 09/08/2024 2:05 PM MEDICAL BILLING MANAGER Plan of Treatment Not on file Procedures Procedure Name Priority Date/Time Associated Diagnosis Comments CT CHEST W CONTRAST Schedule Routine, Read Routine (OP Routine) 09/08/2024 12:45 PM MEDICAL BILLING MANAGER Mediastinal mass CT BODY OUTSIDE CONSULT Routine 08/26/2024 11:09 AM MEDICAL BILLING MANAGER Diagnosis unknown from Last 3 Months Results * CT Chest W Contrast (09/08/2024 12:45 PM MEDICAL BILLING MANAGER) Anatomical Region Laterality Modality Body N/A Computed Tomogra phy 09/08/2024 12:5 9 PM MEDICAL BILLING MANAGER Impressions 09/08/2024 12:59 PM MEDICAL BILLING MANAGER 1. Decreasing bihilar and mediastinal lymphadenopathy, presumably a reactive process. 2. Stable tubular structure in right middle lobe, likely representing mucoid impaction. Surgical changes of the lingula are again noted. Electronically signed by: Tee Ly M.D. Narrative 09/08/2024 12:59 PM MEDICAL BILLING MANAGER EXAMINATION: Computed tomography of the chest with [...] Tee Ly M.D. Kumar Lopez MD [facility] CT PROCEDURES Carlee l Result * CT Body Outside Consult (08/26/2024 11:09 AM MEDICAL BILLING MANAGER) Anatomical Region Laterality Modality Body N/A Computed Tomogra phy 08/26/2024 11:1 5 AM MEDICAL BILLING MANAGER Impressions 08/26/2024 11:28 AM MEDICAL BILLING MANAGER This study was initially nominated as a consult on outside images via Outside Image Sharing Service. However, a consult was not performed because this is a duplicated nomination as previous images were uploaded on 07/07/2024 as reference. Accordingly, there will be no separate report of this study generated by a [facility] Radiologist. This change in examination status was confirmed with Dr. Sanchez on 08/26/2024. Dictated by: Jesse Arias MD The radiology attending physician has personally reviewed this study, and had reviewed and/or edited this written report and agrees with it. Electronically signed by: Kika Loza M.D. Narrative 08/26/2024 11:28 AM MEDICAL BILLING MANAGER EXAMINATION: CHANGE CONSULT ON OUTSIDE IMAGES TO [...] report of this study generated by a [facility] Radiologist. This change in examination status was confirmed with Dr. Sanchez on 08/26/2024. Dictated by: Jesse Arias MD The radiology attending physician has personally reviewed this study, and had reviewed and/or edited this written report and agrees with it. Electronically signed by: Kika Loza M.D. Osmel Sanchez MD IMG CT PROCEDURES Final Result from Last 3 Months Insurance MEDICARE [facility] MEDICARE SUPPLEMENT MEDICARE COMMERCIAL [facility] MEDICARE [facility] MEDICARE SUPPLEMENT Advance Directives For more information, please contact: [phone] * Full Code (Latest Code Status on File) Date Activated Date Inactivated Comments 09/03/2018 11:25 AM 09/04/2018 4:52 PM Care Teams Lumpia Wrapper Maker Relationship Specialty Start Date End Date Elliot Tran DO [address] [place] [address] PCP - General Family Medicine 10/15/22 Ilir Wahl MD [address] [facility] [address] [place] [address] Referring Physician Radiation Oncology 09/07/18
--- OUTSIDE RECORDS SUMMARY | 2024-11-17 15:27 | XMS_ITS ---
Author Organization [facility] Address [address] [place] [address] Care Team Providers Care Stock Holder Name Role Phone Ilir Wahl MD Unavailable [...] (07/16/2018): Added automatically from request for surgery [id number] History of breast cancer 06/21/2018 Encounter for [...]
--- OUTSIDE RECORDS SUMMARY | 2024-11-17 15:27 | XMS_ITS | Encounter Summary ---
Author Organization [facility] Address [address] [place] [address] Care Team Providers Care Senior Safety Support Manager Name Role Phone Yung Henderson MD Unavailable [phone] Elliot Tran DO Unavailable [phone] Elliot Tran DO Primary Care Provider [phone] Martita Pride MD Unavailable Reason for Visit * Reason Onset Date Comments Appointment Request 11/16/2024 Encounter Details Date Type Department Care Team (Late st Contact Info) Description 11/16/2024 Telephone [facility] [address] [place] [address] Martita Pride MD [address] [place] [address] Appointment Request Social History Tobacco Use Types Packs/Day Years [...] on file documented as of this encounter Progress Notes * Jonathan Elaine - 11/16/2024 1:34 PM CDT FOLLOW UP APPT DATE/TIME: 1pm TESTING REQUESTED? no IF YES TESTING SCHEDULED: n/a LOCATION: n/a DATE/TIME: n/a TESTING LETTER WITH INSTRUCTIONS PROVIDED: n/a APPT CARD COMPLETED AND PROVIDED: yes documented in this encounter Plan of Treatment Upcoming Encounters Date Type Department Care Team (Late st Contact Info) Description 11/22/2024 7:45 AM CDT Telephone [address] [phone] Martita Pride MD [address] [place] [address] 12/09/2024 1:00 AM CDT Allied Health/Nurse Visit [address] [address] Yung Henderson MD [address] [place] [address] 12/22/2024 1:45 AM CDT Allied Health/Nurse Visit [address] [address] Yung Henderson MD [address] [place] [address] 01/16/2025 1:00 PM CDT Office Visit [address] [address] Martita Pride MD [address] [place] [address] documented as of this encounter Visit Diagnoses Not on filedocumented in this encounter Care Teams Senior Safety Support Manager Relationship Specialty Start Date End Date Elliot Tran DO [address] [place] [address] PCP - General FAMILY PRACTICE 11/12/23 Yung Henderson MD [address] [place] [address] EP Lab Rn CLINICAL CARDIAC ELECTROPHYSIOLOGY 06/11/22 Elliot Tran DO [address] [place] [address] FAMILY PRACTICE 09/02/22 Martita Pride MD [address] [place] [address] Consulting Physician CARDIOVASCULAR DISEASE 02/21/24 documented as of this encounter
--- OUTSIDE RECORDS SUMMARY | 2024-11-17 15:27 | XMS_ITS | Encounter Summary ---
Author Organization [facility] Address [address] [place] [address] Care Team Providers Care Laser Technician Name Role Phone Yung Henderson MD Unavailable [phone] Elliot Tran DO Unavailable [phone] Elliot Tran DO Primary Care Provider [phone] Martita Pride MD Unavailable Reason for Visit * Reason Comments ECG (SCAN) CT (SCAN) Encounter Details Date Type Department Care Team (Late st Contact Info) Description 11/03/2024 Scan [facility] d [address] [place] [phone] Scanned, Doc Pccl ECG (SCAN); CT (SCAN) Social History Tobacco Use Types Packs/Day Years [...] Info) Description 11/22/2024 7:45 AM CDT Telephone [facility] [employer] [address] [place] [address] Martita Pride MD [address] [place] [address] 12/09/2024 1:00 AM CDT Allied Health/Nurse Visit [facility] [address] [place] [address] Yung Henderson MD [address] [place] [address] 12/22/2024 1:45 AM CDT Allied Health/Nurse Visit [facility] [address] [place] [address] Yung Henderson MD [address] [place] [address] 01/16/2025 1:00 PM CDT Office Visit [address] [address] Martita Pride MD [address] [place] [address] documented as of this encounter Procedures Procedure Name Priority Date/Time Associated Diagnosis Comments CT GENERIC Routine 11/03/2024 12:00 AM CDT ECG GENERIC (SCAN ORDER) Routine 11/03/2024 12:00 AM CDT documented in this encounter Results * CT (11/03/2024 12:00 AM CDT) Anatomical Region Laterality Modality Other 11/03/2024 us Doc Pccl Scanned SCANNING Final Result * ECG (11/03/2024 12:00 AM CDT) 11/03/2024 us Doc Pccl Scanned SCANNING Final Result [facility] documented in this encounter Visit Diagnoses Not on filedocumented in this encounter Care Teams Laser Technician Relationship Specialty Start Date End Date Elliot Tran DO [address] [place] [address] PCP - General FAMILY PRACTICE 11/12/23 Yung Henderson MD [address] [place] [address] EP Supervisor Lead Refinery CLINICAL CARDIAC ELECTROPHYSIOLOGY 06/11/22 Elliot Tran DO [address] [place] [address] FAMILY PRACTICE 09/02/22 Martita Pride MD [address] [place] [address] Consulting Physician CARDIOVASCULAR DISEASE 02/21/24 documented as of this encounter
--- OUTSIDE RECORDS SUMMARY | 2024-11-17 15:27 | XMS_ITS | Encounter Summary ---
Author Organization [facility] Address [address] [place] [address] Care Team Providers Care Director Fixed Income Name Role Phone Yung Henderson MD Unavailable [phone] Elliot Tran DO Unavailable [phone] Elliot Tran DO Primary Care Provider [phone] Martita Pride MD Unavailable Reason for Visit * Reason Comments ECG (SCAN) Echo (SCAN) Image (SCAN) Encounter Details Date Type Department Care Team (Late Contact Info) Description 10/31/2024 Scan [facility] [address] [place] [address] Scanned, Doc Pccl ECG (SCAN); Echo (SCAN); Image (SCAN) Social History Tobacco Use Types Packs/Day [...] Upcoming Encounters Date Type Department Care Team ([facility] Contact Info) Description 11/22/2024 7:45 AM CDT Telephone [facility] [address] [place] [address] Martita Pride MD [address] [place] [address] 12/09/2024 1:00 AM CDT Allied Health/Nurse Visit [facility] [address] [place] [address] Yung Henderson MD [address] [place] [address] 12/22/2024 1:45 AM CDT Allied Health/Nurse Visit [facility] [address] [place] [address] Yung Henderson MD [address] [place] [address] 01/16/2025 1:00 PM CDT Office Visit [address] [address] Martita Pride MD [address] [place] [address] documented as of this encounter Procedures Procedure Name Priority Date/Time Associated Diagnosis Comments ECG GENERIC (SCAN ORDER) Routine 10/31/2024 12:00 AM CDT ECG GENERIC (SCAN ORDER) Routine 10/31/2024 12:00 AM CDT ECHO GENERIC (SCAN ORDER) Routine 10/31/2024 12:00 AM CDT IMAGE GENERIC Routine 10/31/2024 12:00 AM CDT documented in this encounter Results * IMAGE STUDY (10/31/2024 12:00 AM CDT) Anatomical Region Laterality Modality Other 10/31/2024 us Doc Pccl Scanned SCANNING Final Result * ECHO (10/31/2024 12:00 AM CDT) Anatomical Region Laterality Modality Other 10/31/2024 us Doc Pccl Scanned SCANNING Final Result * ECG (10/31/2024 12:00 AM CDT) 10/31/2024 us Doc Pccl Scanned SCANNING Final Result Performing Organization Address City/[facility]/ZIP Co de Phone Number HS ONBASE * ECG (10/31/2024 12:00 AM CDT) 10/31/2024 us Doc Pccl Scanned SCANNING Final Result Performing Organization Address City/[facility] Co de Phone Number HS ONBASE documented in this encounter Visit Diagnoses Not on filedocumented in this encounter Care Teams Director Fixed Income Relationship Specialty Start Date End Date Elliot Tran DO [address] [place] [address] PCP - General FAMILY PRACTICE 11/12/23 Yung Henderson MD [address] [place] [id number] EP Forge Helper CLINICAL CARDIAC ELECTROPHYSIOLOGY 06/11/22 Elliot Tran DO [address] [place] [address] FAMILY PRACTICE 09/02/22 Martita Pride MD [address] [place] [address] Consulting Physician CARDIOVASCULAR DISEASE 02/21/24 documented as of this encounter
--- OUTSIDE RECORDS SUMMARY | 2024-11-17 15:27 | XMS_ITS | Encounter Summary ---
Author Organization [facility] Address [address] [place] [address] Care Team Providers Care Electronic Test Technician Name Role Phone Yung Henderson MD Unavailable [phone] Elliot Tran DO Unavailable [phone] Elliot Tran DO Primary Care Provider [phone] Martita Pride MD Unavailable Reason for Visit * Reason Comments Image (SCAN) Encounter Details Date Type Department Care Team ([facility] Contact Info) Description 11/04/2024 Scan [facility] [address] [place] [address] Scanned, Doc Pccl Image (SCAN) Social History Tobacco Use Types [...] Upcoming Encounters Date Type Department Care Team ([facility] Contact Info) Description 11/22/2024 7:45 AM CDT Telephone [facility] [address] [place] [phone] Martita Pride MD [address] [place] [address] 12/09/2024 1:00 AM CDT Allied Health/Nurse Visit [facility] [address] [place] [phone] Yung Henderson MD [address] [place] [address] 12/22/2024 1:45 AM CDT Allied Health/Nurse Visit [facility] [address] [place] [address] Yung Henderson MD [address] [place] [address] 01/16/2025 1:00 PM CDT Office Visit [facility] [address] [place] [address] Martita Pride MD [address] [place], [place] [address] documented as of this encounter Procedures Procedure Name Priority Date/Time Associated Diagnosis Comments IMAGE GENERIC Routine 11/04/2024 12:00 AM CDT documented in this encounter Results * IMAGE STUDY (11/04/2024 12:00 AM CDT) Anatomical Region Laterality Modality Other 11/04/2024 us Doc Pccl Scanned SCANNING Final Result documented in this encounter Visit Diagnoses Not on filedocumented in this encounter Care Teams Electronic Test Technician Relationship Specialty Start Date End Date Elliot Tran DO [address] [place] [address] PCP - General FAMILY PRACTICE 11/12/23 Yung Henderson MD [address] [place] [address] EP Gelatin Maker Utility CLINICAL CARDIAC ELECTROPHYSIOLOGY 06/11/22 Elliot Tran DO [address] [place] [address] [facility] PRACTICE 09/02/22 Martita Pride MD [address] [place] [address] Consulting Physician CARDIOVASCULAR DISEASE 02/21/24 documented as of this encounter
--- OUTSIDE RECORDS SUMMARY | 2024-11-17 15:27 | XMS_ITS | Encounter Summary ---
Author Organization [facility] Address [address] [place] [address] Care Team Providers Care Surgical Instrument Technician Name Role Phone Yung Henderson MD Unavailable [phone] Elliot Tran DO Unavailable Elliot Tran DO Primary Care Provider [phone] Martita Pride MD Unavailable Encounter Details Date Type Department Care Team (Late st Contact Info) Description 11/06/2024 Scan [facility] [address] [place] [phone] Scanned, Doc Pccl Social History Tobacco Use [...] Info) Description 11/22/2024 7:45 AM CDT Telephone [facility] [address] [place] [phone] Martita Pride MD [address] [place], [place] [address] 12/09/2024 1:00 AM CDT Allied Health/Nurse Visit [facility] [address] [place] [address] Yung Henderson MD [address] [place] [address] 12/22/2024 1:45 AM CDT Allied Health/Nurse Visit [facility] [address] [place] [address] Yung Henderson MD [address] [place] [address] 01/16/2025 1:00 PM CDT Office Visit [facility] [address] [place] [address] Martita Pride MD [address] [place] [address] documented as of this encounter Visit Diagnoses Not on filedocumented in this encounter Care Teams Surgical Instrument Technician Relationship Specialty Start Date End Date Elliot Tran DO [address] [place] [address] PCP - General FAMILY PRACTICE 11/12/23 Yung Henderson MD [address] [place] [address] EP Embossed Or Impressed Lettering Painter CLINICAL CARDIAC ELECTROPHYSIOLOGY 06/11/22 Elliot Tran DO [address] [place] [address] FAMILY PRACTICE 09/02/22 Martita Pride MD [address] [place] [address] Consulting Physician CARDIOVASCULAR DISEASE 02/21/24 documented as of this encounter
--- OUTSIDE RECORDS SUMMARY | 2024-11-17 15:27 | XMS_ITS | Encounter Summary ---
Author Organization [facility] Address [address] [place] [address] Care Team Providers Care Sizing Machine And Drier Operator Name Role Phone Yung Henderson MD Unavailable [phone] Elliot Tran DO Unavailable [phone] Elliot Tran DO Primary Care Provider [phone] Martita Pride MD Unavailable Encounter Details Date Type Department Care Team (Latest Contact Info) Description 11/16/2024 Travel Social History Tobacco Use Types Packs/Day Years [...] Info) Description 11/22/2024 7:45 AM CDT [facility]phone [facility] [address] [place] [address] Martita Pride MD [address] [place] [address] 12/09/2024 1:00 AM CDT [facility] [address] [place] [address] Yung Henderson MD [address] [place], [place] [address] 12/22/2024 1:45 AM CDT Allied Health/Nurse Visit [facility] [address] [place] [address] Yung Henderson MD [address] [place] [address] 01/16/2025 1:00 PM CDT Office Visit [facility] [address] [place] [address] Martita Pride MD [address] [place] [address] documented as of this encounter Visit Diagnoses Not on filedocumented in this encounter Care Teams Sizing Machine And Drier Operator Relationship Specialty Start Date End Date Elliot Tran DO [address] [place] [address] PCP - General FAMILY PRACTICE 11/12/23 Yung Henderson MD [address] [place] [address] EP Shipbuilding Draftsperson CLINICAL CARDIAC ELECTROPHYSIOLOGY 06/11/22 Elliot Tran DO [address] [place] [address] FAMILY PRACTICE 09/02/22 Martita Pride MD [address] [place] [address] Consulting Physician CARDIOVASCULAR DISEASE 02/21/24 documented as of this encounter
--- OUTSIDE RECORDS SUMMARY | 2024-11-17 15:27 | XMS_ITS | Encounter Summary ---
Author Organization [facility] Address [address] [place] [address] Care Team Providers Care Sawing And Assembly Supervisor Name Role Phone Yung Henderson MD Unavailable [phone] Elliot Tran DO Unavailable [phone] Elliot Tran DO Primary Care Provider [phone] Martita Pride MD Unavailable Reason for Visit * Reason Comments ECG (SCAN) Image (SCAN) CT (SCAN) Encounter Details Date Type Department Care Team (Late Contact Info) Description 10/30/2024 Scan [facility] [address] [place] [address] Scanned, Doc Pccl ECG (SCAN); Image (SCAN); CT (SCAN) Social History Tobacco Use [...] Info) Description 11/22/2024 7:45 AM CDT Telephone [facility] [address] [place] [address] Martita Pride MD [address] [place] [address] 12/09/2024 1:00 AM CDT Allied Health/Nurse Visit [facility] [address] [place] [address] Yung Henderson MD [address] [place] [address] 12/22/2024 1:45 AM CDT Allied Health/Nurse Visit [address] [address] Yung Henderson MD [address] [place] [address] 01/16/2025 1:00 PM CDT Office Visit [address] [address] Martita Pride MD [address] [place] [address] documented as of this encounter Procedures Procedure Name Priority Date/Time Associated Diagnosis Comments CT GENERIC Routine 10/30/2024 12:00 AM CDT ECG GENERIC (SCAN ORDER) Routine 10/30/2024 12:00 AM CDT IMAGE GENERIC Routine 10/30/2024 12:00 AM CDT documented in this encounter Results * CT (10/30/2024 12:00 AM CDT) Anatomical Region Laterality Modality Other 10/30/2024 us Doc Pccl Scanned SCANNING Final Result * IMAGE STUDY (10/30/2024 12:00 AM CDT) Anatomical Region Laterality Modality Other 10/30/2024 us Doc Pccl Scanned SCANNING Final Result * ECG (10/30/2024 12:00 AM CDT) 10/30/2024 us Doc Pccl Scanned SCANNING Final Result [facility] documented in this encounter Visit Diagnoses Not on filedocumented in this encounter Care Teams Sawing And Assembly Supervisor Relationship Specialty Start Date End Date Elliot Tran DO [address] [place] [address] PCP - General FAMILY PRACTICE 11/12/23 Yung Henderson MD [address] [place] [address] EP Aircraft Communicator CLINICAL CARDIAC ELECTROPHYSIOLOGY 06/11/22 Elliot Tran DO [address] [place] [address] FAMILY PRACTICE 09/02/22 Martita Pride MD [address] [place] [address] Consulting Physician CARDIOVASCULAR DISEASE 02/21/24 documented as of this encounter
--- OUTSIDE RECORDS SUMMARY | 2024-11-17 15:27 | XMS_ITS | Encounter Summary ---
Author Organization [facility] Address [address] [place] [address] Care Team Providers Care Stone Cutter Name Role Phone Randa Maldonado APRN, NP-C Unavailable [phone] José Miguel Gore MD Unavailable Unavailabl Randi Travis OCCUPATIONAL HEALTH RN Primary Care Provider [phone] Yung Henderson MD Unavailable [phone] Elliot Tran DO Unavailable [phone] Elliot Tran DO Primary Care Provider [phone] Martita Pride MD Unavailable Encounter Details Date Type Department Care Team (Late st Contact Info) Description 12/03/2022 Abstract [facility] [address] [place] [address] José Miguel Gore MD Social History Tobacco [...] Info) Description 11/22/2024 7:45 AM CDT Telephone [address] [phone] Martita Pride MD [address] [place] [address] 12/09/2024 1:00 AM CDT Allied Health/Nurse Visit [address] [address] Yung Henderson MD [address] [place] [address] 12/22/2024 1:45 AM CDT Allied Health/Nurse Visit [address] [address] Yung Henderson MD [address] [place] [address] 01/16/2025 1:00 PM CDT Office Visit [address] [address] Martita Pride MD [address] [place] [address] documented as of this encounter Visit Diagnoses Not on filedocumented in this encounter Care Teams Stone Cutter Relationship Specialty Start Date End Date Randi Lopez FNP [address] [place] [address] PCP - General NURSE PRACTITIONER 06/09/22 11/11/23 Elliot Tran DO [address] [place] [address] PCP - General FAMILY PRACTICE 11/12/23 Randa Maldonado APRN, [facility] ATTENDANT-C [address] [place] [address] NURSE PRACTITIONER 04/26/18 02/20/24 José Miguel Gore MD [address] [place] [phone] [place] [facility] Spear CARDIOVASCULAR DISEASE 10/26/18 02/20/24 Yung Henderson MD [address] [place] [address] [place] Fisher [employer]el Spear CLINICAL CARDIAC ELECTROPHYSIOLOGY 06/11/22 Elliot Tran DO [address] [place] [address] FAMILY PRACTICE 09/02/22 Martita Pride MD [address] [place] [address] Consulting Physician CARDIOVASCULAR DISEASE 02/21/24 documented as of this encounter
--- OUTSIDE RECORDS SUMMARY | 2024-11-17 15:27 | XMS_ITS | Clinical Summary ---
Author Organization [facility] Address [address] [place] [address] Care Team Providers Care Cuprous Chloride Helper Name Role Phone Ilir Wahl MD Unavailable [phone] Elliot Tran DO Primary Care Provider Allergies Active Allergy Reactions Criticality Noted Date Comments Sulfamethoxazole-Trimethoprim Rash Medium 2018 Medications calcium carbonate-vitam in D3 1,250mg (500mg elemental) - 5 mcg (200 units) per tablet Take 2 tablets by mouth plastics fabrication supervisor before breakfast Active minqkipv-ooj-LH -lycopen-lutein 0.4 mg-300 mcg- 250 mcg tablet Take 1 tablet by mouth plastics fabrication supervisor before breakfast Active metoprolol (LOPRESSOR) 50 mg tablet Take 1 tablet (50 mg total) by mouth 2 (two) times a day 0 8 Active omega-3 fatty acids-fish oil 684-1,200 mg capsule,delayed release(DR/EC) Take 1 tablet by mouth plastics fabrication supervisor before breakfast. Active magnesium gluconate 200 mg tablet Take 2 tablets (400 mg total) by mouth plastics fabrication supervisor before breakfast Active oxyCODONE (ROXICODONE) 5 mg [...] the original. Referring provider: Dr. Sanchez Ms. лЕена Lynn 83-year-old with hilar adenopathy. 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 Preop pulmonary/respiratory exam Encounters Date Type Department Care Team Description 09/08/2024 2:30 PM POPCORN MACHINE OPERATOR Office Visit [facility] Surgery [address] [facility] Floor 5 [place] [address] Kumar Lopez MD Mediastinal adenopathy (Primary Dx) 09/08/2024 12:29 PM POPCORN MACHINE OPERATOR - 09/08/2024 11:59 PM POPCORN MACHINE OPERATOR Hospital Encounter [facility] [place] [address] [facility] Floor 8 [place] [address] Mediastinal mass Discharge Disposition: Discharge to home or self care 08/30/2024 Telephone [facility] Surgery [address] [facility] [address] [place] [address] Santos Garcai RMA 08/30/2024 Orders Only [facility] Surgery [address] [facility] [address] [place] [address] Kumar Lopez MD Mediastinal mass (Primary Dx) 08/29/2024 Documentation [facility] Radiation Oncology [address] [facility] [place] [address] America Monge RN 08/29/2024 Orders Only [facility] Radiation Oncology [address] [facility] [place] [address] Osmel Sanchez MD Lung nodule (Primary Dx) 08/29/2024 Telephone [facility] Radiation Oncology [address] [facility] [place] [address] America Monge RN 08/26/2024 11:08 AM POPCORN MACHINE OPERATOR - 08/26/2024 11:59 PM POPCORN MACHINE OPERATOR Hospital Encounter [facility] [address] [place] [address] Diagnosis unknown Discharge Disposition: Discharge to home or self care 08/23/[address] [facility] Radiation Oncology [address] [place] [address] America Monge RN 08/23/[address] [facility] Radiation Oncology [address] [place] [address] America Monge RN from Last 3 Months [...] on file 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:39 AM POPCORN MACHINE OPERATOR Gender Identity Not on file Sexual Orientation Not on file Obstetrics History Last Filed Vital Signs Vital Sign Reading Time Taken Comments Blood Pressure 124/75 09/08/2024 2:05 PM POPCORN MACHINE OPERATOR Pulse 60 09/08/2024 2:05 PM POPCORN MACHINE OPERATOR Temperature 36.8 C (98.2 F) 09/08/2024 2:05 PM POPCORN MACHINE OPERATOR Respiratory Rate 16 09/08/2024 2:05 PM POPCORN MACHINE OPERATOR Oxygen Saturation 99% 09/08/2024 2:05 PM POPCORN MACHINE OPERATOR Inhaled Oxygen Concentration - - Weight 64.9 kg (143 lb) 09/08/2024 2:05 PM POPCORN MACHINE OPERATOR Height 167.6 cm (5' 6 ) 09/08/2024 2:05 PM POPCORN MACHINE OPERATOR Body Mass Index 23.08 09/08/2024 2:05 PM POPCORN MACHINE OPERATOR Plan of Treatment Health Maintenance Due [...] Read Routine (OP Routine) 09/08/2024 12:45 PM POPCORN MACHINE OPERATOR Mediastinal mass CT BODY OUTSIDE CONSULT Routine 08/26/2024 11:09 AM POPCORN MACHINE OPERATOR Diagnosis unknown from Last 3 Months Results * CT Chest W Contrast (09/08/2024 12:45 PM POPCORN MACHINE OPERATOR) Anatomical Region Laterality Modality Body N/A Computed Tomogra phy 09/08/2024 12:5 9 PM POPCORN MACHINE OPERATOR Impressions 09/08/2024 12:59 PM POPCORN MACHINE OPERATOR 1. Decreasing bihilar and mediastinal lymphadenopathy, presumably a reactive process. 2. Stable tubular structure in right middle lobe, likely representing mucoid impaction. Surgical changes of the lingula are again noted. Electronically signed by: Tee Ly M.D. Narrative 09/08/2024 12:59 PM POPCORN MACHINE OPERATOR EXAMINATION: Computed tomography of the chest [...] CT Body Outside Consult (08/26/2024 11:09 AM POPCORN MACHINE OPERATOR) Anatomical Region Laterality Modality Body N/A Computed Tomogra phy 08/26/2024 11:1 5 AM POPCORN MACHINE OPERATOR Impressions 08/26/2024 11:28 AM POPCORN MACHINE OPERATOR This study was initially nominated as a consult on outside images via Outside Image Sharing Service. However, a consult was not performed because this is a duplicated nomination as previous images were uploaded on 07/07/2024 as reference. Accordingly, there will be no separate report of this study generated by a [facility] Radiologist. This change in examination status was confirmed with Dr. Sanchez on 08/26/2024. Dictated by: Jesse Arias MD The radiology attending physician has personally reviewed this study, and had reviewed and/or edited this written report and agrees with it. Electronically signed by: Kika Loza M.D. Narrative 08/26/2024 11:28 AM POPCORN MACHINE OPERATOR EXAMINATION: CHANGE CONSULT ON OUTSIDE IMAGES [...] of this study generated by a [facility] Radiologist. This change in examination status [...] BLUE CROSS MEDICARE SUPPLEMENT MEDICARE COMMERCIAL GENERIC [facility]LY [facility], 1928–1983 MEDICARE BLUE CROSS MEDICARE SUPPLEMENT Member Subscriber Plan / Payer (Ef fective 2018-Present) Name:Елена Lynn Relation to Subscriber:Self Name:Елена Lynn Payer ID:[id number] Type:COMMERCIAL Address: [address] [place] [id number] Advance Directives For more information, please contact: [phone] * Full Code (Latest Code Status on File) Date Activated Date Inactivated Comments 09/03/2018 11:25 AM 09/04/2018 4:52 PM Care Teams Cuprous Chloride Helper Relationship Specialty Start Date End Date Elliot Tran DO [address] [place] [address] PCP - General Family Medicine 10/15/22 Ilir Wahl MD [address] [facility] # [address] LL [address] [place] [address] Referring Physician Radiation Oncology 09/07/18
--- OUTSIDE RECORDS SUMMARY | 2024-11-17 15:27 | XMS_ITS | Encounter Summary ---
Author Organization [facility] Address [address] [place] [address] Care Team Providers Care Pathology Specialist Name Role Phone Yung Henderson MD Unavailable [phone] Elliot Tran DO Unavailable [phone] Elliot Tran DO Primary Care Provider [phone] Martita Parisi MD Unavailable Encounter Details Date Type Department Care Team (Late Contact Info) Description 11/16/2024 Orders Only [facility] [address] [place] [address] Martita Parisi MD [address] [place] [address] Social History Tobacco Use Types [...] Info) Description 11/22/2024 7:45 AM CDT Telephone [facility] [address] [place] [address] Martita Parisi MD [address] [place] [address] 12/09/2024 1:00 AM CDT Allied Health/Nurse Visit [address] [address] [phone] Yung Henderson MD [address] [place] [address] 12/22/2024 1:45 AM CDT Allied Health/Nurse Visit [address] [address] Yung Henderson MD [address] [place] [address] 01/16/2025 1:00 PM CDT Office Visit [address] [address] Martita Parisi MD [address] [place] [address] documented as of this encounter Results * ELECTROCARDIOGRAM (11/16/2024 12:07 PM CDT) 11/16/2024 12:0 7 PM CDT Narrative [facility] - 11/16/2024 1:25 PM CDT [facility] [address] [place] [address] Test Date: 2024-11-16 Pat Name: ЕЛЕНА LYNN Department: 105 Room: Gender: Female Director Custom: sharee : 1940 Requested By: MARTITA PARISI Order Number: [id number] Reading MD: Martita Parisi Measurements Intervals [place] Rate: 68 P: 69 TN: 287 QRS: -56 QRSD: 103 T: 31 QT: 415 QTc: 443 Interpretive Statements SINUS RHYTHM WITH FIRST DEGREE AV BLOCK POSSIBLE LEFT ATRIAL ENLARGEMENT LEFT AXIS DEVIATION POSSIBLE LEFT VENTRICULAR HYPERTROPHY POSSIBLE ANTEROSEPTAL MYOCARDIAL INFARCTION, OF INDETERMINATE AGE Procedure Note Martita Parisi MD - 11/16/2024 [facility] [address] [place] [address] Test Date: 2024-11-16 Pat Name: ЕЛЕНА LYNN Department: 105 Room: Gender: Female Director Custom: sharee : 1940 Requested By: MARTITA PARISI Order Number: [id number] Reading MD: Martita Parisi Measurements Intervals [place] Rate: 68 P: 69 TN: 287 QRS: -56 QRSD: 103 T: 31 QT: 415 QTc: 443 Interpretive Statements SINUS RHYTHM WITH FIRST DEGREE AV BLOCK POSSIBLE LEFT ATRIAL ENLARGEMENT LEFT AXIS DEVIATION POSSIBLE LEFT VENTRICULAR HYPERTROPHY POSSIBLE ANTEROSEPTAL MYOCARDIAL INFARCTION, OF INDETERMINATE AGE us Martita Parisi MD PROCEDURES-ORDERABLE NO CHARGE F inal Result [facility] documented in this encounter Visit Diagnoses Diagnosis History of supraventricular tachycardia Personal history of other diseases of circulatory system History of supraventricular tachycardia- Primary Personal history of other diseases of circulatory system documented in this encounter Care Teams Pathology Specialist Relationship Specialty Start Date End Date Elliot Tran DO [address] [place] [address] PCP - General FAMILY PRACTICE 11/12/23 Yung Henderson MD [address] [place] [address] EP Vehicle Assembly Inspector CLINICAL CARDIAC ELECTROPHYSIOLOGY 06/11/22 Elliot Tran DO [address] [place] [address] FAMILY PRACTICE 09/02/22 Martita Parisi MD [address] [place] [address] Consulting Physician CARDIOVASCULAR DISEASE 02/21/24 documented as of this encounter
[2024-11-17 15:32] LABS: Basophils Absolute Auto 0.04 K/mm3 (0.00-0.10); Basophils Percent Auto 0.7 % (0.0-1.0); Eosinophils Absolute Auto 0.11 K/mm3 (0.02-0.50); Eosinophils Percent Auto 1.9 % (1.0-6.0); Hematocrit 35.7 % (35.0-42.0); Hemoglobin 11.3 g/dL (11.7-13.8); Immature Granulocyte Absolute 0.01 K/mm3 (0.00-0.00); Immature Granulocyte Percent A 0.2 % (0.0-0.0); Lymphocytes Absolute Auto 1.37 K/mm3 (1.10-4.50); Mean Corpuscular HGB Conc 31.7 g/dL (32-36); Mean Corpuscular Hemoglobin 28.3 pg (27.0-31.0); Mean Corpuscular Volume 89.3 fL (78.0-102.0); Mean Platelet Volume 10.2 fl (9.2-11.8); Monocytes Absolute Auto 0.75 K/mm3 (0.10-0.90); Monocytes Percent Auto 13.1 % (2.0-11.0); Neutrophils Absolute Auto 3.44 K/mm3 (1.70-7.20); Neutrophils Percent Auto 60.1 % (50.0-70.0); Platelet Count Result 399 K/mm3 (150-420); Red Cell Distribution Width 13.5 % (11.6-14.4); White Blood Count 5.7 K/mm3 (4.8-10.8)
[2024-11-17 16:05] LABS: Alanine Aminotransferase 20 U/L (14-59); Albumin Level 3.6 g/dL (3.4-5.0); Alkaline Phosphatase 55 U/L (46-116); Anion Gap 8 mmol/L (4-12); Aspartate Amino Transferase 30 U/L (15-37); Bilirubin,Total 0.4 mg/dL (0.00-1.00); Blood Urea Nitrogen 16 mg/dL (7-18); Carbon Dioxide 30 mmol/L (21-32); Chloride 100 mmol/L (98-108); Estimated Glomerular Filt Rate > 60; Glucose 101 mg/dL (70-99); Magnesium 1.9 mg/dL (1.8-2.4); Osmolality Calculated 287 mOsm/kg (285-295); Sodium 138 mmol/L (136-145); Total Protein 6.8 g/dL (6.4-8.2)
[2024-11-17 16:06] LABS: CRP < 0.5 mg/dL (0.0-0.9)
[2024-11-17 16:07] LABS: Potassium 4.8 mmol/L (3.5-5.1)
[2024-11-17 16:31] LABS: Thyroid Stimulating Hormone Reflex 1.36 u/IU/mL (0.36-3.74)
[2024-11-18 09:03] LABS: Vitamin D 25 Hydroxy 45 ng/mL (30-100)
== END 2024-11-17 15:08 | disposition home or self-care (01) ==
PROVIDERS: PCP Family Medicine; Visit Provider Family Medicine
DX: E55.9 Vitamin D deficiency, unspecified (principal); E03.9 Hypothyroidism, unspecified; I47.10 Supraventricular tachycardia, unspecified
CPT/HCPCS: 36415; 80053; 82306; 83735; 84443; 85025; 86140

== ENCOUNTER 2024-11-28 14:36 | Outpatient (CLI) | payer MEDICARE, SELFPAY ==
[2024-11-28 14:51] LABS: Add Urine Microscopic? YES; Appearance Urine Clear (Clear); Bilirubin Urine 1+ (Negative); Blood Urine 3+ (Negative); Color Urine Brown (Yellow); Glucose Urine UA Negative (Negative); Ketones Urine Trace (Negative); Leukocyte Esterase Ur 2+ LEU/UL (Negative); Nitrate Urine Positive (Negative); Protein Urine 3+ (Negative); pH Urine 5.5 (5.0-8.0)
[2024-11-28 15:24] LABS: RBC Urine >100 /hpf (0-2)
[2024-11-28 15:25] LABS: Bacteria Urine Trace /hpf; WBC Urine >100 /hpf (0-3)
--- OUTSIDE RECORDS SUMMARY | 2024-11-28 16:27 | XMS_ITS | Encounter Summary ---
Author Organization [facility] Healthcare Address [address] [place] [address] Care Team Providers Care Apple Press Operator Name Role Phone Ilir Wahl MD Unavailable Brad Joyner MD Primary Care Provider [phone] Martín Block MD Primary Care Provider Cyril Zee MD Primary Care Provider [phone] Miscellaneous, Not In File Primary Care Provider Unavailable Randi Lopez NP Primary Care Provide r Elliot Tran DO Primary Care Provider Encounter Details Date Type Department Care Team (Late st Contact Info) Description 03/02/[address] 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 Gender Identity Not on file Sexual Orientation Not on file documented as of this encounter Plan of Treatment Not on file documented as of this encounter Visit Diagnoses Not on filedocumented in this encounter Care Teams Apple Press Operator Relationship Specialty Start Date End Date Brad Joyner MD [address] [place] [address] PCP - General Family Medicine 12/10/18 06/06/20 Martín Block MD [address] [place] [address] PCP - General 06/07/20 11/29/20 Cyril Zee MD [address] [address] PCP - General Obstetrics and Gynecology 11/30/20 10/15/21 Miscellaneous, Not In File PCP - General 10/16/21 10/20/21 Randi Lopez NP [address] [place] [address] PCP - General 10/21/21 10/14/22 Elliot Tran DO [address] [place] [address] PCP - General Family Medicine 10/15/22 Ilir Wahl MD [address] [facility] # [address] LL [address] [place] [address] Referring Physician Radiation Oncology 09/07/18 documented as of this encounter
--- OUTSIDE RECORDS SUMMARY | 2024-11-28 16:27 | XMS_ITS | Encounter Summary ---
Author Organization [facility] Address [address] [place] [address] Care Team Providers Care Playground Worker Name Role Phone Randa Maldonaod APRN, NP-C Unavailable José Miguel Gore MD Unavailable [phone] Randi Lopez COTTON TIPPER Primary Care Provider Yung Henderson MD Unavailable [phone] Elliot Tran DO Unavailable [phone] Elliot Tran DO Primary Care Provider [phone] Martita Pride MD Unavailable Encounter Details Date Type Department Care Team (Late st Contact Info) Description 09/25/2022 Hospital Orders Only [employer] Mechanical Design Drafter Pre/Post [address] [place] [address] Yung Henderson MD [address] [place], [place] [address] Social History Tobacco Use Types Packs/Day Years [...] 12/09/2024 1:00 AM CDT Allied Health/Nurse Visit [facility] ld [address] [place] [phone] Yung Henderson MD [address] [place], [place] [address] 12/22/2024 1:45 AM CDT Allied Health/Nurse Visit [facility] ld [address] [place] [phone] Yung Henderson MD [address] [place], [place] [address] 12/26/2024 12:00 PM CDT Office Visit [facility] [place] [address] Martita Pride MD [address] [place], [place] [address] documented as of this encounter Visit Diagnoses Not on filedocumented in this encounter Care Teams Playground Worker Relationship Specialty Start Date End Date Randi Lopez FNP [address] [place] [address] PCP - General NURSE PRACTITIONER 06/09/22 11/11/23 Elliot Tran DO [address] [place] [address] PCP - General FAMILY PRACTICE 11/12/23 Randa Maldonado APRN, JOURNEYMAN MECHANIC-C [address] [facility] [address] [place] [phone] NURSE PRACTITIONER 04/26/18 02/20/24 José Miguel Gore MD [address] [place] [phone] [place] Inhalation Therapist CARDIOVASCULAR DISEASE 10/26/18 02/20/24 Yung Henderson MD [address] [place] [address] EP Inhalation Therapist CLINICAL CARDIAC ELECTROPHYSIOLOGY 06/11/22 Elliot Tran DO [address] [place] [address] FAMILY PRACTICE 09/02/22 Martita Pride MD [address] [place] [address] Consulting Physician CARDIOVASCULAR DISEASE 02/21/24 documented as of this encounter
--- OUTSIDE RECORDS SUMMARY | 2024-11-28 16:27 | XMS_ITS ---
Author Organization [facility] Address [address] [place] [address] Care Team Providers Care Accounting Officer Name Role Phone Ilir Wahl MD [...] (07/16/2018): Added automatically from request for surgery [id number] History of breast cancer 06/21/2018 Encounter for [...]
--- OUTSIDE RECORDS SUMMARY | 2024-11-28 16:27 | XMS_ITS | Encounter Summary ---
Author Organization [facility] Healthcare Address [address] [place] [address] Care Team Providers Care Radio Officer Name Role Phone Ilir Wahl MD Unavailable [phone] Martín Block MD Primary Care Provider Cyril Zee MD Primary Care Provider [phone] Miscellaneous, Not In File Primary Care Provider Unavailable Randi Lopez INDUSTRIAL PLANT CUSTODIAN Primary Care Provide r Elliot Tran DO Primary Care Provider Encounter Details Date Type Department Care Team (Late st Contact Info) Description 2020 Telephone [facility] Advanced Medicine Radiation Oncology [address] [place] [address] Advanced Medicine [facility] [place] [address] Josie Torrez MA Social History Tobacco Use Types Packs/Day Years Used Date Smoking Tobacco: Never Smokeless Tobacco: Never Alcohol Use Standard Drinks/Week Comments No 0 (1 standard drink = 0.6 oz pur e alcohol) Comments No Sex and Gender Information Value Date Recorded Sex Assigned at Not on file 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 Gender Identity Not on file Sexual Orientation Not on file documented as of this encounter Plan of Treatment Not on file documented as of this encounter Visit Diagnoses Not on filedocumented in this encounter Care Teams Radio Officer Relationship Specialty Start Date End Date Martín Block MD [facility] # [address] LL [address] [place] [address] PCP - General 06/07/20 11/29/20 Cyril Zee MD [address] [facility] [address] [place], [place] [address] PCP - General Obstetrics and Gynecology 11/30/20 10/15/21 Miscellaneous, Not In File PCP - General 10/16/21 10/20/21 Randi Lopez NP [address] [place] [address] PCP - General 10/21/21 10/14/22 Elliot Tran DO [address] [place] [address] PCP - General Family Medicine 10/15/22 Ilir Wahl MD [address] [place] [address] Referring Physician Radiation Oncology 09/07/18 documented as of this encounter
--- OUTSIDE RECORDS SUMMARY | 2024-11-28 16:27 | XMS_ITS | Referral Summary ---
Author Organization [facility] Address [address] [place] [address] Care Team Providers Care Staffing Rn Name Role Phone Ilir Wahl MD Unavailable [phone] Elliot Tran DO Primary Care Provider Encounters Date Type Department Care Team Description 09/08/2024 12:29 PM STATION ATTENDANT - 09/08/2024 11:59 PM STATION ATTENDANT Hospital Encounter [facility] [place] [address] [facility] Floor [address] [place] [address] Mediastinal mass Discharge Disposition: Discharge to home or self care 09/08/2024 2:30 PM STATION ATTENDANT Office Visit [facility] [address] [facility] Floor [address] [place] [phone] Kumar Lopez MD Mediastinal adenopathy (Primary Dx) 08/30/2024 Telephone [facility] [address] [place] [address] [place] [phone] Santos Garcia RMA 08/30/2024 Orders Only [facility] [address] [place] [address] [address] [place] [address] Kumar Lopez MD Mediastinal mass (Primary Dx) from Last 3 Months Allergies Active Allergy Reactions Criticality Noted Date Comments Sulfamethoxazole-Trimethoprim Rash Medium 2018 Medications calcium carbonate-vitam in D3 1,250mg (500mg elemental) - 5 mcg (200 units) per tablet Take 2 tablets by mouth help desk coordinator before breakfast Active wdcdxkpg-gwu-DN -lycopen-lutein 0.4 mg-300 mcg- 250 mcg tablet Take 1 tablet by mouth help desk coordinator before breakfast Active metoprolol (LOPRESSOR) 50 mg tablet Take 1 tablet (50 mg total) by mouth 2 (two) times a day 0 8 Active omega-3 fatty acids-fish oil 684-1,200 mg capsule,delayed release(DR/EC) Take 1 tablet by mouth help desk coordinator before breakfast. Active magnesium gluconate 200 mg tablet Take 2 tablets (400 mg total) by mouth help desk coordinator before breakfast Active oxyCODONE (ROXICODONE) 5 mg [...] (07/16/2018): Added automatically from request for surgery [id number] History of breast cancer 06/21/2018 Encounter for [...] on file 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:39 AM STATION ATTENDANT Gender Identity Not on file Sexual Orientation Not on file Last Filed Vital Signs Vital Sign Reading Time Taken Comments Blood Pressure 124/75 09/08/2024 2:05 PM STATION ATTENDANT Pulse 60 09/08/2024 2:05 PM STATION ATTENDANT Temperature 36.8 C (98.2 F) 09/08/2024 2:05 PM STATION ATTENDANT Respiratory Rate 16 09/08/2024 2:05 PM STATION ATTENDANT Oxygen Saturation 99% 09/08/2024 2:05 PM STATION ATTENDANT Inhaled Oxygen Concentration - - Weight 64.9 kg (143 lb) 09/08/2024 2:05 PM STATION ATTENDANT Height 167.6 cm (5' 6 ) 09/08/2024 2:05 PM STATION ATTENDANT Body Mass Index 23.08 09/08/2024 2:05 PM STATION ATTENDANT Plan of Treatment Not on file Procedures Procedure Name Priority Date/Time Associated Diagnosis Comments CT CHEST W CONTRAST Schedule Routine, Read Routine (OP Routine) 09/08/2024 12:45 PM STATION ATTENDANT Mediastinal mass from Last 3 Months Results * CT Chest W Contrast (09/08/2024 12:45 PM STATION ATTENDANT) Anatomical Region Laterality Modality Body N/A Computed Tomogra phy 09/08/2024 12:5 9 PM STATION ATTENDANT Impressions 09/08/2024 12:59 PM STATION ATTENDANT 1. Decreasing bihilar and mediastinal lymphadenopathy, presumably a reactive process. 2. Stable tubular structure in right middle lobe, likely representing mucoid impaction. Surgical changes of the lingula are again noted. Electronically signed by: Tee Ly M.D. Narrative 09/08/2024 12:59 PM STATION ATTENDANT EXAMINATION: Computed tomography of the chest with [...] MD IMG CT PROCEDURES Carlee l Result from Last 3 Months Insurance MEDICARE [facility] MEDICARE SUPPLEMENT MEDICARE COMMERCIAL [facility] MEDICARE BLUE CROSS MEDICARE SUPPLEMENT Advance Directives For more information, please contact: [phone] * Full Code (Latest Code Status on File) Date Activated Date Inactivated Comments 09/03/2018 11:25 AM 09/04/2018 4:52 PM Care Teams Staffing Rn Relationship Specialty Start Date End Date Elliot Tran DO [address] [place] [address] PCP - General Family Medicine 10/15/22 Ilir Wahl MD [address] [facility] # [address] LL [address] [place] [address] Referring Physician Radiation Oncology 09/07/18
--- OUTSIDE RECORDS SUMMARY | 2024-11-28 16:27 | XMS_ITS | Encounter Summary ---
Author Organization [facility] Healthcare Address [address] [place] [address] Care Team Providers Care Systems Applications Programming Lead Name Role Phone Ilir Wahl MD Unavailable [phone] Cyril Zee MD Primary Care Provider [phone] Miscellaneous, Not In File Primary Care Provider Unavailable Randi Lopez SENIOR PRODUCT ANALYST Primary Care Provide r Elliot Tran DO Primary Care Provider Encounter Details Date Type Department Care Team (Late st Contact Info) Description 09/20/2021 Telephone [facility] Radiation Oncology [address] [facility] [place] [address] Josie Torrez MA Social History Tobacco Use Types Packs/Day Years Used Date Smoking Tobacco: Never Smokeless Tobacco: Never Alcohol Use Standard Drinks/Week Comments No 0 (1 standard drink = 0.6 oz pur e alcohol) Comments No Sex and Gender Information Value Date Recorded Sex Assigned at Not on file 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 Gender Identity Not on file Sexual Orientation Not on file documented as of this encounter Plan of Treatment Not on file documented as of this encounter Visit Diagnoses Not on filedocumented in this encounter Care Teams Systems Applications Programming Lead Relationship Specialty Start Date End Date Cyril Zee MD [address] [id number] PCP - General Obstetrics and Gynecology 11/30/20 10/15/21 Miscellaneous, Not In File PCP - General 10/16/21 10/20/21 Randi Lopez NP [address] [place] [address] PCP - General 10/21/21 10/14/22 Elliot Tran DO [address] [place] [address] PCP - General Family Medicine 10/15/22 Ilir Wahl MD [address] [facility] [address] [place] [address] Referring Physician Radiation Oncology 09/07/18 documented as of this encounter
--- OUTSIDE RECORDS SUMMARY | 2024-11-28 16:27 | XMS_ITS | Clinical Summary ---
Author Organization [facility] Address [address] [place] [address] Care Team Providers Care Children'S Counselor Name Role Phone Ilir Wahl MD Unavailable Elliot Tran DO Primary Care Provider Allergies Active Allergy Reactions Criticality Noted Date Comments Sulfamethoxazole-Trimethoprim Rash Medium 2018 Medications calcium carbonate-vitam in D3 1,250mg (500mg elemental) - 5 mcg (200 units) per tablet Take 2 tablets by mouth beam racker before breakfast Active zdmohdld-gby-QV -lycopen-lutein 0.4 mg-300 mcg- 250 mcg tablet Take 1 tablet by mouth beam racker before breakfast Active metoprolol (LOPRESSOR) 50 mg tablet Take 1 tablet (50 mg total) by mouth 2 (two) times a day 0 8 Active omega-3 fatty acids-fish oil 684-1,200 mg capsule,delayed release(DR/EC) Take 1 tablet by mouth beam racker before breakfast. 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 Preop pulmonary/respiratory exam Encounters Date Type Department Care Team Description 09/08/2024 2:30 PM COMMERCIAL RETOUCHER Office Visit [facility] Surgery [address] [facility] Floor [address] [place] [address] Kumar Lopez MD Mediastinal adenopathy (Primary Dx) 09/08/2024 12:29 PM COMMERCIAL RETOUCHER - 09/08/2024 11:59 PM COMMERCIAL RETOUCHER Hospital Encounter [facility] [place] [address] [facility] [address] [place] [address] Mediastinal mass Discharge Disposition: Discharge to home or self care 08/30/2024 Telephone [facility] Surgery [address] [facility] [address] [place] [address] Santos Garcia RMA 08/30/2024 Orders Only [facility] Surgery [address] [facility] [address] [place] [address] Kumar Lopez MD Mediastinal mass (Primary Dx) from Last 3 Months Immunizations Immunization Administration [...] on file 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:39 AM COMMERCIAL RETOUCHER Gender Identity Not on file Sexual Orientation Not on file Obstetrics History Last Filed Vital Signs Vital Sign Reading Time Taken Comments Blood Pressure 124/75 09/08/2024 2:05 PM COMMERCIAL RETOUCHER Pulse 60 09/08/2024 2:05 PM COMMERCIAL RETOUCHER Temperature 36.8 C (98.2 F) 09/08/2024 2:05 PM COMMERCIAL RETOUCHER Respiratory Rate 16 09/08/2024 2:05 PM COMMERCIAL RETOUCHER Oxygen Saturation 99% 09/08/2024 2:05 PM COMMERCIAL RETOUCHER Inhaled Oxygen Concentration - - Weight 64.9 kg (143 lb) 09/08/2024 2:05 PM COMMERCIAL RETOUCHER Height 167.6 cm (5' 6 ) 09/08/2024 2:05 PM COMMERCIAL RETOUCHER Body Mass Index 23.08 09/08/2024 2:05 PM COMMERCIAL RETOUCHER Plan of Treatment Health Maintenance Due Date Last Done Comments Depression Screening 1940 Fall Risk Assessment 1940 DTaP/Tdap/Td Vaccine (1 - Tdap) 1949 Hepatitis B Screening 1956 Pneumococcal vaccine 65+ (1 of 2 - PCV) 1957 Zoster Vaccine (1 of 2) 1957 Well Visit 65+ 2003 Covid-19 Vaccine (2 - Moderna risk series) 10/12/2020 09/14/2020 Influenza Vaccine (Season Ended) 2025 Procedures Procedure Name Priority Date/Time Associated Diagnosis Comments CT CHEST W CONTRAST Schedule Routine, Read Routine (OP Routine) 09/08/2024 12:45 PM COMMERCIAL RETOUCHER Mediastinal mass from Last 3 Months Results * CT Chest W Contrast (09/08/2024 12:45 PM COMMERCIAL RETOUCHER) Anatomical Region Laterality Modality Body N/A Computed Tomogra phy 09/08/2024 12:5 9 PM COMMERCIAL RETOUCHER Impressions 09/08/2024 12:59 PM COMMERCIAL RETOUCHER 1. Decreasing bihilar and mediastinal lymphadenopathy, presumably a reactive process. 2. Stable tubular structure in right middle lobe, likely representing mucoid impaction. Surgical changes of the lingula are again noted. Electronically signed by: Tee Ly M.D. Narrative 09/08/2024 12:59 PM COMMERCIAL RETOUCHER EXAMINATION: Computed tomography of the chest with [...] Result from Last 3 Months Insurance MEDICARE [facility] MEDICARE SUPPLEMENT MEDICARE COMMERCIAL [facility] MEDICARE [facility] MEDICARE SUPPLEMENT Advance Directives For more information, please contact: [phone] * Full Code (Latest Code Status on File) Date Activated Date Inactivated Comments 09/03/2018 11:25 AM 09/04/2018 4:52 PM Care Teams Children'S Counselor Relationship Specialty Start Date End Date Elliot Tran DO [address] [place] [address] PCP - General Family Medicine 10/15/22 Ilir Wahl MD [address] [place] [address] [address] [place] [address] Referring Physician Radiation Oncology 09/07/18
--- OUTSIDE RECORDS SUMMARY | 2024-11-28 16:27 | XMS_ITS | Encounter Summary ---
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 Gender Identity Not on file Sexual [...] on filedocumented in this encounter Care Teams Security Operations Manager Relationship Specialty Start Date End Date Martín Block MD [address] [place] [address] PCP - General 06/07/20 11/29/20 Cyril Zee MD [address] [place], [place] [id number] PCP - General Obstetrics and Gynecology 11/30/20 10/15/21 Miscellaneous, Not In File PCP - General 10/16/21 10/20/21 Randi Lopez NP [address] [place] [address] PCP - General 10/21/21 10/14/22 Elliot Tran DO [address] [place] [address] PCP - General Family Medicine 10/15/22 Ilir Wahl MD [address] [place] [address] Referring Physician Radiation Oncology 09/07/18 documented as of this encounter
--- OUTSIDE RECORDS SUMMARY | 2024-11-28 16:27 | XMS_ITS | Encounter Summary ---
Author Organization [facility] Address [address] [place] [address] Care Team Providers Care Business Lawyer Name Role Phone Randa Maldonado APRN, NP-C Unavailable José Miguel Gore MD Unavailable [phone] Elliot Tran DO Primary Care Provider [phone] Randi Lopez Primary Care Provider [phone] Yung Henderson MD Unavailable [phone] Elliot Tran DO Unavailable [phone] Elliot Tran DO Primary Care Provider [phone] Martita Pride MD Unavailable Encounter Details Date Type Department Care Team (Late st Contact Info) Description 08/06/2018 Abstract [facility] [address] [place] [address] José Miguel Gore MD [address] [place] [address] Social History Tobacco Use Types Packs/Day Years [...] 12/09/2024 1:00 AM CDT Allied Health/Nurse Visit [facility] ld [address] [place] [address] Yung Henderson MD [address] [place] [address] 12/22/2024 1:45 AM CDT Allied Health/Nurse Visit [facility] ld [address] [place] [address] Yung Henderson MD [address] [place] [address] 12/26/2024 12:00 PM CDT Office Visit [facility] [place] [address] Martita Pride MD [address] [place], [place] [address] documented as of this encounter Procedures Procedure [...] Final Result * CBC (OUTSIDE LAB) (08/05/2018) Pathologist [facility] WBC 5.8 HGB 12.3 HCT 36.9 PLT 186 RBC 4.0 08/05/2018 us Doc [facility] Abstract LAB-OUTSIDE/ABSTRACTED Final Result documented in this encounter Visit Diagnoses Not on filedocumented in this encounter Care Teams Business Lawyer Relationship Specialty Start Date End Date Elliot Tran DO [address] [place] [address] PCP - General FAMILY PRACTICE 09/13/20 06/08/22 Randi Lopez FNP [address] [place] [address] PCP - General NURSE PRACTITIONER 06/09/22 11/11/23 Elliot Tran DO [address] [place] [address] PCP - General FAMILY PRACTICE 11/12/23 Randa Maldonado APRN, GRADUATE STUDIES DEAN-C [address] [facility] [address] [place] [address] NURSE PRACTITIONER 04/26/18 02/20/24 José Miguel Gore MD [address] [place] [address] [employer] [employer] Service Supervisor CARDIOVASCULAR DISEASE 10/26/18 02/20/24 Yung Henderson MD [address] [place] [address] [place] Hotel Service Supervisor CLINICAL CARDIAC ELECTROPHYSIOLOGY 06/11/22 Elliot Tran DO [address] [place] [address] FAMILY PRACTICE 09/02/22 Martita Pride MD [address] [place] [address] Consulting Physician CARDIOVASCULAR DISEASE 02/21/24 documented as of this encounter
--- OUTSIDE RECORDS SUMMARY | 2024-11-28 16:27 | XMS_ITS | Encounter Summary ---
Author Organization [facility] Address [address] [place] [address] Care Team Providers Care Track Service Person Name Role Phone Randa Maldonado APRN, NP-C Unavailable José Miguel Gore MD Unavailable [phone] Randi Lopez STEAM SERVICE INSPECTOR Primary Care Provider Yung Henderson MD Unavailable [phone] Elliot Tran DO Unavailable [phone] Elliot Tran DO Primary Care Provider [phone] Martita Pride MD Unavailable Encounter Details Date Type Department Care Team (Late st Contact Info) Description 12/03/2022 Abstract [facility] [address] [place] [address] José Miguel Gore MD [address] [place] [address] Social History Tobacco Use Types Packs/Day Years [...] 12/09/2024 1:00 AM CDT Allied Health/Nurse Visit [facility] ld [address] [place] [address] Yung Henderson MD [address] [place] [address] 12/22/2024 1:45 AM CDT Allied Health/Nurse Visit [facility] ld [address] [place] [address] Yung Henderson MD [address] [place], [place] [address] 12/26/2024 12:00 PM CDT Office Visit [facility] [place] [address] Martita Pride MD [address] [place] [address] documented as of this encounter Visit Diagnoses Not on filedocumented in this encounter Care Teams Track Service Person Relationship Specialty Start Date End Date Randi Lopez FNP [address] [place] [address] PCP - General NURSE PRACTITIONER 06/09/22 11/11/23 Elliot Tran DO [address] [place] [address] PCP - General FAMILY PRACTICE 11/12/23 Randa Maldonado, ENTRY LEVEL INSTALLATION TECHNICIAN, LOGISTICS OPERATIONS MANAGER-C [address] [facility] [address] [place] [address] NURSE PRACTITIONER 04/26/18 02/20/24 José Miguel Gore MD [address] [place] [phone] [place] Master Control Technician CARDIOVASCULAR DISEASE 10/26/18 02/20/24 Yung Henderson MD [address] [place] [address] EP Master Control Technician CLINICAL CARDIAC ELECTROPHYSIOLOGY 06/11/22 Elliot Tran DO [address] [place] [address] FAMILY PRACTICE 09/02/22 Martita Pride MD [address] [place] [address] Consulting Physician CARDIOVASCULAR DISEASE 02/21/24 documented as of this encounter
--- OUTSIDE RECORDS SUMMARY | 2024-11-28 16:27 | XMS_ITS | Clinical Summary ---
Author Organization [facility] Address [address] [place] [address] Care Team Providers Care Customer Management Specialist Name Role Phone Yung Henderson MD Unavailable [phone] Elliot Tran DO Unavailable [phone] Elliot Tran DO Primary Care Provider [phone] Dottie Parisi MD Unavailable Allergies Active Allergy [...] 2 (two) times a day. 2 11/17/19 Discontinu ed(Raadin g Physician) metoprolol succinate ER [...] Pre-op evaluation 07/23/2018 04/27/2020 SVT (supraventricular tachycardia) ([facility] 02/08/2023 Encounters Date Type Department Care Team Description 11/24/2024 Telephone [facility] [address] [place] [address] Dottie Parisi MD Appointment Request 11/22/2024 7:45 AM CDT Telephone [facility] [address] [place] [address] Dottie Parisi MD Holter Monitor 11/18/2024 Telephone [facility] [address] [place] [address] Dottie Parisi MD Information; Question 11/16/2024 12:00 PM CDT Office Visit [facility] [address] [place] [address] Dottie Parisi MD 11/16/2024 Orders Only [facility] [address] [place] [address] Dottie Parisi MD 11/16/2024 Telephone [facility] [address] [place] [address] Dottie Parisi MD Appointment Request 11/16/2024 Orders Only [facility] [address] [place] [address] Dottie Parisi MD 11/16/2024 Travel 11/16/2024 Orders Only [facility] [address] [place] [address] Dottie Parisi MD 11/15/2024 Telephone [facility] [address] [place] [address] Dottie Parisi MD Appointment Reminder 11/15/2024 Abstract [facility] [address] [place] [address] Abstract, Doc Pccl 11/10/2024 Telephone [facility] [address] [place] [address] Dottie Parisi MD Advice (Increased heart rate ) 11/06/2024 Scan [facility] [address] [place] [address] Scanned, Doc Pccl 11/05/2024 Scan [facility] [address] [place] [address] Scanned, Doc Pccl 11/04/2024 Scan [facility] [address] [place] [address] Scanned, Doc Pccl Image (SCAN) 11/03/2024 Scan [facility] [address] [place] [address] Scanned, Doc Pccl ECG (SCAN); CT (SCAN) 10/31/2024 Scan [facility] [address] [place] [address] Scanned, Doc Pccl ECG (SCAN); Echo (SCAN); Image (SCAN) 10/30/2024 Scan [facility] [address] [place] [address] Scanned, Doc Pccl ECG (SCAN); Image (SCAN); CT (SCAN) 10/25/2024 1:00 AM CDT Allied Health/Nurse [facility] [address] [place] [address] Yung Henderson MD 08/30/2024 3:50 AM EXPERIMENTAL MECHANIC OUTBOARD MOTORS Allied Health/Nurse Visit [facility] [address] [place] [address] Yung Henderson MD from Last 3 Months [...] 36.3 C (97.4 F) 09/30/2022 11:14 AM EXPERIMENTAL MECHANIC OUTBOARD MOTORS Respiratory Rate 16 11/16/2024 12:02 PM CDT [...] 12/09/2024 1:00 AM CDT Allied Health/Nurse Visit [facility] ld [address] [place] [address] Yung Henderson MD [address] [place], [place] [address] 12/22/2024 1:45 AM CDT Allied Health/Nurse Visit [facility] ld [address] [place] [address] Yung Henderosn MD [address] [place], [place] [address] 12/26/2024 12:00 PM CDT Office Visit [facility] [place] [address] Dottie Parisi MD [address] [place], [place] [address] Health Maintenance Due Date Last Done Comments DTaP, Tdap and Td Vaccines ( 1 - Tdap) 1957 Zoster Vaccines (1 of 2) 1988 Annual Medicare Wellness Visit 2003 Pneumococcal Vaccine: 50+ Years (1 of 1 - PCV) 2003 [...] this topic Medical Devices Implanted Type Area Pacs Administrator Device Identifier Shelf Expiration Date Model / Serial / Lot Medtronic Linq Ii-09/30/2022 Implanted:Qt y: 1 on 09/30/2022 by Yung Henderson MD Implantable Loop Recorder Left: Pectoral [employer] 01/23/2024 [id number] / [id number] / Description:DX: SYNCOPE Procedures Procedure Name [...] PM CDT) 11/16/2024 12:0 7 PM CDT [facility] CARDI[facility]ULAR - 11/16/2024 1:25 PM CDT [facility] [place] [address] [place] [address] Test Date: 2024-11-16 Pat Name: ЕЛЕНА LYNN Department: 105 Room: Gender: Female Internet Sales Director: bethchiara : 1940 Requested By: DOTTIE PARISI Order Number: [id number] Reading MD: Dottie Parisi Measurements Intervals Burns Rate: 68 P: 69 IL: 287 QRS: -56 QRSD: 103 T: 31 QT: 415 QTc: 443 Interpretive Statements SINUS RHYTHM WITH FIRST DEGREE AV BLOCK POSSIBLE LEFT ATRIAL ENLARGEMENT LEFT AXIS DEVIATION POSSIBLE LEFT VENTRICULAR HYPERTROPHY POSSIBLE ANTEROSEPTAL MYOCARDIAL INFARCTION, OF INDETERMINATE AGE Procedure Note Dottie Parisi MD - 11/16/2024 [facility] [place] [address] [place] [address] Test Date: 2024-11-16 Pat Name: ЕЛЕНА LYNN Department: 105 Room: Gender: Female Internet Sales Director: bethchiara : 1940 Requested By: DOTTIE PARISI Order Number: [id number] Reading MD: Dottie Parisi Measurements Intervals Burns Rate: 68 P: 69 IL: 287 QRS: -56 QRSD: 103 T: 31 QT: 415 QTc: 443 Interpretive Statements SINUS RHYTHM WITH FIRST DEGREE AV BLOCK POSSIBLE LEFT ATRIAL ENLARGEMENT LEFT AXIS DEVIATION POSSIBLE LEFT VENTRICULAR HYPERTROPHY POSSIBLE ANTEROSEPTAL MYOCARDIAL INFARCTION, OF INDETERMINATE AGE us Dottie Parisi MD PROCEDURES-ORDERABLE NO CHARGE F inal Result [facility] * CBC, MANUAL DIFF (11/06/2024) Only the most recent of2 resultswithin the time period is included. WBC 6.5 HGB 10.2 HCT 31.7 PLT 236 Narrative Resulting Agency [place], [place] us Default History Genericprovider LABORATORY Final [...] us Doc Pccl Scanned SCANNING Final Result [facility] * ECHO (10/31/2024 12:00 AM CDT) Anatomical Region Laterality Modality Other 10/31/2024 us Doc Pccl Scanned SCANNING Final Result * COMPREHENSIVE METABOLIC PANEL (10/30/2024) SODIUM S/P/B 126 GLUCOSE 127 mg/dL AST 28 BUN 17 CREATININE S/P/B 0.97 0.5 - 1.0 CALCIUM S/P/B 9.1 POTASSIUM S/P/B 3.6 CHLORIDE S/P/B 89 ALT 29 GFR ESTIMATE 54 Narrative Resulting Agency Comment [facility] us Default History Genericprovider LABORATORY Final Result * MAGNESIUM (10/30/2024) MAGNESIUM 1.5 Narrative Resulting Agency Comment [facility] us Default History Genericprovider LABORATORY Final Result from Last 3 Months Insurance MEDICARE MEDICARE Advance Directives * Full Code (Latest Code Status on File) Date Activated Date Inactivated Comments 08/12/2018 2:43 PM 08/12/2018 7:28 PM Care Teams Customer Management Specialist Relationship Specialty Start Date End Date Elliot Tran DO [address] [place] [address] PCP - General FAMILY PRACTICE 11/12/23 Yung Henderson MD [address] [place] [address] EP Bean Picker CLINICAL CARDIAC ELECTROPHYSIOLOGY 06/11/22 Elliot Tran DO [address] [place] [address] FAMILY PRACTICE 09/02/22 Dottie Parisi MD [address] [place] [address] Consulting Physician CARDIOVASCULAR DISEASE 02/21/24
== END 2024-11-28 14:37 | disposition home or self-care (01) ==
LOC: CHSLAB 14:38
PROVIDERS: PCP Family Medicine; Visit Provider Nurse Practitioner Family
DX: R30.0 Dysuria (principal); Z87.898 Personal history of other specified conditions
CPT/HCPCS: 81001; 87086

== ENCOUNTER 2025-01-11 00:01 | Day surgery (SDC) | payer MEDICARE, BC, SELFPAY ==
[2024-12-26 15:53] VITALS: BMI 22.0
--- NOTE | 2024-12-26 16:26 | PC.NURSE ---
Report to the Outpatient Waiting Room, entrance under the green pavilion located off [facility], at time ___10:00AM____ on date ___01/11/25___. Planned Procedure Time: __12:00PM___.? Time changes happen often and if your time is changed the preop area will call you the afternoon before. - You and your visitor will be asked to self-screen and do not enter if you have any COVID symptoms. Please call surgeon if you need to reschedule. - A mask is optional within the hospital at this time. Patients may have clear liquids (water, carbonated beverages, clear teas, apple juice) until 3 hours prior to surgery(9:00AM) with a maximum of 20 ounces. - No food from midnight until time of surgery and no smoking, or chewing tobacco (or any form of nicotine). No chewing gum, candy or mints. Take only the following medications with a SIP of water on the morning of surgery: ___METOPROLOL DO NOT STOP ANY OF YOUR OTHER PRESCRIPTION MEDICATIONS PRIOR TO SURGERY EXCEPT THE FOLLOWING Hold all vitamins and supplements for 3 days per anesthesiologist.-LAST DOSE 01/07/25 Please no make-up, nail equatorial guinean, hairspray, perfume, deodorant, or body powder the day of surgery.? No jewelry (including any body piercings) or valuables the day of surgery, leave them at home.? Please take a shower or bath the night before, or the morning of, surgery with an antibacterial soap.? Wear comfortable, loose fitting clothing.? - Jewelry must be removed prior to entering the operating room.? Rings and piercings that are not removed may be cut off. - The hospital will not accept responsibility for valuables.? - Please leave all valuables, including medications, at home the day of surgery. If you are going home after surgery, a licensed commercial trailer truck driver must drive you home.? - NO public transportation without another adult if you receive anesthesia. - We recommend that an adult stay with you for 24 hours following discharge. - We also recommend that you do not drive, make important decision, drink alcoholic beverages, or take any drugs that were not prescribed by your health care provider for at least 24 hours after your discharge time. Follow any additional instructions given to you from your surgeon. Telephone instructions given to ____PATIENT and asked if any additional questions and then verbalized understanding. Patient advised to call surgeon office or pre surgery nurse liaison [phone] if any additional questions.
[2025-01-11] VITALS (9 sets, daily range): BP systolic 140–168; BP diastolic 72–82; PULSE 71–98; RESP 15–18; TEMP 36.1; O2SAT 98–100
--- OUTSIDE RECORDS SUMMARY | 2025-01-11 00:04 | XMS_ITS | Encounter Summary ---
Author Organization [facility] Healthcare Address [address] [place] [address] Care Team Providers Care X Ray Tech Name Role Phone Ilir Wahl MD Unavailable Cyril Zee MD Primary Care Provider [phone] Miscellaneous, Not In File Primary Care Provider Unavailable Randi Lopez MOLD UNLOADER Primary Care Provide r Elliot Tran DO Primary Care Provider Encounter Details Date Type Department Care Team (Late st Contact Info) Description 09/20/2021 Telephone [facility] Oncology [address] [facility] [place] [address] Josie Torrez MA Social History Tobacco Use Types Packs/Day Years Used Date Smoking Tobacco: Never Smokeless Tobacco: Never Alcohol Use Standard Drinks/Week Comments No 0 (1 standard drink = 0.6 oz pur e alcohol) Comments No Sex and Gender Information Value Date Recorded Sex Assigned at Not on file 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:39 AM PIECER UP Gender Identity Not on file Sexual Orientation Not on file documented as of this encounter Plan of Treatment Not on file documented as of this encounter Visit Diagnoses Not on filedocumented in this encounter Care Teams X Ray Tech Relationship Specialty Start Date End Date Cyril Zee MD [address] [facility] [address] [place], [place] [id number] PCP - General Obstetrics and Gynecology 11/30/20 10/15/21 Miscellaneous, Not In File PCP - General 10/16/21 10/20/21 Randi Lopez NP [address] [place] [address] PCP - General 10/21/21 10/14/22 Elliot Tran DO [address] [place] [address] PCP - General Family Medicine 10/15/22 Ilir Wahl MD [address] [facility] [address] [place] [address] Referring Physician Radiation Oncology 09/07/18 documented as of this encounter
--- OUTSIDE RECORDS SUMMARY | 2025-01-11 00:04 | XMS_ITS | Referral Summary ---
Author Organization [facility] al Address [address] [place] [address] Care Team Providers Care Crm Architect Name Role Phone Ilir Wahl MD Unavailable Elliot Tran DO Primary Care Provider Allergies Active Allergy Reactions Criticality Noted Date Comments Sulfamethoxazole-Trimethoprim Rash Medium 2018 Medications calcium carbonate-vitam in D3 1,250mg (500mg elemental) - 5 mcg (200 units) per tablet Take 2 tablets by mouth wood furniture assembler before breakfast Active rfumoioq-dki-KV -lycopen-lutein 0.4 mg-300 mcg- 250 mcg tablet Take 1 tablet by mouth wood furniture assembler before breakfast Active metoprolol (LOPRESSOR) 50 mg tablet Take 1 tablet (50 mg total) by mouth 2 (two) times a day 0 8 Active omega-3 fatty acids-fish oil 684-1,200 mg capsule,delayed release(DR/EC) Take 1 tablet by mouth wood furniture assembler before breakfast. Active magnesium gluconate 200 mg tablet Take 2 tablets (400 mg total) by mouth wood furniture assembler before breakfast Active oxyCODONE (ROXICODONE) 5 mg [...] (07/16/2018): Added automatically from request for surgery [id number] History of breast cancer 06/21/2018 Encounter for [...] on file 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:39 AM DEPUTY K 9 Gender Identity Not on file Sexual Orientation Not on file Last Filed Vital Signs Vital Sign Reading Time Taken Comments Blood Pressure 124/75 09/08/2024 2:05 PM DEPUTY K 9 Pulse 60 09/08/2024 2:05 PM DEPUTY K 9 Temperature 36.8 C (98.2 F) 09/08/2024 2:05 PM DEPUTY K 9 Respiratory Rate 16 09/08/2024 2:05 PM DEPUTY K 9 Oxygen Saturation 99% 09/08/2024 2:05 PM DEPUTY K 9 Inhaled Oxygen Concentration - - Weight 64.9 kg (143 lb) 09/08/2024 2:05 PM DEPUTY K 9 Height 167.6 cm (5' 6) 09/08/2024 2:05 PM DEPUTY K 9 Body Mass Index 23.08 09/08/2024 2:05 PM DEPUTY K 9 Plan of Treatment Not on file Insurance MEDICARE [facility] Address: [address] [address] [place] [address] [facility] MEDICARE SUPPLEMENT MEDICARE COMMERCIAL GENERIC [facility] MEDICARE [facility] MEDICARE SUPPLEMENT Advance Directives For more information, please contact: [phone] * Full Code (Latest Code Status on File) Date Activated Date Inactivated Comments 09/03/2018 11:25 AM 09/04/2018 4:52 PM Care Teams Crm Architect Relationship Specialty Start Date End Date Elliot Tran DO [address] [place] [address] PCP - General Family Medicine 10/15/22 Ilir Wahl MD [address] [place] [address] [address] [place] [address] Referring Physician Radiation Oncology 09/07/18
--- OUTSIDE RECORDS SUMMARY | 2025-01-11 00:04 | XMS_ITS ---
Author Organization [facility] Address [address] [place] [address] Care Team Providers Care Paperhanger Name Role Phone Ilir Wahl MD Unavailable [...] (07/16/2018): Added automatically from request for surgery [id number] History of breast cancer 06/21/2018 Encounter for [...]
--- OUTSIDE RECORDS SUMMARY | 2025-01-11 00:04 | XMS_ITS | Clinical Summary ---
Author Organization [facility] al Address [address] [place] [address] Care Team Providers Care Clinical Study Manager Name Role Phone Ilir Wahl MD Unavailable Elliot Tran DO Primary Care Provider Allergies Active Allergy Reactions Criticality Noted Date Comments Sulfamethoxazole-Trimethoprim Rash Medium 2018 Medications calcium carbonate-vitam in D3 1,250mg (500mg elemental) - 5 mcg (200 units) per tablet Take 2 tablets by mouth metal bonding helper before breakfast Active ktszinsi-prg-QQ -lycopen-lutein 0.4 mg-300 mcg- 250 mcg tablet Take 1 tablet by mouth metal bonding helper before breakfast Active metoprolol (LOPRESSOR) 50 mg tablet Take 1 tablet (50 mg total) by mouth 2 (two) times a day 0 8 Active omega-3 fatty acids-fish oil 684-1,200 mg capsule,delayed release(DR/EC) Take 1 tablet by mouth metal bonding helper before breakfast. Active magnesium gluconate 200 mg tablet Take 2 tablets (400 mg total) by mouth metal bonding helper before breakfast Active oxyCODONE (ROXICODONE) 5 mg [...] (07/16/2018): Added automatically from request for surgery [id number] History of breast cancer 06/21/2018 Encounter for [...] had radiation 2009 History of breast cancer 2011- s /p radiation Family History Medical History [...] on file 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:39 AM POWER WASHER Gender Identity Not on file Sexual Orientation Not on file Obstetrics History Last Filed Vital Signs Vital Sign Reading Time Taken Comments Blood Pressure 124/75 09/08/2024 2:05 PM POWER WASHER Pulse 60 09/08/2024 2:05 PM POWER WASHER Temperature 36.8 C (98.2 F) 09/08/2024 2:05 PM POWER WASHER Respiratory Rate 16 09/08/2024 2:05 PM POWER WASHER Oxygen Saturation 99% 09/08/2024 2:05 PM POWER WASHER Inhaled Oxygen Concentration - - Weight 64.9 kg (143 lb) 09/08/2024 2:05 PM POWER WASHER Height 167.6 cm (5' 6) 09/08/2024 2:05 PM POWER WASHER Body Mass Index 23.08 09/08/2024 2:05 PM POWER WASHER Plan of Treatment Health Maintenance Due Date Last Done Comments Depression Screening 1938 Fall Risk Assessment 1938 DTaP/Tdap/Td Vaccine (1 - Tdap) 1949 Hepatitis B Screening 1956 Pneumococcal vaccine 65+ (1 of 2 - PCV) 1957 Zoster Vaccine (1 of 2) 1957 Well Visit 65+ 2003 Covid-19 Vaccine (2 - Moderna risk series) 10/12/2020 09/14/2020 Influenza Vaccine (Season Ended) 2025 Insurance MEDICARE [facility] MEDICARE SUPPLEMENT MEDICARE COMMERCIAL [facility] MEDICARE BLUE CROSS MEDICARE SUPPLEMENT Advance Directives For more information, please contact: [phone] * Full Code (Latest Code Status on File) Date Activated Date Inactivated Comments 09/03/2018 11:25 AM 09/04/2018 4:52 PM Care Teams Clinical Study Manager Relationship Specialty Start Date End Date Elliot Tran DO [address] [place] [address] PCP - General Family Medicine 10/15/22 Ilir Wahl MD [address] [facility] # [address] [place] [address] Referring Physician Radiation Oncology 09/07/18
--- OUTSIDE RECORDS SUMMARY | 2025-01-11 00:04 | XMS_ITS | Encounter Summary ---
Author Organization [facility] Healthcare Address [address] [place] [address] Care Team Providers Care Telecommunications Facility Examiner Name Role Phone Ilir Wahl MD Unavailable [phone] Martín Block MD Primary Care Provider Cyril Zee MD Primary Care Provider [phone] Miscellaneous, Not In File Primary Care Provider Unavailable Randi Lopez MUSIC INTERNSHIP Primary Care Provide r Elliot Tran DO Primary Care Provider Encounter Details Date Type Department Care Team (Late st Contact Info) Description 2020 Telephone [facility] Advanced Medicine Radiation Oncology [address] [place] [address] Advanced Medicine [facility] [place] [address] Josie Torrez MA Social History Tobacco Use Types Packs/Day Years Used Date Smoking Tobacco: Never Smokeless Tobacco: Never Alcohol Use Standard Drinks/Week Comments No 0 (1 standard drink = 0.6 oz pur e alcohol) Comments No Sex and Gender Information Value Date Recorded Sex Assigned at Not on file 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:39 AM ALGOLOGIST Gender Identity Not on file Sexual Orientation Not on file documented as of this encounter Plan of Treatment Not on file documented as of this encounter Visit Diagnoses Not on filedocumented in this encounter Care Teams Telecommunications Facility Examiner Relationship Specialty Start Date End Date Martín Block MD [facility] # [address] [place] [address] PCP - General 06/07/20 11/29/20 Cyril Zee MD [address] [facility] [address] [place], [place] [id number] PCP - General Obstetrics and Gynecology 11/30/20 10/15/21 Miscellaneous, Not In File PCP - General 10/16/21 10/20/21 Randi Lopez NP [address] [place] [address] PCP - General 10/21/21 10/14/22 Elliot Tran DO [address] [place] [address] PCP - General Family Medicine 10/15/22 Ilir Wahl MD [address] [place] [address] Referring Physician Radiation Oncology 09/07/18 documented as of this encounter
--- OUTSIDE RECORDS SUMMARY | 2025-01-11 00:04 | XMS_ITS | Encounter Summary ---
Author Organization [facility] Healthcare Address [address] [place] [address] Care Team Providers Care Shopper Insights Manager Name Role Phone Ilir Wahl MD Unavailable [phone] Brad Joyner MD Primary Care Provider [phone] Martín Block MD Primary Care Provider Cyril Zee MD Primary Care Provider [phone] Miscellaneous, Not In File Primary Care Provider Unavailable Randi Lopez NP Primary Care Provide r Elliot Tran DO Primary Care Provider Encounter Details Date Type Department Care Team (Late st Contact Info) Description 03/02/2020 Telephone [facility] Radiation Oncology [address] [facility] [place] [address] Josie Torrez MA Social History Tobacco Use Types Packs/Day Years Used Date Smoking Tobacco: Never Smokeless Tobacco: Never Alcohol Use Standard Drinks/Week Comments No 0 (1 standard drink = 0.6 oz pur e alcohol) Comments No Sex and Gender Information Value Date Recorded Sex Assigned at Not on file 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:39 AM SURGICAL PHYSICIAN ASSISTANT Gender Identity Not on file Sexual Orientation Not on file documented as of this encounter Plan of Treatment Not on file documented as of this encounter Visit Diagnoses Not on filedocumented in this encounter Care Teams Shopper Insights Manager Relationship Specialty Start Date End Date Brad Joyner MD [address] [place] [address] PCP - General Family Medicine 12/10/18 06/06/20 Martín Block MD [address] [place] [address] PCP - General 06/07/20 11/29/20 Cyril Zee MD [address] [address] PCP - General Obstetrics and Gynecology 11/30/20 10/15/21 Miscellaneous, Not In File PCP - General 10/16/21 10/20/21 Randi Lopez NP [address] [place] [address] PCP - General 10/21/21 10/14/22 Elliot Tran DO [address] [place] [address] PCP - General Family Medicine 10/15/22 Ilir Wahl MD [address] [facility] # [address] [place] [address] Referring Physician Radiation Oncology 09/07/18 documented as of this encounter
--- OUTSIDE RECORDS SUMMARY | 2025-01-11 00:04 | XMS_ITS | Encounter Summary ---
Author Organization [facility] Address [address] [place] [address] Phone Care Team Providers Care Laboratory Tech Name Role Phone Ilir Wahl MD Unavailable [phone] Martín Block MD Primary Care Provider Cyril Zee MD Primary Care Provider [phone] Miscellaneous, Not In File Primary Care Provider [...] on file 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:39 AM CREW LEADER/CONTROL ROOM OPERATOR Gender Identity Not on file Sexual [...] on filedocumented in this encounter Care Teams Laboratory Tech Relationship Specialty Start Date End Date Martín Block MD [address] [place] [address] PCP - General 06/07/20 11/29/20 Cyril Zee MD [address] [facility] [address] [place], [place] [id number] PCP - General Obstetrics and Gynecology 11/30/20 10/15/21 Miscellaneous, Not In File PCP - General 10/16/21 10/20/21 Randi Lopez NP [address] [place] [address] PCP - General 10/21/21 10/14/22 Elliot Tran DO [address] [place] [address] PCP - General Family Medicine 10/15/22 Ilir Wahl MD [address] [place] [address] Referring Physician Radiation Oncology 09/07/18 documented as of this encounter
[2025-01-11] MEDS: ACETAMINOPHEN 500 MG TABLET 1000 MG PO (10:20)
--- NOTE | 2025-01-11 11:04 | P.HP_ITS ---
H&P: HPI History of Present Illness Date/Time: 01/11/25 11:04 Chief Complaint: umbilical hernia Narrative: Елена returns to the office accompanied by her daughter following recent hospitalization for enteritis where she was found to also have an umbilical hernia. Patient states she is still experiencing periumbilical pain. States a few nights ago she woke up with sharp stabbing pain at her umbilicus. Also rep orts nausea and vomiting. Patient reports past surgical history of right inguinal hernia repair and appendectomy. CT scan during admission showed a partially obstructing small bowel containing umbilical hernia. Review of Systems Review of Systems: All systems reviewed & are unremarkable except as noted in HPI and below PMFSH Past Medical History Medical History Cardiac arrhythmia Osteoporosis Abnormality of heart beat Hypertension Stress fracture of sacrum Fracture of radial neck, right, closed Displaced fracture of neck of left radius Right wrist pain Injury of right hip Sciatica of right side Right hip pain Post-COVID chronic fatigue Skin rash Pre-op exam Left ankle pain Fatigue Personal history of other drug therapy Exposure to COVID-19 virus Colon polyp Epigastric pain Constipation Nausea and vomiting in adult Endometrial thickening on ultrasound RLQ abdominal pain Nicotine dependence in remission Skin cancer s/p surgical resection Breast cancer Paroxysmal supraventricular tachycardia Osteopenia Hyperlipidemia GARRETT (generalized anxiety disorder) Benign essential HTN Surgical History Surgical History History of lumpectomy [address] Nicole 2009 History of thyroid surgery 2007 Dr. Johnston History of hernia repair x2 2002 Dr. Johnston H/O cataract extraction History of lung biopsy (~08/2018) Left History of appendectomy 2007 Dr. Johnston Family History Family History Mother Familial Alzheimer's disease of late onset Congestive heart failure Hypertension Heart disease History of blood clots Father Abnormality of heart beat Heart disease Acute myocardial infarction Social History Social History Smoking status: Never smoker Additional smoking assessment comments: socially only Alcohol intake: never Substance use: never Substance use type: does not use Do You Feel Safe in your Home?: Yes Lack of Transportation: No Lack of Food: Never True Current Housing: I Have Housing Concerned About Future Housing: No Difficulty Paying Gas/Electric Bills: No Difficulty Paying for Meds: No Currently Unemployed: No Education: Decline to Answer Difficulty w/ Childcare or Family Care: No Living arrangements: alone Additional living arrangements comments: Occupation/Education: retired Gender identity (if verbalized by the patient): Female Spiritual care concerns: No Meds Home Medications and Allergies Home Medications ?Medication ?Instructions ?Recorded ?Confirmed ?Type magnesium oxide 400 mg PO DAILY 08/08/19 01/11/25 History qnadhvjo-fhkvewz-ssbk-lutein tablet 1 mcg PO DAILY 08/08/19 01/11/25 History calcium 600 mg (as 2 cap PO BIDWMEAL #180 caps 03/31/23 01/11/25 Rx carbonate)-vitamin D3 10 mcg (400 unit) capsule zoledronic acid 5 mg/100 mL in 1 ea IV .annually #100 mL 04/27/24 12/26/24 Rx mannitol 5 %-water intravenous piggybck (Reclast) cyclosporine 0.05 % eye drops in a 1 drp EACH EYE Q12H 10/25/24 01/11/25 History dropperette (Restasis) polyethylene glycol 3350 17 17 g PO BID 10/30/24 01/11/25 History gram/dose oral powder (Miralax) metoprolol tartrate 25 mg tablet 37.5 mg PO TID 11/17/24 01/11/25 History omeprazole 40 mg capsule,delayed See Rx Instructions .Route 12/01/24 01/11/25 Rx release .COMPLEX #30 caps docusate sodium 100 mg capsule 100 mg PO BID PRN constipation 12/26/24 12/26/24 History (Colace) Allergies Allergy/AdvReac Type Severity Reaction Status Date / Time Sulfa (Sulfonamide Allergy Intermediate Rash Verified 12/26/24 15:44 Antibiotics) Vital Signs Vital Signs - 24 hr 01/11/25 10:06 Temperature 36.1 C L Pulse Rate 71 Respiratory Rate 18 Blood Pressure 168/82 H Pulse Oximetry 100 Oxygen Delivery Room Air Exam Const: General: cooperative, comfortable and no acute distress Resp: Auscultation: clear to auscultation bilaterally Cardio: Rate: regular rate Rhythm: regular rhythm GI: Inspection: normal to inspection, non-distended and visible herniation GI Palp: Yes abdominal tenderness and Yes Hernia present Other: umbilical hernia measuring 2 cm Assessment and Plan Assessment and plan (1) Umbilical hernia: Qualifiers: Obstruction and gangrene presence: without obstruction or gangrene Qualified Code(s): K42.9 - Umbilical hernia without obstruction or gangrene Code(s): K42.9 - Umbilical hernia without obstruction or gangrene Status: Acute Assessment and Plan: will setup for open repair with mesh
--- NOTE | 2025-01-11 11:06 | WPDHPUPDATE1 ---
History and Physical Update Update Date/Time: 01/11/25 11:06 History and Physical has been reviewed, including an updated exam of the patient. There are NO changes in the patient's condition. Risks, benefits, and alternatives have been discussed and questions answered. Patient agrees to proceed with procedure.
[2025-01-11] MEDS: LACTATED RINGERS 1,000 ML 30 ML IV CONT (11:15)
[2025-01-11] MEDS: KETOROLAC 15 MG/ML VIAL (*BKC) IV PUSH (11:40)
--- NOTE | 2025-01-11 12:11 | P.PNAN_ITS ---
Anes - Initial Pre Proc Eval Procedure: Operation Date: 01/11/25 12:00 Proposed Procedures p Open Repair Umbilical Hernia, Possible Mesh - Maya Queen MD Date/Time: 01/11/25 12:11 Surgeon: Maya Queen MD Pre Op Diagnosis: umbilical hernia Patient Data Age: 84 Gender: F Height: 1.68 m Weight: 61 kg Last Vital Signs Temp 97.0 F L 01/11/25 10:06 Pulse 71 01/11/25 10:06 Resp 18 01/11/25 10:06 BP 168/82 H 01/11/25 10:06 Pulse Ox 100 01/11/25 10:06 O2 Del Method Room Air 01/11/25 10:06 Allergies Allergy/AdvReac Type Severity Reaction Status Date / Time Sulfa (Sulfonamide Allergy Intermediate Rash Verified 12/26/24 15:44 Antibiotics) Home Medications ?Medication ?Instructions ?Recorded ?Confirmed ?Type magnesium oxide 400 mg PO DAILY 08/08/19 01/11/25 History sphhudxg-qcluogq-pwyo-lutein tablet 1 mcg PO DAILY 08/08/19 01/11/25 History calcium 600 mg (as 2 cap PO BIDWMEAL #180 caps 03/31/23 01/11/25 Rx carbonate)-vitamin D3 10 mcg (400 unit) capsule zoledronic acid 5 mg/100 mL in 1 ea IV .annually #100 mL 04/27/24 12/26/24 Rx mannitol 5 %-water intravenous piggybck (Reclast) cyclosporine 0.05 % eye drops in a 1 drp EACH EYE Q12H 10/25/24 01/11/25 History dropperette (Restasis) polyethylene glycol 3350 17 17 g PO BID 10/30/24 01/11/25 History gram/dose oral powder (Miralax) metoprolol tartrate 25 mg tablet 37.5 mg PO TID 11/17/24 01/11/25 History omeprazole 40 mg capsule,delayed See Rx Instructions .Route 12/01/24 01/11/25 Rx release .COMPLEX #30 caps docusate sodium 100 mg capsule 100 mg PO BID PRN constipation 12/26/24 12/26/24 History (Colace) Patient hx anesthesia problems: none Family hx anesthesia problems: none Results Review: All pre-operative results and documents have been reviewed as part of the pre- operative evaluation. [facility] Past Medical History Medical History Cardiac arrhythmia Osteoporosis Abnormality of heart beat Hypertension Stress fracture of sacrum Fracture of radial neck, right, closed Displaced fracture of neck of left radius Right wrist pain Injury of right hip Sciatica of right side Right hip pain Post-COVID chronic fatigue Skin rash Pre-op exam Left ankle pain Fatigue Personal history of other drug therapy Exposure to COVID-19 virus Colon polyp Epigastric pain Constipation Nausea and vomiting in adult Endometrial thickening on ultrasound RLQ abdominal pain Nicotine dependence in remission Skin cancer s/p surgical resection Breast cancer Paroxysmal supraventricular tachycardia Osteopenia Hyperlipidemia GARRETT (generalized anxiety disorder) Benign essential HTN Surgical History Surgical History History of lumpectomy [address] Nicole 2009 History of thyroid surgery 2007 Dr. Johnston History of hernia repair x2 2002 Dr. Johnston H/O cataract extraction History of lung biopsy (~08/2018) Left History of appendectomy 2007 Dr. Johnston Family History Family History Mother Familial Alzheimer's disease of late onset Congestive heart failure Hypertension Heart disease History of blood clots Father Abnormality of heart beat Heart disease Acute myocardial infarction Social History Social History Smoking status: Never smoker Additional smoking assessment comments: socially only Alcohol intake: never Substance use: never Substance use type: does not use Do You Feel Safe in your Home?: Yes Lack of Transportation: No Lack of Food: Never True Current Housing: I Have Housing Concerned About Future Housing: No Difficulty Paying Gas/Electric Bills: No Difficulty Paying for Meds: No Currently Unemployed: No Education: Decline to Answer Difficulty w/ Childcare or Family Care: No Living arrangements: alone Additional living arrangements comments: Occupation/Education: retired Gender identity (if verbalized by the patient): Female Spiritual care concerns: No Anes - Eval Final PreProcedure Day of Procedure 01/11/25 12:11 Patient weight: normal Lungs: normal air movement Airway: Mallampati scale class II and special considerations (Missing upper teeth, lower R post tooth broken but not loose. ) Neurological: alert and oriented Last oral intake: >/= 8 hours ASA classification: III Emergent: no Anesthetic plan: proceed Anesthesia type and monitoring: general LMA and standard monitoring Results Review: All pre-operative results and documents have been reviewed as part of the pre- operative evaluation. HTN/heart racing, on b esau tid, taken this am, next dose 1400 today. SREE on CPAP. B esau ordered for whenever appropriate time stephens, likely in PACU/ASU. Discussed w pt and her daughters. Informed Consent: The patient's anesthetic plan and its attendant risks and benefits were discussed with the patient/family/POA. Questions were solicited and answers provided to the satisfaction of the patient/family/POA.
[2025-01-11] MEDS: ceFAZolin 2 GM/D5W 50 ML 2 GM/50 ML BAG IVPB (12:34)
[2025-01-11] MEDS: BUPIVACAINE/EPINEPHRINE 0.5% 50 ML VIAL 30 ML INFILTRATE (12:57)
--- NOTE | 2025-01-11 13:38 | W.PM.PROC2 ---
Procedure Note - Detailed Date of Procedure 01/11/25 Pre-op Diagnosis umbilical hernia Post-op Diagnosis Same Procedure Performed repair of umbilical hernia measuring 2.5 cm with mesh Surgeon Maya Queen MD Anesthesia General Indications 84-year-old female with symptomatic umbilical hernia Findings 2.5 cm defect with noted adjacent small bowel Description of Procedure The patient was taken to the operating room placed in the supine position. After adequate induction of general anesthesia, the patient was prepped and draped in the normal sterile fashion. A time-out was then done to verify the patient's identity, as well as the procedure being performed. I began by localizing the area around the umbilicus. I then made a curvilinear incision in the infraumbilical fold. This was taken down to level fascia. I then was able to bluntly dissect around the umbilicus. I then carefully dissected the umbilicus off the underlying fascia. During this dissection, was noted the hernia sac was intimately involved with the overlying dermis. The overlying dermis did a small defect after dissection. The defect was then closed with 4-0 Monocryl subcuticular suture. I then noted a small fascial defect measuring approximately 2.5 cm. There was an adjacent loop of small intestine that looked to be viable and nonobstructed. I then placed a 4.6 cm round piece of ventralex mesh in the underlay position. This was noted to have good, wide local coverage of the defect. I then closed this defect primarily with interrupted 0 Ethibond suture over the underlay mesh repair. I then reapproximated the umbilicus to the fascia with a 3 0 Vicryl U-stitch. The subcutaneous tissue was then closed with 3 0 Vicryl suture. The skin was closed with 4 0 Monocryl subcuticular suture. Dermabond was then placed on the wound. The patient tolerated the procedure well was extubated in the operating room postop. She will be transferred to the recovery room in stable condition. Implants 4.6 cm ventralex mesh in underlay position Estimated Blood Loss 5 Drains No Packing No Pathology None sent Complications No immediate complications Condition Stable Disposition PACU [facility] Billing Surgery - Charge Forward: Surgery Billing
[2025-01-11] MEDS: METOPROLOL TARTRATE TAB 25 MG, METOPROLOL TARTRATE TAB 12.5 MG 37.5 MG PO (14:39)
== END 2025-01-11 15:30 | disposition home or self-care (01) ==
PROVIDERS: PCP Family Medicine; Visit Provider Surgery
PROC: (CPT 49591; principal; 2025-01-11 12:00)
DX: K42.9 Umbilical hernia without obstruction or gangrene (principal)
CPT/HCPCS: 49591; A9270; C1781; J0690; J1100; J1885; J2003; J2405; J2704; J3010; J7120

== ENCOUNTER 2025-02-10 22:43 | Emergency (ER) | payer MEDICARE, SELFPAY ==
--- NOTE | ~2025-02-10 | XR_ITS ---
Exam: Abdomen 1V HISTORY: ABD PAIN X 2 DAYS. HX OF BOWEL OBSTRUCTION. COMPARISON: Reference is made to CT examination of the chest abdomen and pelvis dated 11/03/2024 TECHNIQUE: Supine and upright images of the abdomen FINDINGS: Bowel gas pattern is nonspecific and non-obstructive. Air-fluid level within the lower portion of the stomach. No significant bowel distention. Fecal stasis within the colon. There is no free air or deep sulci. No pathologic calcifications are seen. IMPRESSION: Nonspecific, nonobstructive bowel gas pattern. Fecal stasis within the colon Reviewed, dictated and finalized at location A.
--- NOTE | ~2025-02-10 | CT_ITS ---
EXAMINATION: CT abdomen pelvis w con DATE: 02/11/2025 01:20 INDICATION: Abdominal pain TECHNIQUE: Computed tomography (CT) of the abdomen and pelvis was performed with 100 mL Omnipaque-350 intravenous contrast. Automated exposure control and iterative reconstruction technique were employe d. The dose-length product was 229.98 mGy-cm. COMPARISON: 11/03/2024 FINDINGS: Mild bibasilar atelectasis in both lungs along the margins of the enlarged heart. Small left pleural effusion. No pericardial or pleural effusion. Liver, gallbladder, spleen, pancreas, bilateral adrenal glands and kidneys are normal. Distended bladder is unremarkable. 2.8 cm left ovarian cyst/follicle. Right ovary and anteverted uterus are unremarkable. There are few scattered clonic diverticula witho ut adjacent from trace stranding to suggest diverticulitis. No bowel obstruction. Lumbar levoscoliosi s with severe spondylosis. Old healed fractures of the right superior and inferior pubic rami. IMPRESSION: 1. No acute intra-abdominal/pelvic process. 2. Small left pleural effusion. 3. Cardiomegaly. Reviewed, dictated and finalized at location A.
[2025-02-10 22:44] VITALS: BP 144/114; PULSE 103; RESP 17; TEMP 36.1; O2SAT 97
--- NOTE | 2025-02-10 23:14 | ED_ITS ---
HPI - Abdominal Pain General Chief Complaint: Abdominal Pain Stated Complaint: stomach pain Time Seen by Provider: 02/10/25 23:14 Source: patient Mode of arrival: ambulatory Limitations: no limitations History of Present Illness HPI narrative: patient is 84-year-old female with abdominal pain and associated nausea for the past day. She had surgery with hernia repair 1 month ago. She has remote history of bowel obstruction with surgery. MD elicited complaint: abdominal pain Pertinent past history: other ( Hypertension, prior bowel obstruction in the past year) Onset (ago): day(s) ( 1) Pain Consistency: constant Location: diffuse and suprapubic Severity: mild Pain scale (0-10): 2 Quality: cramping Radiation: none Migration to: no migration Exacerbating factors: nothing Relieving factors: nothing Context: confirms other ( patient having abdominal pain and nausea for the past day here for evaluation with recent surgery in the past month) Associated symptoms: nausea Treatments prior to arrival: other ( none) Related Data Home Medications ?Medication ?Instructions ?Recorded ?Confirmed ?Last Taken ?Type magnesium oxide 400 mg PO DAILY 08/08/19 01/24/25 01/08/25 History qgjgxfnj-dkxgfbf-ubem-lutein tablet 1 mcg PO DAILY 08/08/19 01/24/25 01/08/25 History cyclosporine 0.05 % eye drops in a 1 drp EACH EYE Q12H 10/25/24 01/24/25 01/10/25 History dropperette (Restasis) polyethylene glycol 3350 17 17 g PO BID 10/30/24 01/24/25 01/10/25 History gram/dose oral powder (Miralax) metoprolol tartrate 25 mg tablet 37.5 mg PO TID 11/17/24 01/24/25 01/11/25 History docusate sodium 100 mg capsule 100 mg PO BID PRN constipation 12/26/24 01/24/25 Unknown History (Colace) Allergies Allergy/AdvReac Type Severity Reaction Status Date / Time Sulfa (Sulfonamide Allergy Intermediate Rash Verified 01/24/25 15:15 Antibiotics) Review of Systems 2 Review of Systems: All systems reviewed & are unremarkable except as noted in HPI and below Constitutional: Constitutional: Reports no additional constitutional complaints Eyes: Eyes: Reports no additional eye complaints ENT: Reports system reviewed and no additional complaints, except as documented Cardiovascular: Cardiovascular: Reports no additional cardiovascular complaints Respiratory: Respiratory: Reports no additional respiratory complaints Gastrointestinal: Gastrointestinal: Reports no additional gastrointestinal complaints Genitourinary: Genitourinary: Reports no additional female genitourinary complaints Musculoskeletal: Musculoskeletal: Reports no additional musculoskeletal complaints Integumentary/Breasts: Skin/Breast: Reports system reviewed and no additional complaints, except as docu Neurologic: Reports system reviewed and no additional complaints, except as documented Psychiatric: Psychiatric: Reports no additional psychiatric complaints Endocrine: Endocrine: Reports no additional endocrine complaints Hematologic/Lymphatic: Hematologic/Lymphatic: Reports no additional hematologic/lymphatic complaints Allergic/Immunologic: Allergic/Immunologic: Reports no additional allergic/immunologic complaints PMFSH Past Medical History Medical History Cardiac arrhythmia Osteoporosis Abnormality of heart beat Hypertension Stress fracture of sacrum Fracture of radial neck, right, closed Displaced fracture of neck of left radius Right wrist pain Injury of right hip Sciatica of right side Right hip pain Post-COVID chronic fatigue Skin rash Pre-op exam Left ankle pain Fatigue Personal history of other drug therapy Exposure to COVID-19 virus Colon polyp Epigastric pain Constipation Nausea and vomiting in adult Endometrial thickening on ultrasound RLQ abdominal pain Nicotine dependence in remission Skin cancer s/p surgical resection Breast cancer Paroxysmal supraventricular tachycardia Osteopenia Hyperlipidemia GARRETT (generalized anxiety disorder) Benign essential HTN Surgical History Surgical History H/O umbilical hernia repair 01/11/25 repair of umbilical hernia measuring 2.[address] Queen History of lumpectomy [address] Nicole 2009 History of thyroid surgery 2007 Dr. Johnston History of hernia repair x2 2002 Dr. Johnston H/O cataract extraction History of lung biopsy (~08/2018) Left History of appendectomy 2007 Dr. Johnston Family History Family History Mother Familial Alzheimer's disease of late onset Congestive heart failure Hypertension Heart disease History of blood clots Father Abnormality of heart beat Heart disease Acute myocardial infarction Social History Social History Smoking status: Never smoker Additional smoking assessment comments: socially only Alcohol intake: never Substance use: never Substance use type: does not use Do You Feel Safe in your Home?: Yes Lack of Transportation: No Lack of Food: Never True Current Housing: I Have Housing Concerned About Future Housing: No Difficulty Paying Gas/Electric Bills: No Difficulty Paying for Meds: No Currently Unemployed: No Education: Decline to Answer Difficulty w/ Childcare or Family Care: No Living arrangements: alone Additional living arrangements comments: Occupation/Education: retired Gender identity (if verbalized by the patient): Female Spiritual care concerns: No Exam 2 Const: General: healthy appearing Nutritional Appearance: well nourished Orientation/consciousness: patient oriented x3 Limitations: no limitations HENMT: Head: normal to inspection Ears: external ears normal F guido/Nose/Sinus: Normal external nose present Eyes: Conjunctivae: conjunctivae normal Pupils: Equal, round and reactive pupils present EOM: EOMs intact bilaterally Neck: Neck: normal visual inspection Chest: Chest palpation & inspection: normal inspection of the chest Resp: Effort & Inspection: normal respiratory effort and not labored A uscultation: clear to auscultation bilaterally and no crackles Cardio: Rate: regular rate Rhythm: regular rhythm Heart sounds: no murmurs GI: Inspection: non-distended GI Palp: Yes Soft to palpation, Yes Tenderness to palpation present (GI) ( diffuse abdomen), No Guarding due to palpation present (GI), No Rigid due to palpation, No Hernia present, No Palpable mass present and No Rebound tenderness present Auscultation: normal bowel sounds : General: Yes bladder normal to palpation Back/Spine/Pelvis: Back: no CVA tenderness Skin: General skin exam: normal color Rashes: no rashes Wounds: no wounds Neuro: General: patient oriented x3, moves all extremities, no meningeal signs, no focal motor deficits and CN's II-XI intact bilaterally Extrem: General: normal to inspection Psych: Mental Status: mental status grossly normal Affect: normal affect Attitude: cooperative Course Vital Signs Vital signs: Vital Signs Temperature 36.1 C L 02/10/25 22:44 Pulse Rate 103 H 02/10/25 22:44 Respiratory Rate 17 02/10/25 22:44 Blood Pressure 144/114 H 02/10/25 22:44 Pulse Oximetry 97 02/10/25 22:44 Oxygen Delivery Room Air 02/10/25 22:44 Temperature 36.1 C L 02/10/25 22:44 Pulse Rate 85 02/11/25 01:36 Respiratory Rate 18 02/11/25 01:36 Blood Pressure 145/95 H 02/11/25 01:36 Pulse Oximetry 93 02/11/25 01:36 Oxygen Delivery Room Air 02/11/25 01:36 MDM - Abdominal Pain MDM Narrative Medical decision making narrative: patient is an 84-year-old female with nausea and abdominal pain for the past day. We will do a GI workup at this time. Initial abdomen acute series was negative for obstruction. We will proceed with a CT scan of the abdomen and pelvis. All workup was negative. Lab Data Attestation: I reviewed the patient's lab results. 02/10/25 23:56 02/10/25 23:56 Labs: Lab Results 02/10/25 Range/Units 23:56 WBC 6.6 (4.8-10.8) K/mm3 RBC 4.39 (4.20-5.40) M/mm3 Hgb 12.2 (11.7-13.8) g/dL Hct 37.7 (35.0-42.0) % MCV 85.9 (78.0-102.0) fL MCH 27.8 (27.0-31.0) pg MCHC 32.4 (32-36) g/dL RDW 13.7 (11.6-14.4) % Plt Count 241 (150-420) K/mm3 MPV 9.8 (9.2-11.8) fl Immature Gran % (Auto) 0.2 H (0.0-0.0) % Neut % (Auto) 59.6 (50.0-70.0) % Lymph % (Auto) 23.2 (18.0-42.0) % [place] % (Auto) 13.2 H (2.0-11.0) % Eos % (Auto) 3.3 (1.0-6.0) % Baso % (Auto) 0.5 (0.0-1.0) % Lymph # (Auto) 1.53 (1.10-4.50) K/mm3 [place] # (Auto) 0.87 (0.10-0.90) K/mm3 Eos # (Auto) 0.22 (0.02-0.50) K/mm3 Baso # (Auto) 0.03 (0.00-0.10) K/mm3 Abs Immat Gran (auto) 0.01 H (0.00-0.00) K/mm3 Absolute Neuts (auto) 3.93 (1.70-7.20) K/mm3 Absolute Nucleated RBC 0.00 (0.00-0.00) K/mm3 Nucleated RBC % 0.0 (0-0.0) % PT 11.8 (9.50-12.1) Seconds INR 1.1 APTT 28.3 (23.9-30.70) Sec Sodium 133 L (137-145) mmol/L Potassium 3.5 (3.4-5.0) mmol/L Chloride 97 L (98-107) mmol/L Carbon Dioxide 32 H (22-30) mmol/L Anion Gap 4 (4-12) mmol/L BUN 14 (7-17) mg/dL Creatinine 0.69 L (0.7-1.0) mg/dL Estim Creat Clear Calc Not Reportable Estimated GFR > 60 (59 - ) Glucose 127 H (65-110) mg/dL Calculated Osmolality 278 L (285-295) mOsm/kg Lactic Acid 0.7 (0.4-2.0) mmol/L Calcium 9.1 (8.4-10.2) mg/dL Total Bilirubin 0.4 (0.2-1.3) mg/dL AST 38 H (14-36) U/L ALT 21 (6-35) U/L Alkaline Phosphatase 56 (38-126) U/L Troponin I 0.014 (0.000-0.034) ng/mL Total Protein 7.0 (6.3-8.2) g/dL Albumin 4.1 (3.5-5.1) g/dL Lipase 59 (23-300) U/L Urine Color Light yellow (Yellow) Urine Appearance Clear (Clear) Urine pH 7.0 (5.0-8.0) Ur Specific [place] <= 1.005 L (1.010-1.020) Urine Protein Negative (Negative) Urine Glucose (UA) Negative (Negative) Urine Ketones Negative (Negative) Ur Blood (Man) Negative (Negative) Urine Nitrate Negative (Negative) Urine Bilirubin Negative (Negative) Urine Urobilinogen 0.2 (0.2-1.0) mg/dL Leukocyte Esterase Rfl Trace H (Negative) JANA/UL Urine WBC None seen (0-3) /hpf Imaging Data Attestation: I personally reviewed and interpreted this imaging study as follows: Radiologist's impression: ITS Impressions Abdomen X-Ray 02/10/25 23:36 IMPRESSION: Nonspecific, nonobstructive bowel gas pattern. Fecal stasis within the colon CT scan of the abdomen and pelvis was negative for acute process ECG Data EKG #1: Attestation: I personally reviewed and interpreted this ECG as follows: ECG completion date: 02/11/25 ECG completion time: 02:10 normal rate, sinus rhythm, no ectopy, non-specific ST changes, widened QRS, normal QT and left axis Discharge Plan Discharge Clinical Impression: Acute UTI Patient Disposition: Home Condition: Stable Instructions: Abdominal Pain (ED), Urinary Tract Infection in Older Adults (ED) Patient Language: Turkish Prescriptions: New cephalexin 500 mg capsule 500 mg PO BID 7 Days Qty: 14 0RF No Action polyethylene glycol 3350 [Miralax] 17 gram/dose powder 17 g PO BID magnesium oxide 400 mg magnesium tablet 400 mg PO DAILY kgngjare-vksvlzj-spdh-lutein Tablet 1 mcg PO DAILY metoprolol tartrate 25 mg tablet 37.5 mg PO TID cyclosporine [Restasis] 0.05 % dropperette 1 drp EACH EYE Q12H docusate sodium [Colace] 100 mg capsule 100 mg PO BID PRN (Reason: constipation) Patient Comments: USUALLY TAKES 1 TAB DAILY/2 TABS EVERY OTHER DAY calcium carbonate-vitamin D3 600 mg-10 mcg (400 unit) capsule 2 cap PO BIDWMEAL Qty: 180 2RF zoledronic ojcn-gsipxgyb-oulsm [Reclast] 5 mg/100 mL piggyback 1 ea IV .annually Qty: 100 0RF Rx Instructions: Due after 01/10/2022. Repeat yearly. omeprazole 40 mg capsule,delayed release(DR/EC) See Rx Instructions .ROUTE .COMPLEX Qty: 30 2RF Dose Instruction: TAKE ONE CAPSULE BY MOUTH DAILY Rx Instructions: TAKE ONE CAPSULE BY MOUTH DAILY Follow-up/Referrals: Elliot Tran DO [Primary Care Provider] - Time of Disposition: 04:03
--- NOTE | 2025-02-10 23:56 | ECG_ITS ---
Test Date: 2025-02-11 00:05:21 Measurements Intervals [place] Rate: 97 P: 226 NE: 203 QRS: -43 QRSD: 109 T: 64 QT: 369 QTc: 469 Interpretive Statements SINUS RHYTHM WITH MARKED FIRST DEGREE AV BLOCK LEFT AXIS DEVIATION LEFT VENTRICULAR HYPERTROPHY AND ST-T CHANGE DELAYED PRECORDIAL R/S TRANSITION PEAKED T WAVES- CONSIDER HYPERKALEMIA ABNORMAL ECG Compared to ECG 11/03/2024 15:44:14 PEAKED T WAVES NOW PRESENT Electronically Signed On 02-13-2025 06:29:32 CDT by John Ray D.O.
[2025-02-11 00:05] LABS: Basophils Absolute Auto 0.03 K/mm3 (0.00-0.10); Basophils Percent Auto 0.5 % (0.0-1.0); Eosinophils Absolute Auto 0.22 K/mm3 (0.02-0.50); Eosinophils Percent Auto 3.3 % (1.0-6.0); Hematocrit 37.7 % (35.0-42.0); Hemoglobin 12.2 g/dL (11.7-13.8); Immature Granulocyte Absolute 0.01 K/mm3 (0.00-0.00); Immature Granulocyte Percent A 0.2 % (0.0-0.0); Lymphocytes Absolute Auto 1.53 K/mm3 (1.10-4.50); Lymphocytes Percent Auto 23.2 % (18.0-42.0); Mean Corpuscular HGB Conc 32.4 g/dL (32-36); Mean Corpuscular Hemoglobin 27.8 pg (27.0-31.0); Mean Corpuscular Volume 85.9 fL (78.0-102.0); Mean Platelet Volume 9.8 fl (9.2-11.8); Monocytes Absolute Auto 0.87 K/mm3 (0.10-0.90); Monocytes Percent Auto 13.2 % (2.0-11.0); Neutrophils Absolute Auto 3.93 K/mm3 (1.70-7.20); Neutrophils Percent Auto 59.6 % (50.0-70.0); Platelet Count Result 241 K/mm3 (150-420); Red Blood Count 4.39 M/mm3 (4.20-5.40); Red Cell Distribution Width 13.7 % (11.6-14.4); White Blood Count 6.6 K/mm3 (4.8-10.8)
[2025-02-11 00:07] LABS: Add Urine Microscopic? YES; Appearance Urine Clear (Clear); Bilirubin Urine Negative (Negative); Blood Urine Negative (Negative); Color Urine Light Yellow (Yellow); Glucose Urine UA Negative (Negative); Ketones Urine Negative (Negative); Leukocyte Esterase Ur Trace LEU/UL (Negative); Nitrate Urine Negative (Negative); Protein Urine Negative (Negative); Specific Grav Ur <= 1.005 (1.010-1.020); Urobilinogen Urine 0.2 mg/dL (0.2-1.0)
[2025-02-11] MEDS: MORPHINE SULFATE (*CRX) 2 MG/ML INJ IV PUSH (00:10)
[2025-02-11] MEDS: ONDANSETRON INJ 4 MG/2 ML VIAL IV PUSH (00:10)
[2025-02-11 00:13] LABS: WBC Urine None seen /hpf (0-3)
[2025-02-11 00:15] VITALS: BP 156/103; PULSE 85; RESP 18; O2SAT 95
--- NOTE | 2025-02-11 00:15 | PC.NURSE ---
Pt still c/o abd pain, stated MSO4 helped a little but she still had the sharp pain present. VSS, ERP informed and order for CT scan obtained.
[2025-02-11 00:20] LABS: Alanine Aminotransferase 21 U/L (6-35); Albumin Level 4.1 g/dL (3.5-5.1); Alkaline Phosphatase 56 U/L (38-126); Anion Gap 4 mmol/L (4-12); Aspartate Amino Transferase 38 U/L (14-36); Bilirubin,Total 0.4 mg/dL (0.2-1.3); Blood Urea Nitrogen 14 mg/dL (7-17); Calcium 9.1 mg/dL (8.4-10.2); Carbon Dioxide 32 mmol/L (22-30); Chloride 97 mmol/L (98-107); Estimated Glomerular Filt Rate > 60; Glucose 127 mg/dL (65-110); Lipase 59 U/L (23-300); Osmolality Calculated 278 mOsm/kg (285-295); Potassium 3.5 mmol/L (3.4-5.0); Sodium 133 mmol/L (137-145)
[2025-02-11 00:21] LABS: INR 1.1; Lactic Acid Reflex 0.7 mmol/L (0.4-2.0); Partial Thromboplastin Time 28.3 Sec (23.9-30.70); Prothrombin Time 11.8 Seconds (9.50-12.1)
[2025-02-11 00:31] LABS: Troponin I 0.014 ng/mL (0.000-0.034)
[2025-02-11 01:36] VITALS: BP 145/95; PULSE 85; RESP 18; O2SAT 93
--- NOTE | 2025-02-11 01:36 | PC.NURSE ---
Lights dimmed, pt resting, VSS, awaiting CT scan report.
--- NOTE | 2025-02-11 02:58 | PC.NURSE ---
Pt resting comfortable, denies any pain at this time, awaiting CT report, pt ambulated to BR steady and back to bed.
[2025-02-11] MEDS: CEPHALEXIN 500 MG CAPSULE PO (03:59)
[2025-02-11 04:17] VITALS: BP 139/82; PULSE 71; RESP 18; TEMP 36.5; O2SAT 99
== END 2025-02-11 04:19 | disposition home or self-care (01) ==
PROVIDERS: Emergency Provider Emergency Medicine; PCP Family Medicine
DX: N39.0 Urinary tract infection, site not specified (principal); I10 Essential (primary) hypertension; E78.5 Hyperlipidemia, unspecified; Z85.828 Personal history of other malignant neoplasm of skin
CPT/HCPCS: 36415; 74019; 74177; 80053; 81001; 83605; 83690; 84484; 85025; 85610; 85730; 93005; 96374; 96375; 99284; A9270; J2270; J2405; Q9967

== ENCOUNTER 2025-02-15 09:34 | Outpatient (CLI) | payer MEDICARE, SELFPAY ==
--- OUTSIDE RECORDS SUMMARY | 2025-02-15 09:47 | XMS_ITS | Encounter Summary ---
Author Organization [facility] Healthcare Address [address] [place] [address] Care Team Providers Care Social Work Case Manager Name Role Phone Ilir Wahl MD Unavailable [phone] Martín Block MD Primary Care Provider Cyril Zee MD Primary Care Provider [phone] Miscellaneous, Not In File Primary Care Provider Unavailable Randi Lopez HAT RENOVATOR Primary Care Provide r Elliot Tran DO Primary Care Provider Encounter Details Date Type Department Care Team (Late st Contact Info) Description 2020 Telephone [facility] Advanced Medicine Radiation Oncology [address] [place] [address] Advanced Medicine [facility] [place] [address] Josie Torrez MA Social History Tobacco Use Types Packs/Day Years Used Date Smoking Tobacco: Never Smokeless Tobacco: Never Alcohol Use Standard Drinks/Week Comments No 0 (1 standard drink = 0.6 oz pur e alcohol) Comments No Sex and Gender Information Value Date Recorded Sex Assigned at Not on file 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:39 AM GEOTECHNICAL INTERN Gender Identity Not on file Sexual Orientation Not on file documented as of this encounter Plan of Treatment Not on file documented as of this encounter Visit Diagnoses Not on filedocumented in this encounter Care Teams Social Work Case Manager Relationship Specialty Start Date End Date Martín Block MD [facility] [address] [place] [address] PCP - General 06/07/20 11/29/20 Cyril Zee MD [address] [facility] [address] [place], [place] [id number] PCP - General Obstetrics and Gynecology 11/30/20 10/15/21 Miscellaneous, Not In File PCP - General 10/16/21 10/20/21 Randi Lopez NP [address] [place] [address] PCP - General 10/21/21 10/14/22 Elliot Tran DO [address] [place] [address] PCP - General Family Medicine 10/15/22 Ilir Wahl MD [address] [place] [address] Referring Physician Radiation Oncology 09/07/18 documented as of this encounter
--- OUTSIDE RECORDS SUMMARY | 2025-02-15 09:47 | XMS_ITS | Patient Health Record ---
Author Organization [facility] Address [address] [place], [place] [id number] Support Name Relationship Address Phone WILLIAMS ESCOBEDO Emergency Contact Unknown MARILEE ELLER Guarantor Unknown [phone] Reason For Referral No Information Plan Of Treatment No Information Insurance Providers Payer Name Payer Address Payer Phone Subscriber Number Group Number Insured Name Patient Relationship to Insured Coverage Start Date Coverage End Date Medicare Part B [place] [address] [place] [address] [id number] MARILEE ELLER Self - patient is the insured [facility] ([facility]) ATTN CLAIMS [address] [place] [address] [id number] MARILEE ELLER Self - patient is the insured
--- OUTSIDE RECORDS SUMMARY | 2025-02-15 09:47 | XMS_ITS | Encounter Summary ---
Author Organization [facility] Address [address] [place] [address] Phone Care Team Providers Care Byproducts Pump Operator Name Role Phone Ilir Wahl MD Unavailable [phone] Martín Block MD Primary Care Provider Cyril Zee MD Primary Care Provider [phone] Miscellaneous, Not In File Primary Care Provider [...] on file 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:39 AM PHYSICAL THERAPY DIRECTOR Gender Identity Not on file Sexual Orientation [...] on filedocumented in this encounter Care Teams Byproducts Pump Operator Relationship Specialty Start Date End Date Martín Block MD [address] [place] [address] PCP - General 06/07/20 11/29/20 Cyril Zee MD [address] [place], [place] [id number] PCP - General Obstetrics and Gynecology 11/30/20 10/15/21 Miscellaneous, Not In File PCP - General 10/16/21 10/20/21 Randi Lopez NP [address] [place] [address] PCP - General 10/21/21 10/14/22 Elliot Tran DO [address] [place] [address] PCP - General Family Medicine 10/15/22 Iilr Wahl MD [address] [place] [address] Referring Physician Radiation Oncology 09/07/18 documented as of this encounter
--- OUTSIDE RECORDS SUMMARY | 2025-02-15 09:47 | XMS_ITS | Clinical Summary ---
Author Organization [facility] Address [address] [place] [address] Care Team Providers Care Beam Doffer Name Role Phone Ilir Wahl MD Unavailable Elliot Tran DO Primary Care Provider Allergies Active Allergy Reactions Criticality Noted Date Comments Sulfamethoxazole-Trimethoprim Rash Medium 2018 Medications calcium carbonate-vitam in D3 1,250mg (500mg elemental) - 5 mcg (200 units) per tablet Take 2 tablets by mouth director toxicology before breakfast Active bejycfox-bnx-HE -lycopen-lutein 0.4 mg-300 mcg- 250 mcg tablet Take 1 tablet by mouth director toxicology before breakfast Active metoprolol (LOPRESSOR) 50 mg tablet Take 1 tablet (50 mg total) by mouth 2 (two) times a day 0 8 Active omega-3 fatty acids-fish oil 684-1,200 mg capsule,delayed release(DR/EC) Take 1 tablet by mouth director toxicology before breakfast. Active magnesium gluconate 200 mg tablet Take 2 tablets (400 mg total) by mouth director toxicology before breakfast Active oxyCODONE (ROXICODONE) 5 mg [...] (07/16/2018): Added automatically from request for surgery [id number] History of breast cancer 06/21/2018 Encounter for [...] on file 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:39 AM ROUTE DELIVERY CLERK Gender Identity Not on file Sexual Orientation Not on file Obstetrics History Last Filed Vital Signs Vital Sign Reading Time Taken Comments Blood Pressure 124/75 09/08/2024 2:05 PM ROUTE DELIVERY CLERK Pulse 60 09/08/2024 2:05 PM ROUTE DELIVERY CLERK Temperature 36.8 C (98.2 F) 09/08/2024 2:05 PM ROUTE DELIVERY CLERK Respiratory Rate 16 09/08/2024 2:05 PM ROUTE DELIVERY CLERK Oxygen Saturation 99% 09/08/2024 2:05 PM ROUTE DELIVERY CLERK Inhaled Oxygen Concentration - - Weight 64.9 kg (143 lb) 09/08/2024 2:05 PM ROUTE DELIVERY CLERK Height 167.6 cm (5' 6) 09/08/2024 2:05 PM ROUTE DELIVERY CLERK Body Mass Index 23.08 09/08/2024 2:05 PM ROUTE DELIVERY CLERK Plan of Treatment Health Maintenance Due Date Last Done Comments Depression Screening 1938 Fall Risk Assessment 1938 Osteoporosis Screening-Bone Density Scan 1938 DTaP/Tdap/Td Vaccine (1 - Tdap) 1949 Hepatitis B Screening 1956 Pneumococcal vaccine 65+ (1 of 2 - PCV) 1957 Zoster Vaccine (1 of 2) 1957 Well Visit 65+ 2003 Covid-19 Vaccine (2 - Moderna risk series) 10/12/2020 09/14/2020 Influenza Vaccine (Season Ended) 2025 Insurance MEDICARE [facility] MEDICARE SUPPLEMENT MEDICARE [facility] MEDICARE BLUE CROSS MEDICARE SUPPLEMENT Advance Directives For more information, please contact: [phone] * Full Code (Latest Code Status on File) Date Activated Date Inactivated Comments 09/03/2018 11:25 AM 09/04/2018 4:52 PM Care Teams Beam Doffer Relationship Specialty Start Date End Date Elliot Tran DO [address] [place] [address] PCP - General Family Medicine 10/15/22 Ilir Wahl MD [address] [facility] [address] [place] [address] Referring Physician Radiation Oncology 09/07/18"
--- OUTSIDE RECORDS SUMMARY | 2025-02-15 09:47 | XMS_ITS | Encounter Summary ---
Author Organization [facility] Healthcare Address [address] [place] [address] Care Team Providers Care Director Of Strategic Programs Name Role Phone Ilir Wahl MD Unavailable [phone] Cyril Zee MD Primary Care Provider [phone] Miscellaneous, Not In File Primary Care Provider Unavailable Randi Lopez RIM TECHNICIAN Primary Care Provide r Elliot Tran DO Primary Care Provider Encounter Details Date Type Department Care Team (Late st Contact Info) Description 09/20/2021 Telephone [facility] Radiation Oncology [address] [facility] [place] [address] Josie Torrez MA Social History Tobacco Use Types Packs/Day Years Used Date Smoking Tobacco: Never Smokeless Tobacco: Never Alcohol Use Standard Drinks/Week Comments No 0 (1 standard drink = 0.6 oz pur e alcohol) Comments No Sex and Gender Information Value Date Recorded Sex Assigned at Not on file 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:39 AM PHOTOENGRAVING FINISHER Gender Identity Not on file Sexual Orientation Not on file documented as of this encounter Plan of Treatment Not on file documented as of this encounter Visit Diagnoses Not on filedocumented in this encounter Care Teams Director Of Strategic Programs Relationship Specialty Start Date End Date Cyril Zee MD [address] [facility] [address] [place], [place] [id number] PCP - General Obstetrics and Gynecology 11/30/20 10/15/21 Miscellaneous, Not In File PCP - General 10/16/21 10/20/21 Randi Lopez NP [address] [place] [address] PCP - General 10/21/21 10/14/22 Elliot Tran DO [address] [place] [address] PCP - General Family Medicine 10/15/22 Ilir Wahl MD [address] [facility] # [address] LL [address] [place] [address] Referring Physician Radiation Oncology 09/07/18 documented as of this encounter
--- OUTSIDE RECORDS SUMMARY | 2025-02-15 09:47 | XMS_ITS | Encounter Summary ---
Author Organization [facility] Healthcare Address [address] [place] [address] Care Team Providers Care External Grinder Tool Name Role Phone Ilir Wahl MD Unavailable [phone] Brad Joyner MD Primary Care Provider [phone] Martín Block MD Primary Care Provider Cyril Zee MD Primary Care Provider [phone] Miscellaneous, Not In File Primary Care Provider Unavailable Randi Lopez NP Primary Care Provide r Elliot Tran DO Primary Care Provider Encounter Details Date Type Department Care Team (Late st Contact Info) Description 03/02/[address] [facility] Radiation Oncology [address] [facility] [place] [address] Josie Torrez MA Social History Tobacco Use Types Packs/Day Years Used Date Smoking Tobacco: Never Smokeless Tobacco: Never Alcohol Use Standard Drinks/Week Comments No 0 (1 standard drink = 0.6 oz pur e alcohol) Comments No Sex and Gender Information Value Date Recorded Sex Assigned at Not on file 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:39 AM FIRE EATER Gender Identity Not on file Sexual Orientation Not on file documented as of this encounter Plan of Treatment Not on file documented as of this encounter Visit Diagnoses Not on filedocumented in this encounter Care Teams External Grinder Tool Relationship Specialty Start Date End Date Brad Joyner MD [address] [place] [address] PCP - General Family Medicine 12/10/18 06/06/20 Martín Block MD [address] [place] [address] PCP - General 06/07/20 11/29/20 Cyril Zee MD [address] [address] PCP - General Obstetrics and Gynecology 11/30/20 10/15/21 Miscellaneous, Not In File PCP - General 10/16/21 10/20/21 Randi Lopez NP [address] [place] [address] PCP - General 10/21/21 10/14/22 Elliot Tran DO [address] [place] [address] PCP - General Family Medicine 10/15/22 Ilir Wahl MD [address] [facility] # [address] [place] [address] Referring Physician Radiation Oncology 09/07/18 documented as of this encounter
--- OUTSIDE RECORDS SUMMARY | 2025-02-15 09:47 | XMS_ITS ---
Author Organization [facility] Address [address] [place] [address] Care Team Providers Care Hat Copyist Name Role Phone Ilir Wahl MD Unavailable [...] (07/16/2018): Added automatically from request for surgery [id number] History of breast cancer 06/21/2018 Encounter for [...]
--- OUTSIDE RECORDS SUMMARY | 2025-02-15 09:47 | XMS_ITS | Referral Summary ---
Author Organization [facility] Address [address] [place] [address] Care Team Providers Care Roll Machine Operator Name Role Phone Ilir Wahl MD Unavailable [phone] Elliot Tran DO Primary Care Provider Allergies Active Allergy Reactions Criticality Noted Date Comments Sulfamethoxazole-Trimethoprim Rash Medium 2018 Medications calcium carbonate-vitam in D3 1,250mg (500mg elemental) - 5 mcg (200 units) per tablet Take 2 tablets by mouth case manager specialist before breakfast Active ocfaovsd-pmx-JR -lycopen-lutein 0.4 mg-300 mcg- 250 mcg tablet Take 1 tablet by mouth case manager specialist before breakfast Active metoprolol (LOPRESSOR) 50 mg tablet Take 1 tablet (50 mg total) by mouth 2 (two) times a day 0 8 Active omega-3 fatty acids-fish oil 684-1,200 mg capsule,delayed release(DR/EC) Take 1 tablet by mouth case manager specialist before breakfast. Active magnesium gluconate 200 mg tablet Take 2 tablets (400 mg total) by mouth case manager specialist before breakfast Active oxyCODONE (ROXICODONE) 5 mg [...] (07/16/2018): Added automatically from request for surgery [id number] History of breast cancer 06/21/2018 Encounter for [...] on file 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:39 AM GERONTOLOGY AIDE Gender Identity Not on file Sexual Orientation Not on file Last Filed Vital Signs Vital Sign Reading Time Taken Comments Blood Pressure 124/75 09/08/2024 2:05 PM GERONTOLOGY AIDE Pulse 60 09/08/2024 2:05 PM GERONTOLOGY AIDE Temperature 36.8 C (98.2 F) 09/08/2024 2:05 PM GERONTOLOGY AIDE Respiratory Rate 16 09/08/2024 2:05 PM GERONTOLOGY AIDE Oxygen Saturation 99% 09/08/2024 2:05 PM GERONTOLOGY AIDE Inhaled Oxygen Concentration - - Weight 64.9 kg (143 lb) 09/08/2024 2:05 PM GERONTOLOGY AIDE Height 167.6 cm (5' 6) 09/08/2024 2:05 PM GERONTOLOGY AIDE Body Mass Index 23.08 09/08/2024 2:05 PM GERONTOLOGY AIDE Plan of Treatment Not on file Insurance MEDICARE [facility] MEDICARE SUPPLEMENT MEDICARE [facility] MEDICARE [facility] MEDICARE SUPPLEMENT Advance Directives For more information, please contact: [phone] * Full Code (Latest Code Status on File) Date Activated Date Inactivated Comments 09/03/2018 11:25 AM 09/04/2018 4:52 PM Care Teams Roll Machine Operator Relationship Specialty Start Date End Date Elliot Tran DO [address] [place] [address] PCP - General Family Medicine 10/15/22 Ilir Wahl MD [address] [place] [address] # [address] [place] [address] Referring Physician Radiation Oncology 09/07/18
[2025-02-15 10:47] LABS: Alanine Aminotransferase 22 U/L (6-35); Albumin Level 4.0 g/dL (3.5-5.1); Alkaline Phosphatase 45 U/L (38-126); Anion Gap 4 mmol/L (4-12); Aspartate Amino Transferase 37 U/L (14-36); Bilirubin,Total 0.5 mg/dL (0.2-1.3); Blood Urea Nitrogen 13 mg/dL (7-17); Calcium 9.1 mg/dL (8.4-10.2); Carbon Dioxide 31 mmol/L (22-30); Chloride 99 mmol/L (98-107); Cholesterol 205 mg/dL (0-200); Estimated Glomerular Filt Rate > 60; Glucose 97 mg/dL (65-110); HDL Direct 94 mg/dL; Iron 64 ug/dL (37-170); Osmolality Calculated 278 mOsm/kg (285-295); Potassium 4.5 mmol/L (3.4-5.0); Sodium 134 mmol/L (137-145); Total Protein 6.4 g/dL (6.3-8.2); Triglycerides 52 mg/dL (<150)
[2025-02-15 10:56] LABS: Percent Iron Saturation 19 % (20-50)
[2025-02-15 11:36] LABS: Vitamin B12. 942.0 pg/mL (239-931)
== END 2025-02-15 09:35 | disposition home or self-care (01) ==
LOC: CHSLAB 09:36
PROVIDERS: PCP Family Medicine; Visit Provider Nurse Practitioner Family
DX: E87.8 Other disorders of electrolyte and fluid balance, not elsewhere classified (principal); E78.5 Hyperlipidemia, unspecified; R42 Dizziness and giddiness; R74.8 Abnormal levels of other serum enzymes
CPT/HCPCS: 36415; 80053; 80061; 82607; 83540; 83550

== ENCOUNTER 2025-02-24 10:56 | Outpatient (CLI) | payer MEDICARE, SELFPAY ==
--- OUTSIDE RECORDS SUMMARY | 2025-02-24 11:03 | XMS_ITS | Encounter Summary ---
Author Organization [facility] Healthcare Address [address] [place] [address] Care Team Providers Care Silver Spray Worker Name Role Phone Ilir Wahl MD Unavailable [phone] Martín Block MD Primary Care Provider Cyril Zee MD Primary Care Provider [phone] Miscellaneous, Not In File Primary Care Provider Unavailable Randi Lopez FRANCHISE FIELD CONSULTANT Primary Care Provide r Elliot Tran DO Primary Care Provider Encounter Details Date Type Department Care Team (Late st Contact Info) Description 2020 Telephone [facility] Radiation Oncology [address] [place] [address] Advanced Medicine [facility] [place] [address] Josie Torrez MA Social History Tobacco Use Types Packs/Day Years Used Date Smoking Tobacco: Never Smokeless Tobacco: Never Alcohol Use Standard Drinks/Week Comments No 0 (1 standard drink = 0.6 oz pur e alcohol) Comments No Sex and Gender Information Value Date Recorded Sex Assigned at Not on file 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:39 AM DISPLAY SCREEN FABRICATOR Gender Identity Not on file Sexual Orientation Not on file documented as of this encounter Plan of Treatment Not on file documented as of this encounter Visit Diagnoses Not on filedocumented in this encounter Care Teams Silver Spray Worker Relationship Specialty Start Date End Date Martín Block MD [facility] # [address] LL [address] [place] [address] PCP - General 06/07/20 11/29/20 Cyril Zee MD [address] [facility] [address] [place], [place] [address] PCP - General Obstetrics and Gynecology 11/30/20 10/15/21 Miscellaneous, Not In File PCP - General 10/16/21 10/20/21 Randi Lopez NP [address] [place] [address] PCP - General 10/21/21 10/14/22 Elliot Tran DO [address] [place] [address] PCP - General Family Medicine 10/15/22 Ilir Wahl MD [address] [place] [address] Referring Physician Radiation Oncology 09/07/18 documented as of this encounter
--- OUTSIDE RECORDS SUMMARY | 2025-02-24 11:03 | XMS_ITS | Patient Health Record ---
Author Organization [facility] Address [address] [place], [place] [address] Support Name Relationship Address Phone WILLIAMS ESCOBEDO Emergency Contact Unknown [phone] MARILEE ELLER Guarantor Unknown [phone] Reason For Referral No Information Plan Of Treatment No Information Insurance Providers Payer Name Payer Address Payer Phone Subscriber Number Group Number Insured Name Patient Relationship to Insured Coverage Start Date Coverage End Date Medicare Part B [place] [address] [place] [address] [id number] MARILEE ELLER Self - patient is the insured [facility] ([facility]) ATTN CLAIMS [address] [place] [address] [id number] MARILEE ELLER Self - patient is the insured
--- OUTSIDE RECORDS SUMMARY | 2025-02-24 11:03 | XMS_ITS | Encounter Summary ---
Author Organization [facility] Address [address] [place] [address] Care Team Providers Care Timing Adjuster Name Role Phone Randa Maldonado APRN, NP-C Unavailable [phone] José Miguel Gore MD Unavailable [phone] Randi Lopez MINE SURVEYOR Primary Care Provider [phone] Yung Henderson MD Unavailable [phone] Elliot Tran DO Unavailable [phone] Elliot Tran DO Primary Care Provider [phone] Martita Pride MD Unavailable Encounter Details Date Type Department Care Team (Late st Contact Info) Description 12/03/2022 Abstract [facility] [address] [place] [phone] José Miguel Gore MD [address] [place] [address] Social History Tobacco Use Types Packs/Day Years [...] Upcoming Encounters Date Type Department Care Team (Latest Contact Info) Description 03/14/2025 1:30 AM CDT Allied Health/Nurse Visit [facility] [address] [place] [address] Yung Henderson MD [address] [place] [address] 12/18/2025 1:30 PM CDT Appointment [address] [place] [address] Martita Pride MD [address] [place], [place] [address] 12/25/2025 9:15 AM CDT Office Visit [facility] [place] [address] Martita Pride MD [address] [place], [place] [address] documented as of this encounter Visit Diagnoses Not on filedocumented in this encounter Care Teams Timing Adjuster Relationship Specialty Start Date End Date Randi Lopez FNP [address] [place] [address] PCP - General NURSE PRACTITIONER 06/09/22 11/11/23 Elliot Tran DO [address] [place] [address] PCP - General FAMILY PRACTICE 11/12/23 Randa Maldonado, CANDY SEPARATOR ENROBING, DELI CLERK-C [address] [place] [address] [address] [place] [address] NURSE PRACTITIONER 04/26/18 02/20/24 José Miguel Gore MD [address] [place] [address] [place] Fence Machine Operator CARDIOVASCULAR DISEASE 10/26/18 02/20/24 Yung Henderson MD [address] [place] [address] EP Fence Machine Operator CLINICAL CARDIAC ELECTROPHYSIOLOGY 06/11/22 Elliot Tran DO [address] [place] [address] FAMILY PRACTICE 09/02/22 Martita Pride MD [address] [place] [address] Consulting Physician CARDIOVASCULAR DISEASE 02/21/24 documented as of this encounter
--- OUTSIDE RECORDS SUMMARY | 2025-02-24 11:03 | XMS_ITS | Encounter Summary ---
Author Organization [facility] Address [address] [place] [address] Care Team Providers Care Senior Production Manager Name Role Phone Randa Maldonado APRN, NP-C Unavailable José Miguel Gore MD Unavailable [phone] Elliot Tran DO Primary Care Provider [phone] Randi Lopez Primary Care Provider [phone] Yung Henderson MD Unavailable [phone] Elliot Tran DO Unavailable Elliot Tran DO Primary Care Provider [phone] Martita Pride MD Unavailable Encounter Details Date Type Department Care Team (Late st Contact Info) Description 08/06/2018 Abstract [facility] [address] [place] [address] José Miguel Gore MD [address] [place] [address] Social History Tobacco Use Types Packs/Day Years [...] 03/14/2025 1:30 AM CDT Allied Health/Nurse Visit [facility] [address] [place] [address] Yung Henderson MD [address] [place] [address] 12/18/2025 1:30 PM CDT Appointment [facility] [address] [place] [address] [place] [address] Martita Pride MD [address] [place] [address] 12/25/2025 9:15 AM CDT Office Visit [facility] [address] [place] [address] Martita Pride MD [address] [place] [address] documented as of this encounter Procedures Procedure [...] LAB-OUTSIDE/ABSTRACTED Final Result * PROTIME/INR, VENOUS (08/05/2018) Pathologist [facility] PROTIME WHOLE BLOOD 12.0 INR WHOLE BLOOD 1.13 08/05/2018 [facility] Abstract LABORATORY Final Result * CBC (OUTSIDE LAB) (08/05/2018) Pathologist [facility] WBC 5.8 HGB 12.3 HCT 36.9 PLT 186 RBC 4.0 08/05/2018 us Doc [facility] Abstract LAB-OUTSIDE/ABSTRACTED Final Result documented in this encounter Visit Diagnoses Not on filedocumented in this encounter Care Teams Senior Production Manager Relationship Specialty Start Date End Date Elliot Tran DO [address] [place] [address] PCP - General FAMILY PRACTICE 09/13/20 06/08/22 Randi Lopez FNP [address] [place] [address] PCP - General NURSE PRACTITIONER 06/09/22 11/11/23 Elliot Tran DO [address] [place] [address] PCP - General FAMILY PRACTICE 11/12/23 Randa Maldonado APRN, PROCESS ANALYST-C [address] [address] NURSE PRACTITIONER 04/26/18 02/20/24 José Miguel Gore MD [address] [place] [address] [place] Safety Admin Assistant CARDIOVASCULAR DISEASE 10/26/18 02/20/24 Yung Henderson MD [address] [place] [address] EP Safety Admin Assistant CLINICAL CARDIAC ELECTROPHYSIOLOGY 06/11/22 Elliot Tran DO [address] [place] [address] FAMILY PRACTICE 09/02/22 Martita Pride MD [address] [place] [address] Consulting Physician CARDIOVASCULAR DISEASE 02/21/24 documented as of this encounter
--- OUTSIDE RECORDS SUMMARY | 2025-02-24 11:03 | XMS_ITS | Encounter Summary ---
Author Organization [facility] Healthcare Address [address] [place] [address] Care Team Providers Care Bricklayer Helper Name Role Phone Ilir Wahl MD Unavailable [phone] Cyril Zee MD Primary Care Provider [phone] Miscellaneous, Not In File Primary Care Provider Unavailable Randi Lopez EMBOSSING CALENDER OPERATOR Primary Care Provide r Elliot Tran DO Primary Care Provider Encounter Details Date Type Department Care Team (Late st Contact Info) Description 09/20/2021 Telephone [facility] Radiation Oncology [address] [facility] [place] [address] Josie Torrez MA Social History Tobacco Use Types Packs/Day Years Used Date Smoking Tobacco: Never Smokeless Tobacco: Never Alcohol Use Standard Drinks/Week Comments No 0 (1 standard drink = 0.6 oz pur e alcohol) Comments No Sex and Gender Information Value Date Recorded Sex Assigned at Not on file 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:39 AM SIZE MAKER Gender Identity Not on file Sexual Orientation Not on file documented as of this encounter Plan of Treatment Not on file documented as of this encounter Visit Diagnoses Not on filedocumented in this encounter Care Teams Bricklayer Helper Relationship Specialty Start Date End Date Cyril Zee MD [address] [facility] [address] [place], [place] [address] PCP - General Obstetrics and Gynecology 11/30/20 10/15/21 Miscellaneous, Not In File PCP - General 10/16/21 10/20/21 Randi Lopez NP [address] [place] [address] PCP - General 10/21/21 10/14/22 Elliot Tran DO [address] [place] [address] PCP - General Family Medicine 10/15/22 Ilir Wahl MD [address] [facility] [address] [place] [address] Referring Physician Radiation Oncology 09/07/18 documented as of this encounter
--- OUTSIDE RECORDS SUMMARY | 2025-02-24 11:03 | XMS_ITS | Encounter Summary ---
Author Organization [facility] Address [address] [place] [address] Care Team Providers Care Imaging Account Manager Name Role Phone Randa Maldonado APRN, NP-C Unavailable José Miguel Gore MD Unavailable [phone] Randi Lopez YARD INSPECTOR Primary Care Provider Yung Henderson MD Unavailable [phone] Elliot Tran DO Unavailable [phone] Elliot Tran DO Primary Care Provider [phone] Martita Pride MD Unavailable Encounter Details Date Type Department Care Team (Late st Contact Info) Description 09/25/2022 Hospital Orders Only [employer] V[employer] Clerk Pre/Post [address] [place] [address] Yung Henderson MD [address] [place], [place] [address] Social History Tobacco Use Types Packs/Day Years [...] 03/14/2025 1:30 AM CDT Allied Health/Nurse Visit [facility] [address] [place] [address] Yung Henderson MD [address] [place] [address] 12/18/2025 1:30 PM CDT Appointment [address] [place] [address] Martita Pride MD [address] [place] [address] 12/25/2025 9:15 AM CDT Office Visit [facility] [place] [address] Martita Pride MD [address] [place] [address] documented as of this encounter Visit Diagnoses Not on filedocumented in this encounter Care Teams Imaging Account Manager Relationship Specialty Start Date End Date Randi Lopez FNP [address] [place] [address] PCP - General NURSE PRACTITIONER 06/09/22 11/11/23 Elliot Tran DO [address] [place] [address] PCP - General FAMILY PRACTICE 11/12/23 Randa Maldonado APRN, ASSEMBLED WOOD PRODUCTS REPAIRER-C [address] [facility] [address] [place] [address] NURSE PRACTITIONER 04/26/18 02/20/24 José Miguel Gore MD [address] [place] [address] [place] Pool Finisher CARDIOVASCULAR DISEASE 10/26/18 02/20/24 Yung Henderson MD [address] [place] [address] EP Pool Finisher CLINICAL CARDIAC ELECTROPHYSIOLOGY 06/11/22 Elliot Tran DO [address] [place] [address] FAMILY PRACTICE 09/02/22 Martita Pride MD [address] [place] [address] Consulting Physician CARDIOVASCULAR DISEASE 02/21/24 documented as of this encounter
--- OUTSIDE RECORDS SUMMARY | 2025-02-24 11:03 | XMS_ITS | Clinical Summary ---
Author Organization [facility] Address [address] [place] [address] Care Team Providers Care Switching Operator Name Role Phone Yung Henderson MD Unavailable [phone] Elliot Tran DO Unavailable [phone] Elliot rTan DO Primary Care Provider Dottie Parisi MD Unavailable Allergies Active Allergy [...] of her new dose. 60 tablet 11 Active Active Problems Problem Noted Date Diagnosed Date Implantable loop recorder present 09/14/2023 Syncope, unspecified syncope type 09/14/2023 PVC (premature ventricular contraction) 09/29/19 19 History of supraventricular tachycardia Hyperlipidemia Bradycardia Hypertension AV block Resolved Problems Problem Noted Date Diagnosed Date Resolved Date Pre-op evaluation 07/23/2018 04/27/2020 SVT (supraventricular tachycardia) ([facility] 02/08/2023 Encounters Date Type Department Care Team Description 02/02/2025 1:15 AM CDT Allied Health/Nurse Visit [facility] [address] [place] [address] Yung Henderson MD 12/27/2024 Telephone [facility] [address] [place] [address] Dottie Parisi MD Record Request 12/23/2024 8:46 AM CDT - 12/23/2024 11:59 PM CDT Hospital Encounter [facility] [address] [place] [address] Dottie Parisi MD Discharge Disposition: Home or Self Care (Routine Discharge) 12/23/2024 8:45 AM CDT Office Visit [facility] [address] [place] [address] Dottie Parisi MD Heart Problem 12/23/2024 Orders Only [facility] [address] [place] [address] Dottie Parisi MD 12/23/2024 Travel 12/22/2024 Telephone [facility] [address] [place] [address] Dottie Parisi MD Medication Problem 12/20/2024 Results Follow-Up [facility] [address] [place] [address] Dottie Parisi MD [facility] - [id number] MCT - Today 12/19/2024 Orders Only [facility] [address] [place] [address] Dottie Parisi MD 12/09/2024 1:00 AM CDT Allied Health/Nurse Visit [facility] [address] [place] [address] Yung Henderson MD from Last 3 Months [...] Sign Reading Time Taken Comments Blood Pressure 124/82 12/23/2024 9:17 AM CDT Pulse 63 12/23/2024 9:17 AM CDT Temperature 36.3 C (97.4 F) 09/30/2022 11:14 AM SKIN PILER Respiratory Rate 18 12/23/2024 9:17 AM CDT Oxygen Saturation 100% 12/23/2024 9:17 AM CDT Inhaled Oxygen Concentration - - Weight 63 kg (138 lb 12.8 oz) 12/23/2024 9:17 AM CDT Height 167.6 cm (5' 6) 12/23/2024 9:17 AM CDT Body Mass Index 22.4 12/23/2024 9:17 AM CDT Plan of Treatment Upcoming Encounters Date Type Department Care Team (Latest Contact Info) Description 03/14/2025 1:30 AM CDT [facility] [address] [place] [address] Yung Henderson MD [address] [place] [address] 12/18/2025 1:[address] [facility] [address] [place] [address] Dottie Parisi MD [address] [place], [place] [id number] 12/25/2025 9:15 AM CDT Office Visit [facility] [address] [place] [id number] Dottie Parisi MD [address] [place], [place] [id number] Health Maintenance Due Date Last Done Comments DTaP, Tdap and Td Vaccines ( 1 - Tdap) 1957 Pneumococcal Vaccine: 50+ Years (1 of 1 - PCV) 1988 Zoster Vaccines (1 of 2) 1988 Annual Medicare Wellness Visit 2003 RSV Immunization or 60+ Years (1 [...] this topic Medical Devices Implanted Type Area Microsoft Dynamics Developer Device Identifier Shelf Expiration Date Model / Serial / Lot Medtronic Linq Ii-09/30/2022 Implanted:Qt y: 1 on 09/30/2022 by Yung Henderson MD Implantable Loop Recorder Left: Pectoral [employer] 01/23/2024 [id number] / [id number] / Description:DX: SYNCOPE Procedures Procedure Name Priority Date/Time Associated Diagnosis Comments ECG 12-LEAD Routine 12/23/2024 9:03 AM CDT Bradycardia MOBILE CONTINUOUS TELEMETRY Routine 12/14/2024 2:39 PM CDT Bradycardia from Last 3 Months Results * ECG 12-Lead (12/23/2024 9:03 AM CDT) 12/23/2024 9:03 AM CDT Narrative [facility] RAD - 12/23/2024 8:07 PM CDT [address] [place] [address] Test Date: 2024-12-23 Pat Name: ЕЛЕНА ELLER Department: 3 Room: Gender: Female Family Manager: ER : 1940 Requested By: DOTTIE PARISI Order Number: [id number] Reading MD: Dottie Parisi Measurements Intervals [place] Rate: 60 P: 69 MA: 281 QRS: -30 QRSD: 105 T: 12 QT: 437 QTc: 438 Interpretive Statements SINUS RHYTHM WITH FIRST DEGREE AV BLOCK WITH OCCASIONAL SUPRAVENTRICULAR PREMATURE COMPLEXES POSSIBLE LEFT ATRIAL ENLARGEMENT [-0.1mV P WAVE IN V1/V2] ANTEROSEPTAL MYOCARDIAL INFARCTION , OF INDETERMINATE AGE [40+ ms Q WAVE IN V1-V4] Procedure Note Dottie Parisi MD - 12/23/[address] [place] [address] Test Date: 2024-12-23 Pat Name: ЕЛЕНА ELLER Department: 3 Room: Gender: Female Family Manager: [facility] : 1940 Requested By: DOTTIE PARISI Order Number: [id number] Reading MD: Dottie Parisi Measurements Intervals [place] Rate: 60 P: 69 MA: 281 QRS: -30 QRSD: 105 T: 12 QT: 437 QTc: 438 Interpretive Statements SINUS RHYTHM WITH FIRST DEGREE AV BLOCK WITH OCCASIONAL SUPRAVENTRICULAR PREMATURE COMPLEXES POSSIBLE LEFT ATRIAL ENLARGEMENT [-0.1mV P WAVE IN V1/V2] ANTEROSEPTAL MYOCARDIAL INFARCTION , OF INDETERMINATE AGE [40+ ms Q WAVEIN V1-V4] us Dottie Parisi MD ECG ORDERABLES Final Result [facility] CL[facility]IC - [id number] MCT - Today (12/14/2024 2:39 PM CDT) Abdiel RAMAN - 12/14/2024 2:39 PM CDT Baseline Rhythm * The baseline rhythm was First Degree AV Block + Sinus Rhythm with heart rates ranged between 52 and 123 beats per minute, with average rate of 70 beats per minute. A-V Conduction * No Second Degree AV Block Type II. * No Third Degree AV Block. * No Pauses. Supraventricular Arrhythmia * There were 103,818 Supraventricular Ectopic beats with a burden of 10%. * 3 Supraventricular Tachycardia events - the longest episode was 7.6s on 11/30 22:58, and the fastest episode was 115 BPM on 12/04 00:15. Ventricular Arrhythmia * There were 5,931 Ventricular Ectopic beats with a burden of <1%. * No Ventricular Tachycardia. Atrial Fibrillation * No Atrial Fibrillation. Patient Triggered Events * No patient triggered events, and no symptoms. Signed DOTTIE PARISI MD, MS, FACC, RVPI [facility] [place] us Dottie Parisi MD CV VASCULAR ORDERABLES Final Res ult JOLEEN RAMAN from Last 3 Months Insurance MEDICARE MEDICARE [facility] Advance Directives * Full Code (Latest Code Status on File) Date Activated Date Inactivated Comments 08/12/2018 2:43 PM 08/12/2018 7:28 PM Care Teams Switching Operator Relationship Specialty Start Date End Date Elliot Tran DO [address] [place] [address] PCP - General FAMILY PRACTICE 11/12/23 Yung Henderson MD [address] [place] [address] EP Tourist Agent CLINICAL CARDIAC ELECTROPHYSIOLOGY 06/11/22 Elliot Tran DO [address] [place] [address] FAMILY PRACTICE 09/02/22 Dottie Parisi MD [address] [place] [address] Consulting Physician CARDIOVASCULAR DISEASE 02/21/24
--- OUTSIDE RECORDS SUMMARY | 2025-02-24 11:03 | XMS_ITS | Referral Summary ---
Author Organization [facility] Address [address] [place] [address] Care Team Providers Care Marriage And Family Social Worker Name Role Phone Ilir Wahl MD Unavailable [phone] Elliot Tran DO Primary Care Provider Allergies Active Allergy Reactions Criticality Noted Date Comments Sulfamethoxazole-Trimethoprim Rash Medium 2018 Medications calcium carbonate-vitam in D3 1,250mg (500mg elemental) - 5 mcg (200 units) per tablet Take 2 tablets by mouth aircraft charter dispatcher before breakfast Active ccvwgqyr-iix-FD -lycopen-lutein 0.4 mg-300 mcg- 250 mcg tablet Take 1 tablet by mouth aircraft charter dispatcher before breakfast Active metoprolol (LOPRESSOR) 50 mg tablet Take 1 tablet (50 mg total) by mouth 2 (two) times a day 0 8 Active omega-3 fatty acids-fish oil 684-1,200 mg capsule,delayed release(DR/EC) Take 1 tablet by mouth aircraft charter dispatcher before breakfast. Active magnesium gluconate 200 mg tablet Take 2 tablets (400 mg total) by mouth aircraft charter dispatcher before breakfast Active oxyCODONE (ROXICODONE) 5 mg [...] (07/16/2018): Added automatically from request for surgery [id number] History of breast cancer 06/21/2018 Encounter for [...] on file 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:39 AM VETERANS SERVICE OFFICER Gender Identity Not on file Sexual Orientation Not on file Last Filed Vital Signs Vital Sign Reading Time Taken Comments Blood Pressure 124/75 09/08/2024 2:05 PM VETERANS SERVICE OFFICER Pulse 60 09/08/2024 2:05 PM VETERANS SERVICE OFFICER Temperature 36.8 C (98.2 F) 09/08/2024 2:05 PM VETERANS SERVICE OFFICER Respiratory Rate 16 09/08/2024 2:05 PM VETERANS SERVICE OFFICER Oxygen Saturation 99% 09/08/2024 2:05 PM VETERANS SERVICE OFFICER Inhaled Oxygen Concentration - - Weight 64.9 kg (143 lb) 09/08/2024 2:05 PM VETERANS SERVICE OFFICER Height 167.6 cm (5' 6) 09/08/2024 2:05 PM VETERANS SERVICE OFFICER Body Mass Index 23.08 09/08/2024 2:05 PM VETERANS SERVICE OFFICER Plan of Treatment Not on file Insurance MEDICARE [facility] Address: [address] [address] [place] [address] [facility] MEDICARE SUPPLEMENT MEDICARE COMMERCIAL GENERIC [facility] MEDICARE [facility] MEDICARE SUPPLEMENT Advance Directives For more information, please contact: [phone] * Full Code (Latest Code Status on File) Date Activated Date Inactivated Comments 09/03/2018 11:25 AM 09/04/2018 4:52 PM Care Teams Marriage And Family Social Worker Relationship Specialty Start Date End Date Elliot Tran DO [address] [place] [address] PCP - General Family Medicine 10/15/22 Ilir Wahl MD [address] [place] [address] # [address] [place] [address] Referring Physician Radiation Oncology 09/07/18
--- OUTSIDE RECORDS SUMMARY | 2025-02-24 11:03 | XMS_ITS | Clinical Summary ---
Author Organization [facility] Address [address] [place] [address] Care Team Providers Care Flume Ride Operator Name Role Phone Ilir Wahl MD Unavailable [phone] Elliot Tran DO Primary Care Provider Allergies Active Allergy Reactions Criticality Noted Date Comments Sulfamethoxazole-Trimethoprim Rash Medium 2018 Medications calcium carbonate-vitam in D3 1,250mg (500mg elemental) - 5 mcg (200 units) per tablet Take 2 tablets by mouth corporate legal secretary before breakfast Active wevxqvln-qfp-UH -lycopen-lutein 0.4 mg-300 mcg- 250 mcg tablet Take 1 tablet by mouth corporate legal secretary before breakfast Active metoprolol (LOPRESSOR) 50 mg tablet Take 1 tablet (50 mg total) by mouth 2 (two) times a day 0 8 Active omega-3 fatty acids-fish oil 684-1,200 mg capsule,delayed release(DR/EC) Take 1 tablet by mouth corporate legal secretary before breakfast. Active magnesium gluconate 200 mg tablet Take 2 tablets (400 mg total) by mouth corporate legal secretary before breakfast Active oxyCODONE (ROXICODONE) 5 mg [...] (07/16/2018): Added automatically from request for surgery [id number] History of breast cancer 06/21/2018 Encounter for [...] on file 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:39 AM LABORATORY CHEMICAL ASSISTANT Gender Identity Not on file Sexual Orientation Not on file Obstetrics History Last Filed Vital Signs Vital Sign Reading Time Taken Comments Blood Pressure 124/75 09/08/2024 2:05 PM LABORATORY CHEMICAL ASSISTANT Pulse 60 09/08/2024 2:05 PM LABORATORY CHEMICAL ASSISTANT Temperature 36.8 C (98.2 F) 09/08/2024 2:05 PM LABORATORY CHEMICAL ASSISTANT Respiratory Rate 16 09/08/2024 2:05 PM LABORATORY CHEMICAL ASSISTANT Oxygen Saturation 99% 09/08/2024 2:05 PM LABORATORY CHEMICAL ASSISTANT Inhaled Oxygen Concentration - - Weight 64.9 kg (143 lb) 09/08/2024 2:05 PM LABORATORY CHEMICAL ASSISTANT Height 167.6 cm (5' 6) 09/08/2024 2:05 PM LABORATORY CHEMICAL ASSISTANT Body Mass Index 23.08 09/08/2024 2:05 PM LABORATORY CHEMICAL ASSISTANT Plan of Treatment Health Maintenance Due Date [...] Influenza Vaccine (Season Ended) 2025 Insurance MEDICARE [facility] MEDICARE SUPPLEMENT MEDICARE COMMERCIAL GENERIC [facility] MEDICARE BLUE CROSS MEDICARE SUPPLEMENT Advance Directives For more information, please contact: [phone] * Full Code (Latest Code Status on File) Date Activated Date Inactivated Comments 09/03/2018 11:25 AM 09/04/2018 4:52 PM Care Teams Flume Ride Operator Relationship Specialty Start Date End Date Elliot Tran DO [address] [place] [address] PCP - General Family Medicine 10/15/22 Ilir Wahl MD [address] [facility] # [address] [place] [address] Referring Physician Radiation Oncology 09/07/18
--- OUTSIDE RECORDS SUMMARY | 2025-02-24 11:03 | XMS_ITS | Encounter Summary ---
Author Organization [facility] Address [address] [place] [address] Care Team Providers Care Livestock Laborer Name Role Phone Ilir Wahl MD Unavailable [phone] Brad Joyner MD Primary Care Provider [phone] Martín Block MD Primary Care Provider Cyril Zee MD Primary Care Provider [phone] Miscellaneous, Not In File Primary Care Provider Unavailable Randi Lopez NP Primary Care Provide r Elliot Tran DO Primary Care Provider Encounter Details Date Type Department Care Team (Late st Contact Info) Description 03/02/2020 Telephone [facility] Radiation Oncology [address] [facility] [place] [address] Josie Torrez MA Social History Tobacco Use Types Packs/Day Years Used Date Smoking Tobacco: Never Smokeless Tobacco: Never Alcohol Use Standard Drinks/Week Comments No 0 (1 standard drink = 0.6 oz pur e alcohol) Comments No Sex and Gender Information Value Date Recorded Sex Assigned at Not on file 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:39 AM GAUGE MAKER Gender Identity Not on file Sexual Orientation Not on file documented as of this encounter Plan of Treatment Not on file documented as of this encounter Visit Diagnoses Not on filedocumented in this encounter Care Teams Livestock Laborer Relationship Specialty Start Date End Date Brad Joyner MD [address] [place] [address] PCP - General Family Medicine 12/10/18 06/06/20 Martín Block MD [address] [place] [address] PCP - General 06/07/20 11/29/20 Cyril Zee MD [address] [address] PCP - General Obstetrics and Gynecology 11/30/20 10/15/21 Miscellaneous, Not In File PCP - General 10/16/21 10/20/21 Randi Lopez NP [address] [place] [address] PCP - General 10/21/21 10/14/22 Elliot Tran DO [address] [place] [address] PCP - General Family Medicine 10/15/22 Ilir Wahl MD [address] [facility] # [address] [place] [address] Referring Physician Radiation Oncology 09/07/18 documented as of this encounter
--- OUTSIDE RECORDS SUMMARY | 2025-02-24 11:03 | XMS_ITS | Encounter Summary ---
Author Organization [facility] Address [address] [place] [address] Phone Care Team Providers Care Pipe Washer Name Role Phone Ilir Wahl MD Unavailable [phone] Martín Block MD Primary Care Provider Cyril Zee MD Primary Care Provider [phone] Miscellaneous, Not In File Primary Care Provider [...] on file 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:39 AM WATCH REPAIRER Gender Identity Not on file Sexual Orientation [...] on filedocumented in this encounter Care Teams Pipe Washer Relationship Specialty Start Date End Date Martín Block MD [address] # [address] [place] [address] PCP - General 06/07/20 11/29/20 Cyril Zee MD [address] [place], [place] [address] PCP - General Obstetrics and Gynecology 11/30/20 10/15/21 Miscellaneous, Not In File PCP - General 10/16/21 10/20/21 Randi Lopez NP [address] [place] [address] PCP - General 10/21/21 10/14/22 Elliot Tran DO [address] [place] [address] PCP - General Family Medicine 10/15/22 Ilir Wahl MD [address] # [address] [place] [address] Referring Physician Radiation Oncology 09/07/18 documented as of this encounter
--- OUTSIDE RECORDS SUMMARY | 2025-02-24 11:03 | XMS_ITS ---
Author Organization [facility] Address [address] [place] [address] Care Team Providers Care Naval Special Warfare Medic Name Role Phone Ilir Wahl MD Unavailable [...] (07/16/2018): Added automatically from request for surgery [id number] History of breast cancer 06/21/2018 Encounter for [...]
[2025-02-24 11:08] LABS: Add Urine Microscopic? YES; Appearance Urine Clear (Clear); Glucose Urine UA Negative (Negative); Leukocyte Esterase Ur 1+ (Negative); Nitrate Urine Negative (Negative); Specific Grav Ur 1.010 (1.010-1.020)
== END 2025-02-24 10:57 | disposition home or self-care (01) ==
LOC: CHSLAB 10:56
PROVIDERS: PCP Nurse Practitioner Family; Visit Provider Nurse Practitioner Family
DX: R10.9 Unspecified abdominal pain (principal)
CPT/HCPCS: 81001

== ENCOUNTER 2025-03-08 14:03 | Outpatient (CLI) | payer MEDICARE, SELFPAY ==
--- NOTE | ~2025-03-08 | MM_ITS ---
EXAMINATION: screening [facility] BI w wilmer INDICATION: Asymptomatic, referred for screening mammogram. History of Left lumpectomy with radiation therapy 2011. COMPARISON: 05/06/2012 through 06/05/2008 TECHNIQUE: Full field digital CC, MLO views were obtained of Both breasts with computer-aided detecti on to assist in interpretation of the study. FINDINGS: The breasts are heterogeneously dense, which may obscure small masses. Posttreatment changes in Left breast are stable. No new focal dominant mass, architectural distortion, or suspicious microcalcifications are identifie d. There are no features to suggest malignancy. IMPRESSION: Stable benign mammogram. No evidence of malignancy in the breast. BI-RADS 2, BENIGN Reviewed, dictated and finalized at location B.
--- OUTSIDE RECORDS SUMMARY | 2025-03-08 14:10 | XMS_ITS | Encounter Summary ---
Author Organization [facility] Healthcare Address [address] [place] [address] Care Team Providers Care Die Drawing Checker Name Role Phone Ilir Wahl MD Unavailable Cyril Zee MD Primary Care Provider [phone] Miscellaneous, Not In File Primary Care Provider Unavailable Randi Lopez HIGHWAY INSPECTOR Primary Care Provide r Elliot Tran DO Primary Care Provider Encounter Details Date Type Department Care Team (Late st Contact Info) Description 09/20/[address] [facility] Radiation Oncology [address] [facility] [place] [address] Josie Torrez MA Social History Tobacco Use Types Packs/Day Years Used Date Smoking Tobacco: Never Smokeless Tobacco: Never Alcohol Use Standard Drinks/Week Comments No 0 (1 standard drink = 0.6 oz pur e alcohol) Comments No Sex and Gender Information Value Date Recorded Sex Assigned at Not on file 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:39 AM SHIPPING AND RECEIVING ASSISTANT Gender Identity Not on file Sexual Orientation Not on file documented as of this encounter Plan of Treatment Not on file documented as of this encounter Visit Diagnoses Not on filedocumented in this encounter Care Teams Die Drawing Checker Relationship Specialty Start Date End Date Cyril Zee MD [address] [facility] [address] [place], [place] [address] PCP - General Obstetrics and Gynecology 11/30/20 10/15/21 Miscellaneous, Not In File PCP - General 10/16/21 10/20/21 Randi Lopez NP [address] [place] [address] PCP - General 10/21/21 10/14/22 Elliot Tran DO [address] [place] [address] PCP - General Family Medicine 10/15/22 Ilir Wahl MD [address] [facility] [address] [place] [address] Referring Physician Radiation Oncology 09/07/18 documented as of this encounter
--- OUTSIDE RECORDS SUMMARY | 2025-03-08 14:10 | XMS_ITS | Encounter Summary ---
Author Organization [facility] Healthcare Address [address] [place] [address] Care Team Providers Care Wood Scrap Handler Name Role Phone Ilir Wahl MD Unavailable [phone] Martín Block MD Primary Care Provider Cyril Zee MD Primary Care Provider [phone] Miscellaneous, Not In File Primary Care Provider Unavailable Randi Lopez CORPORATE RELATIONS MANAGER Primary Care Provide r Elliot Tran DO Primary Care Provider Encounter Details Date Type Department Care Team (Late st Contact Info) Description 2020 Telephone [facility] Advanced Medicine Radiation Oncology [address] [place] [place] [address] Advanced Medicine [facility] [place] [address] Josie Torrez MA Social History Tobacco Use Types Packs/Day Years Used Date Smoking Tobacco: Never Smokeless Tobacco: Never Alcohol Use Standard Drinks/Week Comments No 0 (1 standard drink = 0.6 oz pur e alcohol) Comments No Sex and Gender Information Value Date Recorded Sex Assigned at Not on file 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:39 AM WATER RESOURCE ENGINEERING SPECIALIST Gender Identity Not on file Sexual Orientation Not on file documented as of this encounter Plan of Treatment Not on file documented as of this encounter Visit Diagnoses Not on filedocumented in this encounter Care Teams Wood Scrap Handler Relationship Specialty Start Date End Date Martín Block MD [facility] # [address] [place] [address] PCP - General 06/07/20 11/29/20 Cyril Zee MD [address] [facility] [address] [place], [place] [address] PCP - General Obstetrics and Gynecology 11/30/20 10/15/21 Miscellaneous, Not In File PCP - General 10/16/21 10/20/21 Randi Lopez NP [address] [place] [address] PCP - General 10/21/21 10/14/22 Elliot Tran DO [address] [place] [address] PCP - General Family Medicine 10/15/22 Ilir Wahl MD [address] # [address] [place] [address] Referring Physician Radiation Oncology 09/07/18 documented as of this encounter
--- OUTSIDE RECORDS SUMMARY | 2025-03-08 14:10 | XMS_ITS ---
Author Organization [facility] Address [address] [place] [address] Care Team Providers Care Drywall Stripper Name Role Phone Ilir Wahl MD Unavailable [...] (07/16/2018): Added automatically from request for surgery [id number] History of breast cancer 06/21/2018 Encounter for [...]
--- OUTSIDE RECORDS SUMMARY | 2025-03-08 14:10 | XMS_ITS | Encounter Summary ---
Author Organization [facility] Healthcare Address [address] [place] [address] Care Team Providers Care Sap Gatherer Name Role Phone Ilir Wahl MD Unavailable [phone] Brad Joyner MD Primary Care Provider [phone] Martín Block MD Primary Care Provider Cyril Zee MD Primary Care Provider [phone] Miscellaneous, Not In File Primary Care Provider Unavailable Randi Lopez NP Primary Care Provide r Elliot Tran DO Primary Care Provider Encounter Details Date Type Department Care Team (Late st Contact Info) Description 03/02/2020 Telephone [facility] Radiation Oncology [address] [facility] [place] [address] Josie Torrez MA Social History Tobacco Use Types Packs/Day Years Used Date Smoking Tobacco: Never Smokeless Tobacco: Never Alcohol Use Standard Drinks/Week Comments No 0 (1 standard drink = 0.6 oz pur e alcohol) Comments No Sex and Gender Information Value Date Recorded Sex Assigned at Not on file 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:39 AM HEALTH INFORMATION DIRECTOR Gender Identity Not on file Sexual Orientation Not on file documented as of this encounter Plan of Treatment Not on file documented as of this encounter Visit Diagnoses Not on filedocumented in this encounter Care Teams Sap Gatherer Relationship Specialty Start Date End Date Brad Joyner MD [address] [place] [address] PCP - General Family Medicine 12/10/18 06/06/20 Martín Block MD [address] [place] [address] PCP - General 06/07/20 11/29/20 Cyril Zee MD [address] [address] PCP - General Obstetrics and Gynecology 11/30/20 10/15/21 Miscellaneous, Not In File PCP - General 10/16/21 10/20/21 Randi Lopez NP [address] [place] [address] PCP - General 10/21/21 10/14/22 Elliot Tran DO [address] [place] [address] PCP - General Family Medicine 10/15/22 Ilir Wahl MD [address] [facility] [address] [place] [address] Referring Physician Radiation Oncology 09/07/18 documented as of this encounter
--- OUTSIDE RECORDS SUMMARY | 2025-03-08 14:10 | XMS_ITS | Referral Summary ---
Author Organization [facility] Address [address] [place] [address] Care Team Providers Care X Ray Equipment Tester Name Role Phone Ilir Wahl MD Unavailable [phone] Elliot Tran DO Primary Care Provider Allergies Active Allergy Reactions Criticality Noted Date Comments Sulfamethoxazole-Trimethoprim Rash Medium 2018 Medications calcium carbonate-vitam in D3 1,250mg (500mg elemental) - 5 mcg (200 units) per tablet Take 2 tablets by mouth board certified orthodontist before breakfast Active eaynivrk-utz-YT -lycopen-lutein 0.4 mg-300 mcg- 250 mcg tablet Take 1 tablet by mouth board certified orthodontist before breakfast Active metoprolol (LOPRESSOR) 50 mg tablet Take 1 tablet (50 mg total) by mouth 2 (two) times a day 0 8 Active omega-3 fatty acids-fish oil 684-1,200 mg capsule,delayed release(DR/EC) Take 1 tablet by mouth board certified orthodontist before breakfast. Active magnesium gluconate 200 mg tablet Take 2 tablets (400 mg total) by mouth board certified orthodontist before breakfast Active oxyCODONE (ROXICODONE) 5 mg [...] (07/16/2018): Added automatically from request for surgery [id number] History of breast cancer 06/21/2018 Encounter for [...] on file 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:39 AM NETWORK TECHNOLOGY INSTRUCTOR Gender Identity Not on file Sexual Orientation Not on file Last Filed Vital Signs Vital Sign Reading Time Taken Comments Blood Pressure 124/75 09/08/2024 2:05 PM NETWORK TECHNOLOGY INSTRUCTOR Pulse 60 09/08/2024 2:05 PM NETWORK TECHNOLOGY INSTRUCTOR Temperature 36.8 C (98.2 F) 09/08/2024 2:05 PM NETWORK TECHNOLOGY INSTRUCTOR Respiratory Rate 16 09/08/2024 2:05 PM NETWORK TECHNOLOGY INSTRUCTOR Oxygen Saturation 99% 09/08/2024 2:05 PM NETWORK TECHNOLOGY INSTRUCTOR Inhaled Oxygen Concentration - - Weight 64.9 kg (143 lb) 09/08/2024 2:05 PM NETWORK TECHNOLOGY INSTRUCTOR Height 167.6 cm (5' 6) 09/08/2024 2:05 PM NETWORK TECHNOLOGY INSTRUCTOR Body Mass Index 23.08 09/08/2024 2:05 PM NETWORK TECHNOLOGY INSTRUCTOR Plan of Treatment Not on file Insurance [facility]ICARE [facility] MEDICARE SUPPLEMENT MEDICARE [facility] MEDICARE [facility] MEDICARE SUPPLEMENT Advance Directives For more information, please contact: [phone] * Full Code (Latest Code Status on File) Date Activated Date Inactivated Comments 09/03/2018 11:25 AM 09/04/2018 4:52 PM Care Teams X Ray Equipment Tester Relationship Specialty Start Date End Date Elliot Tran DO [address] [place] [address] PCP - General Family Medicine 10/15/22 Ilir Wahl MD [address] [place] [address] # LL LL [address] [place] [address] Referring Physician Radiation Oncology 09/07/18
--- OUTSIDE RECORDS SUMMARY | 2025-03-08 14:10 | XMS_ITS | Clinical Summary ---
Author Organization [facility] Address [address] [place] [address] Care Team Providers Care Flavor Maker Name Role Phone Ilir Wahl MD Unavailable [phone] Elliot Tran DO Primary Care Provider Allergies Active Allergy Reactions Criticality Noted Date Comments Sulfamethoxazole-Trimethoprim Rash Medium 2018 Medications calcium carbonate-vitam in D3 1,250mg (500mg elemental) - 5 mcg (200 units) per tablet Take 2 tablets by mouth joint cutter before breakfast Active tcbgftkf-wzp-JF -lycopen-lutein 0.4 mg-300 mcg- 250 mcg tablet Take 1 tablet by mouth joint cutter before breakfast Active metoprolol (LOPRESSOR) 50 mg tablet Take 1 tablet (50 mg total) by mouth 2 (two) times a day 0 8 Active omega-3 fatty acids-fish oil 684-1,200 mg capsule,delayed release(DR/EC) Take 1 tablet by mouth joint cutter before breakfast. Active magnesium gluconate 200 mg tablet Take 2 tablets (400 mg total) by mouth joint cutter before breakfast Active oxyCODONE (ROXICODONE) 5 mg [...] (07/16/2018): Added automatically from request for surgery [id number] History of breast cancer 06/21/2018 Encounter for [...] on file 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:39 AM LAW SECRETARY Gender Identity Not on file Sexual Orientation Not on file Obstetrics History Last Filed Vital Signs Vital Sign Reading Time Taken Comments Blood Pressure 124/75 09/08/2024 2:05 PM LAW SECRETARY Pulse 60 09/08/2024 2:05 PM LAW SECRETARY Temperature 36.8 C (98.2 F) 09/08/2024 2:05 PM LAW SECRETARY Respiratory Rate 16 09/08/2024 2:05 PM LAW SECRETARY Oxygen Saturation 99% 09/08/2024 2:05 PM LAW SECRETARY Inhaled Oxygen Concentration - - Weight 64.9 kg (143 lb) 09/08/2024 2:05 PM LAW SECRETARY Height 167.6 cm (5' 6) 09/08/2024 2:05 PM LAW SECRETARY Body Mass Index 23.08 09/08/2024 2:05 PM LAW SECRETARY Plan of Treatment Health Maintenance Due Date [...] Influenza Vaccine (Season Ended) 2025 Insurance [facility]ARE [facility] MEDICARE SUPPLEMENT MEDICARE COMMERCIAL [facility]IC [facility] MEDICARE BLUE CROSS MEDICARE SUPPLEMENT Advance Directives For more information, please contact: [phone] * Full Code (Latest Code Status on File) Date Activated Date Inactivated Comments 09/03/2018 11:25 AM 09/04/2018 4:52 PM Care Teams Flavor Maker Relationship Specialty Start Date End Date Elliot Tran DO [address] [place] [address] PCP - General Family Medicine 10/15/22 Ilir Wahl MD [address] [facility] # LL LL [address] [place] [address] Referring Physician Radiation Oncology 09/07/18
--- OUTSIDE RECORDS SUMMARY | 2025-03-08 14:10 | XMS_ITS | Patient Health Record ---
Author Organization [facility] Address [address] [place], [place] [id number] Support Name Relationship Address Phone WILLIAMS ESCOBEDO Emergency Contact Unknown [phone] MARILEE ELLER Guarantor Unknown [phone] Reason For Referral No Information Plan Of Treatment No Information Insurance Providers Payer Name Payer Address Payer Phone Subscriber Number Group Number Insured Name Patient Relationship to Insured Coverage Start Date Coverage End Date Medicare Part B [place] [address] [place] [address] [id number] MARILEE ELLER Self - patient is the insured [facility] ([facility]) ATTN CLAIMS [address] [place] [address] [id number] MARILEE ELLER Self - patient is the insured
--- OUTSIDE RECORDS SUMMARY | 2025-03-08 14:10 | XMS_ITS | Encounter Summary ---
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 Gender Identity Not on file Sexual Orientation [...] on filedocumented in this encounter Care Teams Health Services Manager Relationship Specialty Start Date End Date Martín Block MD [address] # [address] [place] [address] PCP - General 06/07/20 11/29/20 Cyril Zee MD [address] [place], [place] [id number] PCP - General Obstetrics and Gynecology 11/30/20 10/15/21 Miscellaneous, Not In File PCP - General 10/16/21 10/20/21 Randi Lopez NP [address] [place] [address] PCP - General 10/21/21 10/14/22 Elliot Tran DO [address] [place] [address] PCP - General Family Medicine 10/15/22 Ilir Wahl MD [address] # [address] [place] [address] Referring Physician Radiation Oncology 09/07/18 documented as of this encounter
== END 2025-03-08 14:04 | disposition home or self-care (01) ==
LOC: ANHIMG 14:06
PROVIDERS: PCP Family Medicine; Visit Provider Family Medicine
DX: Z12.31 Encounter for screening mammogram for malignant neoplasm of breast (principal)
CPT/HCPCS: 77063; 77067

== ENCOUNTER 2025-03-20 10:06 | Outpatient (CLI) | payer MEDICARE, SELFPAY ==
--- OUTSIDE RECORDS SUMMARY | 2025-03-20 10:28 | XMS_ITS | Encounter Summary ---
Author Organization [facility] Address [address] [place] [address] Care Team Providers Care Physical Scientist Name Role Phone Ilir Wahl MD Unavailable [phone] Martín Block MD Primary Care Provider Cyril Zee MD Primary Care Provider [phone] Miscellaneous, Not In File Primary Care Provider Unavailable Randi Lopez UTILITY TENDER CARDING Primary Care Provide r Elliot Tran DO Primary Care Provider Encounter Details Date Type Department Care Team (Late st Contact Info) Description 2020 Telephone [facility] Advanced Medicine Radiation Oncology [address] [place] [address] Advanced Medicine [facility] [place] [address] Josie Torrez MA Social History Tobacco Use Types Packs/Day Years Used Date Smoking Tobacco: Never Smokeless Tobacco: Never Alcohol Use Standard Drinks/Week Comments No 0 (1 standard drink = 0.6 oz pur e alcohol) Comments No Sex and Gender Information Value Date Recorded Sex Assigned at Not on file 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:39 AM RN CARDIOVASCULAR Gender Identity Not on file Sexual Orientation Not on file documented as of this encounter Plan of Treatment Not on file documented as of this encounter Visit Diagnoses Not on filedocumented in this encounter Care Teams Physical Scientist Relationship Specialty Start Date End Date Martín Block MD [facility] # LL LL [address] [place] [address] PCP - General 06/07/20 11/29/20 Cyril Zee MD [address] [facility] [address] [place], [place] [id number] PCP - General Obstetrics and Gynecology 11/30/20 10/15/21 Miscellaneous, Not In File PCP - General 10/16/21 10/20/21 Randi Lopez NP [address] [place] [address] PCP - General 10/21/21 10/14/22 Elliot Tran DO [address] [place] [address] PCP - General Family Medicine 10/15/22 Ilir Wahl MD [address] # [address] [place] [address] Referring Physician Radiation Oncology 09/07/18 documented as of this encounter
--- OUTSIDE RECORDS SUMMARY | 2025-03-20 10:28 | XMS_ITS | Encounter Summary ---
Author Organization [facility] Address [address] [place] [address] Care Team Providers Care Professional Nurse Name Role Phone Randa Maldonado APRN, NP-C Unavailable José Miguel Gore MD Unavailable [phone] Randi Lopez SALESPERSON FASHION ACCESSORIES Primary Care Provider [phone] Yung Henderson MD Unavailable [phone] Elliot Tran DO Unavailable [phone] Elliot Tran DO Primary Care Provider [phone] Martita Pride MD Unavailable Encounter Details Date Type Department Care Team (Late st Contact Info) Description 09/25/2022 Hospital Orders Only [place] [address] [place] [address] Yung Henderson MD [address] [place], [place] [address] Social History Tobacco Use Types Packs/Day Years [...] Department Care Team (Latest Contact Info) Description 05/02/2025 1:45 AM CDT Allied Health/Nurse Visit [facility] [address] [place] [address] Yung Henderson MD [address] [place] [address] 12/18/2025 1:30 PM CDT Appointment [address] [place] [address] Martita Pride MD [address] [place] [address] 12/25/2025 9:15 AM CDT Office Visit [facility] [place] [address] Martita Pride MD [address] [place] [address] documented as of this encounter Visit Diagnoses Not on filedocumented in this encounter Care Teams Professional Nurse Relationship Specialty Start Date End Date Randi Lopez FNP [address] [place] [address] PCP - General NURSE PRACTITIONER 06/09/22 11/11/23 Elliot Tran DO [address] [place] [address] PCP - General FAMILY PRACTICE 11/12/23 Randa Maldonado APRN, STARCHMAKER-C [address] [facility] [address] [place] [address] NURSE PRACTITIONER 04/26/18 02/20/24 José Miguel Gore MD [address] [place] [address] Perry Mortgage Loan Processor CARDIOVASCULAR DISEASE 10/26/18 02/20/24 Yung Henderson MD [address] [place] [address] EP Mortgage Loan Processor CLINICAL CARDIAC ELECTROPHYSIOLOGY 06/11/22 Elliot Tran DO [address] [place] [address] FAMILY PRACTICE 09/02/22 Martita Pride MD [address] [place] [address] Consulting Physician CARDIOVASCULAR DISEASE 02/21/24 documented as of this encounter
--- OUTSIDE RECORDS SUMMARY | 2025-03-20 10:28 | XMS_ITS | Clinical Summary ---
Author Organization [facility] Address [address] [place] [address] Care Team Providers Care Crepe Laminator Operator Name Role Phone Yung Henderson MD Unavailable [phone] Elliot Tran DO Unavailable [phone] Elliot Tran DO Primary Care Provider [phone] Martita Parisi MD Unavailable Allergies Active Allergy Reactions [...] Pre-op evaluation 07/23/2018 04/27/2020 SVT (supraventricular tachycardia) ([facility]) 02/08/2023 Encounters Date Type Department Care Team Description 03/14/2025 1:30 AM CDT [facility] [address] [place] [facility] [place] [address] Yung Henderson MD 02/02/2025 1:15 AM CDT [facility] [address] [place] [place] [place] [address] Yung Henderson MD 12/27/2024 Telephone [facility] [address] [place] [address] Martita Parisi MD Record Request 12/23/2024 8:46 AM CDT - 12/23/2024 11:59 PM CDT Hospital Encounter [facility] [address] [place] [address] Martita Parisi MD Discharge Disposition: Home or Self Care (Routine Discharge) 12/23/2024 8:45 AM CDT Office Visit [facility] [address] [place] [address] Martita Parisi MD Heart Problem 12/23/2024 Orders Only [facility] [address] [place] [place] [place] [address] Martita Parisi MD 12/23/2024 Travel 12/22/2024 Telephone [facility] [address] [place] [address] Martita Parisi MD Medication Problem 12/20/2024 Results Follow-Up [facility] [address] [place] [address] Martita Parisi MD [facility] [address] [facility] - Today 12/19/2024 Orders Only [facility] [address] [place] [address] Martita Parisi MD from Last 3 Months Family History [...] 36.3 C (97.4 F) 09/30/2022 11:14 AM CIO Respiratory Rate 18 12/23/2024 9:17 AM CDT [...] 05/02/2025 1:45 AM CDT Allied Health/Nurse Visit [facility] [address] [place] [address] Yung Henderson MD [address] [place] [address] 12/18/2025 1:[address] [facility] [address] [place] [address] Martita Parisi MD [address] [place], [place] [id number] 12/25/2025 9:15 AM CDT Office Visit [facility] [address] [place] [address] Martita Parisi MD [address] [place], [place] [address] Health Maintenance Due Date Last Done Comments [...] this topic Medical Devices Implanted Type Area Banking Teacher Device Identifier Shelf Expiration Date Model / Serial / Lot Medtronic Linq Ii-09/30/2022 Implanted:Qt y: 1 on 09/30/2022 by Yung Henderson MD Implantable Loop Recorder Left: Pectoral [employer] 01/23/2024 [id number] / [id number] / Description:DX: SYNCOPE Procedures Procedure Name Priority Date/Time Associated Diagnosis Comments ECG 12-LEAD Routine 12/23/2024 9:03 AM CDT Bradycardia from Last 3 Months Results * ECG 12-Lead (12/23/2024 9:03 AM CDT) 12/23/2024 9:03 AM CDT Narrative [facility] RAD - 12/23/2024 8:07 PM CDT [address] [place] [address] Test Date: 2024-12-23 Pat Name: ЕЛЕНА LYNN Department: 3 Room: Gender: Female Plastics And Composites Inspector: [facility] : 1940 Requested By: MARTITA PARISI Order Number: [id number] Reading MD: Martita Parisi Measurements Intervals [place] Rate: 60 P: 69 WA: 281 QRS: -30 QRSD: 105 T: 12 QT: 437 QTc: 438 Interpretive Statements SINUS RHYTHM WITH FIRST DEGREE AV BLOCK WITH OCCASIONAL SUPRAVENTRICULAR PREMATURE COMPLEXES POSSIBLE LEFT ATRIAL ENLARGEMENT [-0.1mV P WAVE IN V1/V2] ANTEROSEPTAL MYOCARDIAL INFARCTION , OF INDETERMINATE AGE [40+ ms Q WAVE IN V1-V4] Procedure Note Martita Parisi MD - 12/23/[address] [place] [address] Test Date: 2024-12-23 Pat Name: ЕЛЕНАDRA WONGLEY Department: 3 Room: Gender: Female Plastics And Composites Inspector: [facility] : 1940 Requested By: MARTITA PARISI Order Number: [id number] Reading MD: Martita Parisi Measurements Intervals [place] Rate: 60 P: 69 WA: 281 QRS: -30 QRSD: 105 T: 12 QT: 437 QTc: 438 Interpretive Statements SINUS RHYTHM WITH FIRST DEGREE AV BLOCK WITH OCCASIONAL SUPRAVENTRICULAR PREMATURE COMPLEXES POSSIBLE LEFT ATRIAL ENLARGEMENT [-0.1mV P WAVE IN V1/V2] ANTEROSEPTAL MYOCARDIAL INFARCTION , OF INDETERMINATE AGE [40+ ms Q WAVEIN V1-V4] us Martita Parisi MD ECG ORDERABLES Final Result [facility] RAD from Last 3 Months Insurance MEDICARE MEDICARE Advance Directives * Full Code (Latest Code Status on File) Date Activated Date Inactivated Comments 08/12/2018 2:43 PM 08/12/2018 7:28 PM Care Teams Crepe Laminator Operator Relationship Specialty Start Date End Date Elliot Tran DO [address] [place] [address] PCP - General FAMILY PRACTICE 11/12/23 Yung Henderson MD [address] [place] [address] EP [employer] CLINICAL CARDIAC ELECTROPHYSIOLOGY 06/11/22 Elliot Tran DO [address] [place] [address] FAMILY PRACTICE 09/02/22 Martita Parisi MD [address] [place] [address] Consulting Physician CARDIOVASCULAR DISEASE 02/21/24
--- OUTSIDE RECORDS SUMMARY | 2025-03-20 10:28 | XMS_ITS | Encounter Summary ---
Author Organization [facility] Address [address] [place] [address] Care Team Providers Care Block Engraver Name Role Phone Randa Maldonado APRN, NP-C Unavailable José Miguel Gore MD Unavailable [phone] Elliot Tran DO Primary Care Provider [phone] Randi Lopez Primary Care Provider [phone] Yung Henderson MD Unavailable [phone] Elliot Tran DO Unavailable [phone] Elliot Tran DO Primary Care Provider [phone] Martita Pride MD Unavailable Encounter Details Date Type Department Care Team (Late st Contact Info) Description 08/06/2018 Abstract [facility] [address] [place] [address] José Miguel Gore MD [address] [place] [address] Social History Tobacco Use Types Packs/Day Years [...] 05/02/2025 1:45 AM CDT Allied Health/Nurse Visit [facility] [address] [place] [address] Yung Henderson MD [address] [place] [address] 12/18/2025 1:30 PM CDT Appointment [facility] [address] [place] [address] [place] [address] Martita Pride MD [address] [place] [address] 12/25/2025 9:15 AM CDT Office Visit [facility] [facility] [address] [place] [address] Martita Pride MD [address] [place] [address] documented as of this encounter Procedures Procedure [...] Final Result * PROTIME/INR, VENOUS (08/05/2018) Pathologist [facility] PROTIME WHOLE BLOOD 12.0 INR WHOLE BLOOD 1.13 08/05/2018 us Doc [facility] LABORATORY Final Result * CBC (OUTSIDE LAB) (08/05/2018) Pathologist [facility] WBC 5.8 HGB 12.3 HCT 36.9 PLT 186 RBC 4.0 08/05/2018 us Doc [facility] Abstract LAB-OUTSIDE/ABSTRACTED Final Result documented in this encounter Visit Diagnoses Not on filedocumented in this encounter Care Teams Block Engraver Relationship Specialty Start Date End Date Elliot Tran DO [address] [place] [address] PCP - General FAMILY PRACTICE 09/13/20 06/08/22 Randi Lopez FNP [address] [place] [address] PCP - General NURSE PRACTITIONER 06/09/22 11/11/23 Elliot Tran DO [address] [place] [address] PCP - General FAMILY PRACTICE 11/12/23 Randa Maldonado APRN, CURATOR [employer]-C [address] [address] NURSE PRACTITIONER 04/26/18 02/20/24 José Miguel Gore MD [address] [place] [address] [employer] Api Architect CARDIOVASCULAR DISEASE 10/26/18 02/20/24 Yung Henderson MD [address] [place] [address] EP Api Architect CLINICAL CARDIAC ELECTROPHYSIOLOGY 06/11/22 Elliot Tran DO [address] [place] [address] FAMILY PRACTICE 09/02/22 Martita Pride MD [address] [place] [address] Consulting Physician CARDIOVASCULAR DISEASE 02/21/24 documented as of this encounter
--- OUTSIDE RECORDS SUMMARY | 2025-03-20 10:28 | XMS_ITS ---
Author Organization [facility] Address [address] [place] [address] Care Team Providers Care Timing Machine Operator Name Role Phone Ilir Wahl [...] (07/16/2018): Added automatically from request for surgery [id number] History of breast cancer 06/21/2018 Encounter for [...]
--- OUTSIDE RECORDS SUMMARY | 2025-03-20 10:28 | XMS_ITS | Clinical Summary ---
Author Organization [facility] Address [address] [place] [address] Care Team Providers Care Cannon Fire Direction Specialist Name Role Phone Ilir Wahl MD Unavailable [phone] Elliot Tran DO Primary Care Provider Allergies Active Allergy Reactions Criticality Noted Date Comments Sulfamethoxazole-Trimethoprim Rash Medium 2018 Medications calcium carbonate-vitam in D3 1,250mg (500mg elemental) - 5 mcg (200 units) per tablet Take 2 tablets by mouth spiritual care coordinator before breakfast Active mrxplqdg-gec-LE -lycopen-lutein 0.4 mg-300 mcg- 250 mcg tablet Take 1 tablet by mouth spiritual care coordinator before breakfast Active metoprolol (LOPRESSOR) 50 mg tablet Take 1 tablet (50 mg total) by mouth 2 (two) times a day 0 8 Active omega-3 fatty acids-fish oil 684-1,200 mg capsule,delayed release(DR/EC) Take 1 tablet by mouth spiritual care coordinator before breakfast. Active magnesium gluconate 200 mg tablet Take 2 tablets (400 mg total) by mouth spiritual care coordinator before breakfast Active oxyCODONE (ROXICODONE) 5 [...] (07/16/2018): Added automatically from request for surgery [id number] History of breast cancer 06/21/2018 Encounter for [...] on file 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:39 AM ATM MECHANIC Gender Identity Not on file Sexual Orientation Not on file Obstetrics History Last Filed Vital Signs Vital Sign Reading Time Taken Comments Blood Pressure 124/75 09/08/2024 2:05 PM ATM MECHANIC Pulse 60 09/08/2024 2:05 PM ATM MECHANIC Temperature 36.8 C (98.2 F) 09/08/2024 2:05 PM ATM MECHANIC Respiratory Rate 16 09/08/2024 2:05 PM ATM MECHANIC Oxygen Saturation 99% 09/08/2024 2:05 PM ATM MECHANIC Inhaled Oxygen Concentration - - Weight 64.9 kg (143 lb) 09/08/2024 2:05 PM ATM MECHANIC Height 167.6 cm (5' 6) 09/08/2024 2:05 PM ATM MECHANIC Body Mass Index 23.08 09/08/2024 2:05 PM ATM MECHANIC Plan of Treatment Health Maintenance Due Date Last Done Comments Depression Screening 1938 Fall Risk Assessment 1938 Osteoporosis Screening-Bone Density Scan 1938 DTaP/Tdap/Td Vaccine (1 - Tdap) 1949 Hepatitis B Screening 1956 Pneumococcal vaccine 65+ (1 of 2 - PCV) 1957 Zoster Vaccine (1 of 2) 1957 Well Visit 65+ 2003 Covid-19 Vaccine (2 - Moderna risk series) 10/12/2020 09/14/2020 Influenza Vaccine (#1) 2025 Insurance MEDICARE [facility] MEDICARE SUPPLEMENT MEDICARE COMMERCIAL GENERIC [facility] MEDICARE BLUE CROSS MEDICARE SUPPLEMENT Advance Directives For more information, please contact: [phone] * Full Code (Latest Code Status on File) Date Activated Date Inactivated Comments 09/03/2018 11:25 AM 09/04/2018 4:52 PM Care Teams Cannon Fire Direction Specialist Relationship Specialty Start Date End Date Elliot Tran DO [address] [place] [address] PCP - General Family Medicine 10/15/22 Ilir Wahl MD [address] [facility] [address] LL [address] [place] [address] Referring Physician Radiation Oncology 09/07/18
--- OUTSIDE RECORDS SUMMARY | 2025-03-20 10:28 | XMS_ITS | Encounter Summary ---
Author Organization [facility] Healthcare Address [address] [place] [address] Care Team Providers Care Knock Out Hand Name Role Phone Ilir Wahl MD Unavailable [phone] Brad Joyner MD Primary Care Provider [phone] Martín Block MD Primary Care Provider Cyril Zee MD Primary Care Provider [phone] Miscellaneous, Not In File Primary Care Provider Unavailable Randi Lopez NP Primary Care Provide r Elliot Tran DO Primary Care Provider Encounter Details Date Type Department Care Team (Late st Contact Info) Description 03/02/2020 Telephone [facility] Radiation Oncology [address] [facility] [place] [address] Josie Torrez MA Social History Tobacco Use Types Packs/Day Years Used Date Smoking Tobacco: Never Smokeless Tobacco: Never Alcohol Use Standard Drinks/Week Comments No 0 (1 standard drink = 0.6 oz pur e alcohol) Comments No Sex and Gender Information Value Date Recorded Sex Assigned at Not on file 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:39 AM GENETIC COORDINATOR Gender Identity Not on file Sexual Orientation Not on file documented as of this encounter Plan of Treatment Not on file documented as of this encounter Visit Diagnoses Not on filedocumented in this encounter Care Teams Knock Out Hand Relationship Specialty Start Date End Date Brad Joyner MD [address] [place] [address] PCP - General Family Medicine 12/10/18 06/06/20 Martín Block MD [address] [place] [address] PCP - General 06/07/20 11/29/20 Cyril Zee MD [address] [address] PCP - General Obstetrics and Gynecology 11/30/20 10/15/21 Miscellaneous, Not In File PCP - General 10/16/21 10/20/21 Randi Lopez NP [address] [place] [address] PCP - General 10/21/21 10/14/22 Elliot Tran DO [address] [place] [address] PCP - General Family Medicine 10/15/22 Ilir Wahl MD [address] [facility] [address] [place] [address] Referring Physician Radiation Oncology 09/07/18 documented as of this encounter
--- OUTSIDE RECORDS SUMMARY | 2025-03-20 10:28 | XMS_ITS | Patient Health Record ---
Author Organization [facility] Address [address] [place], [place] [id number] Support Name Relationship Address Phone WILLIAMS ESCOBEDO Emergency Contact Unknown [phone] MARILEE ELLER Guarantor Unknown [phone] Reason For Referral No Information Plan Of Treatment No Information Insurance Providers Payer Name Payer Address Payer Phone Subscriber Number Group Number Insured Name Patient Relationship to Insured Coverage Start Date Coverage End Date Medicare Part B [place] [address] [place] [address] [id number] MARILEE ELLER Self - patient is the insured [facility] ([facility]) ATTN CLAIMS [address] [place] [address] [id number] MARILEE ELLER Self - patient is the insured
--- OUTSIDE RECORDS SUMMARY | 2025-03-20 10:28 | XMS_ITS | Referral Summary ---
Author Organization [facility] Address [address] [place] [address] Care Team Providers Care Pet Care Attendant Name Role Phone Ilir Wahl MD Unavailable Elliot Tran DO Primary Care Provider Allergies Active Allergy Reactions Criticality Noted Date Comments Sulfamethoxazole-Trimethoprim Rash Medium 2018 Medications calcium carbonate-vitam in D3 1,250mg (500mg elemental) - 5 mcg (200 units) per tablet Take 2 tablets by mouth asbestos wire finisher before breakfast Active ktktmgbi-lrb-UV -lycopen-lutein 0.4 mg-300 mcg- 250 mcg tablet Take 1 tablet by mouth asbestos wire finisher before breakfast Active metoprolol (LOPRESSOR) 50 mg tablet Take 1 tablet (50 mg total) by mouth 2 (two) times a day 0 8 Active omega-3 fatty acids-fish oil 684-1,200 mg capsule,delayed release(DR/EC) Take 1 tablet by mouth asbestos wire finisher before breakfast. Active magnesium gluconate 200 mg tablet Take 2 tablets (400 mg total) by mouth asbestos wire finisher before breakfast Active oxyCODONE (ROXICODONE) 5 mg [...] (07/16/2018): Added automatically from request for surgery [id number] History of breast cancer 06/21/2018 Encounter for [...] on file 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:39 AM COMMUNICATIONS MARKETING INTERN Gender Identity Not on file Sexual Orientation Not on file Last Filed Vital Signs Vital Sign Reading Time Taken Comments Blood Pressure 124/75 09/08/2024 2:05 PM COMMUNICATIONS MARKETING INTERN Pulse 60 09/08/2024 2:05 PM COMMUNICATIONS MARKETING INTERN Temperature 36.8 C (98.2 F) 09/08/2024 2:05 PM COMMUNICATIONS MARKETING INTERN Respiratory Rate 16 09/08/2024 2:05 PM COMMUNICATIONS MARKETING INTERN Oxygen Saturation 99% 09/08/2024 2:05 PM COMMUNICATIONS MARKETING INTERN Inhaled Oxygen Concentration - - Weight 64.9 kg (143 lb) 09/08/2024 2:05 PM COMMUNICATIONS MARKETING INTERN Height 167.6 cm (5' 6) 09/08/2024 2:05 PM COMMUNICATIONS MARKETING INTERN Body Mass Index 23.08 09/08/2024 2:05 PM COMMUNICATIONS MARKETING INTERN Plan of Treatment Not on file Insurance MEDICARE [facility] MEDICARE SUPPLEMENT MEDICARE COMMERCIAL GENERIC [facility] MEDICARE [facility] MEDICARE SUPPLEMENT Advance Directives For more information, please contact: [phone] * Full Code (Latest Code Status on File) Date Activated Date Inactivated Comments 09/03/2018 11:25 AM 09/04/2018 4:52 PM Care Teams Pet Care Attendant Relationship Specialty Start Date End Date Elliot Tran DO [address] [place] [address] PCP - General Family Medicine 10/15/22 Ilir Wahl MD [address] [place] [address] # [address] [place] [address] Referring Physician Radiation Oncology 09/07/18
--- OUTSIDE RECORDS SUMMARY | 2025-03-20 10:28 | XMS_ITS | Encounter Summary ---
Author Organization [facility] Address [address] [place] [address] Care Team Providers Care Director Of Home Economics Name Role Phone Randa Maldonado APRN, NP-C Unavailable José Miguel Gore MD Unavailable [phone] Randi Lopez LOG HAUL OPERATOR Primary Care Provider Yung Henderson MD Unavailable [phone] Elliot Tran DO Unavailable [phone] Elliot Tran DO Primary Care Provider [phone] Martita Pride MD Unavailable Encounter Details Date Type Department Care Team (Late st Contact Info) Description 12/03/2022 Abstract [facility] [address] [place] [id number] José Miguel Gore MD [address] [place] [address] Social History Tobacco Use Types Packs/Day Years [...] 05/02/2025 1:45 AM CDT Allied Health/Nurse Visit [facility] [address] [place] [address] Yung Henderson MD [address] [place] [address] 12/18/2025 1:30 PM CDT Appointment [address] [place] [address] Martita Pride MD [address] [place], [place] [address] 12/25/2025 9:15 AM CDT Office Visit [facility] [place] [address] Martita Pride MD [address] [place], [place] [address] documented as of this encounter Visit Diagnoses Not on filedocumented in this encounter Care Teams Director Of Home Economics Relationship Specialty Start Date End Date Randi Lopez FNP [address] [place] [address] PCP - General NURSE PRACTITIONER 06/09/22 11/11/23 Elliot Tran DO [address] [place] [address] PCP - General FAMILY PRACTICE 11/12/23 Randa Maldonado, SPLITTER OPERATOR, TUMBLER PLATER-C [address] [place] [address] [address] [place] [address] NURSE PRACTITIONER 04/26/18 02/20/24 José Miguel Gore MD [address] [place] [address] [place] Dye Tank Tender CARDIOVASCULAR DISEASE 10/26/18 02/20/24 Yung Henderson MD [address] [place] [address] EP Dye Tank Tender CLINICAL CARDIAC ELECTROPHYSIOLOGY 06/11/22 Elliot Tran DO [address] [place] [address] FAMILY PRACTICE 09/02/22 Martita Pride MD [address] [place] [address] Consulting Physician CARDIOVASCULAR DISEASE 02/21/24 documented as of this encounter
--- OUTSIDE RECORDS SUMMARY | 2025-03-20 10:28 | XMS_ITS | Encounter Summary ---
Author Organization [facility] Healthcare Address [address] [place] [address] Care Team Providers Care English Language Learner Teacher Name Role Phone Ilir Wahl MD Unavailable Cyril Zee MD Primary Care Provider [phone] Miscellaneous, Not In File Primary Care Provider Unavailable Randi Lopez BENCH LOOM WEAVER Primary Care Provide r Elliot Tran DO Primary Care Provider Encounter Details Date Type Department Care Team (Late st Contact Info) Description 09/20/2021 Telephone [facility] Radiation Oncology [address] [place] [address] Josie Torrez MA Social History Tobacco Use Types Packs/Day Years Used Date Smoking Tobacco: Never Smokeless Tobacco: Never Alcohol Use Standard Drinks/Week Comments No 0 (1 standard drink = 0.6 oz pur e alcohol) Comments No Sex and Gender Information Value Date Recorded Sex Assigned at Not on file 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:39 AM PUBLIC HEALTH INTERNSHIP Gender Identity Not on file Sexual Orientation Not on file documented as of this encounter Plan of Treatment Not on file documented as of this encounter Visit Diagnoses Not on filedocumented in this encounter Care Teams English Language Learner Teacher Relationship Specialty Start Date End Date Cyril Zee MD [address] [id number] PCP - General Obstetrics and Gynecology 11/30/20 10/15/21 Miscellaneous, Not In File PCP - General 10/16/21 10/20/21 Randi Lopez NP [address] [place] [address] PCP - General 10/21/21 10/14/22 Elliot Tran DO [address] [place] [address] PCP - General Family Medicine 10/15/22 Ilir Wahl MD [address] [facility] # [address] [place] [address] Referring Physician Radiation Oncology 09/07/18 documented as of this encounter
--- OUTSIDE RECORDS SUMMARY | 2025-03-20 10:28 | XMS_ITS | Encounter Summary ---
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 Gender Identity Not on file Sexual [...] on filedocumented in this encounter Care Teams Biomedical Scientist Relationship Specialty Start Date End Date Martín Block MD [address] [place] [address] PCP - General 06/07/20 11/29/20 Cyril Zee MD [address] [place], [place] [id number] PCP - General Obstetrics and Gynecology 11/30/20 10/15/21 Miscellaneous, Not In File PCP - General 10/16/21 10/20/21 Randi Lopez NP [address] [place] [address] PCP - General 10/21/21 10/14/22 Elliot Tran DO [address] [place] [address] PCP - General Family Medicine 10/15/22 Ilir Wahl MD [address] [place] [address] Referring Physician Radiation Oncology 09/07/18 documented as of this encounter
[2025-03-20 10:40] LABS: Alanine Aminotransferase 20 U/L (6-35); Albumin Level 4.2 g/dL (3.5-5.1); Alkaline Phosphatase 41 U/L (38-126); Anion Gap 5 mmol/L (4-12); Aspartate Amino Transferase 36 U/L (14-36); Bilirubin,Total 0.5 mg/dL (0.2-1.3); Blood Urea Nitrogen 20 mg/dL (7-17); Calcium 9.0 mg/dL (8.4-10.2); Carbon Dioxide 31 mmol/L (22-30); Chloride 100 mmol/L (98-107); Estimated Glomerular Filt Rate 56; Glucose 109 mg/dL (65-110); Osmolality Calculated 285 mOsm/kg (285-295); Potassium 4.5 mmol/L (3.4-5.0); Sodium 136 mmol/L (137-145); Total Protein 6.6 g/dL (6.3-8.2)
[2025-03-20 11:11] LABS: Thyroid Stimulating Hormone Reflex 1.420 uIU/mL (0.465-4.68)
== END 2025-03-20 10:07 | disposition home or self-care (01) ==
LOC: CHSLAB 10:08
PROVIDERS: PCP Family Medicine; Visit Provider Nurse Practitioner Family
DX: I47.10 Supraventricular tachycardia, unspecified (principal); E87.8 Other disorders of electrolyte and fluid balance, not elsewhere classified
CPT/HCPCS: 36415; 80053; 84443

== ENCOUNTER 2025-04-24 09:53 | Outpatient (CLI) | payer MEDICARE, SELFPAY ==
--- NOTE | ~2025-04-24 | CT_ITS ---
EXAMINATION:CT diagnostic chest w con DATE: 04/24/2025 11:13 INDICATION: Localized enlarged lymph nodes. Left breast cancer. TECHNIQUE: Computed tomography (CT) of the chest was performed with 75 mL Omnipaque 350 intravenous contrast. Automated exposure control and iterative reconstruction technique were employed. The dose-length product (DLP) was 148.16 mGy-cm. COMPARISON: Chest CT 11/03/2024, 05/04/18 FINDINGS: There is mild scarring at the lung apices. There is mild atelectasis bilaterally. There is mild peripheral radiation fibrosis in anterior left lung. There is bronchiectasis involving right middle lobe, lingula, and anterior segment right upper lobe. There are chronic nodules in right middle lobe and anterior segment right upper lobe measuring up to 13 mm. There is a staple line in left upper lobe. There is a small left pleural effusion. Cardiomegaly is noted. There are coronary artery calcifications. No pericardial effusion. There is a 16 x 11 mm right paratracheal lymph node. There is mild thoracic spondylosis. IMPRESSION: 1. New mildly enlarged mediastinal lymph node, likely reactive. 2. 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 3. Small left pleural effusion with mild worsening. Reviewed, dictated and finalized at location E.
--- OUTSIDE RECORDS SUMMARY | 2025-04-24 10:13 | XMS_ITS | Encounter Summary ---
Author Organization [facility] Healthcare Address [address] [place] [address] Care Team Providers Care Analytical Research Chemist Name Role Phone Ilir Wahl MD Unavailable [phone] Martín Block MD Primary Care Provider Cyril Zee MD Primary Care Provider [phone] Miscellaneous, Not In File Primary Care Provider Unavailable Randi Lopez SOLE FILLER Primary Care Provide r Elliot Tran DO Primary Care Provider Encounter Details Date Type Department Care Team (Late st Contact Info) Description 2020 Telephone [facility] Advanced Medicine Radiation Oncology [address] [place] [address] Advanced Medicine [facility] [place] [address] Josie Torrez MA Social History Tobacco Use Types Packs/Day Years Used Date Smoking Tobacco: Never Smokeless Tobacco: Never Alcohol Use Standard Drinks/Week Comments No 0 (1 standard drink = 0.6 oz pur e alcohol) Comments No Sex and Gender Information Value Date Recorded Sex Assigned at Not on file 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:39 AM SAFETY SCIENTIST Gender Identity Not on file Sexual Orientation Not on file documented as of this encounter Plan of Treatment Not on file documented as of this encounter Visit Diagnoses Not on filedocumented in this encounter Care Teams Analytical Research Chemist Relationship Specialty Start Date End Date Martín Block MD [facility] [address] [place] [address] PCP - General 06/07/20 11/29/20 Cyril Zee MD [address] [facility] [address] [place], [place] [address] PCP - General Obstetrics and Gynecology 11/30/20 10/15/21 Miscellaneous, Not In File PCP - General 10/16/21 10/20/21 Randi Lopez NP [address] [place] [address] PCP - General 10/21/21 10/14/22 Elliot Tran DO [address] [place] [address] PCP - General Family Medicine 10/15/22 Ilir Wahl MD [address] [place] [address] Referring Physician Radiation Oncology 09/07/18 documented as of this encounter
--- OUTSIDE RECORDS SUMMARY | 2025-04-24 10:13 | XMS_ITS | Clinical Summary ---
Author Organization [facility] Address [address] [place] [address] Care Team Providers Care Acetylene Cutter Name Role Phone Ilir Wahl MD Unavailable [phone] Elliot Tran DO Primary Care Provider Allergies Active Allergy Reactions Criticality Noted Date Comments Sulfamethoxazole-Trimethoprim Rash Medium 2018 Medications calcium carbonate-vitam in D3 1,250mg (500mg elemental) - 5 mcg (200 units) per tablet Take 2 tablets by mouth financial controller before breakfast Active hsnauxua-jii-TS -lycopen-lutein 0.4 mg-300 mcg- 250 mcg tablet Take 1 tablet by mouth financial controller before breakfast Active metoprolol (LOPRESSOR) 50 mg tablet Take 1 tablet (50 mg total) by mouth 2 (two) times a day 0 8 Active omega-3 fatty acids-fish oil 684-1,200 mg capsule,delayed release(DR/EC) Take 1 tablet by mouth financial controller before breakfast. Active magnesium gluconate 200 mg tablet Take 2 tablets (400 mg total) by mouth financial controller before breakfast Active oxyCODONE (ROXICODONE) 5 mg [...] (07/16/2018): Added automatically from request for surgery [id number] History of breast cancer 06/21/2018 Encounter for [...] on file 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:39 AM WRAP TURNER Gender Identity Not on file Sexual Orientation Not on file Obstetrics History Last Filed Vital Signs Vital Sign Reading Time Taken Comments Blood Pressure 124/75 09/08/2024 2:05 PM WRAP TURNER Pulse 60 09/08/2024 2:05 PM WRAP TURNER Temperature 36.8 C (98.2 F) 09/08/2024 2:05 PM WRAP TURNER Respiratory Rate 16 09/08/2024 2:05 PM WRAP TURNER Oxygen Saturation 99% 09/08/2024 2:05 PM WRAP TURNER Inhaled Oxygen Concentration - - Weight 64.9 kg (143 lb) 09/08/2024 2:05 PM WRAP TURNER Height 167.6 cm (5' 6) 09/08/2024 2:05 PM WRAP TURNER Body Mass Index 23.08 09/08/2024 2:05 PM WRAP TURNER Plan of Treatment Health Maintenance Due Date [...] 09/14/2020 Influenza Vaccine (#1) 2025 Insurance MEDICARE [facility] MEDICARE SUPPLEMENT MEDICARE COMMERCIAL GENERIC [facility] MEDICARE BLUE CROSS MEDICARE SUPPLEMENT Advance Directives For more information, please contact: [phone] * Full Code (Latest Code Status on File) Date Activated Date Inactivated Comments 09/03/2018 11:25 AM 09/04/2018 4:52 PM Care Teams Acetylene Cutter Relationship Specialty Start Date End Date Elliot Tran DO [address] [place] [address] PCP - General Family Medicine 10/15/22 Ilir Wahl MD [address] [facility] [address] [place] [address] Referring Physician Radiation Oncology 09/07/18
--- OUTSIDE RECORDS SUMMARY | 2025-04-24 10:13 | XMS_ITS | Encounter Summary ---
Author Organization [facility] Healthcare Address [address] [place] [address] Care Team Providers Care Mmd Unit Teacher Name Role Phone Ilir Wahl MD Unavailable Cyril Zee MD Primary Care Provider [phone] Miscellaneous, Not In File Primary Care Provider Unavailable Randi Lopez COMMODITIES CLERK Primary Care Provide r Elliot Tran DO Primary Care Provider Encounter Details Date Type Department Care Team (Late st Contact Info) Description 09/20/2021 Telephone [facility] Radiation Oncology [address] [facility] [place] [address] Josie Torrez MA Social History Tobacco Use Types Packs/Day Years Used Date Smoking Tobacco: Never Smokeless Tobacco: Never Alcohol Use Standard Drinks/Week Comments No 0 (1 standard drink = 0.6 oz pur e alcohol) Comments No Sex and Gender Information Value Date Recorded Sex Assigned at Not on file 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:39 AM FIELD APPLICATIONS SPECIALIST Gender Identity Not on file Sexual Orientation Not on file documented as of this encounter Plan of Treatment Not on file documented as of this encounter Visit Diagnoses Not on filedocumented in this encounter Care Teams Mmd Unit Teacher Relationship Specialty Start Date End Date Cyril Zee MD [address] [facility] [address] [place], [place] [id number] PCP - General Obstetrics and Gynecology 11/30/20 10/15/21 Miscellaneous, Not In File PCP - General 10/16/21 10/20/21 Randi Lopez NP [address] [place] [address] PCP - General 10/21/21 10/14/22 Elliot Tran DO [address] [place] [address] PCP - General Family Medicine 10/15/22 Ilir Wahl MD [address] [facility] [address] [place] [address] Referring Physician Radiation Oncology 09/07/18 documented as of this encounter
--- OUTSIDE RECORDS SUMMARY | 2025-04-24 10:13 | XMS_ITS | Encounter Summary ---
Author Organization [facility] Address [address] [place] [address] Phone Care Team Providers Care Synthetic Soil Blocks Pulper Name Role Phone Ilir Wahl MD Unavailable [phone] Martín Block MD Primary Care Provider Cyril Zee MD Primary Care Provider [phone] Miscellaneous, Not In File Primary Care Provider [...] on file 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:39 AM MARRIAGE AND FAMILY THERAPIST Gender Identity Not on file Sexual Orientation [...] on filedocumented in this encounter Care Teams Synthetic Soil Blocks Pulper Relationship Specialty Start Date End Date Martín Block MD [address] [place] [address] PCP - General 06/07/20 11/29/20 Cyril Zee MD [address] [place], [place] [id number] PCP - General Obstetrics and Gynecology 11/30/20 10/15/21 Miscellaneous, Not In File PCP - General 10/16/21 10/20/21 Randi Lopez NP [address] [place] [address] PCP - General 10/21/21 10/14/22 Elliot Tran DO [address] [place] [address] PCP - General Family Medicine 10/15/22 Ilir Wahl MD [address] [place] [address] Referring Physician Radiation Oncology 09/07/18 documented as of this encounter
--- OUTSIDE RECORDS SUMMARY | 2025-04-24 10:13 | XMS_ITS | Patient Health Record ---
Author Organization [facility] Address [address] [place], [place] [address] Support Name Relationship Address Phone WILLIAMS ESCOBEDO Emergency Contact Unknown MARILEE ELLER Guarantor Unknown [phone] Reason For Referral No Information Plan Of Treatment No Information Insurance Providers Payer Name Payer Address Payer Phone Subscriber Number Group Number Insured Name Patient Relationship to Insured Coverage Start Date Coverage End Date Medicare Part B [place] [address] [place] [address] [id number] MARILEE ELLER Self - patient is the insured [facility] ATTN CLAIMS [address] [place] [address] [id number] MARILEE ELLER Self - patient is the insured
--- OUTSIDE RECORDS SUMMARY | 2025-04-24 10:13 | XMS_ITS | Encounter Summary ---
Author Organization [facility] Healthcare Address [address] [place] [address] Care Team Providers Care Sash Clamp Operator Name Role Phone Ilir Wahl MD Unavailable [phone] Brad Joyner MD Primary Care Provider Martín Block MD Primary Care Provider Cyril Zee MD Primary Care Provider [phone] Miscellaneous, Not In File Primary Care Provider Unavailable Randi Lopez NP Primary Care Provide r Elliot Tran DO Primary Care Provider Encounter Details Date Type Department Care Team (Late st Contact Info) Description 03/02/2020 Telephone [facility] Radiation Oncology [address] [facility] [place] [address] Josie Torrez MA Social History Tobacco Use Types Packs/Day Years Used Date Smoking Tobacco: Never Smokeless Tobacco: Never Alcohol Use Standard Drinks/Week Comments No 0 (1 standard drink = 0.6 oz pur e alcohol) Comments No Sex and Gender Information Value Date Recorded Sex Assigned at Not on file 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:39 AM ETL BI DEVELOPER Gender Identity Not on file Sexual Orientation Not on file documented as of this encounter Plan of Treatment Not on file documented as of this encounter Visit Diagnoses Not on filedocumented in this encounter Care Teams Sash Clamp Operator Relationship Specialty Start Date End Date Brad Joyner MD [address] [place] [address] PCP - General Family Medicine 12/10/18 06/06/20 Martín Block MD [address] [place] [address] PCP - General 06/07/20 11/29/20 Cyril Zee MD [address] [address] PCP - General Obstetrics and Gynecology 11/30/20 10/15/21 Miscellaneous, Not In File PCP - General 10/16/21 10/20/21 Randi Lopez NP [address] [place] [address] PCP - General 10/21/21 10/14/22 Elliot Tran DO [address] [place] [address] PCP - General Family Medicine 10/15/22 Ilir Wahl MD [address] [facility] [address] [place] [address] Referring Physician Radiation Oncology 09/07/18 documented as of this encounter
--- OUTSIDE RECORDS SUMMARY | 2025-04-24 10:13 | XMS_ITS ---
Author Organization [facility] Address [address] [place] [address] Care Team Providers Care Lab Support Technician Name Role Phone Ilir Wahl MD Unavailable [...] (07/16/2018): Added automatically from request for surgery [id number] History of breast cancer 06/21/2018 Encounter for [...]
[2025-04-24 10:40] LABS: Estimated Glomerular Filt Rate > 60
== END 2025-04-24 09:54 | disposition home or self-care (01) ==
LOC: CHSIMG 09:55
PROVIDERS: PCP Family Medicine; Visit Provider Nurse Practitioner Family
DX: R59.0 Localized enlarged lymph nodes (principal); J98.4 Other disorders of lung; J90 Pleural effusion, not elsewhere classified
CPT/HCPCS: 71260; Q9967

== ENCOUNTER 2025-05-09 11:16 | Outpatient (CLI) | payer MEDICARE, SELFPAY ==
--- NOTE | ~2025-05-09 | XR_ITS ---
EXAMINATION: XR chest 2V, 05/09/2025 11:20 CDT HISTORY: R09.89 - Other specified symptoms and signs involving the... COMPARISON: No comparisons available. Technique: 2 views obtained. Findings: COPD changes with trace pleural effusions and infiltrates. No pneumothorax. Heart is normal size. Mediastinal and hilar contours are within normal limits. Bony thorax no acute abnormality. Impression: Early bilateral pneumonia Reviewed, dictated and finalized at location A. Impression: Early bilateral pneumonia
--- NOTE | 2025-05-09 11:20 | ECG_ITS ---
Test Date: 2025-05-09 11:29:06 Measurements Intervals [place] Rate: 61 P: 82 MA: 282 QRS: -60 QRSD: 110 T: 59 QT: 441 QTc: 445 Interpretive Statements SINUS RHYTHM WITH FIRST DEGREE AV BLOCK WITH OCCASIONAL SUPRAVENTRICULAR PREMATURE COMPLEXES LEFT ANTERIOR FASCICULAR BLOCK [QRS AXIS <= -45, QR IN I, RS IN II] ANTEROSEPTAL MYOCARDIAL INFARCTION , OF INDETERMINATE AGE [40+ ms Q WAVE IN V1-V4] ABNORMAL ECG Compared to ECG 02/11/2025 00:05:21 PACS ARE NOW PRESENT Electronically Signed On 05-09-2025 12:46:25 CDT by Josef Reinoso M.D.
--- OUTSIDE RECORDS SUMMARY | 2025-05-09 11:59 | XMS_ITS | Clinical Summary ---
Author Organization [facility] Address [address] [place] [address] Care Team Providers Care Grain Trimmer Name Role Phone Ilir Wahl MD Unavailable [phone] Elliot Tran DO Primary Care Provider Allergies Active Allergy Reactions Criticality Noted Date Comments Sulfamethoxazole-Trimethoprim Rash Medium 2018 Medications calcium carbonate-vitam in D3 1,250mg (500mg elemental) - 5 mcg (200 units) per tablet Take 2 tablets by mouth mds manager before breakfast Active eoifwvrt-uxb-QS -lycopen-lutein 0.4 mg-300 mcg- 250 mcg tablet Take 1 tablet by mouth mds manager before breakfast Active metoprolol (LOPRESSOR) 50 mg tablet Take 1 tablet (50 mg total) by mouth 2 (two) times a day 0 8 Active omega-3 fatty acids-fish oil 684-1,200 mg capsule,delayed release(DR/EC) Take 1 tablet by mouth mds manager before breakfast. Active magnesium gluconate 200 mg tablet Take 2 tablets (400 mg total) by mouth mds manager before breakfast Active oxyCODONE (ROXICODONE) 5 [...] (07/16/2018): Added automatically from request for surgery [id number] History of breast cancer 06/21/2018 Encounter for [...] on file 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:39 AM TRANSLATOR AND INTERPRETER Gender Identity Not on file Sexual Orientation Not on file Obstetrics History Last Filed Vital Signs Vital Sign Reading Time Taken Comments Blood Pressure 124/75 09/08/2024 2:05 PM TRANSLATOR AND INTERPRETER Pulse 60 09/08/2024 2:05 PM TRANSLATOR AND INTERPRETER Temperature 36.8 C (98.2 F) 09/08/2024 2:05 PM TRANSLATOR AND INTERPRETER Respiratory Rate 16 09/08/2024 2:05 PM TRANSLATOR AND INTERPRETER Oxygen Saturation 99% 09/08/2024 2:05 PM TRANSLATOR AND INTERPRETER Inhaled Oxygen Concentration - - Weight 64.9 kg (143 lb) 09/08/2024 2:05 PM TRANSLATOR AND INTERPRETER Height 167.6 cm (5' 6) 09/08/2024 2:05 PM TRANSLATOR AND INTERPRETER Body Mass Index 23.08 09/08/2024 2:05 PM TRANSLATOR AND INTERPRETER Plan of Treatment Health Maintenance Due Date [...] 09/14/2020 Influenza Vaccine (#1) 2025 Insurance MEDICARE [facility] MEDICARE SUPPLEMENT MEDICARE COMMERCIAL GENERIC [facility] MEDICARE BLUE CROSS MEDICARE SUPPLEMENT Advance Directives For more information, please contact: [phone] * Full Code (Latest Code Status on File) Date Activated Date Inactivated Comments 09/03/2018 11:25 AM 09/04/2018 4:52 PM Care Teams Grain Trimmer Relationship Specialty Start Date End Date Elliot Tran DO [address] [place] [address] PCP - General Family Medicine 10/15/22 Ilir Wahl MD [address] [facility] # [address] [place] [address] Referring Physician Radiation Oncology 09/07/18
--- OUTSIDE RECORDS SUMMARY | 2025-05-09 11:59 | XMS_ITS | Encounter Summary ---
Author Organization [facility] Healthcare Address [address] [place] [address] Care Team Providers Care X Ray Technician Name Role Phone Ilir Wahl MD Unavailable [phone] Martín Block MD Primary Care Provider Cyril Zee MD Primary Care Provider [phone] Miscellaneous, Not In File Primary Care Provider Unavailable Randi Lopez HIGH REACH OPERATOR Primary Care Provide r Elliot Tran DO Primary Care Provider Encounter Details Date Type Department Care Team (Late st Contact Info) Description 2020 Telephone [facility] Advanced Medicine Radiation Oncology [address] [place] [address] Advanced Medicine [facility] [place] [address] Josie Torrez MA Social History Tobacco Use Types Packs/Day Years Used Date Smoking Tobacco: Never Smokeless Tobacco: Never Alcohol Use Standard Drinks/Week Comments No 0 (1 standard drink = 0.6 oz pur e alcohol) Comments No Sex and Gender Information Value Date Recorded Sex Assigned at Not on file 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:39 AM ETCHER AIRCRAFT Gender Identity Not on file Sexual Orientation Not on file documented as of this encounter Plan of Treatment Not on file documented as of this encounter Visit Diagnoses Not on filedocumented in this encounter Care Teams X Ray Technician Relationship Specialty Start Date End Date Martín Block MD [facility] # [address] [place] [address] PCP - General 06/07/20 11/29/20 Cyril Zee MD [address] [facility] [address] [place], [place] [address] PCP - General Obstetrics and Gynecology 11/30/20 10/15/21 Miscellaneous, Not In File PCP - General 10/16/21 10/20/21 Randi Lopez NP [address] [place] [address] PCP - General 10/21/21 10/14/22 Elliot Tran DO [address] [place] [address] PCP - General Family Medicine 10/15/22 Ilir Wahl MD [address] [place] [address] Referring Physician Radiation Oncology 09/07/18 documented as of this encounter
--- OUTSIDE RECORDS SUMMARY | 2025-05-09 11:59 | XMS_ITS | Encounter Summary ---
Author Organization [facility] Address [address] [place] [address] Phone Care Team Providers Care Sharebroker Name Role Phone Ilir Wahl MD Unavailable [phone] Martín Block MD Primary Care Provider Cyril Zee MD Primary Care Provider [phone] Miscellaneous, Not In File Primary Care Provider [...] on file 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:39 AM BOX STACKER Gender Identity Not on file Sexual Orientation [...] on filedocumented in this encounter Care Teams Sharebroker Relationship Specialty Start Date End Date Martín Block MD [address] [place] [address] PCP - General 06/07/20 11/29/20 Cyril Zee MD [address] [place], [place] [address] PCP - General Obstetrics and Gynecology 11/30/20 10/15/21 Miscellaneous, Not In File PCP - General 10/16/21 10/20/21 Randi Lopez NP [address] [place] [address] PCP - General 10/21/21 10/14/22 Elliot Tran DO [address] [place] [address] PCP - General Family Medicine 10/15/22 Ilir Wahl MD [address] [place] [address] Referring Physician Radiation Oncology 09/07/18 documented as of this encounter
--- OUTSIDE RECORDS SUMMARY | 2025-05-09 11:59 | XMS_ITS ---
Author Organization [facility] Address [address] [place] [address] Care Team Providers Care Metal Forger'S Assistant Name Role Phone Ilir Wahl MD Unavailable [...] (07/16/2018): Added automatically from request for surgery [id number] History of breast cancer 06/21/2018 Encounter for [...]
--- OUTSIDE RECORDS SUMMARY | 2025-05-09 11:59 | XMS_ITS | Encounter Summary ---
Author Organization [facility] Healthcare Address [address] [place] [address] Care Team Providers Care Accounts Manager Name Role Phone Ilir Wahl MD Unavailable Cyril Zee MD Primary Care Provider [phone] Miscellaneous, Not In File Primary Care Provider Unavailable Randi Lopez FLUX CORE WELDER Primary Care Provide r Elliot Tran DO Primary Care Provider Encounter Details Date Type Department Care Team (Late st Contact Info) Description 09/20/2021 Telephone [facility] Radiation Oncology [address] [facility] [place] [address] Josie Torrez MA Social History Tobacco Use Types Packs/Day Years Used Date Smoking Tobacco: Never Smokeless Tobacco: Never Alcohol Use Standard Drinks/Week Comments No 0 (1 standard drink = 0.6 oz pur e alcohol) Comments No Sex and Gender Information Value Date Recorded Sex Assigned at Not on file 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:39 AM WARD CLERK Gender Identity Not on file Sexual Orientation Not on file documented as of this encounter Plan of Treatment Not on file documented as of this encounter Visit Diagnoses Not on filedocumented in this encounter Care Teams Accounts Manager Relationship Specialty Start Date End Date Cyril Zee MD [address] [facility] [address] [place], [place] [address] PCP - General Obstetrics and Gynecology 11/30/20 10/15/21 Miscellaneous, Not In File PCP - General 10/16/21 10/20/21 Randi Lopez NP [address] [place] [address] PCP - General 10/21/21 10/14/22 Elliot Tran DO [address] [place] [address] PCP - General Family Medicine 10/15/22 Ilir Wahl MD [address] [facility] [address] [place] [address] Referring Physician Radiation Oncology 09/07/18 documented as of this encounter
--- OUTSIDE RECORDS SUMMARY | 2025-05-09 11:59 | XMS_ITS | Encounter Summary ---
Author Organization [facility] Healthcare Address [address] [place] [address] Care Team Providers Care High Pressure Kettle Operator Name Role Phone Ilir Wahl MD Unavailable [phone] Brad Joyner MD Primary Care Provider [phone] Martín Block MD Primary Care Provider Cyril Zee MD Primary Care Provider [phone] Miscellaneous, Not In File Primary Care Provider Unavailable Randi Lopez NP Primary Care Provide r Elliot Tran DO Primary Care Provider Encounter Details Date Type Department Care Team (Late st Contact Info) Description 03/02/2020 Telephone [facility] Radiation Oncology [address] [facility] [place] [address] Josie Torrez MA Social History Tobacco Use Types Packs/Day Years Used Date Smoking Tobacco: Never Smokeless Tobacco: Never Alcohol Use Standard Drinks/Week Comments No 0 (1 standard drink = 0.6 oz pur e alcohol) Comments No Sex and Gender Information Value Date Recorded Sex Assigned at Not on file 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:39 AM J2EE JAVA DEVELOPER Gender Identity Not on file Sexual Orientation Not on file documented as of this encounter Plan of Treatment Not on file documented as of this encounter Visit Diagnoses Not on filedocumented in this encounter Care Teams High Pressure Kettle Operator Relationship Specialty Start Date End Date Brad Joyner MD [address] [place] [address] PCP - General Family Medicine 12/10/18 06/06/20 Martín Block MD [address] [place] [address] PCP - General 06/07/20 11/29/20 Cyril Zee MD [address] [address] PCP - General Obstetrics and Gynecology 11/30/20 10/15/21 Miscellaneous, Not In File PCP - General 10/16/21 10/20/21 Randi Lopez NP [address] [place] [address] PCP - General 10/21/21 10/14/22 Elliot Tran DO [address] [place] [address] PCP - General Family Medicine 10/15/22 Ilir Wahl MD [address] [facility] [address] [place] [address] Referring Physician Radiation Oncology 09/07/18 documented as of this encounter
== END 2025-05-09 11:17 | disposition home or self-care (01) ==
LOC: CHSIMG 11:17
PROVIDERS: PCP Family Medicine; Visit Provider Nurse Practitioner Family
DX: I49.9 Cardiac arrhythmia, unspecified (principal); I10 Essential (primary) hypertension; R09.89 Other specified symptoms and signs involving the circulatory and respiratory systems; I44.0 Atrioventricular block, first degree; I44.4 Left anterior fascicular block; I21.9 Acute myocardial infarction, unspecified; R94.31 Abnormal electrocardiogram [ECG] [EKG]; J18.9 Pneumonia, unspecified organism
CPT/HCPCS: 71046; 93005

== ENCOUNTER 2025-05-09 17:37 | Outpatient (CLI) | payer MEDICARE, SELFPAY ==
--- OUTSIDE RECORDS SUMMARY | 2025-05-09 17:41 | XMS_ITS | Encounter Summary ---
Author Organization [facility] Address [address] [place] [address] Phone Care Team Providers Care Tactical Air Control Party Name Role Phone Ilir Wahl MD Unavailable [phone] Martín Block MD Primary Care Provider Cyril Zee MD Primary Care Provider [phone] Miscellaneous, Not In File Primary Care Provider [...] on file 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:39 AM LEADERSHIP DEVELOPMENT MANAGER Gender Identity Not on file Sexual [...] on filedocumented in this encounter Care Teams Tactical Air Control Party Relationship Specialty Start Date End Date Martín Block MD [address] [place] [address] PCP - General 06/07/20 11/29/20 Cyril Zee MD [address] [place], [place] [address] PCP - General Obstetrics and Gynecology 11/30/20 10/15/21 Miscellaneous, Not In File PCP - General 10/16/21 10/20/21 Randi Lopez NP [address] [place] [address] PCP - General 10/21/21 10/14/22 Elliot Tran DO [address] [place] [address] PCP - General Family Medicine 10/15/22 Ilir Wahl MD [address] [place] [address] Referring Physician Radiation Oncology 09/07/18 documented as of this encounter
--- OUTSIDE RECORDS SUMMARY | 2025-05-09 17:41 | XMS_ITS | Encounter Summary ---
Author Organization [facility] Healthcare Address [address] [place] [address] Care Team Providers Care Crab Butcher Name Role Phone Ilir Wahl MD Unavailable [phone] Martín Block MD Primary Care Provider Cyril Zee MD Primary Care Provider [phone] Miscellaneous, Not In File Primary Care Provider Unavailable Randi Lopez PERSONAL FITNESS MANAGER Primary Care Provide r Elliot Tran DO Primary Care Provider Encounter Details Date Type Department Care Team (Late st Contact Info) Description 2020 Telephone [facility] Advanced Medicine Radiation Oncology [address] [place] [address] Advanced Medicine [facility] [place] [address] Josie Torrez MA Social History Tobacco Use Types Packs/Day Years Used Date Smoking Tobacco: Never Smokeless Tobacco: Never Alcohol Use Standard Drinks/Week Comments No 0 (1 standard drink = 0.6 oz pur e alcohol) Comments No Sex and Gender Information Value Date Recorded Sex Assigned at Not on file 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:39 AM SAND CAR WORKER Gender Identity Not on file Sexual Orientation Not on file documented as of this encounter Plan of Treatment Not on file documented as of this encounter Visit Diagnoses Not on filedocumented in this encounter Care Teams Crab Butcher Relationship Specialty Start Date End Date Martín Block MD [facility] # [address] [place] [address] PCP - General 06/07/20 11/29/20 Cyril Zee MD [address] [facility] [address] [place], [place] [address] PCP - General Obstetrics and Gynecology 11/30/20 10/15/21 Miscellaneous, Not In File PCP - General 10/16/21 10/20/21 Randi Lopez NP [address] [place] [address] PCP - General 10/21/21 10/14/22 Elliot Tran DO [address] [place] [address] PCP - General Family Medicine 10/15/22 Ilir Wahl MD [address] [place] [address] Referring Physician Radiation Oncology 09/07/18 documented as of this encounter
--- OUTSIDE RECORDS SUMMARY | 2025-05-09 17:41 | XMS_ITS | Encounter Summary ---
Author Organization [facility] Healthcare Address [address] [place] [address] Care Team Providers Care Tubular Splitting Machine Tender Name Role Phone Ilir Wahl MD Unavailable Cyril Zee MD Primary Care Provider [phone] Miscellaneous, Not In File Primary Care Provider Unavailable Randi Lopez SAP SD ANALYST Primary Care Provide r Elliot rTan DO Primary Care Provider Encounter Details Date Type Department Care Team (Late st Contact Info) Description 09/20/2021 Telephone [facility] Radiation Oncology [address] [facility] [place] [address] Josie Torrez MA Social History Tobacco Use Types Packs/Day Years Used Date Smoking Tobacco: Never Smokeless Tobacco: Never Alcohol Use Standard Drinks/Week Comments No 0 (1 standard drink = 0.6 oz pur e alcohol) Comments No Sex and Gender Information Value Date Recorded Sex Assigned at Not on file 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:39 AM AMERICAN HISTORY PROFESSOR Gender Identity Not on file Sexual Orientation Not on file documented as of this encounter Plan of Treatment Not on file documented as of this encounter Visit Diagnoses Not on filedocumented in this encounter Care Teams Tubular Splitting Machine Tender Relationship Specialty Start Date End Date Cyril Zee MD [address] [facility] [address] [place], [place] [address] PCP - General Obstetrics and Gynecology 11/30/20 10/15/21 Miscellaneous, Not In File PCP - General 10/16/21 10/20/21 Randi Lopez NP [address] [place] [address] PCP - General 10/21/21 10/14/22 Elliot Tran DO [address] [place] [address] PCP - General Family Medicine 10/15/22 Ilir Wahl MD [address] [facility] [address] [place] [address] Referring Physician Radiation Oncology 09/07/18 documented as of this encounter
--- OUTSIDE RECORDS SUMMARY | 2025-05-09 17:41 | XMS_ITS | Encounter Summary ---
Author Organization [facility] Address [address] [place] [address] Care Team Providers Care Radiotelegrapher Name Role Phone Randa Maldonado APRN, NP-C Unavailable [phone] José Miguel Gore MD Unavailable [phone] Randi Lopez CELLULOID TRIMMER Primary Care Provider Yung Henderson MD Unavailable [phone] Elliot Tran DO Unavailable Elliot Tran DO Primary Care Provider [phone] Martita Pride MD Unavailable Encounter Details Date Type Department Care Team (Late st Contact Info) Description 12/03/2022 Abstract [facility] [address] [place] [address] José Miguel Gore MD [address] [place] [address] Social History Tobacco Use Types Packs/Day Years [...] Department Care Team (Latest Contact Info) Description 06/27/2025 2:30 AM HAND DEICER ELEMENT WINDER Allied Health/Nurse Visit [facility] [address] [place] [address] Yung Henderson MD [address] [place] [address] 12/18/2025 1:30 PM CDT Appointment [address] [place] [address] Martita Pride MD [address] [place], [place] [address] 12/25/2025 9:15 AM CDT Office Visit [facility] [place] [address] Martita Pride MD [address] [place], [place] [address] documented as of this encounter Visit Diagnoses Not on filedocumented in this encounter Care Teams Radiotelegrapher Relationship Specialty Start Date End Date Randi Lopez FNP [address] [place] [address] PCP - General NURSE PRACTITIONER 06/09/22 11/11/23 Elliot Tran DO [address] [place] [address] PCP - General FAMILY PRACTICE 11/12/23 Randa Maldonado, CHIEF SUPPLY CHAIN OFFICER, BROWN SOURER-C [address] [place] [address] [address] [place] [address] NURSE PRACTITIONER 04/26/18 02/20/24 José Miguel Gore MD [address] [place] [address] [place] Glue Spreading Machine Operator CARDIOVASCULAR DISEASE 10/26/18 02/20/24 Yung Henderson MD [address] [place] [address] EP Glue Spreading Machine Operator CLINICAL CARDIAC ELECTROPHYSIOLOGY 06/11/22 Elliot Tran DO [address] [place] [address] FAMILY PRACTICE 09/02/22 Martita Pride MD [address] [place] [address] Consulting Physician CARDIOVASCULAR DISEASE 02/21/24 documented as of this encounter
--- OUTSIDE RECORDS SUMMARY | 2025-05-09 17:41 | XMS_ITS | Encounter Summary ---
Author Organization [facility] Healthcare Address [address] [place] [address] Care Team Providers Care Drug Safety Specialist Name Role Phone Ilir Wahl MD Unavailable [phone] Brad Joyner MD Primary Care Provider [phone] Martín Block MD Primary Care Provider Cyril Zee MD Primary Care Provider [phone] Miscellaneous, Not In File Primary Care Provider Unavailable Randi Lopez NP Primary Care Provide r Elliot Tran DO Primary Care Provider Encounter Details Date Type Department Care Team (Late st Contact Info) Description 03/02/[address] [facility] Radiation Oncology [address] [facility] [place] [address] Josie Torrez MA Social History Tobacco Use Types Packs/Day Years Used Date Smoking Tobacco: Never Smokeless Tobacco: Never Alcohol Use Standard Drinks/Week Comments No 0 (1 standard drink = 0.6 oz pur e alcohol) Comments No Sex and Gender Information Value Date Recorded Sex Assigned at Not on file 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:39 AM EMPLOYMENT LAW SPECIALIST Gender Identity Not on file Sexual Orientation Not on file documented as of this encounter Plan of Treatment Not on file documented as of this encounter Visit Diagnoses Not on filedocumented in this encounter Care Teams Drug Safety Specialist Relationship Specialty Start Date End Date Brad Joyner MD [address] [place] [address] PCP - General Family Medicine 12/10/18 06/06/20 Martín Block MD [address] [place] [address] PCP - General 06/07/20 11/29/20 Cyril Zee MD [address] [address] PCP - General Obstetrics and Gynecology 11/30/20 10/15/21 Miscellaneous, Not In File PCP - General 10/16/21 10/20/21 Randi Lopez NP [address] [place] [address] PCP - General 10/21/21 10/14/22 Elliot Tran DO [address] [place] [address] PCP - General Family Medicine 10/15/22 Ilir Wahl MD [address] [facility] [address] [place] [address] Referring Physician Radiation Oncology 09/07/18 documented as of this encounter
--- OUTSIDE RECORDS SUMMARY | 2025-05-09 17:41 | XMS_ITS ---
Author Organization [facility] Address [address] [place] [address] Care Team Providers Care Airline Ticket Agent Name Role Phone Ilir Wahl MD Unavailable [...] (07/16/2018): Added automatically from request for surgery [id number] History of breast cancer 06/21/2018 Encounter for [...]
--- OUTSIDE RECORDS SUMMARY | 2025-05-09 17:41 | XMS_ITS | Encounter Summary ---
Author Organization [facility] Address [address] [place] [address] Care Team Providers Care Home Care Manager Name Role Phone Yung Henderson MD Unavailable [phone] Elliot Tran DO Unavailable [phone] Elliot Tran DO Primary Care Provider [phone] Martita Pride MD Unavailable Reason for Visit * Reason Onset Date Comments Medication Information 05/09/2025 Encounter Details Date Type Department Care Team (Late st Contact Info) Description 05/09/2025 Telephone [facility] [address] [place] [address] Martita Pride MD [address] [place] [address] Medication Information Social History Tobacco Use Types Packs/Day Years [...] as of this encounter Progress Notes * Queta Christopher - 05/09/2025 4:51 PM CDT Received a fax from Puneet Farfan APRN of [facility] asking for recommendations medication stephens. Patient is having new onset of shortness of breath, palpitations, and tachycardia. Given to nurse to review. documented in this encounter Plan of Treatment Upcoming Encounters Date Type Department Care Team (Latest Contact Info) Description 06/27/2025 2:30 AM HEALTH AND SAFETY COORDINATOR Allied Health/Nurse [facility] [address] [place] [address] Yung Hednerson MD [address] [place] [address] 12/18/2025 1:30 PM CDT Appointment [place] [place] [address] Martita Pride MD [address] [place], [place] [address] 12/25/2025 9:15 AM CDT Office Visit [facility] [address] [place] [address] Martita Pride MD [address] [place] [address] documented as of this encounter Visit Diagnoses Not on filedocumented in this encounter Care Teams Home Care Manager Relationship Specialty Start Date End Date Elliot Tran DO [address] [place] [address] PCP - General FAMILY PRACTICE 11/12/23 Yung Henderson MD [address] [place] [address] EP Html Web Developer CLINICAL CARDIAC ELECTROPHYSIOLOGY 06/11/22 Elliot Tran DO [address] [place] [address] FAMILY PRACTICE 09/02/22 Martita Pride MD [address] [place] [address] Consulting Physician CARDIOVASCULAR DISEASE 02/21/24 documented as of this encounter
--- OUTSIDE RECORDS SUMMARY | 2025-05-09 17:41 | XMS_ITS | Encounter Summary ---
Author Organization [facility] Address [address] [place] [address] Care Team Providers Care Beef Specialist Name Role Phone Randa Maldonado APRN, NP-C Unavailable [phone] José Miguel Gore MD Unavailable [phone] Randi Lopez PIG MACHINE CRANE OPERATOR Primary Care Provider Yung Henderson MD Unavailable [phone] Elliot Tran DO Unavailable Elliot Tran DO Primary Care Provider [phone] Martita Pride MD Unavailable Encounter Details Date Type Department Care Team (Late st Contact Info) Description 09/25/2022 Hospital Orders Only [facility] Draw Frame Operator Pre/Post [address] [place] [address] Yung Henderson MD [address] [place], [place] [address] Social History Tobacco Use Types Packs/Day Years [...] (Latest Contact Info) Description 06/27/2025 2:30 AM MIDDLEWARE ARCHITECT Allied Health/Nurse Visit [facility] [address] [place] [address] Yung Henderson MD [address] [place] [address] 12/18/2025 1:30 PM CDT Appointment [address] [place] [address] Martita Pride MD [address] [place] [address] 12/25/2025 9:15 AM CDT Office Visit [facility] [place] [address] Martita Pride MD [address] [place] [address] documented as of this encounter Visit Diagnoses Not on filedocumented in this encounter Care Teams Beef Specialist Relationship Specialty Start Date End Date Randi Lopez FNP [address] [place] [address] PCP - General NURSE PRACTITIONER 06/09/22 11/11/23 Elliot Tran DO [address] [place] [address] PCP - General FAMILY PRACTICE 11/12/23 Randa Maldonado APRN, TURBINE ENGINE ASSEMBLER-C [address] [facility] [address] [place] [address] NURSE PRACTITIONER 04/26/18 02/20/24 José Miguel Gore MD [address] [place] [address] [place] V[place] Baster CARDIOVASCULAR DISEASE 10/26/18 02/20/24 Yung Henderson MD [address] [place] [address] EP Vest Baster CLINICAL CARDIAC ELECTROPHYSIOLOGY 06/11/22 Elliot Tran DO [address] [place] [address] FAMILY PRACTICE 09/02/22 Martita Pride MD [address] [place] [address] Consulting Physician CARDIOVASCULAR DISEASE 02/21/24 documented as of this encounter
--- OUTSIDE RECORDS SUMMARY | 2025-05-09 17:41 | XMS_ITS | Encounter Summary ---
Author Organization [facility] Address [address] [place] [address] Care Team Providers Care Director Law Enforcement Name Role Phone Randa Maldonado APRN, NP-C Unavailable [phone] José Miguel Gore MD Unavailable [phone] Elliot Tran DO Primary Care Provider [phone] Randi Lopez Primary Care Provider [phone] Yung Henderson MD Unavailable [phone] Elliot Tran DO Unavailable Elliot Tran DO Primary Care Provider [phone] Martita Pride MD Unavailable Encounter Details Date Type Department Care Team (Late st Contact Info) Description 08/06/2018 Abstract [facility] [address] [place] [address] José Miguel Gore MD [address] [place] [address] Social History Tobacco Use Types Packs/Day Years [...] (Latest Contact Info) Description 06/27/2025 2:30 AM AUTOMATIC SILK SCREEN PRINTER Allied Health/Nurse Visit [facility] [address] [place] [address] Yung Henderson MD [address] [place] [address] 12/18/2025 1:30 PM CDT Appointment [facility] [address] [place] [address] [place] [address] Martita Pride MD [address] [place] [address] 12/25/2025 9:15 AM CDT Office Visit [facility] [address] [facility] [place] [address] Martita Pride MD [address] [place] [address] documented as of this encounter Procedures Procedure [...] filedocumented in this encounter Care Teams Director Law Enforcement Relationship Specialty Start Date End Date Elliot Tran DO [address] [place] [address] PCP - General FAMILY PRACTICE 09/13/20 06/08/22 Randi Lopez FNP [address] [place] [address] PCP - General NURSE PRACTITIONER 06/09/22 11/11/23 Elliot Tran DO [address] [place] [address] PCP - General FAMILY PRACTICE 11/12/23 Randa Maldonado APRN, TELEPHONE OPERATOR CHIEF-C [address] [address] NURSE PRACTITIONER 04/26/18 02/20/24 José Miguel Gore MD [address] [place] [address] [facility] Nurse CARDIOVASCULAR DISEASE 10/26/18 02/20/24 Yung Henderson MD [address] [place] [address] EP Cardiology Nurse CLINICAL CARDIAC ELECTROPHYSIOLOGY 06/11/22 Elliot Tran DO [address] [place] [address] FAMILY PRACTICE 09/02/22 Martita Pride MD [address] [place] [address] Consulting Physician CARDIOVASCULAR DISEASE 02/21/24 documented as of this encounter
--- OUTSIDE RECORDS SUMMARY | 2025-05-09 17:41 | XMS_ITS | Clinical Summary ---
Author Organization [facility] Address [address] [place] [address] Care Team Providers Care Private Household Worker Name Role Phone Ilir Wahl MD Unavailable [phone] Elliot Tran DO Primary Care Provider Allergies Active Allergy Reactions Criticality Noted Date Comments Sulfamethoxazole-Trimethoprim Rash Medium 2018 Medications calcium carbonate-vitam in D3 1,250mg (500mg elemental) - 5 mcg (200 units) per tablet Take 2 tablets by mouth special education curriculum specialist before breakfast Active csjdbgnt-fim-DR -lycopen-lutein 0.4 mg-300 mcg- 250 mcg tablet Take 1 tablet by mouth special education curriculum specialist before breakfast Active metoprolol (LOPRESSOR) 50 mg tablet Take 1 tablet (50 mg total) by mouth 2 (two) times a day 0 8 Active omega-3 fatty acids-fish oil 684-1,200 mg capsule,delayed release(DR/EC) Take 1 tablet by mouth special education curriculum specialist before breakfast. Active magnesium gluconate 200 mg tablet Take 2 tablets (400 mg total) by mouth special education curriculum specialist before breakfast Active oxyCODONE (ROXICODONE) 5 [...] (07/16/2018): Added automatically from request for surgery [id number] History of breast cancer 06/21/2018 Encounter for [...] on file 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:39 AM OCEANOLOGY TEACHER Gender Identity Not on file Sexual Orientation Not on file Obstetrics History Last Filed Vital Signs Vital Sign Reading Time Taken Comments Blood Pressure 124/75 09/08/2024 2:05 PM OCEANOLOGY TEACHER Pulse 60 09/08/2024 2:05 PM OCEANOLOGY TEACHER Temperature 36.8 C (98.2 F) 09/08/2024 2:05 PM OCEANOLOGY TEACHER Respiratory Rate 16 09/08/2024 2:05 PM OCEANOLOGY TEACHER Oxygen Saturation 99% 09/08/2024 2:05 PM OCEANOLOGY TEACHER Inhaled Oxygen Concentration - - Weight 64.9 kg (143 lb) 09/08/2024 2:05 PM OCEANOLOGY TEACHER Height 167.6 cm (5' 6) 09/08/2024 2:05 PM OCEANOLOGY TEACHER Body Mass Index 23.08 09/08/2024 2:05 PM OCEANOLOGY TEACHER Plan of Treatment Health Maintenance Due Date [...] 09/14/2020 Influenza Vaccine (#1) [address] [facility] MEDICARE SUPPLEMENT MEDICARE COMMERCIAL GENERIC COUNTS INCLUDE 234 BEDS AT THE [facility] MEDICARE BLUE CROSS MEDICARE SUPPLEMENT Advance Directives For more information, please contact: [phone] * Full Code (Latest Code Status on File) Date Activated Date Inactivated Comments 09/03/2018 11:25 AM 09/04/2018 4:52 PM Care Teams Private Household Worker Relationship Specialty Start Date End Date Elliot Tran DO [address] [place] [address] PCP - General Family Medicine 10/15/22 Ilir Wahl MD [address] [facility] # [address] LL [address] [place] [address] Referring Physician Radiation Oncology 09/07/18
[2025-05-09 18:07] LABS: Alanine Aminotransferase 23 U/L (6-35); Albumin Level 4.4 g/dL (3.5-5.1); Alkaline Phosphatase 44 U/L (38-126); Anion Gap 8 mmol/L (4-12); Aspartate Amino Transferase 42 U/L (14-36); Bilirubin,Total 0.6 mg/dL (0.2-1.3); Blood Urea Nitrogen 11 mg/dL (7-17); Calcium 9.4 mg/dL (8.4-10.2); Carbon Dioxide 32 mmol/L (22-30); Chloride 95 mmol/L (98-107); Estimated Glomerular Filt Rate > 60; Glucose 105 mg/dL (65-110); Osmolality Calculated 279 mOsm/kg (285-295); Potassium 4.4 mmol/L (3.4-5.0); Sodium 135 mmol/L (137-145); Total Protein 8.2 g/dL (6.3-8.2)
[2025-05-09 18:19] LABS: Troponin I < 0.012 ng/mL (0.000-0.034)
== END 2025-05-09 17:38 | disposition home or self-care (01) ==
LOC: CHSLAB 17:39
PROVIDERS: PCP Family Medicine; Visit Provider Nurse Practitioner Family
DX: I49.9 Cardiac arrhythmia, unspecified (principal)
CPT/HCPCS: 36415; 80053; 84484

== ENCOUNTER 2025-05-11 14:54 | Outpatient (CLI) | payer MEDICARE, SELFPAY ==
--- OUTSIDE RECORDS SUMMARY | 2025-05-02 01:45 | XMS_ITS | Encounter Summary ---
Author Organization [facility] Address [address] [place] [address] Care Team Providers Care Storekeeper Helper Name Role Phone Yung Henderson MD Unavailable [phone] Elliot Tran DO Unavailable [phone] Elliot Tran DO Primary Care Provider [phone] Martita Pride MD Unavailable Encounter Details Date Type Department Care Team (Late st Contact Info) Description 05/02/2025 1:45 AM CDT Allied Health/Nurse Visit [facility] [address] [place] [address] Yung Henderson MD [address] [place], [place] [address] Social History Tobacco Use Types Packs/Day Years [...] as of this encounter Progress Notes * Leeanne Camacho, KAT - 05/02/2025 1:45 AM CDT Images from the original note were not included. [employer] LOOP RECORDER REMOTE INTERROGATION NAME: Елена Lynn : 1940 CSN: [id number] DATE OF INTERROGATION: 05/02/2025 DEVICE SPECIFICATIONS ETHERNET NETWORK ARCHITECT [employer] DEVICE TYPE LINQ LOOP RECORDER BATTERY STATUS OK PRESENTING RHYTHM IF AVAILABLE WILL BE ATTACHED IN PDF COMMENTS EPISODE COUNTERS SYMPTOM 0 TACHY 0 PAUSE 0 EDILMA 0 AT 0 AF 0 % TIME IN AT/AF PVC (% beats) - applies to LINQ 2 only 0 1.0 LONGEST AF EPISODE 0 ORAL ANTICOAGULATION None ALERTS/NURSE COMMENTS No recorded events PHYSICIAN COMMENTS (IF ANY) Cosigned by Yugn Henderson MD at 05/10/2025 7:39 PM CDT documented in this encounter Plan of Treatment Upcoming Encounters Date Type Department Care Team (Latest Contact Info) Description 05/18/2025 7:45 AM CDT Telephone [facility] [address] [place] [phone] Martita Pride MD [address] [place], [place] [id number] 06/27/2025 2:30 AM FUNNEL SETTER Allied Health/Nurse Visit [facility] [address] [place] [address] Yung Henderson MD [address] [place] [address] 12/18/2025 1:30 PM CDT Appointment [facility] [address] [place] [address] Martita Pride MD [address] [place] [address] 12/25/2025 9:15 AM CDT [facility] [address] [place] [address] Martita Pride MD [address] [place] [address] documented as of this encounter Visit Diagnoses Diagnosis Implantable loop recorder present- Primary Syncope, unspecified syncope type documented in this encounter Care Teams Storekeeper Helper Relationship Specialty Start Date End Date Elliot Tran DO [address] [place] [place] [address] PCP - General FAMILY PRACTICE 11/12/23 Yung Henderson MD [address] [place] [address] EP Collar Stitcher CLINICAL CARDIAC ELECTROPHYSIOLOGY 06/11/22 Elliot Tran DO [address] [place] [place] [address] FAMILY PRACTICE 09/02/22 Martita Pride MD [address] [place] [address] Consulting Physician CARDIOVASCULAR DISEASE 02/21/24 documented as of this encounter
[2025-05-11 15:09] LABS: Hematocrit 37.3 % (35.0-42.0); Hemoglobin 12.2 g/dL (11.7-13.8); Immature Granulocyte Percent A 0.3 % (0.0-0.0); Lymphocytes Absolute Auto 1.52 K/mm3 (1.10-4.50); Mean Corpuscular HGB Conc 32.7 g/dL (32-36); Mean Corpuscular Hemoglobin 28.3 pg (27.0-31.0); Mean Corpuscular Volume 86.5 fL (78.0-102.0); Nucleated Red Blood Cells Absolute Auto 0.00 K/mm3 (0.00-0.00); Nucleated Red Blood Cells Perc 0.0 % (0-0.0); Platelet Count Result 224 K/mm3 (150-420); Red Blood Count 4.31 M/mm3 (4.20-5.40); White Blood Count 6.6 K/mm3 (4.8-10.8)
[2025-05-11 15:30] LABS: Iron 57 ug/dL (37-170)
[2025-05-11 15:40] LABS: Percent Iron Saturation 18 % (20-50)
[2025-05-11 16:20] LABS: Ferritin 46.80 ng/mL (11.1-264)
--- OUTSIDE RECORDS SUMMARY | 2025-05-11 17:20 | XMS_ITS | Encounter Summary ---
Author Organization [facility] Address [address] [place] [address] Care Team Providers Care Ski Binding Fitter And Repairer Name Role Phone Randa Maldonado APRN, NP-C Unavailable José Miguel Gore MD Unavailable [phone] Elliot Tran DO Primary Care Provider [phone] Randi Lopez Primary Care Provider [phone] Yung Henderson MD Unavailable [phone] Elliot Tran DO Unavailable [phone] Elliot Tran DO Primary Care Provider [phone] Martita Pride MD Unavailable Encounter Details Date Type Department Care Team (Late st Contact Info) Description 08/06/2018 Abstract [facility] [address] [place] [address] José Miguel Gore MD [address] [place] [address] Social History Tobacco Use Types Packs/Day Years [...] Info) Description 05/18/2025 7:45 AM CDT [facility]phone [facility] [address] [place] [address] Martita Pride MD [address] [place] [address] 06/27/2025 2:30 AM LIQUOR TESTER Allied Health/Nurse Visit [facility] [address] [place] [address] Yung Henderson MD [address] [place] [address] 12/18/2025 1:30 PM CDT Appointment [facility] [address] [place] [address] Martita Pride MD [address] [place] [address] 12/25/2025 9:15 AM CDT [facility] [address] [place] [address] Martita Pride MD [address] [place] [address] documented as of this encounter Procedures Procedure [...] Final Result * MAGNESIUM (OUTSIDE LAB) (08/05/2018) Pathologist [facility] MAGNESIUM 1.8 08/05/2018 [facility] Abstract LAB-OUTSIDE/ABSTRACTED Final Result * PROTIME/INR, VENOUS (08/05/2018) Pathologist [facility] PROTIME WHOLE BLOOD 12.0 INR WHOLE BLOOD 1.13 08/05/2018 [facility] Abstract LABORATORY Final Result * CBC (OUTSIDE LAB) (08/05/2018) Pathologist [facility] WBC 5.8 HGB 12.3 HCT 36.9 PLT 186 RBC 4.0 08/05/2018 us [facility] Abstract LAB-OUTSIDE/ABSTRACTED Final Result documented in this encounter Visit Diagnoses Not on filedocumented in this encounter Care Teams Ski Binding Fitter And Repairer Relationship Specialty Start Date End Date Elliot Tran DO [address] [place] [address] PCP - General FAMILY PRACTICE 09/13/20 06/08/22 Randi Lopez FNP [address] [place] [address] PCP - General NURSE PRACTITIONER 06/09/22 11/11/23 Elliot Tran DO [address] [place] [address] PCP - General FAMILY PRACTICE 11/12/23 Randa Maldonado APRN, FLAT SORTER PROCESSOR-C [address] [place] [address] [address] [place] [address] NURSE PRACTITIONER 04/26/18 02/20/24 José Miguel Gore MD [address] [place] [address] [place] Scraper Hand CARDIOVASCULAR DISEASE 10/26/18 02/20/24 Yung Henderson MD [address] [place] [address]51 EP Scraper Hand CLINICAL CARDIAC ELECTROPHYSIOLOGY 06/11/22 Elliot Tran DO [address] [place] [address] FAMILY PRACTICE 09/02/22 Martita Pride MD [address] [place] [address] Consulting Physician CARDIOVASCULAR DISEASE 02/21/24 documented as of this encounter
--- OUTSIDE RECORDS SUMMARY | 2025-05-11 17:20 | XMS_ITS | Encounter Summary ---
Author Organization [facility] Address [address] [place] [address] Care Team Providers Care Facilities Maintenance Assistant Name Role Phone Randa Maldonado APRN, NP-C Unavailable [phone] José Miguel Gore MD Unavailable [phone] Randi Lopez BILLING ASSOCIATE Primary Care Provider Yung Henderson MD Unavailable [phone] Elliot Tran DO Unavailable [phone] Elliot Tran DO Primary Care Provider [phone] Martita Pride MD Unavailable Encounter Details Date Type Department Care Team (Late st Contact Info) Description 09/25/2022 Hospital Orders Only [facility] Teacher Selection Specialist Pre/Post [address] [place] [address] Yung Henderson MD [address] [place], [place] [address] Social History Tobacco Use Types Packs/Day Years [...] Info) Description 05/18/2025 7:[address] [facility] [address] [place] [address] Martita Pride MD [address] [place] [address] 06/27/2025 2:30 AM HAULAGE ENGINE OPERATOR Allied Health/Nurse Visit [facility] [address] [place] [address] Yung Henderson MD [address] [place], [place] [address] 12/18/2025 1:30 PM CDT Appointment [address] [place] [address] Martita Pride MD [address] [place] [address] 12/25/2025 9:15 AM CDT Office Visit [facility] [facility] [address] [place] [address] Martita Pride MD [address] [place] [address] documented as of this encounter Visit Diagnoses Not on filedocumented in this encounter Care Teams Facilities Maintenance Assistant Relationship Specialty Start Date End Date Randi Lopez FNP [address] [place] [address] PCP - General NURSE PRACTITIONER 06/09/22 11/11/23 Elliot Tran DO [address] [place] [address] PCP - General FAMILY PRACTICE 11/12/23 Randa Maldonado APRN, GATE PERSON-C [address] [facility] [address] [place] [address] NURSE PRACTITIONER 04/26/18 02/20/24 José Miguel Gore MD [address] [place] [address] [place] Clinical Asst CARDIOVASCULAR DISEASE 10/26/18 02/20/24 Yung Henderson MD [address] [place] [id number] EP Clinical Asst CLINICAL CARDIAC ELECTROPHYSIOLOGY 06/11/22 Elliot Tran DO [address] [place] [address] FAMILY PRACTICE 09/02/22 Martita Pride MD [address] [place] [address] Consulting Physician CARDIOVASCULAR DISEASE 02/21/24 documented as of this encounter
--- OUTSIDE RECORDS SUMMARY | 2025-05-11 17:20 | XMS_ITS | Encounter Summary ---
Author Organization [facility] Healthcare Address [address] [place] [address] Care Team Providers Care Wheel Blocker Name Role Phone Ilir Wahl MD Unavailable [phone] Brad Joyner MD Primary Care Provider [phone] Martín Block MD Primary Care Provider Cyril Zee MD Primary Care Provider [phone] Miscellaneous, Not In File Primary Care Provider Unavailable Randi Lopez NP Primary Care Provide r Elliot Tran DO Primary Care Provider Encounter Details Date Type Department Care Team (Late st Contact Info) Description 03/02/2020 Telephone [facility] Radiation Oncology [address] [facility] [place] [address] Josie Torrez MA Social History Tobacco Use Types Packs/Day Years Used Date Smoking Tobacco: Never Smokeless Tobacco: Never Alcohol Use Standard Drinks/Week Comments No 0 (1 standard drink = 0.6 oz pur e alcohol) Comments No Sex and Gender Information Value Date Recorded Sex Assigned at Not on file 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:39 AM SOLAR/RENEWABLE ENERGY SALES Gender Identity Not on file Sexual Orientation Not on file documented as of this encounter Plan of Treatment Not on file documented as of this encounter Visit Diagnoses Not on filedocumented in this encounter Care Teams Wheel Blocker Relationship Specialty Start Date End Date Brad Joyner MD [address] [place] [address] PCP - General Family Medicine 12/10/18 06/06/20 Martín Block MD [address] [place] [address] PCP - General 06/07/20 11/29/20 Cyril Zee MD [address] [address] PCP - General Obstetrics and Gynecology 11/30/20 10/15/21 Miscellaneous, Not In File PCP - General 10/16/21 10/20/21 Randi Lopez NP [address] [place] [address] PCP - General 10/21/21 10/14/22 Elliot Tran DO [address] [place] [address] PCP - General Family Medicine 10/15/22 Ilir Wahl MD [address] [facility] # [address] [place] [address] Referring Physician Radiation Oncology 09/07/18 documented as of this encounter
--- OUTSIDE RECORDS SUMMARY | 2025-05-11 17:20 | XMS_ITS ---
Author Organization [facility] Address [address] [place] [address] Care Team Providers Care Digital Marketing Assistant Name Role Phone Ilir Wahl MD [...] (07/16/2018): Added automatically from request for surgery [id number] History of breast cancer 06/21/2018 Encounter for [...]
--- OUTSIDE RECORDS SUMMARY | 2025-05-11 17:20 | XMS_ITS | Encounter Summary ---
Author Organization [facility] Address [address] [place] [address] Care Team Providers Care Clothing Cutter Name Role Phone Yung Henderson MD Unavailable [phone] Elliot Tran DO Unavailable [phone] Elliot Tran DO Primary Care Provider [phone] Martita Pride MD Unavailable Reason for Referral * Imaging (Routine) - Authorized Specialty Diagnoses / Procedures Referred By Contac t Referred To Contact Diagnoses SOB (shortness of breath) Palpitations Procedures [facility] - Today Martita Pride MD [address] [place] [address] Phone: tel: fax: [facility] [address] [place] [address] Phone: tel: fax: Referral ID Status Reason Start Date Expiration Date V isits Requested Visits Authorized [id number] Authorized 05/10/2025 05/10/2026 1 1 Encounter Details Date Type Department Care Team (Late st Contact Info) Description 05/10/2025 Orders Only [facility] [address] [place] [address] Martita Pride MD [address] [place] [address] Social History Tobacco Use Types [...] Info) Description 05/18/2025 7:45 AM CDT Telephone [facility] [address] [place] [address] Martita Pride MD [address] [place] [address] 06/27/2025 2:30 AM DASHBOARD DEVELOPER Allied Health/Nurse Visit [facility] [address] [place] [address] Yung Henderson MD [address] [place] [address] 12/18/2025 1:30 PM CDT Appointment [facility] [address] [place] [address] Martita Pride MD [address] [place] [address] 12/25/2025 9:15 AM CDT [facility] [address] [place] [address] Martita Pride MD [address] [place] [address] Scheduled Orders Name Type Priority Associated Diagnoses Orde r Schedule [facility] - Today EKG-NonRad Routine SOB (shortness of breath) Palpitations Expected: 05/10/2025, Expires: 05/10/2026 documented as of this encounter Visit Diagnoses Diagnosis SOB (shortness of breath)- Primary Shortness of breath Bradycardia Other specified cardiac dysrhythmias Palpitations documented in this encounter Care Teams Clothing Cutter Relationship Specialty Start Date End Date Elliot Tran DO [address] [place] [address] PCP - General FAMILY PRACTICE 11/12/23 Yung Henderson MD [address] [place] [address] EP Airplane Navigator CLINICAL CARDIAC ELECTROPHYSIOLOGY 06/11/22 Elliot Tran DO [address] [place] [address] FAMILY PRACTICE 09/02/22 Martita Pride MD [address] [place] [address] Consulting Physician CARDIOVASCULAR DISEASE 02/21/24 documented as of this encounter
--- OUTSIDE RECORDS SUMMARY | 2025-05-11 17:20 | XMS_ITS | Encounter Summary ---
Author Organization [facility] Address [address] [place] [address] Care Team Providers Care Popcorn Candy Maker Name Role Phone Randa Maldonado APRN, NP-C Unavailable José Miguel Gore MD Unavailable [phone] Randi Lopez PHARMACY ANALYST Primary Care Provider Yung Henderson MD Unavailable [phone] Elliot Tran DO Unavailable [phone] Elliot Tran DO Primary Care Provider [phone] Martita Pride MD Unavailable Encounter Details Date Type Department Care Team (Late st Contact Info) Description 12/03/2022 Abstract [facility] [address] [place] [phone] José Miguel Gore MD [address] [place] [address] Social History Tobacco Use Types Packs/Day Years [...] Recorded In the last 10 days, have renata u been in contact with someone who was confirmed or suspected to have Coronavirus/COVID-19? No / Unsure 11/25/2022 9:08 AM CDT documented as of this encounter Plan of Treatment Upcoming Encounters Date Type Department Care Team (Latest Contact Info) Description 05/18/2025 7:45 AM CDT Telephone [facility] [address] [place] [address] Martita Pride MD [address] [place], [place] [address] 06/27/2025 2:30 AM CENTRAL SUPPLY CLERK Allied Health/Nurse Visit [facility] [address] [place] [phone] Yung Henderson MD [address] [place], [place] [address] 12/18/2025 1:30 PM CDT Appointment [facility] [address] [place] [address] Martita Pride MD [address] [place], [place] [address] 12/25/2025 9:15 AM CDT [facility] [address] [place] [address] Martita Pride MD [address] [place], [place] [address] documented as of this encounter Visit Diagnoses Not on filedocumented in this encounter Care Teams Popcorn Candy Maker Relationship Specialty Start Date End Date Randi Lopez [place] [address] PCP - General NURSE PRACTITIONER 06/09/22 11/11/23 Elliot Tran DO [address] [place] [address] PCP - General FAMILY PRACTICE 11/12/23 Randa Maldonado, AIMEE, BLEND TECHNICIAN-C [address] [place] [address] [address] [place] [phone] NURSE PRACTITIONER 04/26/18 02/20/24 José Miguel Gore MD [address] [place] [phone] [place] Meat Curer CARDIOVASCULAR DISEASE 10/26/18 02/20/24 Yung Henderson MD [address] [place] [address] [id number] EP Meat Curer CLINICAL CARDIAC ELECTROPHYSIOLOGY 06/11/22 Elliot Tran DO [address] [place] [address] FAMILY PRACTICE 09/02/22 Maritta Pride MD [address] [place] [address] Consulting Physician CARDIOVASCULAR DISEASE 02/21/24 documented as of this encounter
--- OUTSIDE RECORDS SUMMARY | 2025-05-11 17:20 | XMS_ITS | Clinical Summary ---
Author Organization [facility] Address [address] [place] [address] Care Team Providers Care Plug Stitcher Name Role Phone Ilir Wahl MD Unavailable [phone] Elliot Tran DO Primary Care Provider Allergies Active Allergy Reactions Criticality Noted Date Comments Sulfamethoxazole-Trimethoprim Rash Medium 2018 Medications calcium carbonate-vitam in D3 1,250mg (500mg elemental) - 5 mcg (200 units) per tablet Take 2 tablets by mouth staff physical therapy assistant before breakfast Active onwnazrl-tjm-HE -lycopen-lutein 0.4 mg-300 mcg- 250 mcg tablet Take 1 tablet by mouth staff physical therapy assistant before breakfast Active metoprolol (LOPRESSOR) 50 mg tablet Take 1 tablet (50 mg total) by mouth 2 (two) times a day 0 8 Active omega-3 fatty acids-fish oil 684-1,200 mg capsule,delayed release(DR/EC) Take 1 tablet by mouth staff physical therapy assistant before breakfast. Active magnesium gluconate 200 mg tablet Take 2 tablets (400 mg total) by mouth staff physical therapy assistant before breakfast Active oxyCODONE (ROXICODONE) 5 mg [...] (07/16/2018): Added automatically from request for surgery [id number] History of breast cancer 06/21/2018 Encounter for [...] on file 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:39 AM HEAD WELL PULLER Gender Identity Not on file Sexual Orientation Not on file Obstetrics History Last Filed Vital Signs Vital Sign Reading Time Taken Comments Blood Pressure 124/75 09/08/2024 2:05 PM HEAD WELL PULLER Pulse 60 09/08/2024 2:05 PM HEAD WELL PULLER Temperature 36.8 C (98.2 F) 09/08/2024 2:05 PM HEAD WELL PULLER Respiratory Rate 16 09/08/2024 2:05 PM HEAD WELL PULLER Oxygen Saturation 99% 09/08/2024 2:05 PM HEAD WELL PULLER Inhaled Oxygen Concentration - - Weight 64.9 kg (143 lb) 09/08/2024 2:05 PM HEAD WELL PULLER Height 167.6 cm (5' 6) 09/08/2024 2:05 PM HEAD WELL PULLER Body Mass Index 23.08 09/08/2024 2:05 PM HEAD WELL PULLER Plan of Treatment Health Maintenance Due Date [...] 09/14/2020 Influenza Vaccine (#1) 2025 Insurance MEDICARE [facility] MEDICARE SUPPLEMENT MEDICARE [facility]CIAL [facility] MEDICARE BLUE CROSS MEDICARE SUPPLEMENT Advance Directives For more information, please contact: [phone] * Full Code (Latest Code Status on File) Date Activated Date Inactivated Comments 09/03/2018 11:25 AM 09/04/2018 4:52 PM Care Teams Plug Stitcher Relationship Specialty Start Date End Date Elliot Tran DO [address] [place] [address] PCP - General Family Medicine 10/15/22 Ilir Wahl MD [address] [facility] # [address] LL [address] [place] [address] Referring Physician Radiation Oncology 09/07/18
--- OUTSIDE RECORDS SUMMARY | 2025-05-11 17:20 | XMS_ITS | Encounter Summary ---
Author Organization [facility] Healthcare Address [address] [place] [address] Care Team Providers Care System Support Developer Name Role Phone Ilir Wahl MD Unavailable Cyril Zee MD Primary Care Provider [phone] Miscellaneous, Not In File Primary Care Provider Unavailable Randi Lopez SENIOR DATA QUALITY ANALYST Primary Care Provide r Elliot Tran DO Primary Care Provider Encounter Details Date Type Department Care Team (Late st Contact Info) Description 09/20/2021 Telephone [facility] Radiation Oncology [address] [facility] [place] [address] Josie Torrez MA Social History Tobacco Use Types Packs/Day Years Used Date Smoking Tobacco: Never Smokeless Tobacco: Never Alcohol Use Standard Drinks/Week Comments No 0 (1 standard drink = 0.6 oz pur e alcohol) Comments No Sex and Gender Information Value Date Recorded Sex Assigned at Not on file 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:39 AM 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 SALES SPECIALIST Gender Identity Not on file Sexual Orientation Not on file documented as of this encounter Plan of Treatment Not on file documented as of this encounter Visit Diagnoses Not on filedocumented in this encounter Care Teams System Support Developer Relationship Specialty Start Date End Date Cyril Zee MD [address] [facility] [address] [place], [place] [address] PCP - General Obstetrics and Gynecology 11/30/20 10/15/21 Miscellaneous, Not In File PCP - General 10/16/21 10/20/21 Randi Lopez NP [address] [place] [address] PCP - General 10/21/21 10/14/22 Elliot Tran DO [address] [place] [address] PCP - General Family Medicine 10/15/22 Ilir Wahl MD [address] [facility] [address] [place] [address] Referring Physician Radiation Oncology 09/07/18 documented as of this encounter
--- OUTSIDE RECORDS SUMMARY | 2025-05-11 17:20 | XMS_ITS | Encounter Summary ---
Author Organization [facility] Healthcare Address [address] [place] [address] Care Team Providers Care Concierge Receptionist Name Role Phone Ilir Wahl MD Unavailable [phone] Martín Block MD Primary Care Provider Cyril Zee MD Primary Care Provider [phone] Miscellaneous, Not In File Primary Care Provider Unavailable Randi Lopez CARPENTER MAINTENANCE Primary Care Provide r Elliot Tran DO Primary Care Provider Encounter Details Date Type Department Care Team (Late st Contact Info) Description 2020 Telephone [facility] Advanced Medicine Radiation Oncology [address] [place] [address] Advanced Medicine [facility] [place] [address] Josie Torrez MA Social History Tobacco Use Types Packs/Day Years Used Date Smoking Tobacco: Never Smokeless Tobacco: Never Alcohol Use Standard Drinks/Week Comments No 0 (1 standard drink = 0.6 oz pur e alcohol) Comments No Sex and Gender Information Value Date Recorded Sex Assigned at Not on file 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:39 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 GROWER Gender Identity Not on file Sexual Orientation Not on file documented as of this encounter Plan of Treatment Not on file documented as of this encounter Visit Diagnoses Not on filedocumented in this encounter Care Teams Concierge Receptionist Relationship Specialty Start Date End Date Martín Block MD [facility] [address] [place] [address] PCP - General 06/07/20 11/29/20 Cyril Zee MD [address] [facility] [address] [place], [place] [address] PCP - General Obstetrics and Gynecology 11/30/20 10/15/21 Miscellaneous, Not In File PCP - General 10/16/21 10/20/21 Randi Lopez NP [address] [place] [address] PCP - General 10/21/21 10/14/22 Elliot Tran DO [address] [place] [address] PCP - General Family Medicine 10/15/22 Ilir Wahl MD [address] [place] [address] Referring Physician Radiation Oncology 09/07/18 documented as of this encounter
--- OUTSIDE RECORDS SUMMARY | 2025-05-11 17:20 | XMS_ITS | Clinical Summary ---
Author Organization [facility] Address [address] [place] [address] Care Team Providers Care Construction Manager Name Role Phone Yung Henderson MD Unavailable [phone] Elliot Tran DO Unavailable [phone] Elliot Tran DO Primary Care Provider [phone] Martita Pride MD Unavailable Allergies Active Allergy Reactions Criticality Noted Date Comments Sulfamethoxazole Rash Low 09/27/2018 Medications Calcium Citrate-Vitami n D (CALCIUM CITRATE + D OR) Take 1 tablet by mouth 2 (two) times daily. 06/17/20 13 Active lorazepam 0.5 MG tablet Take 1 [...] capsule (40 mg total) by mouth daily. 09/23/19 23 Active Zoledronic Acid (RECLAST IV) yearly Active chlorthalidone (HYGROTEN) 25 MG tablet take one tablet by mouth daily 30 tablet 6 11/18/19 24 Active metoprolol tartrate (LOPRESSOR) 25 MG tablet TAKE ONE AND A HALF TABLETS BY MOUTH THREE TIMES A DAY 60 tablet 11 04/28/20 25 Active metoprolol tartrate (LOPRESSOR) 25 MG tablet Take 1.5 tablets (37.5 mg total) by mouth 3 (three) times daily. Increase metoprolol to tartrate to 37.5, 3 times daily as patient has noticed elevated heart rates towards the end of her dosing and the start of her new dose. 60 tablet 11 11/17/19 25 025 Discontinued Active Problems Problem Noted Date Diagnosed Date Implantable loop recorder present 09/14/2023 Syncope, unspecified syncope type 09/14/2023 PVC (premature ventricular contraction) 09/29/19 19 History of supraventricular tachycardia Hyperlipidemia Bradycardia Hypertension AV block Resolved Problems Problem Noted Date Diagnosed Date Resolved Date Pre-op evaluation 07/23/2018 04/27/2020 SVT (supraventricular tachycardia) ([facility]) 02/08/2023 Encounters Date Type Department Care Team Description 05/10/2025 Orders Only [facility] [address] [place] [address] Martita Pride MD 05/09/2025 Telephone [facility] [place] [address] [place] [address] Martita Pride MD Medication Information 05/02/2025 1:45 AM CDT Allied Health[facility] [place] [address] Yung Henderson MD 03/14/2025 1:30 AM CDT Allied Health/Nurse Visit [facility] [address] [place] [address] Yung Henderson MD from Last 3 Months [...] 36.3 C (97.4 F) 09/30/2022 11:14 AM COUNSELING PROGRAM LEADER Respiratory Rate 18 12/23/2024 9:17 AM CDT [...] Description 05/18/2025 7:[address] [facility] [address] [place] [address] Martita Pride MD [address] [place] [address] 06/27/2025 2:30 AM COUNSELING PROGRAM LEADER Allied Health/Nurse Visit [facility] [address] [place] [address] Yung Henderson MD [address] [place] [address] 12/18/2025 1:30 PM CDT Appointment [facility] [address] [place] [address] Martita Pride MD [address] [place] [address] 12/25/2025 9:15 AM CDT [facility] [address] [place] [address] Martita Pride MD [address] [place] [address] Health Maintenance Due Date Last Done Comments DTaP, Tdap and Td Vaccines ( 1 - Tdap) 1957 Pneumococcal Vaccine: 50+ Years (1 of 1 - PCV) 1988 Zoster Vaccines (1 of 2) 1988 Annual Medicare Wellness Visit 2003 RSV Immunization or 60+ Years (1 - 1-dose 75+ series) 2013 COVID-19 Vaccine (4 - 2024-2 6 season) 2025 07/19/2021, 10/12/2020, 09/14/2020 Meningococcal B Vaccine Aged Out No l onger eligible based on patient's age to complete this topic Meningococcal Vaccine Aged Out No kecia ling eligible based on patient's age to complete this topic RSV Immunizations Under 20 Months Aged Out No longer eligible b ased on patient's age to complete this topic Medical Devices Implanted Type Area Technical Staff Assistant Device Identifier Shelf Expiration Date Model / Serial / Lot Medtronic Linq Ii-09/30/2022 Implanted:Qt y: 1 on 09/30/2022 by Yugn Henderson MD Implantable Loop Recorder Left: Pectoral [employer] 01/23/2024 [id number] / [id number] / Description:DX: [employer] Insurance MEDICARE MEDICARE [facility] Advance Directives * Full Code (Latest Code Status on File) Date Activated Date Inactivated Comments 08/12/2018 2:43 PM 08/12/2018 7:28 PM Care Teams Construction Manager Relationship Specialty Start Date End Date Elliot Tran DO [address] [place] [address] PCP - General FAMILY PRACTICE 11/12/23 Yung Henderson MD [address] [place] [address] EP Public Health Director CLINICAL CARDIAC ELECTROPHYSIOLOGY 06/11/22 Elliot Tran DO [address] [place] [address] FAMILY PRACTICE 09/02/22 Martita Pride MD [address] [place] [address] Consulting Physician CARDIOVASCULAR DISEASE 02/21/24
--- OUTSIDE RECORDS SUMMARY | 2025-05-11 17:20 | XMS_ITS | Patient Health Record ---
Author Organization [facility] Address [address] [place], [place] [address] Support Name Relationship Address Phone WILLIAMS ESCOBEDO Emergency Contact Unknown MARILEE ELLER Guarantor Unknown [phone] Reason For Referral No Information Plan Of Treatment No Information Insurance Providers Payer Name Payer Address Payer Phone Subscriber Number Group Number Insured Name Patient Relationship to Insured Coverage Start Date Coverage End Date Medicare Part B [place] [address] [place] [address] [id number] MARILEE ELLER Self - patient is the insured [facility] ([facility]) ATTN CLAIMS [address] [place] [address] [id number] MARILEE ELLER Self - patient is the insured
--- OUTSIDE RECORDS SUMMARY | 2025-05-11 17:20 | XMS_ITS | Encounter Summary ---
Author Organization [facility] Address [address] [place] [address] Phone Care Team Providers Care Director Graphics Name Role Phone Ilir Wahl MD Unavailable [phone] Martín Block MD Primary Care Provider Cyril Zee MD Primary Care Provider [phone] Miscellaneous, Not In File Primary Care Provider [...] on file 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:39 AM CHICKEN CLEANER Gender Identity Not on file Sexual Orientation [...] filedocumented in this encounter Care Teams Director Graphics Relationship Specialty Start Date End Date Martín Block MD [address] [place] [address] PCP - General 06/07/20 11/29/20 Cyril Zee MD [address] [place], [place] [id number] PCP - General Obstetrics and Gynecology 11/30/20 10/15/21 Miscellaneous, Not In File PCP - General 10/16/21 10/20/21 Rnadi Lopez NP [address] [place] [address] PCP - General 10/21/21 10/14/22 Elliot Tran DO [address] [place] [address] PCP - General Family Medicine 10/15/22 Ilir Wahl MD [address] [place] [address] Referring Physician Radiation Oncology 09/07/18 documented as of this encounter
== END 2025-05-11 14:55 | disposition home or self-care (01) ==
LOC: CHSLAB 14:56
PROVIDERS: PCP Family Medicine; Visit Provider Nurse Practitioner Family
DX: D50.9 Iron deficiency anemia, unspecified (principal); R42 Dizziness and giddiness
CPT/HCPCS: 36415; 82728; 83540; 83550; 85025

== ENCOUNTER 2025-05-23 09:47 | Outpatient (CLI) | payer MEDICARE, SELFPAY ==
--- OUTSIDE RECORDS SUMMARY | 2025-05-23 10:26 | XMS_ITS ---
Author Organization [facility] Address [address] [place] [address] Care Team Providers Care Civil Geotechnical Engineer Name Role Phone Ilir Wahl MD Unavailable [...] (07/16/2018): Added automatically from request for surgery [id number] History of breast cancer 06/21/2018 Encounter for [...]
--- OUTSIDE RECORDS SUMMARY | 2025-05-23 10:26 | XMS_ITS | Encounter Summary ---
Author Organization [facility] Healthcare Address [address] [place] [address] Care Team Providers Care Automobile Insurance Claim Examiner Name Role Phone Ilir Wahl MD Unavailable [phone] Martín Block MD Primary Care Provider Cyril Zee MD Primary Care Provider [phone] Miscellaneous, Not In File Primary Care Provider Unavailable Randi Lopez NP Primary Care Provide r Elliot Tran DO Primary Care Provider Encounter Details Date Type Department Care Team (Late st Contact Info) Description 2020 Telephone [facility] Advanced Medicine Radiation Oncology [address] [place] [address] Advanced Medicine [facility] [place] [address] Josie Torrez MA Social History Tobacco Use Types Packs/Day Years Used Date Smoking Tobacco: Never Smokeless Tobacco: Never Alcohol Use Standard Drinks/Week Comments No 0 (1 standard drink = 0.6 oz pur e alcohol) Comments No Sex and Gender Information Value Date Recorded Sex Assigned at Not on file 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:39 AM NURSING CLERK Gender Identity Not on file Sexual Orientation Not on file documented as of this encounter Plan of Treatment Not on file documented as of this encounter Visit Diagnoses Not on filedocumented in this encounter Care Teams Automobile Insurance Claim Examiner Relationship Specialty Start Date End Date Martín Block MD [facility] [address] [place] [address] PCP - General 06/07/20 11/29/20 Cyril Zee MD [address] [facility] [address] [place], [place] [id number] PCP - General Obstetrics and Gynecology 11/30/20 10/15/21 Miscellaneous, Not In File PCP - General 10/16/21 10/20/21 Randi Lopez NP [address] [place] [address] PCP - General 10/21/21 10/14/22 Elliot Tran DO [address] [place] [address] PCP - General Family Medicine 10/15/22 Ilir Wahl MD [address] [place] [address] Referring Physician Radiation Oncology 09/07/18 documented as of this encounter
--- OUTSIDE RECORDS SUMMARY | 2025-05-23 10:26 | XMS_ITS | Encounter Summary ---
Author Organization [facility] Healthcare Address [address] [place] [address] Care Team Providers Care Supervisor Lead Refinery Name Role Phone Ilir Wahl MD Unavailable [phone] Brad Joyner MD Primary Care Provider [phone] Martín Block MD Primary Care Provider Cyril Zee MD Primary Care Provider [phone] Miscellaneous, Not In File Primary Care Provider Unavailable Randi Lopez NP Primary Care Provide r Elliot Tran DO Primary Care Provider Encounter Details Date Type Department Care Team (Late st Contact Info) Description 03/02/2020 Telephone [facility] Radiation Oncology [address] [facility] [place] [address] Josie Torrez MA Social History Tobacco Use Types Packs/Day Years Used Date Smoking Tobacco: Never Smokeless Tobacco: Never Alcohol Use Standard Drinks/Week Comments No 0 (1 standard drink = 0.6 oz pur e alcohol) Comments No Sex and Gender Information Value Date Recorded Sex Assigned at Not on file 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:39 AM 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 BARREL 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 Gender Identity Not on file Sexual Orientation Not on file documented as of this encounter Plan of Treatment Not on file documented as of this encounter Visit Diagnoses Not on filedocumented in this encounter Care Teams Supervisor Lead Refinery Relationship Specialty Start Date End Date Brad Joyner MD [address] [place] [address] PCP - General Family Medicine 12/10/18 06/06/20 Martín Block MD [address] [place] [address] PCP - General 06/07/20 11/29/20 Cyril Zee MD [address] [address] PCP - General Obstetrics and Gynecology 11/30/20 10/15/21 Miscellaneous, Not In File PCP - General 10/16/21 10/20/21 Randi Lopez NP [address] [place] [address] PCP - General 10/21/21 10/14/22 Elliot Tran DO [address] [place] [address] PCP - General Family Medicine 10/15/22 Ilir Wahl MD [address] [facility] [address] [place] [address] Referring Physician Radiation Oncology 09/07/18 documented as of this encounter
--- OUTSIDE RECORDS SUMMARY | 2025-05-23 10:26 | XMS_ITS | Encounter Summary ---
Author Organization [facility] Address [address] [place] [address] Phone Care Team Providers Care Certified Drug Counselor Name Role Phone Ilir Wahl MD Unavailable [phone] Martín Block MD Primary Care Provider Cyril Zee MD Primary Care Provider [phone] Miscellaneous, Not In File Primary Care Provider [...] on file 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:39 AM ALMOND PAN FINISHER Gender Identity Not on file Sexual [...] on filedocumented in this encounter Care Teams Certified Drug Counselor Relationship Specialty Start Date End Date Martín Block MD [address] [place] [address] PCP - General 06/07/20 11/29/20 Cyril Zee MD [address] [place], [place] [id number] PCP - General Obstetrics and Gynecology 11/30/20 10/15/21 Miscellaneous, Not In File PCP - General 10/16/21 10/20/21 Randi Lopez NP [address] [place] [address] PCP - General 10/21/21 10/14/22 Elliot Tran DO [address] [place] [address] PCP - General Family Medicine 10/15/22 Ilir Wahl MD [address] [place] [address] Referring Physician Radiation Oncology 09/07/18 documented as of this encounter
--- OUTSIDE RECORDS SUMMARY | 2025-05-23 10:26 | XMS_ITS | Encounter Summary ---
Author Organization [facility] Healthcare Address [address] [place] [address] Care Team Providers Care Socket Puller Name Role Phone Ilir Wahl MD Unavailable Cyril Zee MD Primary Care Provider [phone] Miscellaneous, Not In File Primary Care Provider Unavailable Randi Lopez ESCALATOR ATTENDANT Primary Care Provide r Elliot Tran DO Primary Care Provider Encounter Details Date Type Department Care Team (Late st Contact Info) Description 09/20/2021 Telephone [facility] Radiation Oncology [address] [facility] [place] [address] Josie Torrez MA Social History Tobacco Use Types Packs/Day Years Used Date Smoking Tobacco: Never Smokeless Tobacco: Never Alcohol Use Standard Drinks/Week Comments No 0 (1 standard drink = 0.6 oz pur e alcohol) Comments No Sex and Gender Information Value Date Recorded Sex Assigned at Not on file 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:39 AM BANQUET SET UP PERSON Gender Identity Not on file Sexual Orientation Not on file documented as of this encounter Plan of Treatment Not on file documented as of this encounter Visit Diagnoses Not on filedocumented in this encounter Care Teams Socket Puller Relationship Specialty Start Date End Date Cyril Zee MD [address] [facility] [address] [place], [place] [id number] PCP - General Obstetrics and Gynecology 11/30/20 10/15/21 Miscellaneous, Not In File PCP - General 10/16/21 10/20/21 Randi Lopez NP [address] [place] [address] PCP - General 10/21/21 10/14/22 Elliot Tran DO [address] [place] [address] PCP - General Family Medicine 10/15/22 Ilir Wahl MD [address] [facility] [address] [place] [address] Referring Physician Radiation Oncology 09/07/18 documented as of this encounter
--- OUTSIDE RECORDS SUMMARY | 2025-05-23 10:26 | XMS_ITS | Clinical Summary ---
Author Organization [facility] Address [address] [place] [address] Care Team Providers Care Dental Prosthetist Name Role Phone Ilir Wahl MD Unavailable [phone] Elliot Tran DO Primary Care Provider Allergies Active Allergy Reactions Criticality Noted Date Comments Sulfamethoxazole-Trimethoprim Rash Medium 2018 Medications calcium carbonate-vitam in D3 1,250mg (500mg elemental) - 5 mcg (200 units) per tablet Take 2 tablets by mouth internet marketing consultant before breakfast Active ltskgrhf-oyn-UR -lycopen-lutein 0.4 mg-300 mcg- 250 mcg tablet Take 1 tablet by mouth internet marketing consultant before breakfast Active metoprolol (LOPRESSOR) 50 mg tablet Take 1 tablet (50 mg total) by mouth 2 (two) times a day 0 8 Active omega-3 fatty acids-fish oil 684-1,200 mg capsule,delayed release(DR/EC) Take 1 tablet by mouth internet marketing consultant before breakfast. Active magnesium gluconate 200 mg tablet Take 2 tablets (400 mg total) by mouth internet marketing consultant before breakfast Active oxyCODONE (ROXICODONE) 5 mg [...] (07/16/2018): Added automatically from request for surgery [id number] History of breast cancer 06/21/2018 Encounter for [...] on file 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:39 AM STUDENT SERVICES REP Gender Identity Not on file Sexual Orientation Not on file Obstetrics History Last Filed Vital Signs Vital Sign Reading Time Taken Comments Blood Pressure 124/75 09/08/2024 2:05 PM STUDENT SERVICES REP Pulse 60 09/08/2024 2:05 PM STUDENT SERVICES REP Temperature 36.8 C (98.2 F) 09/08/2024 2:05 PM STUDENT SERVICES REP Respiratory Rate 16 09/08/2024 2:05 PM STUDENT SERVICES REP Oxygen Saturation 99% 09/08/2024 2:05 PM STUDENT SERVICES REP Inhaled Oxygen Concentration - - Weight 64.9 kg (143 lb) 09/08/2024 2:05 PM STUDENT SERVICES REP Height 167.6 cm (5' 6) 09/08/2024 2:05 PM STUDENT SERVICES REP Body Mass Index 23.08 09/08/2024 2:05 PM STUDENT SERVICES REP Plan of Treatment Health Maintenance Due Date [...] 09/14/2020 Influenza Vaccine (#1) 2025 Insurance MEDICARE [facility] MEDICARE SUPPLEMENT MEDICARE [facility] MEDICARE BLUE CROSS MEDICARE SUPPLEMENT Advance Directives For more information, please contact: [phone] * Full Code (Latest Code Status on File) Date Activated Date Inactivated Comments 09/03/2018 11:25 AM 09/04/2018 4:52 PM Care Teams Dental Prosthetist Relationship Specialty Start Date End Date Elliot Tran DO [address] [place] [address] PCP - General Family Medicine 10/15/22 Ilir Wahl MD [address] [facility] [address] [place] [address] Referring Physician Radiation Oncology 09/07/18
--- OUTSIDE RECORDS SUMMARY | 2025-05-23 10:26 | XMS_ITS | Patient Health Record ---
Author Organization [facility] Address [address] [place], [place] [id number] Support Name Relationship Address Phone WILLIAMS ESCOBEDO Emergency Contact Unknown [phone] MARILEE ELLER Guarantor Unknown [phone] Reason For Referral No Information Plan Of Treatment No Information Insurance Providers Payer Name Payer Address Payer Phone Subscriber Number Group Number Insured Name Patient Relationship to Insured Coverage Start Date Coverage End Date Medicare Part B [place] [address] [place] [address] [id number] MARILEE ELLER Self - patient is the insured [facility] ATTN CLAIMS [address] [place] [address] [id number] MARILEE ELLER Self - patient is the insured
--- NOTE | 2025-06-09 13:02 | WPDHOLTEREM ---
Holter/Event Monitor Holter/Event Monitor Date of procedure: 05/23/25 Holter/Event Procedure: Event Monitor Indications: Cardiac arrhythmia Conclusion: 1. 10 days event monitor on 05/23/25. 2. Predominant rhythm is sinus rhythm. HR range 47-164 bpm; average HR 72 bpm. HR at 47 bpm was on 05/29/25 at 12:43 am. 3. There are occasional premature supraventricular complexes, rare supraventricular couplets, and rare supraventricular triplets. There are 922 episodes of supraventricular tachycardia with fastest at 164 bpm and longest lasting 5 minutes and 39 seconds. 4. There are occasional premature ventricular complexes, rare ventricular couplets, rare ventricular triplets, longest ventricular bigeminy was 7.3 seconds, and longest ventricular trigeminy was 10 seconds. There are 3 episodes of ventricular tachycardia with fastest at 164 bpm and longest lasting 7 beats. 5. No significant pauses greater than 3 seconds. 6. Patient reports 6 episodes of symptoms of lightheadedness, irregular beats, heart beat, fluttering, chest pain which demonstrate 3 episodes in sinus rhythm, HR range 69-83 bpm and 3 episodes in SVT HR range 133-136 bpm.
== END 2025-05-23 09:48 | disposition home or self-care (01) ==
LOC: CHSCARD 09:48
PROVIDERS: PCP Family Medicine; Visit Provider Nurse Practitioner Family
DX: I10 Essential (primary) hypertension (principal); I49.9 Cardiac arrhythmia, unspecified
CPT/HCPCS: 93246; 93270

== ENCOUNTER 2025-06-13 15:55 | Emergency (ER) | payer MEDICARE, SELFPAY ==
[2025-06-13] VITALS (15 sets, daily range): BP systolic 139–171; BP diastolic 80–101; PULSE 59–82; RESP 9–21; TEMP 36.8; O2SAT 94–100
--- NOTE | ~2025-06-13 | XR_ITS ---
Clinical history:Palpitations EXAM:X-ray chest one view portable TECHNIQUE:A single AP portable upright frontal image of the chest was obtained. Comparisons:05/09/2025 FINDINGS: Cardiac mediastinal silhouette is moderately enlarged, unchanged. Generator projects over the mid thorax. No pneumothorax. Small left-sided pleural effusion. Small patchy opacities in the lower lungs, greater on the left. IMPRESSION: 1. Small left-sided pleural effusion. 2. Small patchy opacities in the lower lungs, greater on the left. Differential includes but is not limited to edema or pneumonia. If symptoms persist or worsen, consider a short-term follow-up study or chest CT imaging for further assessment. Reviewed, dictated and finalized at location Q. IMPRESSION: 1. Small left-sided pleural effusion. 2. Small patchy opacities in the lower lungs, greater on the left. Differential includes but is not limited to edema or pneumonia. If symptoms persist or worsen, consider a short-term follow-up study or chest C T imaging for further assessment.
--- NOTE | 2025-06-13 15:59 | ECG_ITS ---
Test Date: 2025-06-13 16:04:20 Measurements Intervals [place] Rate: 71 P: 72 [place]: 295 QRS: -42 QRSD: 105 T: 23 QT: 408 QTc: 446 Interpretive Statements SINUS RHTYHM WITH FIRST DEGREE AV BLOCK WITH ATRIAL AND VENTRICULAR PREMATURE COMPLEXES LEFT AXIS DEVIATION LEFT ATRIAL ENLARGEMENT POSSIBLE LEFT VENTRICULAR HYPERTROPHY CANNOT R/O SEPTAL INFARCT, AGE INDETERMINATE CONSIDER INFERIOR INFARCT, AGE INDETERMINATE BORDERLINE ST-T WAVE ABNORMALITY- ANTERIOR LEADS ABNORMAL ECG Compared to ECG 05/09/2025 11:29:06 NO SIGNIFICANT CHANGE Electronically Signed On 06-13-2025 16:13:06 CDT by John Ray D.O.
--- NOTE | 2025-06-13 16:09 | ED.GENADULT ---
HPI - General Adult General Chief complaint: Recheck/Abnormal Lab/Rx Stated complaint: abnormal holter monitor readings Time Seen by Provider: 06/13/25 16:09 Source: patient Mode of arrival: ambulatory Limitations: no limitations History of Present Illness HPI narrative: 84 years old white female referred to our emergency room by her family physician office because of abnormality in the Holter monitor reading. Patient had event Holter monitor on May 23, 2025 for 10 days, the monitor reading was 4 days ago and showed Occasional premature supraventricular complexes, 922 episodes of supraventricular tachycardia with fastest at 164 beats per minute and longest lasting 5 minutes and 39 seconds. There are 3 episodes of ventricular tachycardia with fastest at 164 beats per minute and longest lasting 7 Garth No significant pauses greater than 3 seconds. Other findings. Please look at the cardiology report. Patient is telling me that she had loop recorder so for the last 3 years. Currently patient is asymptomatic. Patient reports episodes of lightheadedness, palpitation for years. Patient denies any fever, chills, nausea, vomiting, chest pain, shortness of breath or palpitations arrival to the ED. Patient male model at [facility], Dr. Pride. Related Data Home Medications ?Medication ?Instructions ?Recorded ?Confirmed ?Last Taken ?Type magnesium oxide 400 mg PO DAILY 08/08/19 05/09/25 01/08/25 History qnapggnm-gmidzgi-sxii-lutein tablet 1 mcg PO DAILY 08/08/19 05/09/25 01/08/25 History metoprolol tartrate 25 mg tablet 37.5 mg PO TID 11/17/24 05/09/25 01/11/25 History omeprazole 40 mg capsule,delayed mg 06/13/25 Unknown History release Allergies Allergy/AdvReac Type Severity Reaction Status Date / Time Sulfa (Sulfonamide Allergy Intermediate Rash Verified 06/13/25 16:24 Antibiotics) Review of Systems Review of Systems: All systems reviewed & are unremarkable except as noted in HPI and below PMFSH Past Medical History Medical History Cardiac arrhythmia Osteoporosis Abnormality of heart beat Hypertension Stress fracture of sacrum Fracture of radial neck, right, closed Displaced fracture of neck of left radius Right wrist pain Injury of right hip Sciatica of right side Right hip pain Post-COVID chronic fatigue Skin rash Pre-op exam Left ankle pain Fatigue Personal history of other drug therapy Exposure to COVID-19 virus Colon polyp Epigastric pain Constipation Nausea and vomiting in adult Endometrial thickening on ultrasound RLQ abdominal pain Nicotine dependence in remission Skin cancer s/p surgical resection Breast cancer Paroxysmal supraventricular tachycardia Osteopenia Hyperlipidemia GARRETT (generalized anxiety disorder) Benign essential HTN Surgical History Surgical History H/O umbilical hernia repair 01/11/25 repair of umbilical hernia measuring 2.[address] Queen History of lumpectomy [address] Nicole 2009 History of thyroid surgery 2007 Dr. Johnston History of hernia repair x2 2003 Dr. Johnston H/O cataract extraction History of lung biopsy (~08/2018) Left History of appendectomy 2007 Dr. Johnston Family History Family History Mother Familial Alzheimer's disease of late onset Congestive heart failure Hypertension Heart disease History of blood clots Father Abnormality of heart beat Heart disease Acute myocardial infarction Social History Social History Smoking status: Never smoker Additional smoking assessment comments: socially only Alcohol intake: never Substance use: never Substance use type: does not use Do You Feel Safe in your Home?: Yes Lack of Transportation: No Lack of Food: Never True Current Housing: I Have Housing Concerned About Future Housing: No Difficulty Paying Gas/Electric Bills: No Difficulty Paying for Meds: No Currently Unemployed: No Education: Decline to Answer Difficulty w/ Childcare or Family Care: No Living arrangements: alone Additional living arrangements comments: Occupation/Education: retired Gender identity (if verbalized by the patient): Female Spiritual care concerns: No Exam Narrative: General appearance: Well-developed, well-nourished Skin: Normal color Head: Normocephalic, nontraumatic Eyes: Clear conjunctiva ENT: Oropharynx normal, ears normal, nose normal Neck: Supple, nontender Chest and respiratory: Airway patent, no respiratory distress, no accessory muscle use Heart: Irregular rhythm Abdomen: Soft, nontender, no organomegaly, quiet bowel sounds Vascular: Normal peripheral pulses, normal capillary refill. Musculoskeletal: Normal range of motion, nontender back Neurologic: Alert and oriented ?3, DOOR SERVICEMAN is normal as tested, no gross motor deficit Course Consultations Consultation #1: Dr. Pride who was notified about the reading of the Holter monitor on June 09, 2025 She reports that patient lobe recorder interrogation was April 2025 and was managed at that time by the electrophysiologic study physician. Dr. Pride office planning to reach out to the patient tomorrow for further evaluation. Date: 06/13/25 Time: 17:12 Vital Signs Vital signs: Vital Signs Temperature 36.8 C 06/13/25 15:55 Pulse Rate 75 06/13/25 15:55 Respiratory Rate 16 06/13/25 15:55 Blood Pressure 171/96 H 06/13/25 15:55 Pulse Oximetry 99 06/13/25 15:55 Oxygen Delivery Room Air 06/13/25 15:55 Temperature 36.8 C 06/13/25 15:55 Pulse Rate 66 06/13/25 18:01 Respiratory Rate 14 06/13/25 18:01 Blood Pressure 162/101 H 06/13/25 18:00 Pulse Oximetry 97 06/13/25 18:01 Oxygen Delivery Room Air 06/13/25 15:55 Medical Decision Making MDM Narrative Medical decision making narrative: Patient had a Holter monitor for 10 days, the cardiology report was 4 days ago, showed multiple abnormalities. Patient currently asymptomatic. Patient is telling me that she had history of palpitation for years. Vital signs showing blood pressure 171/96 otherwise within normal limit Physical examination showing asymptomatic patient, not in any pain or distress, heart exam showing irregular heartbeats, normal rate Blood workup today includes CBC, CMP and troponin showed no significant abnormalities Chest x-ray showed small left-sided pleural effusion, small patchy opacities in the lower lungs, nonspecific. EKG on arrival showed no significant abnormality compared to last EKG on May 09, 2025 Patient male model, Dr. Pride will contact patient tomorrow for further evaluation The pt was discharged to home.the pt,s condition upon discharge was fair,education was provided to the pt in reference to the final impression,discharge study results,treatment,prognosis and need for follow up . Vital Signs Vital Signs: Vital Signs Temperature 36.8 C 06/13/25 15:55 Pulse Rate 75 06/13/25 15:55 Respiratory Rate 16 06/13/25 15:55 Blood Pressure 171/96 H 06/13/25 15:55 Pulse Oximetry 99 06/13/25 15:55 Oxygen Delivery Room Air 06/13/25 15:55 Temperature 36.8 C 06/13/25 15:55 Pulse Rate 66 06/13/25 18:01 Respiratory Rate 14 06/13/25 18:01 Blood Pressure 162/101 H 06/13/25 18:00 Pulse Oximetry 97 06/13/25 18:01 Oxygen Delivery Room Air 06/13/25 15:55 Lab Data 06/13/25 17:11 06/13/25 17:11 Labs: Lab Results 06/13/25 Range/Units 17:11 WBC 5.5 (4.8-10.8) K/mm3 RBC 3.86 L (4.20-5.40) M/mm3 Hgb 10.9 L (11.7-13.8) g/dL Hct 33.9 L (35.0-42.0) % MCV 87.8 (78.0-102.0) fL MCH 28.2 (27.0-31.0) pg MCHC 32.2 (32-36) g/dL RDW 14.0 (11.6-14.4) % Plt Count 204 (150-420) K/mm3 MPV 9.3 (9.2-11.8) fl Immature Gran % (Auto) 0.2 H (0.0-0.0) % Neut % (Auto) 57.7 (50.0-70.0) % Lymph % (Auto) 26.8 (18.0-42.0) % Morrison % (Auto) 13.0 H (2.0-11.0) % Eos % (Auto) 1.8 (1.0-6.0) % Baso % (Auto) 0.5 (0.0-1.0) % Lymph # (Auto) 1.48 (1.10-4.50) K/mm3 Morrison # (Auto) 0.72 (0.10-0.90) K/mm3 Eos # (Auto) 0.10 (0.02-0.50) K/mm3 Baso # (Auto) 0.03 (0.00-0.10) K/mm3 Abs Immat Gran (auto) 0.01 H (0.00-0.00) K/mm3 Absolute Neuts (auto) 3.18 (1.70-7.20) K/mm3 Absolute Nucleated RBC 0.00 (0.00-0.00) K/mm3 Nucleated RBC % 0.0 (0-0.0) % Sodium 136 L (137-145) mmol/L Potassium 4.7 (3.4-5.0) mmol/L Chloride 97 L (98-107) mmol/L Carbon Dioxide 33 H (22-30) mmol/L Anion Gap 6 (4-12) mmol/L BUN 17 (7-17) mg/dL Creatinine 1.08 H (0.7-1.0) mg/dL Estim Creat Clear Calc 31 ml/min Estimated GFR 48 L (59 - ) Glucose 115 H (65-110) mg/dL Calculated Osmolality 284 L (285-295) mOsm/kg Calcium 9.3 (8.4-10.2) mg/dL Total Bilirubin 0.4 (0.2-1.3) mg/dL AST 36 (14-36) U/L ALT 20 (6-35) U/L Alkaline Phosphatase 48 (38-126) U/L Troponin I < 0.012 (0.000-0.034) ng/mL Total Protein 6.9 (6.3-8.2) g/dL Albumin 4.0 (3.5-5.1) g/dL Imaging Data Radiologist's impression: Impressions Chest X-Ray 06/13/25 17:31 IMPRESSION: 1. Small left-sided pleural effusion. 2. Small patchy opacities in the lower lungs, greater on the left. Differential includes but is not limited to edema or pneumonia. If symptoms persist or worsen, consider a short-term follow-up study or chest CT imaging for further assessment. ECG Data EKG #1: Attestation: I personally reviewed and interpreted this ECG as follows: ECG completion date: 06/13/25 Prior ECG tracings: available for review Interpretation: Sinus rhythm with first-degree heart block with atrial and ventricular premature complexes. Left axis deviation, left atrial enlargement, left ventricular hypertrophy can not rule out septal infarction, age indeterminate, consider inferior infarct, age indeterminate borderline ST T-wave abnormality abnormal EKG Critical Care Time Critical Care Time Critical Care Time: No Discharge Plan Discharge Clinical Impression: History of palpitations Patient Disposition: Home Condition: Stable Instructions: Heart Palpitations (DC) Patient Language: Sammarinese Prescriptions: No Action omeprazole 40 mg capsule,delayed release(DR/EC) magnesium oxide 400 mg magnesium tablet 400 mg PO DAILY nphnjsla-tvukmjj-kmmf-lutein Tablet 1 mcg PO DAILY metoprolol tartrate 25 mg tablet 37.5 mg PO TID calcium carbonate-vitamin D3 600 mg-10 mcg (400 unit) capsule 2 cap PO BIDWMEAL Qty: 180 2RF zoledronic ykju-hvxifzpr-dhfgv [Reclast] 5 mg/100 mL piggyback 1 ea IV .annually Qty: 100 0RF Rx Instructions: Due after 01/10/2022. Repeat yearly. Follow-up/Referrals: Puneet Farfan APRN [Primary Care Provider, Family Practice]
[2025-06-13 17:15] LABS: Hematocrit 33.9 % (35.0-42.0); Hemoglobin 10.9 g/dL (11.7-13.8); Immature Granulocyte Percent A 0.2 % (0.0-0.0); Lymphocytes Absolute Auto 1.48 K/mm3 (1.10-4.50); Mean Corpuscular HGB Conc 32.2 g/dL (32-36); Mean Corpuscular Hemoglobin 28.2 pg (27.0-31.0); Mean Corpuscular Volume 87.8 fL (78.0-102.0); Nucleated Red Blood Cells Absolute Auto 0.00 K/mm3 (0.00-0.00); Nucleated Red Blood Cells Perc 0.0 % (0-0.0); Platelet Count Result 204 K/mm3 (150-420); Red Blood Count 3.86 M/mm3 (4.20-5.40); White Blood Count 5.5 K/mm3 (4.8-10.8)
[2025-06-13 17:33] LABS: Alanine Aminotransferase 20 U/L (6-35); Albumin Level 4.0 g/dL (3.5-5.1); Alkaline Phosphatase 48 U/L (38-126); Anion Gap 6 mmol/L (4-12); Aspartate Amino Transferase 36 U/L (14-36); Bilirubin,Total 0.4 mg/dL (0.2-1.3); Blood Urea Nitrogen 17 mg/dL (7-17); Calcium 9.3 mg/dL (8.4-10.2); Carbon Dioxide 33 mmol/L (22-30); Chloride 97 mmol/L (98-107); Estimated CRCL calculation 31 ml/min; Estimated Glomerular Filt Rate 48; Glucose 115 mg/dL (65-110); Osmolality Calculated 284 mOsm/kg (285-295); Potassium 4.7 mmol/L (3.4-5.0); Sodium 136 mmol/L (137-145); Total Protein 6.9 g/dL (6.3-8.2)
[2025-06-13 17:45] LABS: Troponin I < 0.012 ng/mL (0.000-0.034)
--- OUTSIDE RECORDS SUMMARY | 2025-06-13 17:47 | XMS_ITS | Encounter Summary ---
Author Organization [facility] Address [address] [place] [address] Care Team Providers Care Tube Puller Name Role Phone Randa Maldonado APRN, NP-C Unavailable [phone] José Miguel Gore MD Unavailable [phone] Elliot Tran DO Primary Care Provider [phone] Randi Lopez Primary Care Provider [phone] Yung Henderson MD Unavailable [phone] Elliot Tran DO Unavailable [phone] Elliot Tran DO Primary Care Provider [phone] Martita Pride MD Unavailable Encounter Details Date Type Department Care Team (Late st Contact Info) Description 08/06/2018 Abstract [facility] [address] [place] [address] José Miguel Gore MD [address] [place] [address] Social History Tobacco Use Types Packs/Day Years [...] (Latest Contact Info) Description 06/27/2025 2:30 AM NUCLEAR REACTOR OPERATOR Allied Health/Nurse Visit [facility] [address] [place] [address] Yung Henderson MD [address] [place] [address] 12/18/2025 1:30 PM CDT Appointment [facility] [address] [place] [address] [place] [address] Martita Pride MD [address] [place] [address] 12/25/2025 9:15 AM CDT Office Visit [facility] [address] [facility] [address] Martita Pride MD [address] [place] [address] documented as of this encounter Procedures Procedure [...] on filedocumented in this encounter Care Teams Tube Puller Relationship Specialty Start Date End Date Elliot Tran DO [address] [place] [address] PCP - General FAMILY PRACTICE 09/13/20 06/08/22 Randi Lopez FNP [address] [place] [address] PCP - General NURSE PRACTITIONER 06/09/22 11/11/23 Elliot Tran DO [address] [place] [address] PCP - General FAMILY PRACTICE 11/12/23 Randa Maldonado APRN, ENTRY REP-C [address] [address] NURSE PRACTITIONER 04/26/18 02/20/24 José Miguel Gore MD [address] [place] [phone] [place] Manufacturing Process Engineer CARDIOVASCULAR DISEASE 10/26/18 02/20/24 Yung Henderson MD [address] [place] [address] EP Manufacturing Process Engineer CLINICAL CARDIAC ELECTROPHYSIOLOGY 06/11/22 Elliot Tran DO [address] [place] [address] FAMILY PRACTICE 09/02/22 Martita Pride MD [address] [place] [address] Consulting Physician CARDIOVASCULAR DISEASE 02/21/24 documented as of this encounter
--- OUTSIDE RECORDS SUMMARY | 2025-06-13 17:47 | XMS_ITS | Encounter Summary ---
Author Organization [facility] Healthcare Address [address] [place] [address] Care Team Providers Care Greaser And Oiler Name Role Phone Ilir Wahl MD Unavailable Cyril Zee MD Primary Care Provider [phone] Miscellaneous, Not In File Primary Care Provider Unavailable Randi Lopez TERRITORY SERVICE REPRESENTATIVE Primary Care Provide r Elliot Tran DO Primary Care Provider Encounter Details Date Type Department Care Team (Late st Contact Info) Description 09/20/2021 Telephone [facility] Radiation Oncology [address] [facility] [place] [address] Josie Torrez MA Social History Tobacco Use Types Packs/Day Years Used Date Smoking Tobacco: Never Smokeless Tobacco: Never Alcohol Use Standard Drinks/Week Comments No 0 (1 standard drink = 0.6 oz pur e alcohol) Comments No Sex and Gender Information Value Date Recorded Sex Assigned at Not on file 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:39 AM BULB GRADER Gender Identity Not on file Sexual Orientation Not on file documented as of this encounter Plan of Treatment Not on file documented as of this encounter Visit Diagnoses Not on filedocumented in this encounter Care Teams Greaser And Oiler Relationship Specialty Start Date End Date Cyril Zee MD [address] [facility] [address] [place], [place] [id number] PCP - General Obstetrics and Gynecology 11/30/20 10/15/21 Miscellaneous, Not In File PCP - General 10/16/21 10/20/21 Randi Lopez NP [address] [place] [address] PCP - General 10/21/21 10/14/22 Elliot Tran DO [address] [place] [address] PCP - General Family Medicine 10/15/22 Ilir Wahl MD [address] [facility] [address] [place] [address] Referring Physician Radiation Oncology 09/07/18 documented as of this encounter
--- OUTSIDE RECORDS SUMMARY | 2025-06-13 17:47 | XMS_ITS | Encounter Summary ---
Author Organization [facility] Address [address] [place] [address] Care Team Providers Care Laborer Petroleum Refinery Name Role Phone Randa Maldonado APRN, NP-C Unavailable José Miguel Gore MD Unavailable [phone] Randi Lopez STRAW HAT BRIM RAISER OPERATOR Primary Care Provider Yung Henderson MD Unavailable [phone] Elliot Tran DO Unavailable [phone] Elliot Tran DO Primary Care Provider [phone] Martita Pride MD Unavailable Encounter Details Date Type Department Care Team (Late st Contact Info) Description 09/25/2022 Hospital Orders Only [place] [facility] Chief Pre/Post [address] [place] [address] Yung Henderson MD [address] [place], [place] [address] Social History Tobacco Use Types Packs/Day Years [...] (Latest Contact Info) Description 06/27/2025 2:30 AM PAIL BAILER Allied Health/Nurse Visit [facility] [address] [place] [address] Yung Henderson MD [address] [place] [address] 12/18/2025 1:30 PM CDT Appointment [address] [place] [address] Martita Pride MD [address] [place] [address] 12/25/2025 9:15 AM CDT Office Visit [facility] [place] [address] Martita Pride MD [address] [place] [address] documented as of this encounter Visit Diagnoses Not on filedocumented in this encounter Care Teams Laborer Petroleum Refinery Relationship Specialty Start Date End Date Randi Lopez FNP [address] [place] [address] PCP - General NURSE PRACTITIONER 06/09/22 11/11/23 Elliot Tran DO [address] [place] [address] PCP - General FAMILY PRACTICE 11/12/23 Randa Maldonado APRN, B2B ACCOUNT EXECUTIVE-C [address] [facility] [address] [place] [address] NURSE PRACTITIONER 04/26/18 02/20/24 José Miguel Gore MD [address] [place] [address] [place] Software Developer CARDIOVASCULAR DISEASE 10/26/18 02/20/24 Yung Henderson MD [address] [place] [address] EP Software Developer CLINICAL CARDIAC ELECTROPHYSIOLOGY 06/11/22 Elliot Tran DO [address] [place] [address] FAMILY PRACTICE 09/02/22 Martita Pride MD [address] [place] [address] Consulting Physician CARDIOVASCULAR DISEASE 02/21/24 documented as of this encounter
--- OUTSIDE RECORDS SUMMARY | 2025-06-13 17:47 | XMS_ITS | Clinical Summary ---
Author Organization [facility] Address [address] [place] [address] Care Team Providers Care Content Creation Manager Name Role Phone Yung Henderson MD Unavailable [phone] Elliot Tran DO Unavailable [phone] Elliot Tran DO Primary Care Provider [phone] Martita Pride MD Unavailable Allergies Active Allergy [...] daily 30 tablet 6 11/18/2023 Active metoprolol tartrate (LOPRESSOR) 25 MG tablet TAKE ONE AND A HALF TABLETS BY MOUTH THREE TIMES A DAY 60 tablet 11 04/28/2025 Active Active Problems Problem Noted Date Diagnosed Date Implantable loop recorder present 09/14/2023 Syncope, unspecified syncope type 09/14/2023 PVC (premature ventricular contraction) 09/29/19 19 History of supraventricular tachycardia Hyperlipidemia Bradycardia Hypertension AV block Resolved Problems Problem Noted Date Diagnosed Date Resolved Date Pre-op evaluation 07/23/2018 04/27/2020 SVT (supraventricular tachycardia) 02/08/2023 Encounters Date Type Department Care Team Description 06/13/2025 Telephone [facility] [address] [place] [address] Martita Pride MD Information 05/10/2025 Orders Only [facility] [address] [place] [address] Martita Pride MD 05/09/2025 Telephone [facility] [address] [place] [address] Martita Pride MD Medication Information 05/02/2025 1:45 AM CDT Allied Health/Nurse Visit [facility] [address] [place] [address] Yung Henderson MD 03/14/2025 1:30 AM CDT Allied Health/Nurse Visit [facility] [address] [place] [address] Yung Henderson MD from Last 3 Months [...] 36.3 C (97.4 F) 09/30/2022 11:14 AM STRANDING SUPERVISOR Respiratory Rate 18 12/23/2024 9:17 AM CDT [...] (Latest Contact Info) Description 06/27/2025 2:30 AM STRANDING SUPERVISOR [facility] [address] [place] [address] Yung Henderson MD [address] [place] [address] 12/18/2025 1:30 PM CDT Appointment [facility] [address] [place] [address] Martita Pride MD [address] [place], [place] [address] 12/25/2025 9:15 AM CDT [facility] [address] [place] [address] Martita Pride MD [address] [place], [place] [address] Health Maintenance Due Date Last Done Comments DTaP, Tdap and Td Vaccines ( 1 - Tdap) 1957 Pneumococcal Vaccine: 50+ Years (1 of 1 - PCV) 1988 Zoster Vaccines (1 of 2) 1988 Annual Medicare Wellness Visit 2003 RSV Immunization or 60+ Years (1 - 1-dose 75+ series) 2013 COVID-19 Vaccine (4 - 2024-2 6 season) 2025 07/19/2021, 10/12/2020, 09/14/2020 Influenza Adult (#1) 2025 Hepatitis A Vaccines Aged Out No long er eligible based on patient's age to complete this topic Meningococcal B Vaccine Aged Out No l onger eligible based on patient's age to complete this topic Meningococcal Vaccine Aged Out No kecia ling eligible based on patient's age to complete this topic RSV Immunizations Under 20 Months Aged Out No longer eligible b ased on patient's age to complete this topic Medical Devices Implanted Type Area Pavilion Cutter Device Identifier Shelf Expiration Date Model / Serial / Lot Medtronic Linq Ii-09/30/2022 Implanted:Qt y: 1 on 09/30/2022 by Yung Henderson MD Implantable Loop Recorder Left: Pectoral [employer] 01/23/2024 [id number] / [id number] / Description:DX: [employer] Insurance MEDICARE BLUE CROSS BLUE SHIELD Advance Directives * Full Code (Latest Code Status on File) Date Activated Date Inactivated Comments 08/12/2018 2:43 PM 08/12/2018 7:28 PM Care Teams Content Creation Manager Relationship Specialty Start Date End Date Elliot Tran DO [address] [place] [address] PCP - General FAMILY PRACTICE 11/12/23 Yung Henderson MD [address] [place] [address] EP Angiography Technologist CLINICAL CARDIAC ELECTROPHYSIOLOGY 06/11/22 Elliot Tran DO [address] [place] [address] FAMILY PRACTICE 09/02/22 Martita Pride MD [address] [place] [address] Consulting Physician CARDIOVASCULAR DISEASE 02/21/24
--- OUTSIDE RECORDS SUMMARY | 2025-06-13 17:47 | XMS_ITS ---
Author Organization [facility] Address [address] [place] [address] Care Team Providers Care Direct Marketing Representative Name Role Phone Ilir Wahl MD Unavailable [...] (07/16/2018): Added automatically from request for surgery [id number] History of breast cancer 06/21/2018 Encounter for [...]
--- OUTSIDE RECORDS SUMMARY | 2025-06-13 17:47 | XMS_ITS | Encounter Summary ---
Author Organization [facility] Address [address] [place] [address] Phone Care Team Providers Care Transition Teacher Name Role Phone Ilir Wahl MD Unavailable [phone] Martín Block MD Primary Care Provider Cyril Zee MD Primary Care Provider [phone] Miscellaneous, Not In File Primary Care Provider [...] on file 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:39 AM FRATERNITY ADVISER Gender Identity Not on file Sexual Orientation [...] on filedocumented in this encounter Care Teams Transition Teacher Relationship Specialty Start Date End Date Martín Block MD [address] [place] [address] PCP - General 06/07/20 11/29/20 Cyril Zee MD [address] [place], [place] [address] PCP - General Obstetrics and Gynecology 11/30/20 10/15/21 Miscellaneous, Not In File PCP - General 10/16/21 10/20/21 Randi Lopez NP [address] [place] [address] PCP - General 10/21/21 10/14/22 Elliot Tran DO [address] [place] [address] PCP - General Family Medicine 10/15/22 Ilir Wahl MD [address] [place] [address] Referring Physician Radiation Oncology 09/07/18 documented as of this encounter
--- OUTSIDE RECORDS SUMMARY | 2025-06-13 17:47 | XMS_ITS | Patient Health Record ---
Author Organization [facility] Address [address] [place], [place] [address] Support Name Relationship Address Phone WILLIAMS ESCOBEDO Emergency Contact Unknown MARILEE ELLER Guarantor Unknown [phone] Reason For Referral No Information Social History Social History Additional Details Category Social Info Options Details Migrated Social History Migrated Social History Smoking Status : Former tobacco user , History of tobacco use : Plan Of Treatment No Information Insurance Providers Payer Name Payer Address Payer Phone Subscriber Number Group Number Insured Name Patient Relationship to Insured Coverage Start Date Coverage End Date Medicare Part B [place] [address] [place] [address] [id number] MARILEE ELLER Self - patient is the insured [facility] ([facility]) ATTN CLAIMS [address] [place] [address] [id number] MARILEE ELLER Self - patient is the insured
--- OUTSIDE RECORDS SUMMARY | 2025-06-13 17:47 | XMS_ITS | Encounter Summary ---
Author Organization [facility] Healthcare Address [address] [place] [address] Care Team Providers Care Bin Piler Name Role Phone Ilir Wahl MD Unavailable [phone] Brad Joyner MD Primary Care Provider [phone] Martín Block MD Primary Care Provider Cyril Zee MD Primary Care Provider [phone] Miscellaneous, Not In File Primary Care Provider Unavailable Randi Lopez NP Primary Care Provide r Elliot Tran DO Primary Care Provider Encounter Details Date Type Department Care Team (Late st Contact Info) Description 03/02/2020 Telephone [facility] Radiation Oncology [address] [facility] [place] [address] Josie Torrez MA Social History Tobacco Use Types Packs/Day Years Used Date Smoking Tobacco: Never Smokeless Tobacco: Never Alcohol Use Standard Drinks/Week Comments No 0 (1 standard drink = 0.6 oz pur e alcohol) Comments No Sex and Gender Information Value Date Recorded Sex Assigned at Not on file 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 Gender Identity Not on file Sexual Orientation Not on file documented as of this encounter Plan of Treatment Not on file documented as of this encounter Visit Diagnoses Not on filedocumented in this encounter Care Teams Bin Piler Relationship Specialty Start Date End Date Brad Joyner MD [address] [place] [address] PCP - General Family Medicine 12/10/18 06/06/20 Martín Block MD [address] [place] [address] PCP - General 06/07/20 11/29/20 Cyril Zee MD [address] [address] PCP - General Obstetrics and Gynecology 11/30/20 10/15/21 Miscellaneous, Not In File PCP - General 10/16/21 10/20/21 Randi Lopez NP [address] [place] [address] PCP - General 10/21/21 10/14/22 Elliot Tran DO [address] [place] [address] PCP - General Family Medicine 10/15/22 Ilir Wahl MD [address] [place] [address] Referring Physician Radiation Oncology 09/07/18 documented as of this encounter
--- OUTSIDE RECORDS SUMMARY | 2025-06-13 17:47 | XMS_ITS | Encounter Summary ---
Author Organization [facility] Healthcare Address [address] [place] [address] Care Team Providers Care Clay Pigeon Loader Name Role Phone Ilir Wahl MD Unavailable [phone] Martín Block MD Primary Care Provider Cyril Zee MD Primary Care Provider [phone] Miscellaneous, Not In File Primary Care Provider Unavailable Randi Lopez ACCOUNTING REPRESENTATIVE Primary Care Provide r Elliot Tran DO Primary Care Provider Encounter Details Date Type Department Care Team (Late st Contact Info) Description 2020 Telephone [facility] Advanced Medicine Radiation Oncology [address] [place] [address] Advanced Medicine [facility] [place] [address] Josie Torrez MA Social History Tobacco Use Types Packs/Day Years Used Date Smoking Tobacco: Never Smokeless Tobacco: Never Alcohol Use Standard Drinks/Week Comments No 0 (1 standard drink = 0.6 oz pur e alcohol) Comments No Sex and Gender Information Value Date Recorded Sex Assigned at Not on file 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 Gender Identity Not on file Sexual Orientation Not on file documented as of this encounter Plan of Treatment Not on file documented as of this encounter Visit Diagnoses Not on filedocumented in this encounter Care Teams Clay Pigeon Loader Relationship Specialty Start Date End Date Martín Block MD [facility] [address] [place] [address] PCP - General 06/07/20 11/29/20 Cyril Zee MD [address] [facility] [address] [place], [place] [address] PCP - General Obstetrics and Gynecology 11/30/20 10/15/21 Miscellaneous, Not In File PCP - General 10/16/21 10/20/21 Randi Lopez NP [address] [place] [address] PCP - General 10/21/21 10/14/22 Elliot Tran DO [address] [place] [address] PCP - General Family Medicine 10/15/22 Ilir Wahl MD [address] [place] [address] Referring Physician Radiation Oncology 09/07/18 documented as of this encounter
--- OUTSIDE RECORDS SUMMARY | 2025-06-13 17:47 | XMS_ITS | Encounter Summary ---
Author Organization [facility] Address [address] [place] [address] Care Team Providers Care Looping Inspector Name Role Phone Yung Henderson MD Unavailable [phone] Elliot Tran DO Unavailable [phone] Elliot Tran DO Primary Care Provider [phone] Martita Pride MD Unavailable Reason for Visit * Reason Onset Date Comments Information 06/13/2025 Encounter Details Date Type Department Care Team (Late st Contact Info) Description 06/13/2025 Telephone [facility] [address] [place] [address] Martita Pride MD [address] [place] [address] Information Social History Tobacco Use Types Packs/Day [...] as of this encounter Progress Notes * Izabella Scanlon RN - 06/13/2025 4:59 PM CDT Kaila at [facility] called and stated that pt has critical holter monitor result and Dr. Gaona would like to speak with Dr. Pride. DOC Halo'd Dr. Pride.Dr. Pride responded and call transferred to her extension. documented in this encounter Plan of Treatment Upcoming Encounters Date Type Department Care Team (Latest Contact Info) Description 06/27/2025 2:30 AM DIRECTOR TELEVISION NEWS [facility] [address] [place] [address] Yung Henderson MD [address] [place] [address] 12/18/2025 1:30 PM CDT Appointment [address] [place] [address] Martita Pride MD [address] [place], [place] [address] 12/25/2025 9:15 AM CDT Office Visit [facility] [place] [address] Martita Pride MD [address] [place], [place] [address] documented as of this encounter Visit Diagnoses Not on filedocumented in this encounter Care Teams Looping Inspector Relationship Specialty Start Date End Date Elliot Tran DO [address] [place] [address] PCP - General FAMILY PRACTICE 11/12/23 Yung Henderson MD [address] [place] [address] EP Accounting Technician CLINICAL CARDIAC ELECTROPHYSIOLOGY 06/11/22 Elliot Tran DO [address] [place] [address] FAMILY PRACTICE 09/02/22 Martita Pride MD [address] [place] [address] Consulting Physician CARDIOVASCULAR DISEASE 02/21/24 documented as of this encounter
--- OUTSIDE RECORDS SUMMARY | 2025-06-13 17:47 | XMS_ITS | Clinical Summary ---
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 Active oxyCODONE (ROXICODONE) 5 mg [...] (07/16/2018): Added automatically from request for surgery [id number] History of breast cancer 06/21/2018 Encounter for [...] on file 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:39 AM PROBLEM MANAGER Gender Identity Not on file Sexual Orientation Not on file Obstetrics History Last Filed Vital Signs Vital Sign Reading Time Taken Comments Blood Pressure 124/75 09/08/2024 2:05 PM PROBLEM MANAGER Pulse 60 09/08/2024 2:05 PM PROBLEM MANAGER Temperature 36.8 C (98.2 F) 09/08/2024 2:05 PM PROBLEM MANAGER Respiratory Rate 16 09/08/2024 2:05 PM PROBLEM MANAGER Oxygen Saturation 99% 09/08/2024 2:05 PM PROBLEM MANAGER Inhaled Oxygen Concentration - - Weight 64.9 kg (143 lb) 09/08/2024 2:05 PM PROBLEM MANAGER Height 167.6 cm (5' 6) 09/08/2024 2:05 PM PROBLEM MANAGER Body Mass Index 23.08 09/08/2024 2:05 PM PROBLEM MANAGER Plan of Treatment Health Maintenance Due Date [...] 09/14/2020 Influenza Vaccine (#1) 2025 Insurance MEDICARE [facility] MEDICARE SUPPLEMENT MEDICARE COMMERCIAL GENERIC [facility] MEDICARE BLUE CROSS MEDICARE SUPPLEMENT Advance Directives For more information, please contact: [phone] * Full Code (Latest Code Status on File) Date Activated Date Inactivated Comments 09/03/2018 11:25 AM 09/04/2018 4:52 PM Care Teams Computer Applications Developer Relationship Specialty Start Date End Date Elliot Tran DO [address] [place] [address] PCP - General Family Medicine 10/15/22 Ilir Wahl MD [address] [facility] [address] [place] [address] Referring Physician Radiation Oncology 09/07/18
--- OUTSIDE RECORDS SUMMARY | 2025-06-13 17:47 | XMS_ITS | Encounter Summary ---
Author Organization [facility] Address [address] [place] [address] Care Team Providers Care Mystery Shopper Name Role Phone Randa Maldonado APRN, NP-C Unavailable José Miguel Gore MD Unavailable [phone] Randi Lopez FORESTRY PILOT Primary Care Provider Yung Henderson MD Unavailable [phone] Elliot Tran DO Unavailable [phone] Elliot Tran DO Primary Care Provider [phone] Martita Pride MD Unavailable Encounter Details Date Type Department Care Team (Late st Contact Info) Description 12/03/2022 [facility] [address] [place] [phone] José Miguel Gore MD [address] [place] [address] Social History Tobacco Use Types Packs/Day Years [...] (Latest Contact Info) Description 06/27/2025 2:30 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 [facility] [address] [place] [address] Yung Henderson MD [address] [place] [address] 12/18/2025 1:30 PM CDT Appointment [address] [place] [address] Martita Pride MD [address] [place], [place] [address] 12/25/2025 9:15 AM CDT [facility] [place] [address] Martita Pride MD [address] [place], [place] [address] documented as of this encounter Visit Diagnoses Not on filedocumented in this encounter Care Teams Mystery Shopper Relationship Specialty Start Date End Date Randi Lopez FNP [address] [place] [address] PCP - General NURSE PRACTITIONER 06/09/22 11/11/23 Elliot Tran DO [address] [place] [address] PCP - General FAMILY PRACTICE 11/12/23 Randa Maldonado, DIRECTOR OUTPATIENT SERVICES, ELECTROPLATER HELPER-C [address] [place] [address] [address] [place] [address] NURSE PRACTITIONER 04/26/18 02/20/24 José Miguel Gore MD [address] [place] [address] [place] Sole Buffer CARDIOVASCULAR DISEASE 10/26/18 02/20/24 Yung Henderson MD [address] [place] [address] EP Sole Buffer CLINICAL CARDIAC ELECTROPHYSIOLOGY 06/11/22 Elliot Tran DO [address] [place] [address] FAMILY PRACTICE 09/02/22 Martita Pride MD [address] [place] [address] Consulting Physician CARDIOVASCULAR DISEASE 02/21/24 documented as of this encounter
== END 2025-06-13 18:36 | disposition home or self-care (01) ==
PROVIDERS: Emergency Provider Emergency Medicine; PCP Nurse Practitioner Family
DX: R00.2 Palpitations (principal); I10 Essential (primary) hypertension; E78.5 Hyperlipidemia, unspecified; Z85.828 Personal history of other malignant neoplasm of skin
CPT/HCPCS: 36415; 71045; 80053; 84484; 85025; 93005; 99284

== ENCOUNTER 2025-08-07 10:25 | Outpatient (CLI) | payer MEDICARE, SELFPAY ==
[2025-08-07 11:25] LABS: SARS-CoV-2 RNA PCR Negative (Negative)
--- OUTSIDE RECORDS SUMMARY | 2025-08-07 12:01 | XMS_ITS | Encounter Summary ---
Author Organization [facility] Healthcare Address [address] [place] [address] Care Team Providers Care Textile Technical Officer Name Role Phone Ilir Wahl MD Unavailable [phone] Martín Block MD Primary Care Provider Cyril Zee MD Primary Care Provider [phone] Miscellaneous, Not In File Primary Care Provider Unavailable Randi Lopez RESPIRATORY THERAPY TECHNICIAN Primary Care Provide r Elliot Tran DO Primary Care Provider Encounter Details Date Type Department Care Team (Late st Contact Info) Description 2020 Telephone [facility] Advanced Medicine Radiation Oncology [address] [place] [address] Advanced Medicine [facility] [place] [address] Josie Torrez MA Social History Tobacco Use Types Packs/Day Years Used Date Smoking Tobacco: Never Smokeless Tobacco: Never Alcohol Use Standard Drinks/Week Comments No 0 (1 standard drink = 0.6 oz pur e alcohol) Comments No Sex and Gender Information Value Date Recorded Sex Assigned at Not on file 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:39 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 Gender Identity Not on file Sexual Orientation Not on file documented as of this encounter Plan of Treatment Not on file documented as of this encounter Visit Diagnoses Not on filedocumented in this encounter Care Teams Textile Technical Officer Relationship Specialty Start Date End Date Martín Block MD [facility] [address] [place] [address] PCP - General 06/07/20 11/29/20 Cyril Zee MD [address] [facility] [address] [place], [place] [address] PCP - General Obstetrics and Gynecology 11/30/20 10/15/21 Miscellaneous, Not In File PCP - General 10/16/21 10/20/21 Randi Lopez NP [address] [place] [address] PCP - General 10/21/21 10/14/22 Elliot Tran DO [address] [place] [address] PCP - General Family Medicine 10/15/22 Ilir Wahl MD [address] [place] [address] Referring Physician Radiation Oncology 09/07/18 documented as of this encounter
--- OUTSIDE RECORDS SUMMARY | 2025-08-07 12:01 | XMS_ITS | Encounter Summary ---
Author Organization [facility] Healthcare Address [address] [place] [address] Care Team Providers Care Wildlife Refuge Specialist Name Role Phone Ilir Wahl MD Unavailable Cyril Zee MD Primary Care Provider [phone] Miscellaneous, Not In File Primary Care Provider Unavailable Randi Lopez ADMINISTRATIVE HEARING OFFICER Primary Care Provide r Elliot Tran DO Primary Care Provider Encounter Details Date Type Department Care Team (Late st Contact Info) Description 09/20/2021 Telephone [facility] Radiation Oncology [address] [facility] [place] [address] Josie Torrez MA Social History Tobacco Use Types Packs/Day Years Used Date Smoking Tobacco: Never Smokeless Tobacco: Never Alcohol Use Standard Drinks/Week Comments No 0 (1 standard drink = 0.6 oz pur e alcohol) Comments No Sex and Gender Information Value Date Recorded Sex Assigned at Not on file 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 Gender Identity Not on file Sexual Orientation Not on file documented as of this encounter Plan of Treatment Not on file documented as of this encounter Visit Diagnoses Not on filedocumented in this encounter Care Teams Wildlife Refuge Specialist Relationship Specialty Start Date End Date Cyril Zee MD [address] [facility] [address] [place], [place] [id number] PCP - General Obstetrics and Gynecology 11/30/20 10/15/21 Miscellaneous, Not In File PCP - General 10/16/21 10/20/21 Randi Lopez NP [address] [place] [address] PCP - General 10/21/21 10/14/22 Elliot Tran DO [address] [place] [address] PCP - General Family Medicine 10/15/22 Ilir Wahl MD [address] [facility] [address] [place] [address] Referring Physician Radiation Oncology 09/07/18 documented as of this encounter
--- OUTSIDE RECORDS SUMMARY | 2025-08-07 12:01 | XMS_ITS ---
Author Organization [facility] Address [address] [place] [address] Care Team Providers Care Lna Name Role Phone Ilir Wahl MD Unavailable [...] (07/16/2018): Added automatically from request for surgery [id number] History of breast cancer 06/21/2018 Encounter for [...]
--- OUTSIDE RECORDS SUMMARY | 2025-08-07 12:01 | XMS_ITS | Encounter Summary ---
Author Organization [facility] Address [address] [place] [address] Phone Care Team Providers Care Equipment Scheduler Name Role Phone Ilir Wahl MD Unavailable [phone] Martín Block MD Primary Care Provider Cyril Zee MD Primary Care Provider [phone] Miscellaneous, Not In File Primary Care Provider [...] on file 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:39 AM EDUCATION AND DEVELOPMENT MANAGER Gender Identity Not on file [...] on filedocumented in this encounter Care Teams Equipment Scheduler Relationship Specialty Start Date End Date Martín Block MD [address] [place] [address] PCP - General 06/07/20 11/29/20 Cyril Zee MD [address] [place], [place] [id number] PCP - General Obstetrics and Gynecology 11/30/20 10/15/21 Miscellaneous, Not In File PCP - General 10/16/21 10/20/21 Randi Lopez NP [address] [place] [address] PCP - General 10/21/21 10/14/22 Elliot Tran DO [address] [place] [address] PCP - General Family Medicine 10/15/22 Ilir Wahl MD [address] [place] [address] Referring Physician Radiation Oncology 09/07/18 documented as of this encounter
--- OUTSIDE RECORDS SUMMARY | 2025-08-07 12:01 | XMS_ITS | Clinical Summary ---
Author Organization [facility] Address [address] [place] [address] Care Team Providers Care Toxicology Teacher Name Role Phone Ilir Wahl MD Unavailable [phone] Elliot Tran DO Primary Care Provider Allergies Active Allergy Reactions Criticality Noted Date Comments Sulfamethoxazole-Trimethoprim Rash Medium 2018 Medications calcium carbonate-vitam in D3 1,250mg (500mg elemental) - 5 mcg (200 units) per tablet Take 2 tablets by mouth sales marketing coordinator before breakfast Active qobutcrs-kpk-WH -lycopen-lutein 0.4 mg-300 mcg- 250 mcg tablet Take 1 tablet by mouth sales marketing coordinator before breakfast Active metoprolol (LOPRESSOR) 50 mg tablet Take 1 tablet (50 mg total) by mouth 2 (two) times a day 0 8 Active omega-3 fatty acids-fish oil 684-1,200 mg capsule,delayed release(DR/EC) Take 1 tablet by mouth sales marketing coordinator before breakfast. Active magnesium gluconate 200 mg tablet Take 2 tablets (400 mg total) by mouth sales marketing coordinator before breakfast Active oxyCODONE (ROXICODONE) 5 [...] (07/16/2018): Added automatically from request for surgery [id number] History of breast cancer 06/21/2018 Encounter for [...] on file 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:39 AM REHABILITATION WORKER Gender Identity Not on file Sexual Orientation Not on file Last Filed Vital Signs Vital Sign Reading Time Taken Comments Blood Pressure 124/75 09/08/2024 2:05 PM REHABILITATION WORKER Pulse 60 09/08/2024 2:05 PM REHABILITATION WORKER Temperature 36.8 C (98.2 F) 09/08/2024 2:05 PM REHABILITATION WORKER Respiratory Rate 16 09/08/2024 2:05 PM REHABILITATION WORKER Oxygen Saturation 99% 09/08/2024 2:05 PM REHABILITATION WORKER Inhaled Oxygen Concentration - - Weight 64.9 kg (143 lb) 09/08/2024 2:05 PM REHABILITATION WORKER Height 167.6 cm (5' 6) 09/08/2024 2:05 PM REHABILITATION WORKER Body Mass Index 23.08 09/08/2024 2:05 PM REHABILITATION WORKER Plan of Treatment Health Maintenance Due Date [...] 09/14/2020 Influenza Vaccine (#1) 2025 Insurance MEDICARE [facility] MEDICARE SUPPLEMENT MEDICARE COMMERCIAL GENERIC Member Subscriber Plan / Payer (Ef fective 2018-Present) Name:Елена Lynn Member ID:[id number] Relation to Subscriber:Self Name:DAPHNIEЕЛЕНА BENEDICT Subscriber ID:[id number] Payer ID:[id number] Group ID:Not on file Type:COMMERCIAL Address: [place] [address] [facility] MEDICARE BLUE CROSS MEDICARE SUPPLEMENT Advance Directives For more information, please contact: [phone] * Full Code (Latest Code Status on File) Date Activated Date Inactivated Comments 09/03/2018 11:25 AM 09/04/2018 4:52 PM Care Teams Toxicology Teacher Relationship Specialty Start Date End Date Elliot Tran DO [address] [place] [address] PCP - General Family Medicine 10/15/22 Ilir Wahl MD [address] [facility] [address] [place] [address] Referring Physician Radiation Oncology 09/07/18
--- OUTSIDE RECORDS SUMMARY | 2025-08-07 12:01 | XMS_ITS | Encounter Summary ---
Author Organization [facility] Healthcare Address [address] [place] [address] Care Team Providers Care Avionics Shop Supervisor Name Role Phone Ilir Wahl MD Unavailable [phone] Brad Joyner MD Primary Care Provider [phone] Martín Block MD Primary Care Provider Cyril Zee MD Primary Care Provider [phone] Miscellaneous, Not In File Primary Care Provider Unavailable Randi Lopez NP Primary Care Provide r Elliot Tran DO Primary Care Provider Encounter Details Date Type Department Care Team (Late st Contact Info) Description 03/02/2020 Telephone [facility] Radiation Oncology [address] 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 Gender Identity Not on file Sexual Orientation Not on file documented as of this encounter Plan of Treatment Not on file documented as of this encounter Visit Diagnoses Not on filedocumented in this encounter Care Teams Avionics Shop Supervisor Relationship Specialty Start Date End Date Brad Joyner MD [address] [place] [address] PCP - General Family Medicine 12/10/18 06/06/20 Martín Block MD [address] [place] [address] PCP - General 06/07/20 11/29/20 Cyril Zee MD [address] [address] PCP - General Obstetrics and Gynecology 11/30/20 10/15/21 Miscellaneous, Not In File PCP - General 10/16/21 10/20/21 Randi Lopez NP [address] [place] [address] PCP - General 10/21/21 10/14/22 Elliot Tran DO [address] [place] [address] PCP - General Family Medicine 10/15/22 Ilir Wahl MD [address] [place] [address] Referring Physician Radiation Oncology 09/07/18 documented as of this encounter
--- OUTSIDE RECORDS SUMMARY | 2025-08-07 12:01 | XMS_ITS | Patient Health Record ---
Author Organization [facility] Address [address] [place], [place] [address] Support Name Relationship Address Phone [facility] Contact Unknown [phone] MARILEE ELLER Guarantor Unknown [phone] Reason For Referral No Information Social History [...] Date Coverage End Date Medicare Part B [place] [address] [place] [address] [id number] MARILEE ELLER Self - patient is the insured [facility] ([facility]) ATTN CLAIMS [address] [place] [address] [id number] MARILEE ELLER Self - patient is the insured
== END 2025-08-07 10:26 | disposition home or self-care (01) ==
LOC: CHSLAB 10:26
PROVIDERS: PCP Family Medicine; Visit Provider Family Medicine
DX: Z20.822 Contact with and (suspected) exposure to COVID-19 (principal)
CPT/HCPCS: 87635